=== PATIENT | female | born 1945 | race Caucasian/White ===

== ENCOUNTER 2019-04-03 13:45 | Inpatient (IN) | payer OTHER ==
[2019-04-03 14:35] LABS: Absolute Lymphocytes (CBC) 1.1 K/uL (0.7-4.9); Absolute Monocytes 1.2 K/uL (0.1-1.3); Absolute Neutrophil 12.1 K/uL (1.8-8.0); Basophils % 0.7 % (0-1.3); Eosinophils % 1.9 % (0-4.4); Hematocrit 36.4 % (36.0-45.0); Lymphocytes % 7.4 % (15.3-44.8); MPV 7.6 fL (7.6-11.3); RBC Red Blood Cell Count 3.94 M/uL (3.86-4.86)
--- NOTE | 2019-04-03 14:41 | RAD REPORT ---
EXAM DESCRIPTION: Nelson Timmons And Lat (2 Views)04/03/2019 2:32 pm CLINICAL HISTORY: Cough COMPARISON: April 02, 2019 FINDINGS: Mild left and moderate right pulmonary opacities are unchanged. A reticulonodular componen t of the opacities is seen. This may indicate an atypical infection. The heart is normal size IMPRESSION: Moderate right and mild left pneumonia unchanged from the prior exam
[2019-04-03 14:48] LABS: Potassium 3.5 mmol/L (3.5-5.1)
--- NOTE | 2019-04-03 14:58 | ER ---
Nurse's Notes [facility] Name: Danielle Grover Age: 73 yrs Sex: Female : 1945 Arrival Date: 04/03/2019 Time: 13:49 Bed 8 Private MD: Diagnosis: Pneumonia, unspecified organism Presentation: 04/03 13:52 Presenting complaint: states: She was sent here with me because her doctor sg called and told us to get to the ER for an evaluation due to the results of the chest xray she had last night, they think that she may have a pneumonia, pt states she feels tired and short of breath at rest that worsens with exertion, pt states has had fever off and on for several days. Transition of care: patient was not received from another setting of care. Onset of symptoms was April 03, 2019. Risk Assessment: Do you want to hurt yourself or someone else? Patient reports no desire to harm self or others. Initial Sepsis Screen: Does the patient meet any 2 criteria? RR > 20 per min. HR > 90 bpm. Yes Does the patient have a suspected source of infection? Yes: Productive cough/pneumonia. Care prior to arrival: None. 13:52 Method Of Arrival: Ambulatory 13:52 Acuity: BALJIT 3 sg Historical: - Allergies: 13:55 Codeine; sg - Home Meds: 13:55 Coreg Oral [Active]; Folic Acid Oral [Active]; Nexium Oral [Active]; Rheumatrex Oral sg [Active]; - PMHx: 13:55 CHF; GERD; Rheumatoid Arthritis; sg - PSHx: 13:55 Hysterectomy; mastoidectomy; hip replacement - right; cataract surgery - bilat; sg - Immunization history:: Adult Immunizations up to date. - Social history:: Smoking status: Patient/guardian denies using tobacco. - Ebola Screening: : Patient negative for fever greater than or equal to 101.5 degrees Fahrenheit, and additional compatible Ebola Virus Disease symptoms Patient denies exposure to infectious person Patient denies travel to an Ebola-affected area in the 21 days before illness onset No symptoms or risks identified at this time. Screenin:56 Abuse screen: Denies threats or abuse. Denies injuries from another. Nutritional ph screening: No deficits noted. Tuberculosis screening: No symptoms or risk factors identified. Fall Risk No fall in past 12 months (0 pts). No secondary diagnosis (0 pts). IV access (20 points). Ambulatory Aid- None/Bed Rest/Nurse Assist (0 pts). Gait- Weak (10 pts.). Mental Status- Oriented to own ability (0 pts). Total Mark Fall Scale indicates Low Risk Score (25-44 pts). Fall prevention measures have been instituted. Side Rails Up X 2 Family Present and informed to notify staff if they need to leave bedside As available Patient and Family Educated on Fall Prevention Program and strategies. Assessment: 14:00 General: Appears in no apparent distress. slender, well groomed, Behavior is ae3 cooperative, anxious. 14:01 Pain: Denies pain. Neuro: Level of Consciousness is awake, alert, obeys commands, ae3 Oriented to person, place, time, situation, Appropriate for age. Cardiovascular: Heart tones S1 S2 present Rhythm is regular. Respiratory: Airway is patent Respiratory effort is shallow, Respiratory pattern is regular, tachypnea Breath sounds are clear bilaterally. GI: Abdomen is round Patient currently denies diarrhea, vomiting. : No signs and/or symptoms were reported regarding the genitourinary system. EENT: No signs and/or symptoms were reported regarding the EENT system. Derm: Skin is diaphoretic, Skin is pale, Skin temperature is warm. Musculoskeletal: No signs and/or symptoms reported regarding the musculoskeletal system. 15:00 Reassessment: Patient appears in no apparent distress at this time. Patient and/or ph family updated on plan of care and expected duration. Pain level reassessed. Patient is alert, oriented x 3, equal unlabored respirations, skin warm/dry/pink. 15:54 Reassessment: Patient appears in no apparent distress at this time. Patient and/or ph family updated on plan of care and expected duration. Pain level reassessed. Patient is alert, oriented x 3, equal unlabored respirations, skin warm/dry/pink. Pt resting quietly, VSS, awaiting room assignment, SO at bedside. 17:00 Reassessment: Patient appears in no apparent distress at this time. No changes from ph previously documented assessment. Patient and/or family updated on plan of care and expected duration. Pain level reassessed. Patient is alert, oriented x 3, equal unlabored respirations, skin warm/dry/pink. 18:07 Reassessment: Patient appears in no apparent distress at this time. Patient and/or ph family updated on plan of care and expected duration. Pain level reassessed. Patient is alert, oriented x 3, equal unlabored respirations, skin warm/dry/pink. Pt resting quietly, awaiting room assignment, VSS, SO at bedside. 19:30 General: Appears in no apparent distress. Behavior is calm, cooperative, appropriate ea for age. Pain: Denies pain. Neuro: Level of Consciousness is awake, alert, obeys commands, Oriented to person, place, time, situation. Cardiovascular: Patient's skin is warm and dry. Respiratory: Airway is patent Respiratory effort is even, unlabored, Respiratory pattern is regular, symmetrical. GI: Abdomen is round. Derm: Skin is dry, Skin is pale, Skin temperature is warm. Musculoskeletal: No signs and/or symptoms reported regarding the musculoskeletal system. Vital Signs: 13:54 BP 102 / 72; Pulse 112; Resp 22; Temp 99.2; Pulse Ox 92% on R/A; Weight 59.87 kg; sg 15:00 BP 119 / 58; Pulse 101; Resp 18; Pulse Ox 98% on 2 lpm NC; ph 15:54 BP 94 / 56; Pulse 88; Resp 22; Pulse Ox 96% on 2 lpm NC; ph 17:00 BP 101 / 58; Pulse 87; Resp 18; Pulse Ox 97% on 2 lpm NC; ph 18:06 BP 99 / 54; Pulse 92; Resp 18; Pulse Ox 95% on 2 lpm NC; ph 19:32 BP 106 / 50; Pulse 88; Resp 19; Pulse Ox 97% on 2 lpm NC; ea 19:36 Temp 98.7; ea ED Course: 13:49 Patient arrived in ED. mr 13:54 Triage completed. sg 13:54 Arm band placed on. sg 13:55 Shantell Wadsworth FNP-C [facility]. kb 13:55 Nathan Mariano MD is Attending Physician. kb 13:56 Patient has correct armband on for positive identification. Bed in low position. Call ph light in reach. Side rails up X 1. Pulse ox on. NIBP on. Door closed. Noise minimized. 14:28 Diane Lobato RN is Primary Nurse. ph 14:28 Initial lab(s) drawn, by me, sent to lab. Flu and/or RSV swab sent to lab. Inserted ph saline lock: 20 gauge in right antecubital area, using aseptic technique. Blood collected. 14:33 Chest Pa And Lat (2 Views) XRAY In Process Unspecified. EDMS 14:58 Harjit Batres MD is Hospitalizing Provider. kb 19:58 No provider procedures requiring assistance completed. Patient admitted, IV remains in ca1 place. Administered Medications: 14:58 Drug: NS 0.9% 500 ml Route: IV; Rate: bolus; Site: right antecubital; ph 15:57 Follow up: Response: No adverse reaction; IV Status: Completed infusion; IV Intake: ph 500ml 14:58 Not Given (Physician Discretion): Zithromax 500 mg PO once kb 14:59 Drug: Rocephin 1 grams Route: IV; Rate: calculated rate; Site: right antecubital; ph 15:57 Follow up: Response: No adverse reaction; IV Status: Completed infusion ph 15:10 Drug: Zithromax 500 mg Route: IVPB; Infused Over: 1 hrs; Site: right antecubital; ph 16:09 Follow up: Response: No adverse reaction; IV Status: Completed infusion ph Intake: 15:57 IV: 500ml; Total: 500ml. ph Outcome: 14:58 Decision to Hospitalize by Provider. kb 19:50 Admitted to Med/surg accompanied by tech, room 221, Report called to Receiving nurse ea on second floor. 19:50 Condition: stable 19:50 Instructed on the need for admit. 20:04 Patient left the ED. ca1 Signatures: Dispatcher [employer] EDMS Shantell Wadsworth, HARLEY MILLERP-Deo Mcguire, RN NICHOLAS Laura SiddiquiDiane RN RN ph Antunez, Elena, RN RN ea Acob, Cheryl, RN RN ca1 Elliot, Andie ae3
--- NOTE | 2019-04-03 14:58 | EDPHYS ---
Physician Documentation [facility] Name: Danielle Grover Age: 73 yrs Sex: Female : 1945 Arrival Date: 04/03/2019 Time: 13:49 Bed 8 Private MD: ED Physician Nathan Mariano HPI: 04/03 15:16 This 73 yrs old Female presents to ER via Ambulatory with complaints of kb Pneumonia. 15:17 The patient or guardian reports cough, that is intermittent, described as moderate, kb with no sputum, flu symptoms, low-grade fever, myalgias. Onset: The symptoms/episode began/occurred 7 day(s) ago. Severity of symptoms: At their worst the symptoms were moderate, in the emergency department the symptoms are unchanged. Modifying factors: The symptoms are alleviated by nothing, the symptoms are aggravated by nothing. Associated signs and symptoms: Pertinent positives: fever, Pertinent negatives: chest pain, diarrhea, ear ache, nausea, rhinorrhea, sore throat, vomiting. The patient has not experienced similar symptoms in the past. The patient has been recently seen at an urgent care, yesterday. Pt reports she was diagnosed with the flu by Dr Bruner 7 days ago and given tamiflu. Still running fevers of 103 so went to yesterday. Had x-ray done and diagnosed with pneumonia. Started amoxicillin yesterday. Today was running 103 again so she came to get re-evaluated. States "I've never been sick for this long". Historical: - Allergies: 13:55 Codeine; sg - Home Meds: 13:55 Coreg Oral [Active]; Folic Acid Oral [Active]; Nexium Oral [Active]; Rheumatrex Oral sg [Active]; - PMHx: 13:55 CHF; GERD; Rheumatoid Arthritis; sg - PSHx: 13:55 Hysterectomy; mastoidectomy; hip replacement - right; cataract surgery - bilat; sg - Immunization history:: Adult Immunizations up to date. - Social history:: Smoking status: Patient/guardian denies using tobacco. - Ebola Screening: : Patient negative for fever greater than or equal to 101.5 degrees Fahrenheit, and additional compatible Ebola Virus Disease symptoms Patient denies exposure to infectious person Patient denies travel to an Ebola-affected area in the 21 days before illness onset No symptoms or risks identified at this time. ROS: 15:16 ENT: Negative for injury, pain, and discharge, Neck: Negative for injury, pain, and kb swelling, Cardiovascular: Negative for chest pain, palpitations, and edema, Abdomen/GI: Negative for abdominal pain, nausea, vomiting, diarrhea, and constipation, Back: Negative for injury and pain, MS/Extremity: Negative for injury and deformity, Skin: Negative for injury, rash, and discoloration, Neuro: Negative for headache, weakness, numbness, tingling, and seizure. 15:16 Constitutional: Positive for body aches, chills, fever, malaise, Negative for poor PO intake, weight loss. 15:16 Respiratory: Positive for cough, Negative for dyspnea on exertion, hemoptysis, orthopnea, pleurisy, shortness of breath, sputum production, wheezing. Exam: 15:14 Constitutional: This is a well developed, well nourished patient who is awake, alert, kb and in no acute distress. Head/Face: Normocephalic, atraumatic. ENT: Nares patent. No nasal discharge, no septal abnormalities noted. Tympanic membranes are normal and external auditory canals are clear. Oropharynx with no redness, swelling, or masses, exudates, or evidence of obstruction, uvula midline. Mucous membranes moist. Neck: Trachea midline, no thyromegaly or masses palpated, and no cervical lymphadenopathy. Supple, full range of motion without nuchal rigidity, or vertebral point tenderness. No Meningismus. Chest/axilla: Normal chest wall appearance and motion. Nontender with no deformity. No lesions are appreciated. Cardiovascular: Regular rate and rhythm with a normal S1 and S2. No gallops, murmurs, or rubs. Normal PMI, no JVD. No pulse deficits. Abdomen/GI: Soft, non-tender, with normal bowel sounds. No distension or tympany. No guarding or rebound. No evidence of tenderness throughout. Skin: Warm, dry with normal turgor. Normal color with no rashes, no lesions, and no evidence of cellulitis. MS/ Extremity: Pulses equal, no cyanosis. Neurovascular intact. Full, normal range of motion. Neuro: Awake and alert, GCS 15, oriented to person, place, time, and situation. Cranial nerves II-XII grossly intact. Motor strength 5/5 in all extremities. Sensory grossly intact. Cerebellar exam normal. Normal gait. 15:14 Respiratory: the patient does not display signs of respiratory distress, Respirations: normal, Breath sounds: decreased breath sounds, that are mild, are located in both bases. Vital Signs: 13:54 BP 102 / 72; Pulse 112; Resp 22; Temp 99.2; Pulse Ox 92% on R/A; Weight 59.87 kg; sg 15:00 BP 119 / 58; Pulse 101; Resp 18; Pulse Ox 98% on 2 lpm NC; ph 15:54 BP 94 / 56; Pulse 88; Resp 22; Pulse Ox 96% on 2 lpm NC; ph 17:00 BP 101 / 58; Pulse 87; Resp 18; Pulse Ox 97% on 2 lpm NC; ph 18:06 BP 99 / 54; Pulse 92; Resp 18; Pulse Ox 95% on 2 lpm NC; ph 19:32 BP 106 / 50; Pulse 88; Resp 19; Pulse Ox 97% on 2 lpm NC; ea 19:36 Temp 98.7; ea MDM: 13:55 Patient medically screened. kb 14:57 Data reviewed: vital signs, nurses notes. Data interpreted: Pulse oximetry: on room air kb is 92 %. Interpretation: borderline. Counseling: I had a detailed discussion with the patient and/or guardian regarding: the historical points, exam findings, and any diagnostic results supporting the discharge/admit diagnosis, lab results, radiology results, the need for further work-up and treatment in the hospital. Physician consultation: Harjti Batres MD was contacted at 14:57, regarding admission, to the telemetry unit. patient's condition, and will see patient in ED, shortly. 04/03 14:08 Order name: CBC with Diff; Complete Time: 15:11 kb 04/03 14:08 Order name: Basic Metabolic Panel; Complete Time: 14:50 kb 04/03 14:08 Order name: Blood Culture Adult (2) kb 04/03 14:08 Order name: Lactate; Complete Time: 14:51 kb 04/03 14:08 Order name: Procalcitonin; Complete Time: 15:11 kb 04/03 14:08 Order name: Flu; Complete Time: 14:54 kb 04/03 14:08 Order name: IV Start; Complete Time: 14:32 kb 04/03 14:08 Order name: Chest Pa And Lat (2 Views) XRAY; Complete Time: 14:42 kb 04/03 14:41 Order name: Manual Differential; Complete Time: 15:11 EDMS Administered Medications: 14:58 Drug: NS 0.9% 500 ml Route: IV; Rate: bolus; Site: right antecubital; ph 15:57 Follow up: Response: No adverse reaction; IV Status: Completed infusion; IV Intake: ph 500ml 14:58 Not Given (Physician Discretion): Zithromax 500 mg PO once kb 14:59 Drug: Rocephin 1 grams Route: IV; Rate: calculated rate; Site: right antecubital; ph 15:57 Follow up: Response: No adverse reaction; IV Status: Completed infusion ph 15:10 Drug: Zithromax 500 mg Route: IVPB; Infused Over: 1 hrs; Site: right antecubital; ph 16:09 Follow up: Response: No adverse reaction; IV Status: Completed infusion ph Disposition: 04/03/19 14:58 Hospitalization ordered by Harjit Batres for Inpatient Admission. Preliminary diagnosis is Pneumonia, unspecified organism. - Bed requested for Telemetry/MedSurg (Inpatient). - Status is Inpatient Admission. ca1 - Condition is Stable. - Problem is new. - Symptoms are unchanged. UTI on Admission? No Addendum: 04/06/2019 21:16 Co-signature as Attending Physician, Nathan Mariano MD Available for consultation at p s1 all times. . Signatures: Dispatcher [employer] EDUT Shantell Wadsworth, MATHEMATICS DEPARTMENT CHAIR-C MATHEMATICS DEPARTMENT CHAIR-Ckb Deo Lenz RN RN Leatha Luque RN RN Diane Lobato RN RN Nathan Mariano MD MD [facility] Fernanda Whaley RN RN ca1 Corrections: (The following items were deleted from the chart) 04/03 18:18 14:58 Hospitalization Ordered by Harjit Batres MD for Inpatient Admission. Preliminary ss diagnosis is Pneumonia, unspecified organism. Bed requested for Telemetry/MedSurg (Inpatient). Status is Inpatient Admission. Condition is Stable. Problem is new. Symptoms are unchanged. UTI on Admission? No. kb 20:04 18:18 04/03/2019 14:58 Hospitalization Ordered by Harjit Batres MD for Inpatient ca1 Admission. Preliminary diagnosis is Pneumonia, unspecified organism. Bed requested for Telemetry/MedSurg (Inpatient). Status is Inpatient Admission. Condition is Stable. Problem is new. Symptoms are unchanged. UTI on Admission? No. ss
[2019-04-03 15:04] LABS: Blood Morphology Comment NOT SEEN (NOT SEEN); Platelet Estimate INCR
[2019-04-03] MEDS ORDERED: NA CHLORIDE 0.9% 500 ML ONE (15:04)
[2019-04-03] MEDS ORDERED: CEFTRIAXONE/SWI 1gm 1 GM/10 ML SYR ONE (15:04)
[2019-04-03] MEDS ORDERED: AZITHROMYCIN 250 MG TAB ONE (15:04)
[2019-04-03] MEDS ORDERED: NA CHLORIDE 0.9% 250 ML ONE (15:15)
[2019-04-03] MEDS ORDERED: AZITHROMYCIN 500 MG INJ IVPB ONE (15:15)
--- NOTE | 2019-04-03 18:24 | P.INFCA ---
Sepsis Focused Assessment - Sepsis Screen Result Severe Sepsis: Negative Septic Shock: Negative - Vital Signs Reviewed: Yes - Examination Heart: Regular rate/rhythm, S1, S2 Lungs: Diminished air movement, Rhonchi, Respiratory distress Peripheral pulses: 2+ Slightly diminished Peripheral pulse location: Pedal Capillary refill: >2 Seconds Skin examination: Pale
[2019-04-03 19:59] VITALS: BMI 20.5
[2019-04-03] MEDS ORDERED: NA CHLORIDE 0.9% 1,000 ML IV SCH (20:21)
[2019-04-03] MEDS ORDERED: ONDANSETRON 4 MG/2 ML VIAL IV PRN (20:21)
[2019-04-03] MEDS ORDERED: ALBUTEROL 2.5 MG/3 ML NEB SOL NEB PRN (20:21)
[2019-04-03] MEDS: ACETAMINOPHEN 500 MG TAB PO PRN (23:11)
--- NOTE | 2019-04-04 01:12 | HP ---
Date of Admission: 04/03/2019 Primary Care Physician: Dr. Bruner. Chief Complaint: Shortness of breath and cough. Code Status: Full. The patient has a designated medical power of disability attorney and living well. History Of Present Illness: The patient is a 73-year-old female with past medical history of congest velasquez heart failure, rheumatoid arthritis, large cell lymphoma status post chemotherapy, gastroesophage al reflux disease, hypertension, hyperlipidemia, who was in her usual state of health until one week prior to admission when the patient was diagnosed with influenza. The patient was treated with Tamif tonia, subsequently continued to have high-grade fevers, chills along with rigors and had a cough with s putum production. The patient went to Urgent Care, had an x-ray and was found to have pneumonia. patient was started on amoxicillin, however, her condition did not improve. Therefore, came into t he ER for further evaluation. The patient's symptoms are constant, moderate, progressively worsening . In the ER, her workup revealed a white count of 14,000 with left shift, procalcitonin was elevated at 0.51, kidney function was also elevated. Influenza screen was negative; however, chest x-ray did show moderate right and mild left pneumonia, unchanged from April 02. The patient was given IV antib iotics and referred for admission. When seen in the ER, she was awake, alert, oriented x3, in some m ild distress. 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 Past Surgical History: The patient has had cataract surgery, mastoiditis on the left, right hip repl acement, surgery on her foot. Allergies: CODEINE. Medications: List reviewed. Social History: The patient denies any tobacco use, alcohol use, or illicit drug use. The patient i s , independent in her activities of daily living. Does not use any assistive ambulatory micaela bharti. Family History: Mother of colon cancer. Hypertension also runs in the family. Father had stro ke. Review of Systems: An 11-point system reviewed and negative except as per HPI. Physical Examination: Vital Signs: Blood pressure 102/72, pulse 112, respirations 22, temperature 99.2, O2 92% on room air . General: Awake, alert, oriented x3. Some mild distress. Ill-appearing female, elderly. HEENT: Normocephalic, atraumatic. PERRLA. EOMI. Dry mucous membranes. Oropharynx is clear. Conj unctivae anicteric. Neck: Supple. No JVD. Trachea midline. CV: S1, S2. Sinus tachycardia. Peripheral pulses present. No murmurs. Respiratory: Diminished breath sounds. Rhonchi heard. The patient is tachypneic. No use of access ory muscles. No stridor. Gastrointestinal: Abdomen is soft, nontender, nondistended. Positive bowel sounds. No guarding or rigidity. No palpable masses. Extremities: No clubbing, cyanosis, or edema. No calf tenderness. Neurologic: Cranial nerves II through XII intact grossly. No focal neurological deficit. Speech is normal. Strength is 5/5 bilateral upper and lower extremities. Sensation intact to light touch. Psychiatric: Mood is okay. Affect is full. Insight and judgment are good. Skin: No rashes. Normal skin turgor. Laboratory Data: Sodium 134, potassium 3.5, chloride 99, CO2 29, BUN 22, creatinine 1.33, glucose 12 8, lactate 1.2, calcium 8.9, procalcitonin 0.51. WBC 14.7, H and H 12.3/36.4, platelets 407, neutrop hils 82%. Influenza screen is negative. Chest x-ray shows moderate right and mild left pneumonia, u nchanged from prior exam on April 02, 2019. Assessment: A 73-year-old female with: 1.Post influenza pneumonia. The patient has moderate opacities bilaterally. We will start on IV an tibiotics and obtain blood cultures and sputum cultures. The patient is immunocompromised, is on bio logics for her rheumatoid arthritis. 2.Sepsis. The patient has elevated white count of 14,000, blood pressure as low as 80s systolic, ta chypneic, tachycardic at rate of 112. The patient has already been bolused with normal saline, has r eceived 750 mL. We will proceed with another 250 mL bolus. Cultures have been obtained. Lactate is negative. Procalcitonin is elevated. We will start on sepsis bundle. We will remain cautious with fluids as the patient has history of congestive heart failure to avoid volume overload. 3.The patient also has organ dysfunction, elevated creatinine with acute kidney injury. 4.Acute kidney injury, likely due to sepsis and acute dehydration. Continue with IV fluids and kait tor. 5.Chronic systolic heart failure. We will continue on sodium restricted diet. Monitor I's and O's, daily weights. We will hold off on blood pressure medications at this time due to hypotension. 6.History of essential hypertension, currently hypotensive. Hold BP medications. 7.Hyperlipidemia. Continue statin. 8.Rheumatoid arthritis, generalized. We will hold off on biologics at this time, stable. 9.Deep venous thrombosis prophylaxis with Lovenox renally dosed. Plan: Admit the patient to Med/Surg, place as inpatient. Length Of Stay: Greater than 2 midnights. /FELIPE Voice ID: [id number]
[2019-04-04 02:10] LABS: Urine Appearance CLEAR; Urine Bilirubin NEGATIVE (NEG); Urine Blood NEGATIVE (NEG); Urine Color YELLOW; Urine Glucose NEGATIVE (NEG); Urine Protein 1+ (NEG); Urine Specific Gravity 1.015 (1.005-1.030)
[2019-04-04] MEDS ORDERED: CEFTRIAXONE 1000 MG/VIAL ONE (02:18)
[2019-04-04] MEDS ORDERED: NA CHLORIDE 0.9% 50 ML ONE (02:19)
[2019-04-04 02:33] LABS: Urine Microscopic Reflex ORDER UMIC
[2019-04-04 02:58] LABS: Urine Bacteria <20 /HPF (<20); Urine RBC <5 /HPF (NONE SEEN)
[2019-04-04 02:59] LABS: Urine Culture Reflex Order REFLEXED
[2019-04-04] MEDS ORDERED: CEFTRIAXONE 1 GM/NS 50 ML 1 GM/50 ML BAG IV SCH (03:00)
[2019-04-04 05:49] LABS: Absolute Lymphocytes (CBC) 1.1 K/uL (0.7-4.9); Absolute Monocytes 1.2 K/uL (0.1-1.3); Absolute Neutrophil 10.3 K/uL (1.8-8.0); Basophils % 0.3 % (0-1.3); Lymphocytes % 8.8 % (15.3-44.8); MPV 7.6 fL (7.6-11.3); Monocytes % 9.2 % (3.3-12.3); RBC Red Blood Cell Count 3.55 M/uL (3.86-4.86)
[2019-04-04 06:31] LABS: Albumin 2.3 g/dL (3.4-5.0); Bilirubin Total 0.3 mg/dL (0.2-1.0); Potassium 3.5 mmol/L (3.5-5.1)
[2019-04-04] MEDS ORDERED: ENOXAPARIN 30 MG/0.3 ML SQ SCH (09:00)
[2019-04-04] MEDS ORDERED: ALBUTEROL 2.5 MG/3 ML NEB SOL NEB PRN (09:00)
[2019-04-04] MEDS: AZITHROMYCIN IV 500 MG in NA CHLORIDE 0.9% 250 ML IVPB SCH (09:13)
[2019-04-04] MEDS: CEFTRIAXONE/SWI 1gm 1 GM/10 ML SYR IV SCH ×2 (09:14→20:39)
[2019-04-04] MEDS: ENOXAPARIN 40 MG/0.4 ML SQ SCH (12:00)
[2019-04-04] MEDS: GUAIFENESIN/DM 5 ML UCUP PO PRN ×2 (12:37→17:57)
[2019-04-04] MEDS: ACETAMINOPHEN 500 MG TAB PO PRN (12:37)
[2019-04-04 14:46] LABS: Absolute Lymphocytes (CBC) 1.2 K/uL (0.7-4.9); Absolute Monocytes 0.7 K/uL (0.1-1.3); Absolute Neutrophil 10.6 K/uL (1.8-8.0); Basophils % 0.6 % (0-1.3); Eosinophils % 0.9 % (0-4.4); Lymphocytes % 9.5 % (15.3-44.8); MPV 7.5 fL (7.6-11.3); Monocytes % 5.4 % (3.3-12.3); RBC Red Blood Cell Count 3.55 M/uL (3.86-4.86)
[2019-04-04 15:04] LABS: Albumin 2.4 g/dL (3.4-5.0); Bilirubin Total 0.3 mg/dL (0.2-1.0); Potassium 3.2 mmol/L (3.5-5.1); Protein, Total 6.3 g/dL (6.4-8.2)
--- NOTE | 2019-04-04 15:55 | PN ---
Date of Progress Note: 04/04/2019 Subjective: The patient is seen and examined. Chart reviewed and case discussed with RN. The patie nt still states that she is having some generalized malaise. The patient's cough is increased with s cant sputum production. at the bedside, treatment plan explained and all questions answered. Medications: List reviewed. Physical Examination: Vital Signs: Temperature 99.5, heart rate 101, blood pressure 110/58, respirations 20, O2 91% on 2 L via nasal cannula. General: Awake, alert, oriented x3. Elderly female, ill-appearing, frail. CV: S1 and S2. Sinus tachycardia. Peripheral pulses present. Respiratory: Diminished breath sounds. Rhonchi heard. The patient is slightly tachypneic. Gastrointestinal: Abdomen is soft, nontender, nondistended. Positive bowel sounds. Extremities: No clubbing, cyanosis, or edema. Neurologic: Nonfocal. Laboratory Data: Sodium 139, potassium 3.5, chloride 105, CO2 28, BUN 11, creatinine 0.85, glucose 8 9, calcium 8.3, magnesium 2, albumin 2.3. WBC 12.9, H and H 11 and 33, platelets 387. Blood culture s pending. Sputum culture and urine culture also pending. Assessment And Plan: A 73-year-old female with: 1.Sepsis, improving. The patient's blood pressure is now in the low 100s. The patient is still tac hycardic. The patient received boluses and was on IV fluids, need to be cautious due to her history of congestive heart failure. Cultures are still pending. The patient has been having low-grade feve rs. 2.Post influenza pneumonia. We will recheck two-view chest x-ray in a.m. Continue antibiotics for now. Follow up on cultures. 3.Acute kidney injury secondary to sepsis. 4.Acute dehydration. Kidney function is normalized. We will discontinue IV fluids. 5.Chronic systolic heart failure. Monitor I's and O's and daily weights. The patient currently hyp otensive. We will hold off on diuretics. Sodium restricted diet. 6.History of essential hypertension, currently hypotensive. Hold BP medications. 7.Mixed hyperlipidemia. Continue statin. 8.Rheumatoid arthritis, generalized. Hold immunologic at this time due to acute infection. 9.Deep venous thrombosis prophylaxis with Lovenox. We will adjust dose as kidney function has impro mayuri. Plan: Likely discharge in the next 24-48 hours depending on clinical response. /FELIPE Voice ID: [id number] Report ID: [id number]
[2019-04-04] MEDS: FOLIC ACID 1 MG TABLET PO SCH ×2 (16:02→20:38)
--- NOTE | 2019-04-04 16:48 | RAD REPORT ---
EXAM DESCRIPTION: RAD - Chest Single View - 04/04/2019 4:04 pm CLINICAL HISTORY: Tachycardia, tachypnea COMPARISON: April 03, 2019 TECHNIQUE: AP portable chest image was obtained 1600 hours . FINDINGS: Lung volume is decreased compared to the prior study. Anterior right base pneumonia is sti ll present without substantial interval change. Patchy left opacification stable as well. No failure or volume overload suspected. Heart and vasculature are normal. No measurable pleural effusion and no pneumothorax. No acute bony abnormality seen. No acute aortic findings suspected. IMPRESSION: Pneumonia changes remain pattern not significantly different from prior day study.
[2019-04-04] MEDS: NA CHLORIDE 0.9% 1,000 ML IV SCH (17:56)
[2019-04-04] MEDS ORDERED: LOTEPREDNOL ETABONATE EACH EYE SCH (21:00)
[2019-04-05 06:03] LABS: Absolute Lymphocytes (CBC) 1.1 K/uL (0.7-4.9); Absolute Monocytes 0.8 K/uL (0.1-1.3); Absolute Neutrophil 7.9 K/uL (1.8-8.0); Basophils % 0.8 % (0-1.3); Eosinophils % 1.5 % (0-4.4); Hematocrit 33.2 % (36.0-45.0); MPV 7.3 fL (7.6-11.3); Monocytes % 8.4 % (3.3-12.3); RBC Red Blood Cell Count 3.55 M/uL (3.86-4.86)
[2019-04-05 06:14] LABS: ALT/SGPT 53 U/L (12-78); AST/SGOT 61 U/L (15-37); Albumin 2.3 g/dL (3.4-5.0); Alkaline Phosphatase 137 U/L (45-117); BUN Blood Urea Nitrogen 6 mg/dL (7-18); Bicarbonate 25 mmol/L (21-32); Bilirubin Total 0.3 mg/dL (0.2-1.0); Glucose Level 97 mg/dL (74-106); Potassium 3.5 mmol/L (3.5-5.1); Protein, Total 6.1 g/dL (6.4-8.2); Sodium Level 142 mmol/L (136-145)
--- NOTE | 2019-04-05 08:36 | RAD REPORT ---
EXAM DESCRIPTION: RAD - Chest Pa And Lat (2 Views) - 04/05/2019 8:25 am CLINICAL HISTORY: pneumonia Chest pain. COMPARISON: Chest Single View dated 04/04/2019; Chest Pa And Lat (2 Views) dated 04/03/2019; Chest Pa An d Lat (2 Views) dated 04/02/2019; CHEST PA AND LAT 2 VIEW dated 02/02/2016 FINDINGS: Airspace opacity in right upper lobe anteriorly appears mildly progressive since the taco rative study, compatible with right-sided pneumonia. Small right pleural effusion is present. The lef t lung is emphysematous. The heart is normal in size. No displaced fractures.
[2019-04-05] MEDS: AZITHROMYCIN IV 500 MG in NA CHLORIDE 0.9% 250 ML IVPB SCH (11:36)
[2019-04-05] MEDS: ENOXAPARIN 40 MG/0.4 ML SQ SCH (11:38)
[2019-04-05] MEDS: FOLIC ACID 1 MG TABLET PO SCH ×2 (11:38→21:50)
[2019-04-05] MEDS: CEFTRIAXONE/SWI 1gm 1 GM/10 ML SYR IV SCH ×2 (11:40→21:00)
[2019-04-05] MEDS ORDERED: FUROSEMIDE 40 MG/4 ML VIAL IV ONE (14:56)
[2019-04-05] MEDS: NA CHLORIDE 0.9% 1,000 ML IV SCH (16:20)
[2019-04-05] MEDS: ACETAMINOPHEN 500 MG TAB PO PRN (16:21)
[2019-04-05] MEDS: GUAIFENESIN/DM 5 ML UCUP PO PRN (16:22)
--- NOTE | 2019-04-05 19:14 | PN ---
Date of Progress Note: 04/05/2019 Subjective: The patient was seen and examined, chart reviewed and case discussed with RN. The patie nt is still having some low-grade fevers. Complains of generalized weakness, now complaining of pleu ritic chest pain. Medications: List reviewed. Physical Examination: Vital Signs: Temperature 99.7, heart rate 91, blood pressure 115/58, respirations 20, O2 96% on room air. General: Awake, alert, oriented x3. Elderly female, ill appearing. CV: S1, S2. Regular rate and rhythm. Peripheral pulses present. Respiratory: Diminished breath sounds, right worse than left. No stridor. No use of accessory musc les. Gastrointestinal: Abdomen is soft, nontender, nondistended. Positive bowel sounds. Extremities: No clubbing, cyanosis, or edema. Neurologic: Nonfocal. Laboratory Data: Sodium 142, potassium 3.5, chloride 110, CO2 25, BUN 6, creatinine 0.6, glucose 97, calcium 8.6, AST 61, ALT 53, alkaline phosphatase 137, albumin 2.3. WBC 10, H and H 11 and 33.2, pl atelets 401. Blood cultures show no growth to date. Sputum culture shows no growth. Chest x-ray pe rsonally reviewed shows opacity in the right upper lobe anteriorly, appears mildly progressive since comparative study. Right small pleural effusion is present. Left lung is emphysematous, no displace d fractures. Assessment: A 73-year-old female with: 1.Sepsis, improving. Blood pressure now stabilized in the one-teens. The patient is no longer tach ycardic. The patient did receive IV fluids, however, now discontinued due to history of CHF and wors ening chest x-ray showing pleural effusion. Continues to have low-grade fevers. Cultures are negati ve to date. 2.Post-influenza pneumonia. The patient is immunocompromised due to her immunologic therapy for rhe umatoid arthritis. Continue antibiotics. We will follow up on final culture results, improving, wea n off O2. 3.Acute kidney injury, secondary to sepsis. 4.Acute dehydration, improved, IV fluids discontinued due to congestive heart failure. 5.Chronic systolic heart failure. We will continue to monitor I's and O's. Fluid restriction and s odium restriction. 6.Right pleural effusion. We will give dose of Lasix. 7.History of essential hypertension, currently hypotensive. We will hold blood pressure medications . 8.Mixed hyperlipidemia. We will continue statin. 9.Rheumatoid arthritis. Hold DMARDs for now. 10.Deep venous thrombosis prophylaxis with Lovenox. Plan: Continue antibiotics, follow up on cultures, likely discharge in the next 24-48 hours dependin g on clinical response. MARTHA Voice ID: [id number] Report ID: [id number]
[2019-04-06] MEDS: GUAIFENESIN/DM 5 ML UCUP PO PRN (02:29)
[2019-04-06 05:18] LABS: Absolute Lymphocytes (CBC) 1.2 K/uL (0.7-4.9); Absolute Monocytes 0.6 K/uL (0.1-1.3); Basophils % 0.2 % (0-1.3); Eosinophils % 2.1 % (0-4.4); Hematocrit 32.6 % (36.0-45.0); Lymphocytes % 11.7 % (15.3-44.8); MPV 7.4 fL (7.6-11.3); Monocytes % 6.1 % (3.3-12.3); RBC Red Blood Cell Count 3.55 M/uL (3.86-4.86)
[2019-04-06 05:47] LABS: ALT/SGPT 85 U/L (12-78); AST/SGOT 89 U/L (15-37); Albumin 2.3 g/dL (3.4-5.0); Alkaline Phosphatase 128 U/L (45-117); BUN Blood Urea Nitrogen 6 mg/dL (7-18); Bicarbonate 25 mmol/L (21-32); Bilirubin Total 0.4 mg/dL (0.2-1.0); Glucose Level 101 mg/dL (74-106); Potassium 3.2 mmol/L (3.5-5.1); Protein, Total 6.2 g/dL (6.4-8.2); Sodium Level 141 mmol/L (136-145)
[2019-04-06] MEDS: CEFTRIAXONE/SWI 1gm 1 GM/10 ML SYR IV SCH (09:00)
[2019-04-06 09:15] VITALS: TEMP 98.3
[2019-04-06] MEDS: FOLIC ACID 1 MG TABLET PO SCH (09:26)
[2019-04-06] MEDS: ENOXAPARIN 40 MG/0.4 ML SQ SCH (09:27)
[2019-04-06] MEDS: AZITHROMYCIN IV 500 MG in NA CHLORIDE 0.9% 250 ML IVPB SCH (09:28)
[2019-04-06] MEDS: NA CHLORIDE 0.9% 1,000 ML IV SCH (10:00)
[2019-04-06 11:17] VITALS: O2SAT 97
--- NOTE | 2019-04-06 13:52 | P.DS ---
Admission Date: 04/03/19 Discharge Date: 04/06/19 Primary Care Provider: Dr. Bruner Disposition: ROUTINE DISCHARGE Discharge Condition: GOOD Reason for Admission: Pneumonia Brief History of Present Illness: The patient is a 73-year-old female with past medical history of congestive heart failure, rheumatoid arthritis, large cell lymphoma status post chemotherapy, gastroesophageal reflux disease, hypertension, hyperlipidemia, who was in her usual state of health until one week prior to admission when the patient was diagnosed with influenza. The patient was treated with Tamiflu, subsequently continued to have high-grade fevers, chills along with rigors and had a cough with sputum production. The patient went to Urgent Care, had an x- ray and was found to have pneumonia. The patient was started on amoxicillin, however, her condition did not improve. Therefore, came into the ER for further evaluation. The patient's symptoms are constant, moderate, progressively worsening. In the ER, her workup revealed a white count of 14, 000 with left shift, procalcitonin was elevated at 0.51, kidney function was also elevated. Influenza screen was negative; however, chest x-ray did show moderate right and mild left pneumonia, unchanged from April 02. The patient was given IV antibiotics and referred for admission. When seen in the ER, she was awake, alert, oriented x3, in some mild distress. Hospital Course: Patient was admitted to the med/surg floor for sepsis and post influenza pneumonia. She was started on IV antibiotics, IVF. She continued to have low grade fevers but her blood pressure and vital signs stabilized. Her blood cultures remained negative. Her repeat chest x-ray was positive for right pleural effusion. Her IVF were discontinued and she was given a one time dose of IV lasix. Her VIANEY, likely secondary to sepsis resolved with IVF. Her blood pressure medications were held at admission due to her low blood pressures. Her immunologic agent was held due to acute infection. She was recommended to hold immunologic agent at discharge until she sees her primary care physician. Prior to discharge, she was alert oriented x3, in no acute distress and hemodynamically stable. She was tolerating oral diet, was satting well on room air and her labs were stable. She remained afebrile for almost 24 hr. She wanted to go home. She was discharged on oral azithromycin to complete a 10 day course. She will follow up with her primary care physician in 2-3 days. ER precautions were provided to the patient. Her treatment plan and diagnoses were explained in detail. All questions were answered and patient verbalized understanding. She was discharged home in a stable manner. Vital Signs/Physical Exam: Temp Pulse Resp BP Pulse Ox 98.3 F 94 H 18 130/63 95 04/06/19 08:00 04/06/19 08:00 04/06/19 08:00 04/06/19 08:00 04/06/19 08:00 General: Alert, In no apparent distress, Oriented x3 HEENT: Atraumatic, PERRLA, EOMI Neck: Supple, JVD not distended Respiratory: Clear to auscultation bilaterally, Normal air movement Cardiovascular: Regular rate/rhythm, Normal S1 S2 Gastrointestinal: Normal bowel sounds, No tenderness Musculoskeletal: No tenderness Integumentary: No rashes Neurological: Normal speech, Normal tone, Normal affect Lymphatics: No axilla or inguinal lymphadenopathy Laboratory Data at Discharge: WBC 10.0 K/uL (4.3-10.9) 04/06/19 04:58 Hgb 11.3 g/dL (12.0-15.0) L 04/06/19 04:58 Hct 32.6 % (36.0-45.0) L 04/06/19 04:58 Plt Count 456 K/uL (152-406) H 04/06/19 04:58 Sodium 141 mmol/L (136-145) 04/06/19 04:58 Potassium 3.2 mmol/L (3.5-5.1) L 04/06/19 04:58 BUN 6 mg/dL (7-18) L 04/06/19 04:58 Creatinine 0.61 mg/dL (0.55-1.3) 04/06/19 04:58 Glucose 101 mg/dL (74-106) 04/06/19 04:58 Magnesium 2.0 mg/dL (1.8-2.4) 04/04/19 05:20 Total Bilirubin 0.4 mg/dL (0.2-1.0) 04/06/19 04:58 AST 89 U/L (15-37) H 04/06/19 04:58 ALT 85 U/L (12-78) H 04/06/19 04:58 Alkaline Phosphatase 128 U/L (45-117) H 04/06/19 04:58 Home Medications: Carvedilol [Coreg*] 6.25 mg PO BID 04/03/19 Folic Acid 1 mg PO BID 04/03/19 Furosemide [Lasix*] 20 mg PO DAILY 04/03/19 Loteprednol Etabonate [Lotemax] 1 drop EACH EYE BID 04/03/19 Potassium Chloride 550 gm PO DAILY 04/03/19 Valsartan [Diovan*] 40 mg PO DAILY 04/03/19 Azithromycin Tab [Zithromax*] 250 mg PO DAILY #8 tab 04/06/19 New Medications: Azithromycin Tab [Zithromax*] 250 mg PO DAILY #8 tab Patient Discharge Instructions: Please follow up with the primary care physician in 2-3 days. New medication: Azithromycin common antibiotics. Please return to the emergency room for worsening symptoms. Diet: AHA Activity: Ad brandan Followup: Edgardo Bruner MD [Primary Care Provider] - 2-3 Days Time spent managing pt's care (in minutes): 55
[2019-04-06 14:39] VITALS: BP 130/58
== END 2019-04-06 16:10 | disposition home or self-care (01) | DRG 871 ==
LOC: ER 13:45 → ERHOLD 15:20 → 2ND 19:43
PROVIDERS: ADMIT Family Medicine; ATTEND Family Medicine
DX: A41.9 Sepsis, unspecified organism (principal); J18.9 Pneumonia, unspecified organism; N17.9 Acute kidney failure, unspecified; I50.22 Chronic systolic (congestive) heart failure; I11.0 Hypertensive heart disease with heart failure; E78.2 Mixed hyperlipidemia; M06.9 Rheumatoid arthritis, unspecified; K21.9 Gastro-esophageal reflux disease without esophagitis; Z85.72 Personal history of non-Hodgkin lymphomas; Z92.21 Personal history of antineoplastic chemotherapy; Z88.5 Allergy status to narcotic agent
CPT/HCPCS: 36415; 71045; 71046; 80048; 80053; 81003; 81015; 83605; 83735; 84145; 85025; 87040; 87086; 87088; 87804; 94760; 96365; 96367; 97116; 97161; 97530; 99285; J0456; J0696; J1650; J1940; J7030

== ENCOUNTER 2020-07-21 14:58 | Emergency (ER) | payer OTHER ==
--- OUTSIDE RECORDS SUMMARY | 2020-07-21 15:00 | XMS REPORT | Summary of Care ---
:1945 Author Organization [facility] - Health Address [address] [place] [address] Care Team Providers Name Role Phone Pcp, Patient Does Not Have A Primary Care Provider +1-000-00 0-0000 Encounter Details Date Type Department Care Team Description 05/11/2020 Orders Only [facility] Doctor Unassigned, No [address] [facility] [place] [address] [address] [place] [address] Allergies Active Allergy Reactions Severity Noted Date Comments Codebonnie Hives 03/09/2020 documented as of this encounter (statuses as of 05/22/2020) Medications Medication Sig Dispensed Refills Start Date End Date Status traMADol 50 mg tablet 0 03/06/2020 Active carvediloL 6.25 mg 0 01/26/2020 Active tablet furosemide 40 mg tablet 0 01/03/2020 Active leucovorin 5 mg tablet TAKE 1 TABLET BY 0 01/21/2020 Active MOUTH EVERY WEEK levothyroxine 25 mcg TAKE 1 TABLET BY 0 02/14/2020 Active tablet MOUTH EVERY DAY IN THE MORNING ON EMPTY STOMACH methotrexate 2.5 mg TAKE 6 TABLETS BY 0 01/27/2020 Active tablet MOUTH EVERY WEEK pravastatin 10 mg 0 02/07/2020 A ctive tablet KCL 10 mEq tablet 0 03/04/2020 A ctive documented as of this encounter (statuses as of 05/22/2020) Active Problems Not on filedocumented as of this encounter (statuses as of 05/22/2020) Social History Tobacco Use Types Packs/Day Years Used Date Never Smoker Smokeless Tobacco: Never Used Alcohol Use Drinks/Week oz/Week Comments Never Alcohol Habits Answer Date Recorded How often do you have a drink containing alcohol? Never 03/09/2020 How many drinks containing alcohol do you have on a typical Not asked day when you are drinking? How often do you have six or more drinks on one occasion? No t asked Sex Assigned at Date Recorded Not on file Job Start Date Occupation Industry Not on file Not on file Not on file Travel History Travel Start Travel End No recent travel history available. documented as of this encounter Last Filed Vital Signs Not on filedocumented in this encounter Plan of Treatment Health Maintenance Due Date Last Done Comments HEPATITIS C (HCV) SCREEN 1945 DTaP,Tdap,and Td Vaccines (1 - Tdap) 1957 Depression Screening 1958 Breast Cancer Screening (MAMMOGRAM) 1986 COLONOSCOPY 1996 Zoster Recombinant Vaccine (SHINGRIX) (1 of 2) 1996 Medicare Wellness Visit 2011 Osteoporosis Screening 2011 PNEUMOCOCCAL VACCINES 65+ (1 of 2 - PCV13) 2011 INFLUENZA VACCINE (Season Ended) 2020 documented as of this encounter Procedures Procedure Name Priority Date/Time Associated Diagnosis Comme nts REFERRAL- Routine 05/11/2020 12:01 AM CDT REQUEST/RESPONSE documented in this encounter Results Not on filedocumented in this encounter Insurance Payer Benefit Plan Subscriber ID Effective Phone Address Typ e / Group Dates AETNA - AETNA [id number] 2019-Prese P O BOX Medic are Adv [place]NAGED MEDICARE [place] nt [id number] [place] [address] documented as of this encounter
--- OUTSIDE RECORDS SUMMARY | 2020-07-21 15:00 | XMS REPORT | Continuity of Care Document ---
:1945 Author Organization [facility] t Address [address] [place] [address] Care Team Providers Name Role Phone Doctor Unassigned, Name Attending Clinician Unavailable Evgeny LEMUS S Attending Clinician AJ Attending Clinician Unavailable Problems Condition Condition Condition Status Onset Resolution Last Treating Co mments Source Name Details Category Date Date Treatment Clinician Date History of History of Problem Resolve [facility] breast breast d ity of cancer cancer [place] [facility] Sleep Sleep Problem Active Univers disturbanc disturbanc it y of es es [place] [facility] Sjogrens Sjogrens Problem Active Unive rs syndrome syndrome ity of [place] [facility] ans Rheumatoid Rheumatoid Problem Active U nivers arthritis arthritis ity of [place] [facility] ans Status Status Problem Active Univers post total post total it y of replac[place] t of right t of right Ph ysici hip hip ans History of History of Problem Resolve Univers Lymphoma, Lymphoma, d ity of large large [place] cell, cell, Physici intrapelvi intrapelvi an s c lymph c lymph nodes nodes Rheumatoid Rheumatoid Problem Active U nivers arthritis arthritis [place] involving involving [place] right knee right knee Ph ysici with with ans positive positive rheumatoid rheumatoid factor factor Allergies, Adverse Reactions, Alerts Allergy Allergy Status Severity Reaction(s) Onset Inactive Treating Comm ents Source Name Type Date Date Clinician Codeine drug Active Univers Derivati allergy ity of ves [place] [facility] ans Family History Family Member Diagnosis Comments Start Date Stop Date Source Mother Family history of Univers ity of [place] thyroid disease Physician s Mother Family history of Univers ity of [place] Colon cancer Physicians Father Family history of Univers ity of [place] hypertension Physicians Social History Smoking Status Start Date Stop Date Source Never smoker [facility] Physicians Medications Ordered Filled Start Stop Current Ordering Indication Dosage Frequency Signature Comments Components Source Medication Medication Date Date Medication? Clinician (SIG) Name Name traMADol traMADol 2010-12 Yes GINA CONTE TAKE 1 Univers HCl - 50 MG HCl - 50 MG 1-14 M.D. TABLET ity of Oral Tablet Oral Tablet 00:00: EVERY 12 [place] 00 HOURS Physici NEEDED. ans Methotrexat Methotrexat Yes GINA CONTE 8 TAKE 8 Univers e 2.5 MG e 2.5 MG M.D. TABLET ity o f Oral Tablet Oral Tablet WEEKLY [place] [facility] ans Folic Acid Folic Acid Yes GINA CONTE 2 QD TAKE 2 Univers 1 MG Oral 1 MG Oral M.D. TABLET ity of Tablet Tablet DAILY [place] [facility] ans Metaxalone Metaxalone Yes GINA CONTE Q0.3333D TAKE 1 Univers 800 MG Oral 800 MG Oral M.D. TABLET 3 ity of Tablet Tablet TIMES [place] DAILY Physici NEEDED FOR ans MUSCLE SPASM. tiZANidine tiZANidine Yes GINA CONTE TAKE 2 Univers HCl - 4 MG HCl - 4 MG M.D. TABLETS AT ity of Oral Tablet Oral Tablet BEDTIME. [place] [facility] ans Lasix 20 MG Lasix 20 MG Yes U nivers Oral Tablet Oral Tablet i ty of [place] [facility] ans Restasis Restasis Yes Univers 0.05 % 0.05 % ity of Ophthalmic Ophthalmic Henrry as Emulsion Emulsion Physici ans Aspirin 81 Aspirin 81 Yes 1 QD TAKE 1 U nivers MG TABS MG TABS TABLET ity of DAILY. [place] [facility]ici ans Coreg CR 20 Coreg CR 20 Yes 1 TAKE 1 Univers MG Oral MG Oral CAPSULE ity of Capsule Capsule BEDTIME [place] Extended Extended Physici Release 24 Release 24 ans Hour Hour Enalapril Enalapril Yes 1 QD TAKE 1 Uni vers Maleate Maleate TABLET ity of TABS TABS DAILY. [place] [facility] ans Evoxac 30 Evoxac 30 Yes 1 QD TAKE 1 Uni vers MG Oral MG Oral CAPSULE ity of Capsule Capsule DAILY [place] [facility] ans Lasix 20 MG Lasix 20 MG Yes 1 QD TAKE 1 Univers Oral Tablet Oral Tablet TABLET ity of DAILY. [place] [facility]ici ans NexIUM 40 NexIUM 40 Yes 1 Q0.5D TAKE 1 Un dennis MG Oral MG Oral CAPSULE ity of Capsule Capsule TWICE [place] Delayed Delayed DAILY Physici Release Release ans Potassium Potassium Yes 1 QD TAKE 1 Uni vers TABS TABS TABLET ity of DAILY. [place] [facility] ans Vitamin D3 Vitamin D3 Yes 1 QD TAKE 1 U nivers 50 MCG 50 MCG CAPSULE ity of (1999) (1999) DAILY [place] Oral Oral Physici Capsule Capsule ans Procedures Procedure Date / Time Performing Clinician Source Performed [U] XRAY KNEE 3 VWS 2019-12-23 00:00:00 [facility] RIGHT [id number] Physicians History of Total Hip [facility] Replacement Right Physicians History of Cataract [facility] [place] [facility]icians History of Breast [facility] Surgery Mastectomy Physicians History of Bunion [facility] Correction By Double Physicians Osteotomy History of Hysterectomy [facility] Physicians Encounters Start End Encounter Admission Attending Care Care Encounter Source Date/Time Date/Time Type Type Clinicians Facility Department ID 2020-05-11 2020-05-11 Orders Doctor KELLY [id number] 00:00:00 00:00:00 Only Unassigned, ANISA [id number] [place] [facility] [id number] 2020-04-13 2020-04-13 Orders Doctor KELLY [id number] 00:00:00 00:00:00 Only Unassigned, ANISA [id number] [place] [facility] [id number] 2020-03-14 2020-03-14 Telephone [facility] [id number] 00:00:00 00:00:00 [facility] [id number] Surgical [id number] Specialti [id number] [address] [place] 2020-03-10 2020-03-10 Telephone [facility] [id number] 00:00:00 00:00:00 [facility] [id number] Surgical [id number] Specialti [id number] [address] [place] 2020-03-09 2020-03-09 [facility] [id number] 09:35:00 23:59:00 Encounter [facility] [id number] Surgical [id number] Specialti [id number] es [address] [place] 2020-03-09 2020-03-09 [facility] [id number] 09:34:08 09:49:08 Visit [facility] [id number] Surgical [id number] Specialti [id number] es [address] [place] 2020-01-07 2020-01-07 Appoint[facility] [id number] Univers 10:45:00 10:45:00 t; CARROLL ROCHA, at [facility] Kavon Starkey M.D. Orthopedic Physi ci and Spine [facility] 2019-12-24 2019-12-24 REZA Her[facility] [id number] Univers 10:30:00 10:30:00 t; CARROLL ROCHA [facility] Kavon Starkey M.D. Orthopedic Physi ci and Spine [facility] 2019-01-21 2019-01-21 REZA Herrera [facility] [id number] Univers 13:30:00 13:30:00 t; CARROLL ROCHA, Ortho and it Chepe M.D. Spine S Lin mcmahon M.D. Medical Physici [place] [facility] 2017-06-05 2017-06-05 REZA Herrera [id number] Univers 10:30:00 10:30:00 t; CARROLL ROCHA ity of JONATHAN, M.D. [place] M.D. Physici ans 2017-05-12 2017-05-12 REZA Herrera [facility] [id number] Univers 13:00:00 13:00:00 t; CARROLL ROCHA ity of [place], M.D. [place] M.D. Physici ans Results Test Description Test Time Test Comments Results Result Sour e Comments [U] XRAY KNEE 3 2019-12-24 Images Universit y of VWS RIGHT [id number] 09:09:00 acquired, not [place] reported on Physicians this accession number. [U] XRAY PELVIS 1 2019-01-21 Images Univers ity of [place] 2 VWS [id number] 13:26:00 acquired, not [place] reported on Physicians this accession number.
--- OUTSIDE RECORDS SUMMARY | 2020-07-21 15:00 | XMS REPORT | Summary of Care ---
:1945 Author Organization [facility] - Health Address [address] [place] [address] Care Team Providers Name Role Phone Pcp, Patient Does Not Have A Primary Care Provider +1-000-00 0-0000 Encounter Details Date Type Department Care Team Description 04/13/2020 Orders Only [facility] Doctor Unassigned, No 301 [facility] [place] [address] [address] [place] [address] Allergies Active Allergy Reactions Severity Noted Date Comments Codeine Hives 03/09/2020 documented as of this encounter [...] Date/Time Associated Diagnosis Comme nts REFERRAL- Routine 04/13/2020 12:01 AM CDT REQUEST/RESPONSE documented in this encounter Results Not on filedocumented in this encounter Insurance Payer Benefit Plan Subscriber ID Effective Phone Address Typ e / Group Dates AETNA - AETNA [id number] 2019-Prese P O BOX Medic are Adv MANAGED MEDICARE ADV nt [id number] [place] [phone] documented as of this encounter
--- NOTE | 2020-07-21 16:25 | ER ---
Nurse's Notes [facility] Name: Danielle Grover Age: 74 yrs Sex: Female : 1945 Arrival Date: 07/21/2020 Time: 14:59 Bed 4 Private MD: Edgrado Bruner B Diagnosis: Pain in right leg Presentation: 07/21 15:05 Risk Assessment: Do you want to hurt yourself or someone else? Patient reports no ll1 desire to harm self or others. Onset of symptoms was July 14, 2020. 15:05 Acuity: BALJIT 4 ll1 15:05 Chief complaint: Patient states: Right leg pain and swelling for 1 week. Sent by PCP ll1 Dr. Bruner to r/o blood clot. Coronavirus screen: Client denies travel out of the [place] in the last 14 days. At this time, the client does not indicate any symptoms associated with coronavirus-19. Ebola Screen: Patient denies travel to an Ebola-affected area in the 21 days before illness onset. 15:05 [facility] 15[facility]30 Initial Sepsis Screen: Does the patient meet any 2 criteria? No. Patient's initial aa5 sepsis screen is negative. Does the patient have a suspected source of infection? No. Patient's initial sepsis screen is negative. Historical: - Allergies: 15:04 Codeine; ll1 - PMHx: 15:04 CHF; GERD; Rheumatoid Arthritis; ll1 - PSHx: 15:04 Hysterectomy; mastoidectomy; hip replacement - right; cataract surgery - bilat; ll1 - Immunization history:: Flu vaccine is up to date. - Social history:: Smoking status: Patient denies any tobacco usage or history of. Patient/guardian denies using alcohol, street drugs. Screenin:30 Abuse screen: Denies threats or abuse. Nutritional screening: No deficits noted. aa5 Tuberculosis screening: No symptoms or risk factors identified. Fall Risk None identified. Assessment: 15:30 General: Appears comfortable, Behavior is calm, cooperative. Pain: Complains of pain in aa5 right wray Pain does not radiate. Pain currently is 3 out of 10 on a pain scale. Quality of pain is described as aching, Is continuous. Neuro: Level of Consciousness is awake, alert, obeys commands, Oriented to person, place, time, situation. Cardiovascular: Edema is absent. Respiratory: Airway is patent Respiratory effort is even, unlabored, Respiratory pattern is regular, symmetrical. GI: No signs and/or symptoms were reported involving the gastrointestinal system. : No signs and/or symptoms were reported regarding the genitourinary system. EENT: No signs and/or symptoms were reported regarding the EENT system. Derm: Skin is pink, warm \T\ dry. Musculoskeletal: Range of motion: intact in all extremities, Reports swelling to right lower leg. 15:35 Reassessment: Pt given warm blankets for comfort . aa5 16:01 Reassessment: US at bedside . aa5 16:31 Reassessment: Patient appears in no apparent distress at this time. Patient and/or jd3 family updated on plan of care and expected duration. Pain level reassessed. Patient is alert, oriented x 3, equal unlabored respirations, skin warm/dry/pink. Vital Signs: 15:05 BP 134 / 87; Pulse 84; Resp 17; Temp 98.2; Pulse Ox 98% ; Weight 47.17 kg; Height 5 ft. ll1 0 in. (152.40 cm); Pain 5/10; 15:05 Body Mass Index 20.31 (47.17 kg, 152.40 cm) ll1 ED Course: 14:59 Patient arrived in ED. as 15:00 Edgardo Bruner MD is Private Physician. as 15:04 Arm band placed on. ll1 15:05 Triage completed. ll1 15:07 Sebastien Jones MD is Attending Physician. bonilla 15:22 Sebastien Younger PA is PHCP. cp 15:30 Sima Arnett, RN is Primary Nurse. aa5 15:30 Patient has correct armband on for positive identification. Bed in low position. Call aa5 light in reach. Side rails up X2. 16:21 US Extremity Venous Unilateral Ltd In Process Unspecified. EDMS 16:23 Edgardo Bruner MD is Referral Physician. cp 16:31 No provider procedures requiring assistance completed. Patient did not have IV access jd3 during this emergency room visit. Administered Medications: No medications were administered Outcome: 16:24 Discharge ordered by MD. cp 16:31 Discharged to home ambulatory. jd3 16:31 Condition: stable 16:31 Discharge instructions given to patient, Instructed on discharge instructions, follow up and referral plans. medication usage, Demonstrated understanding of instructions, follow-up care, medications, Prescriptions given X 1. 16:32 Patient left the ED. jd3 Signatures: Dispatcher [employer] EDSebastien Shaikh MD MD cha Martinez, Amelia as Calderon, Audri, RN RN aa5 Sebastien Younger PA PA cp Davies, Jonathon, RN RN jd3 Dorys Newell RN RN ll1 Corrections: (The following items were deleted from the chart) 16:04 15:30 Musculoskeletal: Range of motion: intact in all extremities, aa5 aa5
--- NOTE | 2020-07-21 16:25 | EDPHYS ---
Physician Documentation [facility] Name: Danielle Grover Age: 74 yrs Sex: Female : 1945 Arrival Date: 07/21/2020 Time: 14:59 Bed 4 Private MD: Edgardo Bruner B ED Physician Sebastien Jones HPI: 07/21 15:23 This 74 yrs old Female presents to ER via Ambulatory with complaints of Leg cp Swelling. 15:23 The patient presents with pain, that is acute, swelling, tenderness. The complaints cp affect the right leg. Context: the patient can fully bear weight, the patient is able to ambulate, without difficulty. Onset: The symptoms/episode began/occurred 1 week(s) ago. Modifying factors: the symptoms are aggravated by weight bearing. Associated signs and symptoms: Pertinent negatives fever, numbness, shortness of breath. Historical: - Allergies: 15:04 Codeine; ll1 - PMHx: 15:04 CHF; GERD; Rheumatoid Arthritis; ll1 - PSHx: 15:04 Hysterectomy; mastoidectomy; hip replacement - right; cataract surgery - bilat; ll1 - Immunization history:: Flu vaccine is up to date. - Social history:: Smoking status: Patient denies any tobacco usage or history of. Patient/guardian denies using alcohol, street drugs. ROS: 15:25 MS/extremity: Positive for pain, swelling, tenderness, of the right leg, Negative for cp injury or acute deformity, decreased range of motion. 15:25 Eyes: Negative for injury, pain, redness, and discharge. cp 15:25 Constitutional: Negative for body aches, fever. 15:25 Neck: Negative for pain with movement, pain at rest. 15:25 Cardiovascular: Negative for chest pain. 15:25 Respiratory: Negative for cough, shortness of breath, wheezing. 15:25 Abdomen/GI: Negative for abdominal pain, nausea, vomiting, and diarrhea. 15:25 Back: Negative for pain at rest, pain with movement. 15:25 Neuro: Negative for dizziness, headache, numbness, tingling, weakness. 15:25 All other systems are negative. Exam: 15:30 Constitutional: The patient appears in no acute distress, alert, awake, cp non-diaphoretic, non-toxic, well developed, well nourished. 15:30 Head/Face: Normocephalic, atraumatic. cp 15:30 Chest/axilla: Inspection: normal. cp 15:30 Cardiovascular: Rate: normal, Rhythm: regular, Edema: is not appreciated, JVD: is not appreciated. 15:30 Respiratory: the patient does not display signs of respiratory distress, Respirations: cp normal, no use of accessory muscles, no retractions. 15:30 Musculoskeletal/extremity: Extremities: grossly normal except: noted in the right leg: tenderness, ROM: full active range of motion, in the right leg, Pulses: noted to be 2+ in the right dorsalis pedis artery, DVT Exam: no erythema, no increased warmth, pain, that is mild, of the right leg, of the right leg, tenderness, that is mild, of the right leg, of the right leg. 15:30 Skin: cellulitis, is not appreciated, no rash present. Vital Signs: 15:05 BP 134 / 87; Pulse 84; Resp 17; Temp 98.2; Pulse Ox 98% ; Weight 47.17 kg; Height 5 ft. ll1 0 in. (152.40 cm); Pain 5/10; 15:05 Body Mass Index 20.31 (47.17 kg, 152.40 cm) ll1 MDM: 15:07 Patient medically screened. bonilla 15:25 Differential diagnosis: sciatica, DVT, cellulitis, dependent edema. cp 16:23 ED course: US tech reports US of right leg negative for DVT. cp 16:24 Data reviewed: vital signs, nurses notes, radiologic studies, ultrasound, and as a cp result, I will discharge patient. 16:24 Counseling: I had a detailed discussion with the patient and/or guardian regarding: the cp historical points, exam findings, and any diagnostic results supporting the discharge/admit diagnosis, radiology results, the need for outpatient follow up, an zoo veterinarian, to return to the emergency department if symptoms worsen or persist or if there are any questions or concerns that arise at home. 07/21 15:23 Order name: US Extremity Venous Unilateral Ltd cp Administered Medications: No medications were administered Disposition: 07/21/20 16:24 Discharged to Home. Impression: Pain in right leg. - Condition is Stable. - Discharge Instructions: Musculoskeletal Pain. - Prescriptions for Mobic 7.5 mg Oral Tablet - take 1 tablet by ORAL route once daily take with food; 20 tablet. - Medication Reconciliation Form, Thank You Letter, Antibiotic Education, Prescription Opioid Use form. - Follow up: Edgardo Bruner MD; When: 2 - 3 days; Reason: Worsening of condition. - Problem is new. - Symptoms have improved. Addendum: 07/23/2020 09:01 Co-signature as Attending Physician, Sebastien Jones MD I agree with the assessment and c ayala plan of care. Signatures: Dispatcher [employer] EDOH Sebastien Jones MD MD cha Page, Corey PA PA Jovanny Vasquez RN RN jd3 Dorys Newell RN RN ll1 Corrections: (The following items were deleted from the chart) 07/21 16:32 16:24 07/21/2020 16:24 Discharged to Home. Impression: Pain in right leg. Condition is jd3 Stable. Forms are Medication Reconciliation Form, Thank You Letter, Antibiotic Education, Prescription Opioid Use. Follow up: Edgardo Bruner; When: 2 - 3 days; Reason: Worsening of condition. Problem is new. Symptoms have improved. cp
--- NOTE | 2020-07-21 16:41 | RAD REPORT ---
EXAM DESCRIPTION: USExtremsabrina Venous Uni Ltd07/21/2020 4:22 pm CLINICAL HISTORY: Right leg pain and swelling. COMPARISON: 2018 FINDINGS: Right common femoral, superficial femoral, popliteal and right posterior tibial veins are compressible and demonstrate augmentation. Doppler demonstrates good flow. IMPRESSION: No evidence of deep venous thrombosis involving the right lower extremity.
[2020-07-21 17:22] VITALS: BP 134/87; TEMP 98.2; O2SAT 98
== END 2020-07-21 16:32 | disposition home or self-care (01) ==
LOC: ER 14:58
DX: M79.604 Pain in right leg (principal); I50.9 Heart failure, unspecified; Z88.5 Allergy status to narcotic agent; Z96.641 Presence of right artificial hip joint
CPT/HCPCS: 93971; 99283

== ENCOUNTER 2021-09-03 09:01 | Emergency (ER) | payer OTHER ==
[2021-09-03] MEDS ORDERED: TRAMADOL HCL 50 MG TAB ONE (09:51)
--- NOTE | 2021-09-03 10:18 | RAD REPORT ---
EXAM DESCRIPTION: RAD - Shoulder Left 2 View - 09/03/2021 10:04 am CLINICAL HISTORY: Left shoulder pain FINDINGS: Comminuted moderately displaced fracture humeral neck. No dislocation
--- NOTE | 2021-09-03 10:19 | RAD REPORT ---
EXAM DESCRIPTION: RAD - Knee Left 3 View - 09/03/2021 10:04 am CLINICAL HISTORY: Left knee pain FINDINGS: Cortical regularity involves the inferior aspect of the anterior patella. This is equivoca l for a fracture and should be correlated clinically. No dislocation
--- NOTE | 2021-09-03 10:45 | EDPHYS ---
Physician Documentation [facility] Name: Danielle Grover Age: 75 yrs Sex: Female : 1945 Arrival Date: 09/03/2021 Time: 09:05 Bed 14 Private MD: Edgardo Bruner B ED Physician Kale Beauchamp HPI: 09/03 09:25 This 75 yrs old Female presents to ER via Ambulatory with complaints of Fall kb Injury. 09:25 Details of fall: The patient fell from an upright position, while walking. Onset: The kb symptoms/episode began/occurred this morning. Associated injuries: The patient sustained left knee, painful injury, anterior aspect of left shoulder, decreased range of motion, painful injury, believes it dislocated, but she was able to reduce it. Severity of symptoms: At their worst the symptoms were moderate, in the emergency department the symptoms are unchanged. The patient has not experienced similar symptoms in the past. The patient has not recently seen a physician. Pt states she was walking through her bathroom to the closet and didn't turn the light on so she tripped and fell in the dark. c/o left shoulder and knee pain. No other pain. Denies hitting head. Historical: - Allergies: 09:09 Codeine; hb - PMHx: 09:09 CHF; GERD; Rheumatoid Arthritis; hb - Immunization history:: Client reports receiving the 2nd dose of the Covid vaccine, Flu vaccine is up to date. - Social history:: Smoking status: Patient denies any tobacco usage or history of. ROS: 09:24 Constitutional: Negative for fever, chills, and weight loss. kb 09:24 MS/extremity: Positive for decreased range of motion, pain, tenderness, of the left knee and anterior aspect of left shoulder. 09:24 All other systems are negative. Exam: 09:24 Constitutional: This is a well developed, well nourished patient who is awake, alert, kb and in no acute distress. Head/Face: Normocephalic, atraumatic. 09:24 Musculoskeletal/extremity: Extremities: grossly normal except: noted in the anterior aspect of left shoulder and left knee: decreased ROM, pain, tenderness, ROM: limited active range of motion due to pain, in the anterior aspect of left shoulder, Circulation is intact in all extremities. Sensation intact. Weight bearing: able to fully bear weight. Vital Signs: 09:08 BP 134 / 63; Pulse 83; Resp 16; Temp 98.3; Pulse Ox 98% on R/A; Weight 46.27 kg; Height hb 4 ft. 11 in. (149.86 cm); Pain 8/10; 09:20 BP 134 / 63; Pulse 83; Resp 16; Temp 98.3; Pulse Ox 98% on R/A; kh1 10:32 BP 126 / 60; Pulse 66 MON; Resp 20 S; Pulse Ox 98% on R/A; kh1 09:08 Body Mass Index 20.60 (46.27 kg, 149.86 cm) hb Elbert Coma Score: 09:20 Eye Response: spontaneous(4). Verbal Response: oriented(5). Motor Response: obeys kh1 commands(6). Total: 15. Trauma Score (Adult): 09:20 Eye Response: spontaneous(1); Verbal Response: oriented(1); Motor Response: obeys kh1 commands(2); Systolic BP: > 89 mm Hg(4); Respiratory Rate: 10 to 29 per min(4); Elbert Score: 15; Trauma Score: 12 MDM: 09:09 Patient medically screened. kb 09:23 Data reviewed: vital signs, nurses notes. Data interpreted: Pulse oximetry: on room air kb is 98 %. Interpretation: normal. 10:44 Counseling: I had a detailed discussion with the patient and/or guardian regarding: the kb historical points, exam findings, and any diagnostic results supporting the discharge/admit diagnosis, radiology results, the need for outpatient follow up, a family practitioner, a orthopedic surgeon, to return to the emergency department if symptoms worsen or persist or if there are any questions or concerns that arise at home. 17:28 Differential diagnosis: contusion, fracture, sprain, strain. kb 09/03 09:20 Order name: Knee Left 3 View XRAY; Complete Time: 10:27 kb 09/03 09:20 Order name: Shoulder Left (2 View) XRAY; Complete Time: 10:27 kb 09/03 10:44 Order name: Sling; Complete Time: 11:10 kb Administered Medications: 09:27 Drug: traMADol 50 mg Route: PO; kh1 Disposition: 10:45 Co-signature as Attending Physician, Kale Beauchamp MD I agree with the assessment and rn plan of care. PA/REFRACTORY GRINDER OPERATOR's history reviewed, patient interviewed, and examined. HPI: 75-year-old female status post left shoulder and left knee injury. Ambulatory. Reports mainly pain to left shoulder My personal exam of patient reveals: At anyLimited range of motion left shoulder with tenderness proximal left humerus. Mild tenderness to anterior patella, full range of motion with active extension and flexion of the left knee. I agree with assessment and care plan and confirm the diagnosis (es) above. Disposition Summary: 09/03/21 10:45 Discharge Ordered Location: Home kb Condition: Stable kb Diagnosis - Displaced fracture of humerus, left kb - left patella fracture kb - Fall on same level from slipping, tripping and stumbling without subsequent kb striking against object Followup: kb - With: Emergency Department - When: As needed - Reason: Worsening of condition Followup: kb - With: Private Physician - When: 2 - 3 days - Reason: Recheck today's complaints, Continuance of care, Re-evaluation by your physician Discharge Instructions: - Discharge Summary Sheet kb - Patellar Fracture, Adult kb - Humerus Fracture Treated With Immobilization, [id number] kb Forms: - Medication Reconciliation Form kb - Thank You Letter kb - Antibiotic Education kb - Prescription Opioid Use kb Prescriptions: - Tramadol 50 mg Oral Tablet - take 1 tablet by ORAL route every 8 hours as needed; 12 tablet; Refills: 0, kb Product Selection Permitted Signatures: Dispatcher [employer] EDShantell Hill, HARLEY LOMBARDI-Kale Gracia MD MD rn Baxter, Heather, RN RN hb Harris, Kecia [facility]
--- NOTE | 2021-09-03 10:45 | ER ---
Nurse's Notes [facility] Name: Danielle Grover Age: 75 yrs Sex: Female : 1945 Arrival Date: 09/03/2021 Time: 09:05 Bed 14 Private MD: Edgardo Bruner B Diagnosis: Displaced fracture of humerus, left;left patella fracture;Fall on same level from slipping, tripping and stumbling without subsequent striking against object Presentation: 09/03 09:08 Chief complaint: Tripped while ambulating in bathroom, landed on left side, c/o left hb shoulder and knee pain 07/10. Coronavirus screen: At this time, the client does not indicate any symptoms associated with coronavirus-19. Ebola Screen: No symptoms or risks identified at this time. Initial Sepsis Screen: Does the patient meet any 2 criteria? No. Patient's initial sepsis screen is negative. Does the patient have a suspected source of infection? No. Patient's initial sepsis screen is negative. Risk Assessment: Do you want to hurt yourself or someone else? Patient reports no desire to harm self or others. Onset of symptoms was September 03, 2021. 09:08 Method Of Arrival: Ambulatory hb 09:08 Acuity: BALJIT 4 hb 11:17 Care prior to arrival: None. Mechanism of Injury: Fall. kh1 Historical: - Allergies: 09:09 Codeine; hb - PMHx: 09:09 CHF; GERD; Rheumatoid Arthritis; hb - Immunization history:: Client reports receiving the 2nd dose of the Covid vaccine, Flu vaccine is up to date. - Social history:: Smoking status: Patient denies any tobacco usage or history of. Screenin:21 Abuse screen: Denies threats or abuse. Tuberculosis screening: No symptoms or risk kh1 factors identified. Never had TB. Possible symptoms: None Risk factors: None. Fall risk At risk due to injury, age, immobility, prior history of falls. 11:17 Nutritional screening: No deficits noted. Fall Risk Fall in past 12 months (25 points). kh1 No secondary diagnosis (0 pts). No IV (0 pts). Ambulatory Aid- None/Bed Rest/Nurse Assist (0 pts). Gait- Weak (10 pts.). Primary Survey: : NO uncontrolled hemorrhage observed. A: Airway: patent. Breathing/Chest: Respiratory kh1 pattern: regular, Respiratory effort: spontaneous, unlabored, Breath sounds: clear. Circulation: Cardiac rhythm: sinus rhythm Heart tones present. Pulses: palpable right radial artery, right posterior tibial artery, left radial artery and left posterior tibial artery. Disability Alert. 11:16 Reassessment Breathing/Chest Respiratory pattern Regular Respiratory effort Spontaneous kh1 Unlabored. Assessment: 09:18 General: Appears in no apparent distress. comfortable, Behavior is calm, cooperative, kh1 appropriate for age. Pain: Complains of pain in left shoulder left knee pain Pain does not radiate. Pain currently is 8 out of 10 on a pain scale. Quality of pain is described as sharp, Pain began 1 hour ago. Aggravated by increased activity, weight bearing. Neuro: No deficits noted. Level of Consciousness is awake, alert, obeys commands, Oriented to person, place, time, situation, Appropriate for age Engine Test Cell Technician are. 10:22 Reassessment: Patient appears in no apparent distress at this time. No changes from 1 previously documented assessment. Patient and/or family updated on plan of care and expected duration. Pain level reassessed. Patient is alert, oriented x 3, equal unlabored respirations, skin warm/dry/pink. Vital Signs: 09:08 BP 134 / 63; Pulse 83; Resp 16; Temp 98.3; Pulse Ox 98% on R/A; Weight 46.27 kg; Height hb 4 ft. 11 in. (149.86 cm); Pain 8/10; 09:20 BP 134 / 63; Pulse 83; Resp 16; Temp 98.3; Pulse Ox 98% on R/A; kh1 10:32 BP 126 / 60; Pulse 66 MON; Resp 20 S; Pulse Ox 98% on R/A; kh1 09:08 Body Mass Index 20.60 (46.27 kg, 149.86 cm) hb [place] Coma Score: 09:20 Eye Response: spontaneous(4). Verbal Response: oriented(5). Motor Response: obeys kh1 commands(6). Total: 15. Trauma Score (Adult): 09:20 Eye Response: spontaneous(1); Verbal Response: oriented(1); Motor Response: obeys kh1 commands(2); Systolic BP: > 89 mm Hg(4); Respiratory Rate: 10 to 29 per min(4); Elbert Score: 15; Trauma Score: 12 ED Course: 09:05 Patient arrived in ED. mr 09:05 Edgardo Bruner MD is Private Physician. mr 09:09 Triage completed. hb 09:09 Shantell Wadsworth [facility]-C [facility]. kb 09:09 Kale Beauchamp MD is Attending Physician. kb 09:09 Arm band placed on. hb 09:18 Holli Stanley is Primary Nurse. kh1 10:04 Knee Left 3 View XRAY In Process Unspecified. EDMS 10:04 Shoulder Left (2 View) XRAY In Process Unspecified. EDMS 11:16 No provider procedures requiring assistance completed. Patient did not have IV access kh1 during this emergency room visit. Administered Medications: :27 Drug: traMADol 50 mg Route: PO; kh1 Outcome: 10:45 Discharge ordered by . kb 11:18 Patient left the ED. kh1 Signatures: Dispatcher [employer] EDMS Shantell Wadsworth FNP-C FNP-Laura Vaughan mr Savannah Feliciano, RN RN Holli Stanley 1
[2021-09-03 11:24] VITALS: TEMP 98.3; O2SAT 98
[2021-09-03 11:26] VITALS: BP 126/60
== END 2021-09-03 11:18 | disposition home or self-care (01) ==
LOC: ER 09:01
DX: S42.212A Unspecified displaced fracture of surgical neck of left humerus, initial encounter for closed fracture (principal); S82.002A Unspecified fracture of left patella, initial encounter for closed fracture; W01.0XXA Fall on same level from slipping, tripping and stumbling without subsequent striking against object, initial encounter; Y93.01 Activity, walking, marching and hiking; Y92.002 Bathroom of unspecified non-institutional (private) residence as the place of occurrence of the external cause; Z88.5 Allergy status to narcotic agent
CPT/HCPCS: 99283

== ENCOUNTER 2022-05-31 20:03 | Inpatient (IN) | payer OTHER ==
--- NOTE | 2022-05-31 21:00 | RAD REPORT ---
EXAM DESCRIPTION: Nelson Single View05/31/2022 8:54 pm CLINICAL HISTORY: Cough COMPARISON: 2014 FINDINGS: Mild right basilar lung opacities. Additional bilateral pulmonary opacities appear chronic The heart is normal size. Lungs are moderately hyperaerated IMPRESSION: Mild right basilar opacities likely pneumonia
[2022-05-31 21:35] LABS: Absolute Lymphocytes (CBC) 1.8 K/uL (0.7-4.9); Hematocrit 36.8 % (36.0-45.0); Lymphocytes % 15.5 % (15.3-44.8); MCV 91.7 fL (80-100); MPV 7.8 fL (7.6-11.3); RBC Red Blood Cell Count 4.01 M/uL (3.86-4.86)
[2022-05-31 21:36] LABS: Protime INR 1.05
[2022-05-31] MEDS ORDERED: NA CHLORIDE 0.9% 1,000 ML ONE (21:42)
[2022-05-31] MEDS ORDERED: AZITHROMYCIN 500 MG INJ IVPB ONE (21:42)
[2022-05-31] MEDS ORDERED: IPRATROPIUM BROM 0.5MG/2.5ML ONE (21:42)
[2022-05-31] MEDS ORDERED: NA CHLORIDE 0.9% 250 ML ONE (21:42)
[2022-05-31] MEDS ORDERED: LEVALBUTEROL 1.25 MG/3 ML NEB ONE ×2 (21:42→22:35)
[2022-05-31] MEDS ORDERED: NA CHLORIDE 0.9% 500 ML ONE (21:42)
[2022-05-31] MEDS ORDERED: CEFTRIAXONE 1000 MG/VIAL ONE (21:42)
[2022-05-31] MEDS ORDERED: FAMOTIDINE 20 MG/2 ML VIAL IV ONE (21:44)
[2022-05-31] MEDS ORDERED: METHYLPREDNISOLONE 40 MG INJ ONE (21:44)
[2022-05-31 21:50] LABS: Albumin 3.1 g/dL (3.4-5.0); Bilirubin Direct 0.1 mg/dL (0-0.2); Bilirubin Total 0.3 mg/dL (0.2-1.0); Potassium 3.4 mmol/L (3.5-5.1); Protein, Total 6.4 g/dL (6.4-8.2); Troponin High Sensitivity 14.2 pg/mL (<58.9)
--- NOTE | 2022-05-31 22:21 | ER ---
Nurse's Notes [facility] Name: Danielle Grover Age: 76 yrs Sex: Female : 1945 Arrival Date: 05/31/2022 Time: 20:04 Bed 5 Private MD: Edgardo Bruner B Diagnosis: COPD/ Chronic obstructive pulmonary disease with (acute) exacerbation;Pneumonia due to other specified bacteria;Hypoxemia;Fever, unspecified;Influenza due to other identified influenza virus with pneumonia-Influenza B;Hypokalemia Presentation: 05/31 20:11 Chief complaint: Patient states: "I have been sick off and on for 2 weeks, I would get vc1 better for a day here and there and then I would start running fever again. I went to see the microarray operations vice president Friday and she started me on 2 nose sprays.". Coronavirus screen: Vaccine status: Patient reports receiving the 2nd dose of the covid vaccine. Moderna plus one booster chills, cough unrelated to allergies, difficulty breathing, fever, muscle pain, shortness of breath, Client presents with at least one sign or symptom that may indicate coronavirus-19. Standard/surgical mask placed on the client. Provider contacted for isolation considerations. Ebola Screen: No symptoms or risks identified at this time. 20:11 Method Of Arrival: Wheelchair vc1 20:16 Initial Sepsis Screen: Does the patient meet any 2 criteria? HR > 90 bpm. No. Patient's vc1 initial sepsis screen is negative. Does the patient have a suspected source of infection? Yes: Productive cough/pneumonia. Risk Assessment: Do you want to hurt yourself or someone else? Patient reports no desire to harm self or others. Onset of symptoms is unknown. 20:16 Acuity: BALJIT 3 vc1 Historical: - Allergies: 20:17 Codeine; vc1 - Home Meds: 20:17 Coreg Oral [Active]; Folic Acid Oral [Active]; Methotrexate (Anti-Rheumatic) 2.5 mg vc1 Oral DsPk 2 tabs once wkly [Active]; potassium chloride 10 mEq Oral cpER 1 cap once daily [Active]; Enbrel 50 mg/mL (1 mL) subcutaneous syrg 1 mL once wkly [Active]; - PMHx: 20:17 CHF; GERD; Rheumatoid Arthritis; vc1 - PSHx: 20:17 Hysterectomy; vc1 - Immunization history:: Adult Immunizations up to date, Client reports receiving the 2nd dose of the Covid vaccine. - Social history:: Smoking status: Patient denies any tobacco usage or history of. Screenin:04 Abuse screen: Denies threats or abuse. Denies injuries from another. Nutritional lg3 screening: No deficits noted. Tuberculosis screening: No symptoms or risk factors identified. Fall Risk None identified. Assessment: 22:04 Reassessment:. General: Appears in no apparent distress. comfortable, Behavior is calm, lg3 cooperative. Pain: Denies pain. Neuro: No deficits noted. Level of Consciousness is awake, alert, obeys commands, Oriented to person, place, time, situation. Cardiovascular: No deficits noted. Denies chest pain, Capillary refill < 3 seconds Clubbing of nail beds is absent JVD is absent Patient's skin is warm and dry. Respiratory: Reports shortness of breath cough that is Airway is patent Trachea deviated to right Respiratory effort is even, unlabored, Respiratory pattern is regular, symmetrical. GI: No deficits noted. No signs and/or symptoms were reported involving the gastrointestinal system. Abdomen is flat, non-distended. : No deficits noted. No signs and/or symptoms were reported regarding the genitourinary system. EENT: No deficits noted. No signs and/or symptoms were reported regarding the EENT system. Derm: No deficits noted. No signs and/or symptoms reported regarding the dermatologic system. Skin is intact, is healthy with good turgor, Skin is dry, Skin temperature is warm. Musculoskeletal: No deficits noted. No signs and/or symptoms reported regarding the musculoskeletal system. Circulation, motion, and sensation intact. Range of motion: intact in all extremities. 23:57 Reassessment: Patient appears in no apparent distress at this time. No changes from lg3 previously documented assessment. Patient and/or family updated on plan of care and expected duration. Pain level reassessed. Patient is alert, oriented x 3, equal unlabored respirations, skin warm/dry/pink. Patient states feeling better. 06/01 00:19 General: attempted to call report. nurse not available and will call back. . lg3 Vital Signs: 05/31 20:11 Pulse 117; Resp 16; Temp 98.7; Pulse Ox 88% on R/A; Weight 43.54 kg; Height 4 ft. 11 vc1 in. (149.86 cm); Pain 6/10; 20:11 Pulse Ox 94% on 2 lpm NC; vc1 20:16 BP 125 / 89; vc1 22:06 BP 114 / 52; Pulse 101; Resp 20 S; Pulse Ox 97% on 2 lpm NC; lg3 20:11 Body Mass Index 19.39 (43.54 kg, 149.86 cm) vc1 ED Course: 20:04 Patient arrived in ED. am2 20:04 Edgardo Bruner MD is Private Physician. am2 20:15 Patient Placed on 2L NC pt states she is feeling much better. vc1 20:17 Triage completed. vc1 20:17 Arm band placed on right wrist. vc1 20:21 Sebastien Jones MD is Attending Physician. [facility] 20:56 XRAY Chest (1 view) In Process Unspecified. EDMS 21:26 Blood Culture Adult (2) Sent. lg3 21:26 Basic Metabolic Panel Sent. lg3 21:26 CBC with Diff Sent. lg3 21:26 LFT's Sent. lg3 21:26 Magnesium Sent. lg3 21:26 NT PRO-BNP Sent. lg3 21:26 PT-INR Sent. lg3 21:26 Troponin HS Sent. lg3 21:29 Blood Culture Adult (2) Sent. mh5 21:29 Basic Metabolic Panel Sent. mh5 21:29 CBC with Diff Sent. mh5 21:29 LFT's Sent. mh5 21:29 Magnesium Sent. mh5 21:29 NT PRO-BNP Sent. mh5 21:29 PT-INR Sent. mh5 21:29 Troponin HS Sent. mh5 21:29 Inserted saline lock: 20 gauge in right forearm, using aseptic technique. Blood mh5 collected. 21:30 Patient has correct armband on for positive identification. Placed in gown. Bed in low mh5 position. Call light in reach. Side rails up X 1. Adult w/ patient. Warm blanket given. director of programming on. Pulse ox on. NIBP on. 21:30 Initial lab(s) drawn, by me, sent to lab. First set of blood cultures drawn Second set mh5 of blood cultures drawn COVID swab sent to lab. Flu and/or RSV swab sent to lab. 21:32 Halle Red, NICHOLAS is Primary Nurse. lg3 22:04 Oxygen administration via nasal cannula \\T\\ 2L/min. lg3 22:19 Ariane Tony MD is Hospitalizing Provider. bonilla 23:59 Chest For Pe Angio In Process Unspecified. EDMS 07 00:18 No provider procedures requiring assistance completed. Patient admitted, IV remains in lg3 place. intact, No redness/swelling at site. Administered Medications: 05/31 22:00 Drug: Pepcid (famotidine) 20 mg Route: IVP; Site: right forearm; lg3 22:01 Follow up: Response: No adverse reaction lg3 22:00 Drug: Xopenex (levalbuterol) 3.75 mg Route: Inhalation; lg3 22:00 Follow up: Response: No adverse reaction lg3 22:00 Drug: AtroVENT (ipratropium) Aerosol 0.5 mg Route: Inhalation; lg3 22:00 Follow up: Response: No adverse reaction lg3 22:01 Drug: Rocephin (cefTRIAXone) 1 grams Route: IV; Rate: per protocol; Site: right forearm;lg3 22:02 Follow up: Response: No adverse reaction; IV Status: Completed infusion; IV Intake: [id number] 22:01 Drug: Zithromax (azithromycin) 500 mg Route: IVPB; Infused Over: 1 hrs; Site: right lg3 forearm; 22:01 Follow up: Response: No adverse reaction; IV Status: Completed infusion; IV Intake: lg3 250ml 22:01 Drug: SOLU-Medrol (methylPrednisoLONE) 2 mg/kg Route: IVP; Site: right forearm; lg3 22:01 Follow up: Response: No adverse reaction lg3 22:02 Drug: NS 0.9% 500 ml Route: IV; Rate: bolus; Site: right forearm; lg3 22:02 Follow up: Response: No adverse reaction; IV Status: Completed infusion; IV Intake: lg3 500ml 22:32 Drug: Potassium Effervescent Tablet 25 mEq Route: PO; lg3 22:32 Follow up: Response: No adverse reaction lg3 22:32 Drug: Xopenex (levalbuterol) 1.25 mg Route: Inhalation; lg3 22:32 Follow up: Response: No adverse reaction lg3 22:33 Drug: NS 0.9% 1000 ml Route: IV; Rate: 125 ml/hr; Site: right forearm; lg3 23:19 Drug: Zofran (Ondansetron) 4 mg Route: IVP; Site: right forearm; lg3 23:19 Follow up: Response: No adverse reaction lg3 23:47 Drug: Tamiflu (oseltamivir) 75 mg Route: PO; ll3 23:57 Follow up: Response: No adverse reaction lg3 Medication: 06/01 00:25 VIS not applicable for this client. lg3 Intake: 05/31 22:01 IV: 250ml; Total: 250ml. lg3 22: IV: 10ml; Total: 260ml. lg3 22: IV: 500ml; Total: 760ml. lg3 Outcome: 22:21 Decision to Hospitalize by Provider. [facility] 06/01 00:24 Admitted to Tele accompanied by tech, via wheelchair, room 430, with oxygen, Report lg3 called to Tati Condition: stable Instructed on the need for admit, Demonstrated understanding of instructions. 00:36 Admitted to Tele accompanied by nurse, via stretcher, Report called to lo Ulloa RN 01:19 Patient left the ED. lg3 Signatures: Dispatcher [employer] EDMS Steffany Sawyer RN RN Sebastien Rodriguez MD MD cha Martinez, Maria [facility] Barbara Spencer am2 Halle Red RN RN lg3 Mario Mehta RN RN ll3 Valerie Hawkins, RN RN vc1 Corrections: (The following items were deleted from the chart) 05/31 21:29 21:26 LACTATE+C.LAB.BRZ drawn and sent. 3 EDMS 21: 21:26 Influenza Screen (A \\T\\ B)+BA.LAB.BRZ drawn and sent. [facility] EDMS 21: 21:26 SARS-COV-2 RT PCR+MOL.LAB.BRZ drawn and sent. 3 EDCT
--- NOTE | 2022-05-31 22:21 | EDPHYS ---
Physician Documentation [facility] Name: Danielle Grover Age: 76 yrs Sex: Female : 1945 Arrival Date: 05/31/2022 Time: 20:04 Bed 5 Private MD: Edgardo Bruner B ED Physician Sebastien Jones HPI: 05/31 22:17 This 76 yrs old Female presents to ER via Wheelchair with complaints of low bonilla oxygen, dehydration, Fever. 22:17 The patient reports fever, that was measured at 100 degrees Fahrenheit. Onset: The bonilla symptoms/episode began/occurred 9 day(s) ago. Modifying factors: there are no obvious modifying factors. Associated signs and symptoms: Pertinent positives: arthralgias, cough, with clear sputum. Severity of symptoms: At their worst the symptoms were mild in the emergency department the symptoms are unchanged. The patient has experienced similar episodes in the past, multiple times. Historical: - Allergies: 20:17 Codeine; vc1 - Home Meds: 20:17 Coreg Oral [Active]; Folic Acid Oral [Active]; Methotrexate (Anti-Rheumatic) 2.5 mg vc1 Oral DsPk 2 tabs once wkly [Active]; potassium chloride 10 mEq Oral cpER 1 cap once daily [Active]; Enbrel 50 mg/mL (1 mL) subcutaneous syrg 1 mL once wkly [Active]; - PMHx: 20:17 CHF; GERD; Rheumatoid Arthritis; vc1 - PSHx: 20:17 Hysterectomy; vc1 - Immunization history:: Adult Immunizations up to date, Client reports receiving the 2nd dose of the Covid vaccine. - Social history:: Smoking status: Patient denies any tobacco usage or history of. ROS: 22:18 Constitutional: Negative for fever, chills, and weight loss, Eyes: Negative for injury, bonilla pain, redness, and discharge, ENT: Negative for injury, pain, and discharge, Neck: Negative for injury, pain, and swelling, Cardiovascular: Negative for chest pain, palpitations, and edema, Abdomen/GI: Negative for abdominal pain, nausea, vomiting, diarrhea, and constipation, Back: Negative for injury and pain, : Negative for injury, bleeding, discharge, and swelling, MS/Extremity: Negative for injury and deformity, Skin: Negative for injury, rash, and discoloration, Neuro: Negative for headache, weakness, numbness, tingling, and seizure, Psych: Negative for depression, anxiety, suicide ideation, homicidal ideation, and hallucinations, Allergy/Immunology: Negative for hives, rash, and allergies, Endocrine: Negative for neck swelling, polydipsia, polyuria, polyphagia, and marked weight changes, Hematologic/Lymphatic: Negative for swollen nodes, abnormal bleeding, and unusual bruising. 22:18 Respiratory: Positive for cough, dyspnea on exertion, pleurisy, shortness of breath, wheezing, expiratory. Exam: 22:18 Constitutional: This is a well developed, well nourished patient who is awake, alert, bonilla and in no acute distress. Head/Face: Normocephalic, atraumatic. Eyes: Pupils equal round and reactive to light, extra-ocular motions intact. Lids and lashes normal. Conjunctiva and sclera are non-icteric and not injected. Cornea within normal limits. Periorbital areas with no swelling, redness, or edema. ENT: Nares patent. No nasal discharge, no septal abnormalities noted. Tympanic membranes are normal and external auditory canals are clear. Oropharynx with no redness, swelling, or masses, exudates, or evidence of obstruction, uvula midline. Mucous membranes moist. Neck: Trachea midline, no thyromegaly or masses palpated, and no cervical lymphadenopathy. Supple, full range of motion without nuchal rigidity, or vertebral point tenderness. No Meningismus. Chest/axilla: Normal chest wall appearance and motion. Nontender with no deformity. No lesions are appreciated. Cardiovascular: Regular rate and rhythm with a normal S1 and S2. No gallops, murmurs, or rubs. Normal PMI, no JVD. No pulse deficits. Abdomen/GI: Soft, non-tender, with normal bowel sounds. No distension or tympany. No guarding or rebound. No evidence of tenderness throughout. Back: No spinal tenderness. No costovertebral tenderness. Full range of motion. Female : Normal external genitalia. Skin: Warm, dry with normal turgor. Normal color with no rashes, no lesions, and no evidence of cellulitis. MS/ Extremity: Pulses equal, no cyanosis. Neurovascular intact. Full, normal range of motion. Neuro: Awake and alert, GCS 15, oriented to person, place, time, and situation. Cranial nerves II-XII grossly intact. Motor strength 5/5 in all extremities. Sensory grossly intact. Cerebellar exam normal. Normal gait. Psych: Awake, alert, with orientation to person, place and time. Behavior, mood, and affect are within normal limits. 22:18 ECG was reviewed by the Attending Physician. 22:18 Respiratory: mild respiratory distress is noted, Respirations: no acute changes, is not noted, labored breathing, is not present, Breath sounds: decreased breath sounds, that are mild, are scattered, rhonchi, that are mild, are scattered, stridor, is not appreciated, wheezing: expiratory is scattered. Vital Signs: 20:11 Pulse 117; Resp 16; Temp 98.7; Pulse Ox 88% on R/A; Weight 43.54 kg; Height 4 ft. 11 vc1 in. (149.86 cm); Pain 6/10; 20:11 Pulse Ox 94% on 2 lpm NC; vc1 20:16 BP 125 / 89; vc1 22:06 BP 114 / 52; Pulse 101; Resp 20 S; Pulse Ox 97% on 2 lpm NC; lg3 20:11 Body Mass Index 19.39 (43.54 kg, 149.86 cm) vc1 MDM: 20:21 Patient medically screened. bonilla 22:21 Antibiotic administration: Rocephin and Zithromax given. Differential diagnosis: bonilla asthma, Bronchitis CHF exacerbation, Chronic Obstructive Pulmonary Disease viral Infection, bacterial infection, URI, bronchitis, pneumonia UTI. The patient's Wells Deep Vein Thrombosis Score was calculated as follows: Heart Rate >100 BPM (1.5 Pts) Total Score: 0-2 Pts- Low Risk. Differential Diagnosis: Obstructed Airway Bronchitis Influenza Upper Respiratory Infection Sinusitis Pharyngitis Asthma Exacerbation Viral Syndrome Pneumonia. The patient's pulmonary embolism risk score was calculated as follows: the patients heart rate is greater than 100 beats per minute (1.5 Pts) Total Score: 0-2 points. This patient was found to be at low risk for a pulmonary embolism by using the Well's assessment criteria. Immunization status: Pneumococcal vaccine: Influenza vaccine: Data reviewed: vital signs, nurses notes, lab test result(s), EKG, radiologic studies, CT scan, plain films. 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 Test interpretation: by ED physician or midlevel provider: ECG, plain radiologic studies. Counseling: I had a detailed discussion with the patient and/or guardian regarding: the historical points, exam findings, and any diagnostic results supporting the discharge/admit diagnosis, lab results, radiology results, the need for further work-up and treatment in the hospital. 05/31 20:31 Order name: Basic Metabolic Panel; Complete Time: 22:15 [facility] 05/31 20:31 Order name: CBC with Diff; Complete Time: 22:15 [facility] 05/31 20:31 Order name: LFT's; Complete Time: 22:15 [facility] 05/31 20:31 Order name: Magnesium; Complete Time: 22:15 [facility] 05/31 20:31 Order name: NT PRO-BNP; Complete Time: 22:15 [facility] 05/31 20:31 Order name: PT-INR; Complete Time: 22:15 [facility] 05/31 20:31 Order name: Troponin HS; Complete Time: 22:15 [facility] 05/31 20:31 Order name: XRAY Chest (1 view); Complete Time: 21:20 [facility] 05/31 20:31 Order name: Blood Culture Adult (2) [facility] 05/31 20:31 Order name: SARS-COV-2 RT PCR (Document "Date of Onset" if Symptomatic); Complete Time: [facility] 22:15 05/31 20:31 Order name: Flu; Complete Time: 23:11 [facility] 05/31 20:31 Order name: Lactate; Complete Time: 22:15 [facility] 05/31 22:17 Order name: CT Chest For PE Angio [facility] 05/31 22:21 Order name: Chest For Pe Angio [facility] 05/31 20:31 Order name: EKG; Complete Time: 20:32 [facility] 05/31 20:31 Order name: Cardiac monitoring; Complete Time: 21:29 [facility] 05/31 20:31 Order name: EKG - Nurse/Tech; Complete Time: 21:29 [facility] 05/31 20:31 Order name: IV Saline Lock; Complete Time: 21:29 [facility] 05/31 20:31 Order name: Labs collected and sent; Complete Time: 21:26 [facility] 05/31 20:31 Order name: O2 Per Protocol; Complete Time: 21:26 [facility] 05/31 20:31 Order name: O2 Sat Monitoring; Complete Time: 21:26 bonilla EC:18 Rate is 98 beats/min. QRS Murchison is Normal. TX interval is normal. QRS interval is bonilla normal. QT interval is prolonged at 406 msec. No Q waves. T waves are Normal. No ST changes noted. Clinical impression: NSR w/ Non-specific ST/T Changes and No evidence of ischemia. Administered Medications: 22:00 Drug: Pepcid (famotidine) 20 mg Route: IVP; Site: right forearm; lg3 22: Follow up: Response: No adverse reaction lg3 22:00 Drug: Xopenex (levalbuterol) 3.75 mg Route: Inhalation; lg3 22:00 Follow up: Response: No adverse reaction lg3 22:00 Drug: AtroVENT (ipratropium) Aerosol 0.5 mg Route: Inhalation; lg3 22:00 Follow up: Response: No adverse reaction lg3 22: Drug: Rocephin (cefTRIAXone) 1 grams Route: IV; Rate: per protocol; Site: right forearm;lg3 22:02 Follow up: Response: No adverse reaction; IV Status: Completed infusion; IV Intake: [id number] 22: Drug: Zithromax (azithromycin) 500 mg Route: IVPB; Infused Over: 1 hrs; Site: right lg3 forearm; 22: Follow up: Response: No adverse reaction; IV Status: Completed infusion; IV Intake: lg3 250ml 22:01 Drug: SOLU-Medrol (methylPrednisoLONE) 2 mg/kg Route: IVP; Site: right forearm; lg3 22:01 Follow up: Response: No adverse reaction lg3 22:02 Drug: NS 0.9% 500 ml Route: IV; Rate: bolus; Site: right forearm; lg3 22:02 Follow up: Response: No adverse reaction; IV Status: Completed infusion; IV Intake: lg3 500ml 22:32 Drug: Potassium Effervescent Tablet 25 mEq Route: PO; lg3 22:32 Follow up: Response: No adverse reaction lg3 22:32 Drug: Xopenex (levalbuterol) 1.25 mg Route: Inhalation; lg3 22:32 Follow up: Response: No adverse reaction lg3 22:33 Drug: NS 0.9% 1000 ml Route: IV; Rate: 125 ml/hr; Site: right forearm; lg3 23:19 Drug: Zofran (Ondansetron) 4 mg Route: IVP; Site: right forearm; lg3 23:19 Follow up: Response: No adverse reaction lg3 23:47 Drug: Tamiflu (oseltamivir) 75 mg Route: PO; ll3 23:57 Follow up: Response: No adverse reaction lg3 Disposition Summary: 05/31/22 22:21 Hospitalization Ordered Hospitalization Status: Inpatient Admission bonilla Provider: Ariane Tony cha Location: Telemetry/MedSurg (Inpatient) bonilla Condition: Fair bonilla Problem: new bonilla Symptoms: have improved bonilla Bed/Room Type: Standard [facility] Room Assignment: 430(06/01/22 00:15) mw Diagnosis - COPD/ Chronic obstructive pulmonary disease with (acute) exacerbation bonilla - Pneumonia due to other specified bacteria bonilla - Hypoxemia bonilla - Fever, unspecified bonilla - Influenza due to other identified influenza virus with pneumonia - Influenza B bonilla - Hypokalemia bonilla Forms: - Medication Reconciliation Form bonilla - SBAR form bonilla Signatures: Dispatcher [employer] EDMS Steffany Sawyer RN RN mw Anderson, Corey, MD MD cha Gibson, Lacie RN RN lg3 Mario Mehta RN RN ll3 Valerie Hawkins RN RN vc1 Kinsey Vasquez PA PA sb3 Corrections: (The following items were deleted from the chart) 21: 20:32 SARS-COV-2 RT PCR+MOL.LAB.BRZ ordered. EDMS EDMS : 20:32 Influenza Screen (A \\T\\ B)+BA.LAB.BRZ ordered. EDMS EDMS : 20:32 LACTATE+C.LAB.BRZ ordered. EDMS EDMS 06/01 00:15 05/31 22:21 bonilla mw
[2022-05-31] MEDS ORDERED: POTASSIUM 25 MEQ EFFERV TAB ONE (22:35)
[2022-05-31] MEDS ORDERED: ONDANSETRON 4 MG/2 ML VIAL ONE (23:24)
[2022-05-31] MEDS ORDERED: OSELTAMIVIR 75 MG CAP ONE (23:40)
--- NOTE | 2022-06-01 00:14 | P.HP ---
Certification for Inpatient Patient admitted to: Observation With expected LOS: <2 Midnights Patient will require the following post-hospital care: None Practitioner: I am a practitioner with admitting privileges, knowledge of patient current condition, hospital course, and medical plan of care. Services: Services provided to patient in accordance with Admission requirements found in Title 42 Section 412.3 of the Code of Federal Regulations Patient History Date of Service: 06/01/22 Reason for admission: Pneumonia History of Present Illness: Patient is a 76 y/o F with PMH of CHF, GERD, and RA who presented to the ED with complaints of shortness of breath, cough, and fatigue x 2 weeks. She reports a cough with clear sputum and waxing/waning fever. She states that she saw her scalp specialist a few days ago who started her on 2 nasal sprays. Patient was initially saturating 87% on RA, put on 2L, and improved. Afebrile. VSS. Labs today significant for WBC 11.4, BNP 649, Na 135, K 3.4, FluB+. CXR showed mild R basilar opacities suggestive of PNA. CTA negative for PE but showed widespread heterogeneous groundglass opacification and interstitial thickening, cluster of multiple small cavity nodules in the right upper lobe, small consolidation vs atelectasis in the right middle lobe with adjacent mucous plugging. She was given 2 breathing treatments, solumedrol, pepcid, azithromycin, rocephin, 1.5L fluid, tamiflu, and supplemental potassium. Patient is admitted for observation. Allergies codeine Allergy (Mild, Verified 01/31/16 14:39) Rash Home medications list reviewed: Yes Home Medications: Folic Acid 1 mg PO BID 04/03/19 Furosemide [Lasix*] 20 mg PO DAILY 04/03/19 Loteprednol Etabonate [Lotemax] 1 drop EACH EYE BID 04/03/19 Potassium Chloride 550 gm PO DAILY 04/03/19 Valsartan [Diovan*] 40 mg PO DAILY 04/03/19 carvediloL [Coreg*] 6.25 mg PO BID 04/03/19 Azithromycin Tab [Zithromax*] 250 mg PO DAILY #8 tab 04/06/19 - Past Medical/Surgical History Diabetic: No -: Rheumatoid Arthritis -: High Cholesterol -: CHF -: GERD -: Right hip replacement 2012 -: Foot Surgery -: Cataract surgery x2 in May 2015 -: Hysterectomy -: Mastoidectomy to left ear Psychosocial/ Personal History: Patient is . - Family History Mother -: Cancer, Other (see notes) Notes: Hyperthyroidism; Dementia Father -: Hypertension, Stroke - Social History Smoking Status: Never smoker Alcohol use: No CD- Drugs: No Caffeine use: Yes Place of Residence: Home Review of Systems General: Weakness Respiratory: Cough, Shortness of Breath Physical Examination - Physical Exam General: Alert, In no apparent distress HEENT: Atraumatic, PERRLA, EOMI, Sclerae nonicteric Neck: Supple, 2+ carotid pulse no bruit, No LAD, Without JVD or thyroid abnormality Respiratory: Diminished Cardiovascular: No edema, Regular rate/rhythm, Normal S1 S2 Gastrointestinal: Normal bowel sounds, No tenderness Musculoskeletal: No tenderness Integumentary: No rashes Neurological: Normal speech, Normal strength at 5/5 x4 extr, Normal tone, Normal affect - Studies Laboratory Data (last 24 hrs) 05/31/22 21:15: PT 11.6, INR 1.05 05/31/22 21:15: WBC 11.4 H, Hgb 12.2, Hct 36.8, Plt Count 353 05/31/22 21:15: Sodium 135 L, Potassium 3.4 L, BUN 23 H, Creatinine 0.96, Glucose 114 H, Magnesium 2.0, Total Bilirubin 0.3, AST 35, ALT 29, Alkaline Phosphatase 89 Microbiology Data (last 24 hrs): 05/31/22 21:00 Nasopharnyx Influenza Type A Antigen Screen - Final 05/31/22 21:00 Nasopharnyx Influenza Type B Antigen Screen - Final Assessment and Plan - Problems (Diagnosis) (1) Pneumonia Current Visit: Yes Status: Acute Qualifiers: Pneumonia type: due to unspecified organism Laterality: right Lung location: unspecified part of lung Qualified Code(s): J18.9 - Pneumonia, unspecified organism (2) Influenza B Current Visit: Yes Status: Acute (3) Hypoxia Current Visit: Yes Status: Acute (4) Hypokalemia Current Visit: Yes Status: Acute (5) CHF (congestive heart failure) Current Visit: Yes Status: Chronic Qualifiers: Heart failure type: diastolic Heart failure chronicity: chronic Qualified Code(s): I50.32 - Chronic diastolic (congestive) heart failure - Plan -Pulmonology consult -Continue scheduled breathing treatments, tamiflu, antibiotics, incentive spirometry, and steroids -Antitussives PRN -Continue supplemental O2 PRN. Wean as tolerated. Monitor O2 saturation. -Monitor and replete electrolytes per protocol -Reconcile and continue home medications -Lovenox for VTE ppx -Full code Discharge Plan: Home Plan to discharge in: 24 Hours - Advance Directives Does patient have a Living Will: Yes Does patient have a Durable POA for Healthcare: Yes - Code Status/Comfort Care Code Status Assessed: Yes (Full) Critical Care: No Time Spent Managing Pts Care (In Minutes): 50
[2022-06-01] MEDS ORDERED: ACETAMINOPHEN 500 MG TAB PO PRN (00:36)
[2022-06-01] MEDS ORDERED: ONDANSETRON 4 MG/2 ML VIAL IV PRN (00:36)
[2022-06-01] MEDS ORDERED: TIZANIDINE 4 MG TABLET PO ONE (00:57)
[2022-06-01] MEDS ORDERED: hydrOXYzine HCL 25 MG TAB PO ONE (00:57)
[2022-06-01] MEDS: IPRATROPIUM BROM 0.5MG/2.5ML NEB SCH ×4 (01:50→19:55)
[2022-06-01] MEDS: ALBUTEROL 2.5 MG/3 ML NEB SOL NEB SCH ×4 (01:50→19:55)
[2022-06-01 02:03] VITALS: BMI 19.3
[2022-06-01 04:42] LABS: Potassium 4.3 mmol/L (3.5-5.1)
[2022-06-01] MEDS ORDERED: METHYLPREDNISOLONE 125 MG INJ IV SCH (06:00)
[2022-06-01 08:45] LABS: Urine Appearance Clear (Clear); Urine Bilirubin Negative (Negative); Urine Blood Trace-intact (Negative); Urine Color Yellow (Yellow); Urine Glucose Negative (Negative); Urine Protein Negative (Negative); Urine Urobilinogen 0.2 mg/dL (0.2-1.0); Urine pH 5.5 (5.0-7.0)
[2022-06-01 08:59] LABS: Urine Bacteria <20 /HPF (<20); Urine RBC <5 /HPF (NONE SEEN)
[2022-06-01] MEDS: CEFTRIAXONE 1,000 MG in NA CHLORIDE 0.9% 50 ML IVPB SCH (10:03)
[2022-06-01] MEDS: OSELTAMIVIR 30 MG CAP PO SCH ×2 (10:03→19:49)
[2022-06-01] MEDS: AZITHROMYCIN IV 500 MG in NA CHLORIDE 0.9% 250 ML IVPB SCH (10:07)
[2022-06-01] MEDS: ENOXAPARIN 40 MG/0.4 ML SQ SCH (10:08)
[2022-06-01] MEDS: BENZONATATE 100 MG CAP PO PRN ×2 (11:10→19:49)
--- NOTE | 2022-06-01 18:50 | RAD REPORT ---
EXAM DESCRIPTION: CT - Chest For Pe Angio - 06/01/2022 7:11 am CLINICAL HISTORY: Dyspnea. COMPARISON: None. TECHNIQUE: CTA of the chest was performed following intravenous administration of iodinated contrast . Axial soft tissue and lung window, and coronal and sagittal soft tissue window reconstructions were created and sent to PACS. 3D postprocessing was performed on an independent workstation, with images sent to PACS for subsequen t review. This exam was performed according to our departmental dose-optimization program, which includes autom ated exposure control, adjustment of the mA and/or kV according to patient size and/or use of iterati ve reconstruction technique. FINDINGS: Vascular: The pulmonary arteries are well-opacified to the segmental level. No CT evidence of acute pulmonary thromboembolism. No evidence of aortic aneurysm or dissection. Lungs and pleura: There are multifocal regions of groundglass opacification and interstitial thickeni ng throughout the lungs. There are multiple small cavitary nodules clustered in the posterior right u pper lobe measuring up to 2.2 cm. Mild opacification in the anterior inferior right middle lobe, with adjacent mild mucous plugging. No pleural effusion. No pneumothorax. Mediastinum and neck: No mediastinal lymphadenopathy by CT size criteria. Unremarkable appearance of the thyroid gland. Cardiac: No cardiomegaly or pericardial effusion. Abdomen: Multifocal bilateral chronic renal cortical defects.. Musculoskeletal: No concerning osseous abnormality. IMPRESSION: 1. No CTA evidence of acute pulmonary thromboembolism. 2. Widespread heterogeneous groundglass opacification and interstitial thickening, which could be s een with infectious/inflammatory change or pulmonary edema. 3. Cluster of multiple small cavitary nodules in the right upper lobe. Infectious/inflammatory etio logies in the differential. Recommend correlation with short-term follow-up chest CT to ensure resolu tion. 4. Small consolidation versus atelectasis in the right middle lobe with adjacent mucous plugging. Electronically signed by: Salma Plata MD 06/01/2022 12:29 AM CDT Due to temporary technical issues with the PACS/Fluency reporting system, reports are being signed by the in house radiologists without review as a courtesy to insure prompt reporting. The interpreting radiologist is fully responsible for the content of the report.
[2022-06-01] MEDS: predniSONE 20 MG TAB PO SCH (19:50)
[2022-06-01] MEDS: carvediloL 6.25 MG TAB PO SCH (20:42)
[2022-06-01] MEDS: FOLIC ACID 1 MG TABLET PO SCH (20:42)
[2022-06-01] MEDS: Cyclosporine [Restasis] OPTH SCH (20:43)
[2022-06-01] MEDS ORDERED: ATORVASTATIN 10 MG TAB PO SCH (21:00)
[2022-06-01] MEDS ORDERED: hydrOXYzine HCL 25 MG TAB PO SCH (21:00)
[2022-06-01] MEDS ORDERED: TIZANIDINE 4 MG TABLET PO SCH (21:00)
[2022-06-02] MEDS: ALBUTEROL 2.5 MG/3 ML NEB SOL NEB SCH ×2 (01:10→08:46)
[2022-06-02] MEDS: IPRATROPIUM BROM 0.5MG/2.5ML NEB SCH ×2 (01:10→08:46)
[2022-06-02] MEDS ORDERED: LEVOTHYROXINE SOD 0.025 MG TAB PO SCH (06:00)
[2022-06-02] MEDS: Cyclosporine [Restasis] OPTH SCH (09:00)
[2022-06-02] MEDS ORDERED: FUROSEMIDE 40 MG TABLET PO SCH (09:00)
[2022-06-02] MEDS ORDERED: POTASSIUM CL SA 10 MEQ TAB PO SCH (09:00)
--- NOTE | 2022-06-02 09:14 | P.DS ---
Admission Date: 06/01/22 Discharge Date: 06/02/22 Disposition: ROUTINE DISCHARGE Discharge Condition: FAIR Reason for Admission: Pneumonia Brief History of Present Illness: Is 76 years of age admitted with influenza pneumonia Hospital Course: Patient improved very quickly upon admission treated with steroids and Tamiflu at time of discharge was very alert oriented comfortable chest occasional wheezing and crackles cardiovascular system heart sounds normal vital signs all stable sats on room air around 93% difficulty obtaining from her finger chemistries reviewed CT scan shows some bilateral groundglass changes positive for influenza B blood cultures negative Vital Signs/Physical Exam: Temp Pulse Resp BP Pulse Ox 97.4 F 83 16 94/46 L 95 06/02/22 04:00 06/02/22 04:00 06/02/22 04:00 06/02/22 04:00 06/02/22 04:00 Laboratory Data at Discharge: WBC 11.4 K/uL (4.3-10.9) H 05/31/22 21:15 Hgb 12.2 g/dL (12.0-15.0) 05/31/22 21:15 Hct 36.8 % (36.0-45.0) 05/31/22 21:15 Plt Count 353 K/uL (152-406) 05/31/22 21:15 PT 11.6 SECONDS (9.5-12.5) 05/31/22 21:15 INR 1.05 05/31/22 21:15 Sodium 135 mmol/L (136-145) L 06/01/22 03:53 Potassium 4.3 mmol/L (3.5-5.1) 06/01/22 03:53 BUN 20 mg/dL (7-18) H 06/01/22 03:53 Creatinine 0.97 mg/dL (0.55-1.3) 06/01/22 03:53 Glucose 215 mg/dL (74-106) H 06/01/22 03:53 Magnesium 2.0 mg/dL (1.8-2.4) 05/31/22 21:15 Total Bilirubin 0.3 mg/dL (0.2-1.0) 05/31/22 21:15 AST 35 U/L (15-37) 05/31/22 21:15 ALT 29 U/L (12-78) 05/31/22 21:15 Alkaline Phosphatase 89 U/L (45-117) 05/31/22 21:15 Home Medications: Folic Acid 1 mg PO BID 04/03/19 Furosemide [Lasix*] 40 mg PO DAILY 04/03/19 carvediloL [Coreg*] 6.25 mg PO BID 04/03/19 Cyclosporine [Restasis] 1 drop EACH EYE BID 06/01/22 Levothyroxine Sodium 25 mcg PO [id number] 06/01/22 Potassium Chloride [Klor-Con 10] 10 meq PO DAILY 06/01/22 Pravastatin Sodium 20 mg PO BEDTIME 06/01/22 Tizanidine HCl 4 mg PO BEDTIME 06/01/22 hydrOXYzine HCL [Atarax] 25 mg PO BEDTIME 06/01/22 Oseltamivir Phosphate [Tamiflu] 30 mg PO BID #8 cap 06/02/22 predniSONE [Prednisone*] 10 mg PO BID #14 tab 06/02/22 New Medications: predniSONE [Prednisone*] 10 mg PO BID #14 tab Oseltamivir Phosphate [Tamiflu] 30 mg PO BID #8 cap Followup: Edgardo Bruner MD [Primary Care Provider] -
[2022-06-02] MEDS: OSELTAMIVIR 30 MG CAP PO SCH (09:25)
[2022-06-02] MEDS: carvediloL 6.25 MG TAB PO SCH (09:25)
[2022-06-02] MEDS: BENZONATATE 100 MG CAP PO PRN (09:27)
[2022-06-02] MEDS: ENOXAPARIN 40 MG/0.4 ML SQ SCH (09:27)
[2022-06-02] MEDS: FOLIC ACID 1 MG TABLET PO SCH (09:27)
[2022-06-02] MEDS: predniSONE 20 MG TAB PO SCH (09:27)
[2022-06-02] MEDS: AZITHROMYCIN IV 500 MG in NA CHLORIDE 0.9% 250 ML IVPB SCH (09:28)
[2022-06-02 09:29] VITALS: BP 103/50
[2022-06-02] MEDS: CEFTRIAXONE 1,000 MG in NA CHLORIDE 0.9% 50 ML IVPB SCH (09:29)
[2022-06-02 09:38] VITALS: O2SAT 95
[2022-06-02 10:09] VITALS: TEMP 97.7
--- NOTE | 2022-06-04 08:05 | EKG ---
Test Date: 2022-05-31 Test Time: 21:34:18 Head Cashier: TRA MEASUREMENT RESULTS: Intervals: Rate: 98 UT: 142 QRSD: 86 QT: 406 QTc: 518 [place]: P: 65 UT: 142 QRS: -22 T: 72 INTERPRETIVE STATEMENTS: Normal sinus rhythm Septal infarct, age undetermined Prolonged QT Abnormal ECG Compared to ECG 01/31/2016 08:09:06 Myocardial infarct finding now present Prolonged QT interval now present Sinus tachycardia no longer present T-wave abnormality no longer present Electronically Signed On 06-04-22 07:56:25 CDT by David Spangler
--- OUTSIDE RECORDS SUMMARY | 2022-06-19 05:56 | XMS REPORT | Continuity of Care Document ---
:1945 Author Organization [facility] Address [address] [place] [place] [address] Care Team Providers Name Role Phone No MD Primary Care Physician Unavailable HADNOTT Attending Clinician Unavailable HADNOTT Attending Clinician Unavailable Doctor Unassigned, Name Attending Clinician Unavailable Evgeny LEMUS S Attending Clinician Ron PEPPER Attending Clinician Unavailable AJ Attending Clinician Unavailable Payers Payer Name Policy Type Policy Number Effective Date Expiration Date S kacey [employer] MEDICARE PPO [id number] 2016 00:00:00 Problems Condition Condition Condition Status Onset Resolution Last Treating Co mments Source Name Details Category Date Date Treatment Clinician Date Closed Closed Disease Active 2020-12 UT 3-part 3-part 12-18 Health fracture fracture 00:00: of of 00 surgical surgical neck of neck of left left humerus humerus No known No known Disease UT active active Health problems problems Right hip Right hip Problem Active UT pain pain Physici ans History of History of Problem 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 cancer ans History of History of Problem Resolve UT Lymphoma, Lymphoma, 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, cell, 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 Sleep Sleep Problem Active UT disturbanc disturbanc Ph ysici es es ans 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 Physic i ans 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 Phys ici ans Status Status Problem 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 Phys ici involving involving ans right knee right knee with with positive positive rheumatoid rheumatoid factor factor Lumbar Lumbar Problem Active UT radiculopa radiculopa Ph ysici thy, acute thy, acute an s Allergies, Adverse Reactions, Alerts Allergy Allergy Status Severity Reaction(s) Onset Inactive Treating Comm ents Source Name Type Date Date Clinician Codeine Propensi Active Hives Univers ty to 03-09 ity of adverse 00:00: [place] reaction 00 Medical s Branch CODEINE DRUG Active Hives Univers INGREDI 03-09 ity of 00:00: [place] 00 Medical Branch Codeine Allergy Active Hives UT to 08-17 Health substanc 00:00: e 00 NO KNOWN Drug Active Univers ALLERGIE Class ity of S [facility] Codeine Allergy Active UT Derivati to drug Physici ves (finding ans ) Family History Family Member Diagnosis Comments Start Date Stop Date Source Mother Family history of thyroid [facility] Physicians disease Mother Family history of Colon U T Physicians cancer Father Family history of [facility] Phys icians hypertension Social History Social Habit Start Date Stop Date Quantity Comments Source Exposure to Not sure [facility] SARS-CoV-2 (event) History [facility] University o f Alcohol Std [place] [facility] Dr[facility] History [facility] University o f Alcohol Binge [place] [facility] Alcohol intake 2021-11-29 2021-11-29 Lifetime [facility] 00:00:00 00:00:00 non-drinker (finding) Tobacco use and 2021-09-05 2021-09-05 Smokeless tobacco [facility] exposure 00:00:00 00:00:00 non-user History [facility] 2020-03-09 2020-03-09 1 University o f Alcohol Frequency 00:00:00 00:00:00 [facility] Sex Assigned At [birth year] [facility] 00:00:00 00:00:00 Smoking Status Start Date Stop Date Source Unknown if ever smoked [facility] Never smoked tobacco [facility] Medications Ordered Filled Start Stop Current Ordering Indication Dosage Frequency Signature Comments Components Source Medication Medication Date Date Medication? Clinician (SIG) Name Name celecoxib 2020-12 Yes [id number] TAKE 1 UT (CeleBREX) 2-13 CAPSULE BY Hea lth 200 MG 00:00: MOUTH capsule 00 TWICE A DAY celecoxib 2020-12 Yes [id number] TAKE 1 UT (CeleBREX) 2-13 CAPSULE BY Hea lth 200 MG 00:00: MOUTH capsule 00 TWICE A DAY celecoxib 2020-12- No [id number] 200mg Q.5D Take 1 UT (CeleBREX) 12-18 12-19 capsule Healt h 200 MG 00:00: 05:59 (200 mg capsule 00 :00 total) by mouth 2 (two) times a day. celecoxib 2020-12- No [id number] 200mg Q.5D Take 1 UT (CeleBREX) 18 12-13 capsule Healt h 200 MG 00:00: 00:00 (200 mg capsule 00 :00 total) by mouth 2 (two) times a day. traMADol 2020-12- No [id number] 50mg Take 1 U T (Ultram) 50 1-15 11-21 tablet (50 H ealth MG tablet 00:00: 05:59 mg total) 00 :00 by mouth every 8 (eight) hours if needed for severe pain for up to 5 days. traMADol 2020-12- No [id number] 50mg Take 1 U T (Ultram) 50 -15 11-21 tablet (50 H ealth MG tablet 00:00: 05:59 mg total) 00 :00 by mouth every 8 (eight) hours if needed for severe pain for up to 5 days. traMADol 2020-12- No [id number] 50mg Take 1 U T (Ultram) 50 0-22 10-28 tablet (50 H ealth MG tablet 00:00: 04:59 mg total) 00 :00 by mouth every 8 (eight) hours if needed for severe pain for up to 5 days. No known 2020-12 No No known UT medications 0-07 medication He alth 10:37: s 33 Meloxicam Meloxicam 2020- No LATANYA QD TAKE 1 UT 7.5 MG Oral 7.5 MG Oral 03-01 06-30 HADNOTT TABLET Physici Tablet Tablet 00:00: 23:59 M.D. DAILY WITH an s 00 :00 FOOD. traMADol 50 Yes Univer s mg tablet 4-06 ity of 00:00: [address] traMADol 50 2019-0 Yes Univer s mg tablet 4- ity of 00:00: [address] traMADol 50 2019-0 Yes Univer s mg tablet 4- ity of 00:00: [address] traMADol 50 2020-0 Yes Univer s mg tablet 4-06 ity of 00:00: [place] [facility] traMADol 50 2020-0 Yes Univer s mg tablet 4-06 ity of 00:00: [place] 00 Medical Branch traMADol 50 2020-0 Yes Univer s mg tablet 4- ity of 00:00: [place] 00 Medical Branch traMADol 50 2020-0 Yes Univer s mg tablet 4- ity of 00:00: [place] [facility] KCL 10 mEq 2020-0 Yes Univers tablet 4-04 ity of 00:00: [place] [facility] KCL 10 mEq 2020-0 Yes Univers tablet 4-04 ity of 00:00: [place] [facility] KCL 10 mEq 2020-0 Yes Univers tablet 4-04 ity of 00:00: [place] [facility] KCL 10 mEq 2020-0 Yes Univers tablet 4-04 ity of 00:00: [place] [facility] KCL 10 mEq 2020-0 Yes Univers tablet 4-04 ity of 00:00: [place] [facility] KCL 10 mEq 2020-0 Yes Univers tablet 4-04 ity of 00:00: [place] [facility] KCL 10 mEq 2020-0 Yes Univers tablet 4-04 ity of 00:00: [place] [facility] levothyroxi 2020-0 Yes TAKE 1 Univ ers ne 25 mcg 3-16 TABLET BY ity o f tablet 00:00: MOUTH [place] EVERY DAY Medical IN THE [place] MORNING ON EMPTY STOMACH levothyroxi 2020-0 Yes TAKE 1 Univ ers ne 25 mcg 3-16 TABLET BY ity o f tablet 00:00: MOUTH [place] EVERY DAY Medical IN THE [place] MORNING ON EMPTY STOMACH levothyroxi 2020-0 Yes TAKE 1 Univ ers ne 25 mcg 3-16 TABLET BY ity o f tablet 00:00: MOUTH [place] EVERY DAY Medical IN THE [place] MORNING ON EMPTY STOMACH levothyroxi 2020-0 Yes TAKE 1 Univ ers ne 25 mcg 3-16 TABLET BY ity o f tablet 00:00: MOUTH [place] EVERY DAY Medical IN THE [place] MORNING ON EMPTY STOMACH levothyroxi 2020-0 Yes TAKE 1 Univ ers ne 25 mcg 3-16 TABLET BY ity o f tablet 00:00: MOUTH [place] EVERY DAY Medical IN THE [place] MORNING ON EMPTY STOMACH levothyroxi 2020-0 Yes TAKE 1 Univ ers ne 25 mcg 3-16 TABLET BY ity o f tablet 00:00: MOUTH EVERY DAY Medical IN THE Branch MORNING ON EMPTY STOMACH levothyroxi 2020-0 Yes TAKE 1 Univ ers ne 25 mcg 3-16 TABLET BY ity o f tablet 00:00: [facility] EVERY DAY Medical IN THE Branch MORNING ON EMPTY STOMACH pravastatin 2020-0 Yes Univer s 10 mg 3-09 ity of tablet 00:00: [place] 00 Medical Branch pravastatin 2020-0 Yes Univer s 10 mg 3-09 ity of tablet 00:00: [place] [facility] pravastatin 2020-0 Yes Univer s 10 mg 3-09 ity of tablet 00:00: [place] [facility] pravastatin 2020-0 Yes Univer s 10 mg 3-09 ity of tablet 00:00: [place] [facility] pravastatin 2020-0 Yes Univer s 10 mg 3-09 ity of tablet 00:00: [place] [facility] pravastatin 2020-0 Yes Univer s 10 mg 3-09 ity of tablet 00:00: [place] [facility] pravastatin 2020-0 Yes Univer s 10 mg 3-09 ity of tablet 00:00: [place] [facility] methotrexat 2020-0 Yes TAKE 6 Univ ers e 2.5 mg 2-27 TABLETS BY ity o f tablet 00:00: [facility] EVERY WEEK Medical Branch methotrexat 2020-0 Yes TAKE 6 Univ ers e 2.5 mg 2-27 TABLETS BY ity o f tablet 00:00: [facility] EVERY WEEK Medical Branch methotrexat 2020-0 Yes TAKE 6 Univ ers e 2.5 mg 2-27 TABLETS BY ity o f tablet 00:00: [facility] EVERY WEEK Medical Branch methotrexat 2020-0 Yes TAKE 6 Univ ers e 2.5 mg 2-27 TABLETS BY ity o f tablet 00:00: [facility] EVERY WEEK Medical Branch methotrexat 2020-0 Yes TAKE 6 Univ ers e 2.5 mg 2-27 TABLETS BY ity o f tablet 00:00: [facility] EVERY WEEK Medical Branch methotrexat 2020-0 Yes TAKE 6 Univ ers e 2.5 mg 2-27 TABLETS BY ity o f tablet 00:00: [facility] EVERY WEEK Medical Branch methotrexat 2020-0 Yes TAKE 6 Univ ers e 2.5 mg 2-27 TABLETS BY ity o f tablet 00:00: [facility] EVERY WEEK Medical Branch carvediloL 2020-0 Yes Univers 6.25 mg 2-26 ity of tablet 00:00: [place] [facility] carvediloL 2020-0 Yes Univers 6.25 mg 2-26 ity of tablet 00:00: [place] [facility] carvediloL 2020-0 Yes Univers 6.25 mg 2-26 ity of tablet 00:00: [place] [facility] carvediloL 2020-0 Yes Univers 6.25 mg 2-26 ity of tablet 00:00: [place] [facility] carvediloL 2020-0 Yes Univers 6.25 mg 2-26 ity of tablet 00:00: [place] [facility] carvediloL 2020-0 Yes Univers 6.25 mg 2-26 ity of tablet 00:00: [place] [facility] carvediloL 2020-0 Yes Univers 6.25 mg 2-26 ity of tablet 00:00: [place] [facility] leucovorin 2020-0 Yes TAKE 1 Unive rs 5 mg tablet 2-21 TABLET BY ity of 00:00: [facility] Medical Branch leucovorin 2020-0 Yes TAKE 1 Unive rs 5 mg tablet 2-21 TABLET BY ity of 00:00: [facility] EVERY Medical Branch leucovorin 2020-0 Yes TAKE 1 Unive rs 5 mg tablet 2-21 TABLET BY ity of 00:00: [facility] EVERY Medical Branch leucovorin 2020-0 Yes TAKE 1 Unive rs 5 mg tablet 2-21 TABLET BY ity of 00:00: [facility] EVERY Medical Branch leucovorin 2020-0 Yes TAKE 1 Unive rs 5 mg tablet 2-21 TABLET BY ity of 00:00: [facility] EVERY Medical Branch leucovorin 2020-0 Yes TAKE 1 Unive rs 5 mg tablet 2-21 TABLET BY ity of 00:00: [facility] EVERY Medical Branch leucovorin 2020-0 Yes TAKE 1 Unive rs 5 mg tablet 2-21 TABLET BY ity of 00:00: [facility] EVERY Medical Branch furosemide 2020-0 Yes Univers 40 mg 2-03 ity of tablet 00:00: [place] [address] Medical Branch furosemide 2020-0 Yes Univers 40 mg 2-03 ity of tablet 00:00: [place] [address] Medical Branch furosemide 2020-0 Yes Univers 40 mg 2-03 ity of tablet 00:00: [place] [address] Medical Branch furosemide 2020-0 Yes Univers 40 mg 2-03 ity of tablet 00:00: [place] [facility] furosemide 2020-0 Yes Univers 40 mg 2-03 ity of tablet 00:00: [address] furosemide 2020-0 Yes Univers 40 mg 2-03 ity of tablet 00:00: [address] furosemide 2020-0 Yes Univers 40 mg 2-03 ity of tablet 00:00: [address] traMADol traMADol 2010-12 Yes GINA INÉS TAKE 1 UT HCl - 50 MG HCl - 50 MG 1-14 M.D. TABLET Physici Oral Tablet Oral Tablet 00:00: EVERY 12 ans 00 HOURS NEEDED. tiZANidine tiZANidine Yes GINA CONTE TAKE 2 UT HCl - 4 MG HCl - 4 MG M.D. TABLETS AT Physici Oral Tablet Oral Tablet BEDTIME. ans Lasix 20 MG Lasix 20 MG Yes U T Oral Tablet Oral Tablet P hysici ans Restasis Restasis Yes UT 0.05 % 0.05 % Physici Ophthalmic Ophthalmic ans Emulsion Emulsion Aspirin 81 Aspirin 81 Yes 1 QD TAKE 1 U T MG TABS MG TABS TABLET Physici DAILY. ans Coreg CR 20 Coreg CR 20 Yes 1 TAKE 1 UT MG Oral MG Oral CAPSULE Physic i Capsule Capsule BEDTIME ans Extended Extended Release 24 Release 24 Hour Hour Enalapril Enalapril Yes 1 QD TAKE 1 UT Maleate Maleate TABLET Physici TABS TABS DAILY. ans Evoxac 30 Evoxac 30 Yes QD TAKE 1 UT MG Oral MG Oral CAPSULE Physic i Capsule Capsule DAILY ans Lasix 20 MG Lasix 20 MG Yes 1 QD TAKE 1 UT Oral Tablet Oral Tablet TABLET Physici DAILY. ans NexIUM 40 NexIUM 40 Yes 1 Q0.5D TAKE 1 UT MG Oral MG Oral CAPSULE Physic i Capsule Capsule TWICE ans Delayed Delayed DAILY Release Release Potassium Potassium Yes 1 QD TAKE 1 UT TABS TABS TABLET Physici DAILY. ans Vitamin D3 Vitamin D3 Yes QD TAKE 1 U T 50 MCG 50 MCG CAPSULE Physici (1999 UT) (1999 UT) DAILY ans Oral Oral Capsule Capsule No known No Univers medications ity of [facility] Methotrexat Methotrexat Yes GINA CONTE 8 TAKE 8 UT e 2.5 MG e 2.5 MG M.D. TABLET Physi ci Oral Tablet Oral Tablet WEEKLY ans Folic Acid Folic Acid Yes GINA CONTE 2 QD TAKE 2 UT 1 MG Oral 1 MG Oral M.D. TABLET Phy sici Tablet Tablet DAILY ans Metaxalone Metaxalone Yes GINA CONTE Q0.3333D TAKE 1 UT 800 MG Oral 800 MG Oral M.D. TABLET 3 Physici Tablet Tablet TIMES ans DAILY NEEDED FOR MUSCLE SPASM. Vital Signs Vital Name Observation Time Observation Value Comments Source Body height 2021-10-18 19:29:00 152.4 cm [facility]alt [facility] Body weight 2021-10-18 19:29:00 47.174 kg [facility] BMI 2021-10-18 19:29:00 20.31 kg/m2 [facility] Body height 2021-09-20 19:57:00 152.4 cm [facility] Body weight 2021-09-20 19:57:00 47.174 kg [facility]alt [facility] BMI 2021-09-20 19:57:00 20.31 kg/m2 [facility] Body height 2021-09-05 19:14:00 152.4 cm [facility] Body weight 2021-09-05 19:14:00 47.537 kg [facility]alt [facility] BMI 2021-09-05 19:14:00 20.47 kg/m2 [facility]alt [facility] Systolic blood 2020-03-09 14:38:00 125 mm[Hg] Univer [facility] Diastolic blood 2020-03-09 14:38:00 57 mm[Hg] Unive [facility] Heart rate 2020-03-09 14:38:00 86 /min [facility] Body height 2020-03-09 14:38:[address] [facility] Body weight 2020-03-09 14:38:[address] [facility] BMI 2020-03-09 14:38:00 21.21 kg/m2 [facility] Systolic blood 2020-03-09 14:38:00 125 mm[Hg] Univer [facility] Diastolic blood 2020-03-09 14:38:00 57 mm[Hg] Unive [facility] Heart rate 2020-03-09 14:38:00 86 /min [facility] Body height 2020-03-09 14:38:[address] [facility] Body weight 2020-03-09 14:38:[address] [facility] BMI 2020-03-09 14:38:00 21.21 kg/m2 [facility] Body height 2021-03-29 09:39:00 60 [in_us] [facility] Weight 2021-03-29 09:39:00 106 [lb_av] [facility] Body mass index 2021-03-29 09:39:00 20.7 kg/m2 UT Ph ysicians (BMI) [Ratio] Body height 2021-03-01 12:01:00 60 [in_us] [facility] Weight 2021-03-01 12:01:00 106 [lb_av] [facility] Body mass index 2021-03-01 12:01:00 20.7 kg/m2 [facility] Ph ysicians (BMI) [Ratio] Procedures Procedure Date / Time Performing Clinician Source Performed XR KNEE 3 VIEWS LEFT 2021-09-05 19:14:00 Latanya Madrigal PA [facility] REFERRAL- 2020-05-11 05:01:00 Doctor Unassigned, No [facility] REQUEST/RESPONSE Name Medical Branch REFERRAL- 2020-04-13 05:01:00 Doctor Unassigned, No [facility] REQUEST/RESPONSE Name [facility] XR SHOULDER <2 VW RIGHT 2020-03-09 14:35:39 [facility] [U] XRAY KNEE 3 VWS 2019-12-23 00:00:00 [facility] Physi cians RIGHT [id number] EXTERNAL PROVIDER Doctor Unassigned, No [facility] RECORDS Name Medical Branch History of Total Hip [facility] Physicia ns Replacement Right History of Cataract [facility] s Surgery History of Breast [facility] Surgery Mastectomy History of Bunion [facility] Correction By Double Osteotomy History of Hysterectomy [facility] Encounters Start End Encounter Admission Attending Care Care Encounter Source Date/Time Date/Time Type Type Clinicians Facility Department ID 2021-11-29 [id number] [place] 13:47:28 [facility] 2021-11-28 Outpatient [facility] [id number] [place] 09:14:10 [facility] 2021-10-17 Outpatient [facility] [id number] PA 08:44:14 Health 2021-09-19 Outpatient [facility] [id number] PA 09:00:37 Health 2021-09-19 Outpatient [facility] [id number] PA 09:00:37 Health 2021-09-05 Outpatient [facility] [id number] PA 13:49:11 Health 2021-09-04 Outpatient [facility] [id number] PA 16:08:10 [facility] 2021-11-29 2021-11-29 Office Hadnott, [facility]TP [facility] [id number] PA 13:45:00 13:47:35 Visit Latanya TEJEDA [id number] H ealth MEDICAL [id number] [address] 3 [id number] 2021-11-10 2021-11-10 Refill Hadcrowt, [facility]TP [facility] [id number] PA 00:00:00 00:00:00 Latanya TEJEAD [id number] H ealth MEDICAL [id number] [place] 5 [id number] 2021-10-18 2021-10-18 Office Hadcrowt UTP [facility] [id number] PA 13:11:24 14:08:49 Visit Latanya TEJEDA [id number] H ealth MEDICAL [id number] [address] 6 [id number] 2021-10-15 2021-10-15 Refill Hadcrowt, UTP [facility] [id number] PA 00:00:00 00:00:00 Latanya TEJEDA [id number] H ealth MEDICAL [id number] [place] 8 [id number] 2021-09-20 2021-09-20 Office Hadcrowt UTP [facility] [id number] PA 13:47:45 15:18:50 Visit Latanya TEJEDA [id number] H ealth MEDICAL [id number] [address] 9 [id number] 2021-09-05 2021-09-05 Office REZA Madrigal [facility] 1.2.840.114 [id number] [place] 13:37:45 15:54:03 Visit Latanya KEEN AND [id number] Health SPINE [id number] MEDICAL [id number] PLA[place] 2 2021-03-29 2021-03-29 Appointmen REZA MADRIGAL Orthoped[facility] [id number] [place] 09:45:00 09:45:00 t; [facility] 2021-03-01 2021-03-01 Appointmen REZA MADRIGAL Orthopedics 73 [id number] [place] 10:45:00 10:45:00 t; [facility] 2020-05-11 2020-05-11 Orders Doctor MENDOZA 1.2.840.114 [id number] Univers 00:00:00 00:00:00 Only Unassigned, ANISA [id number] ity of [place] [facility] [id number] Henrry as [id number] [address] 2020-05-11 2020-05-11 Orders Doctor MENDOZA 1.2.840.114 [id number] 00:00:00 00:00:00 Only Unassigned, ANISA [id number] [place] 4.2.7.2.686 [id number] 2020-04-13 2020-04-13 Orders Doctor MENDOZA 1.2.840.114 [id number] Univers 00:00:00 00:00:00 Only Unassigned, ANISA [id number] ity of [place] [facility] [id number] Henrry as [id number] [place] [address] Branch 2020-04-13 2020-04-13 Orders Doctor KELLY Madrid2.840.114 [id number] 00:00:00 00:00:00 Only Unassigned, ANISA [id number] [facility] 4.2.7.2.686 [id number] [id number] 2020-03-14 2020-03-14 [facility] [id number] Univers 00:00:00 00:00:00 [facility] [id number] it y of Surgical [id number] Henrry as Specialti [id number] Me dical es 198 [facility] 2020-03-14 2020-03-14 [facility] [id number] 00:00:00 00:00:00 [facility] [id number] Surgical [id number] Specialti [phone] es 198 [place] 2020-03-10 2020-03-10 [facility] [id number] [facility] 00:00:00 00:00:00 [facility] [id number] it y of Surgical [id number] Henrry as Specialti [id number] Me dical es 198 [facility] 2020-03-10 2020-03-10 [facility] [id number] 00:00:00 00:00:00 [facility] [id number] Surgical [id number] Specialti [id number] es 198 [place] 2020-03-09 2020-03-09 [id number] Univers 09:35:38 23:59:00 GORDO ity of [facility] 2020-03-09 2020-03-09 [facility] 1.2.840.114 [id number] Univers 09:35:00 23:59:00 Encounter [facility] [id number] ity of Surgical [id number] Henrry as Specialti [id number] Me dical es 809 [facility] 2020-03-09 2020-03-09 [facility] 1.2.840.114 [id number] 09:35:00 23:59:00 Encounter [facility] [id number] Surgical [id number] Specialti [id number] es 809 [place] 2020-03-09 2020-03-09 [facility] 1.2.840.114 [id number] Univers 09:34:08 09:49:08 Visit [facility] [id number] it y of Surgical [id number] Henrry as Specialti [id number] Me dical es 198 Branch [place] 2020-03-09 2020-03-09 [facility] 1.2.840.114 [id number] 09:34:08 09:49:08 Visit [facility] [id number] Surgical [id number] Specialti [id number] es 198 [place] 2020-01-07 2020-01-07 Appointmen REZA ROCHA [facility]oped[facility] [id number] [place] 10:45:00 10:45:00 t; CARROLL ROCHA at [facility] 2019-12-24 2019-12-24 Appointmen REZA ROCHA Orth[facility] [id number] [place] 10:30:00 10:30:00 t; CARROLL ROCHA at [facility]avon HODGES M.D. [facility] 2019-01-21 2019-01-[address] [facility] [id number] [place] 13:30:00 13:30:00 t; CARROLL ROCHA, Ortho and Ph oral HODGES M.D. Spine [facility] leif Jacobson [facility] 2017-06-05 2017-06-05 Appointmen REZA ROCHA [facility] [id number] [place] 10:30:00 10:30:00 t; CARROLL ROCHA Phys ici JONATHAN, M.D. ans M.D. 2017-05-12 2017-05-12 Appointmen REZA RO[facility] [id number] [place] 13:00:00 13:00:00 t; CARROLL ROCHA Phys ici JONATHAN, M.D. ans M.D. Orders Doctor MENDOZA 1.2.840.114 [id number] Univers 00:00:00 00:00:00 Only Unassigned, ANISA [id number] ity of [place] [facility] [id number] Henrry as [phone] Medi drew 009 Branch Results Test Description Test Time Test Comments Results Result [facility] e Comments [U] XRAY HIP 2021-03-01 Images acquired, [place] Phy sicians UNILATERAL MIN 2 11:32:00 not reported on VWS RIGHT [id number] this accession number. XR SHOULDER <2 VW 2020-03-09 No sign of Univers ity of RIGHT 14:55:33 fracture or [place] [facility] dislocation Branch joint spaces are well-maintained [U] XRAY KNEE 3 2019-12-24 Images acquired, [place] Physicians VWS RIGHT [id number] 09:09:00 not reported on this accession number. [U] XRAY PELVIS 1 2019-01-21 Images acquired, U T Physicians OR 2 VWS [id number] 13:26:00 not reported on this accession number.
== END 2022-06-02 13:03 | disposition home or self-care (01) | DRG 194 ==
LOC: ER 20:03 → INTOOBSV 06-01 → 4TH 06-01 → OBSVTOIN 06-01
PROVIDERS: ADMIT Internal Medicine; ATTEND Internal Medicine
DX: J10.00 Influenza due to other identified influenza virus with unspecified type of pneumonia (principal); I50.32 Chronic diastolic (congestive) heart failure; R09.02 Hypoxemia; E87.6 Hypokalemia; K21.9 Gastro-esophageal reflux disease without esophagitis; M06.9 Rheumatoid arthritis, unspecified; Z96.641 Presence of right artificial hip joint; Z20.822 Contact with and (suspected) exposure to COVID-19
CPT/HCPCS: 36415; 71045; 71275; 80048; 80076; 81003; 81015; 83605; 83735; 83880; 84484; 85025; 85610; 87040; 87804; 93005; 94010; 94640; 96374; 96375; 99285; G0378; J0456; J1650; J2405; J2920; J2930; J3490; J7030; J7040; J7050; J7512; Q9967; U0003

== ENCOUNTER 2023-05-30 19:45 | Emergency (ER) | payer OTHER ==
--- OUTSIDE RECORDS SUMMARY | 2023-05-30 19:49 | XMS REPORT | Continuity of Care Document ---
:1945 Author Organization [facility] Address [address] [place] [address] Care Team Providers Name Role Phone No , Pcp Primary Care Physician Unavailable LATANYA RESENDEZ Attending Clinician Unavailable Mariama Gonzales MD Attending Clinician Kenny Riojas MD Attending Clinician Joanie Coates MA Attending Clinician Unavailable LATANYA RESENDEZ M.D. Attending Clinician Unavailable Doctor Unassigned, Idana Attending Clinician Unavailable Gordo Naik Attending Clinician GORDO JOHNSON Attending Clinician Unavailable CARROLL ROCHA M.D. Attending Clinician Unavailable Payers Payer Name Policy Type Policy Number Effective Date Expiration Date S kacey [employer] MEDICARE PPO [id number] 2016 00:00:00 Problems Condition Condition Condition Status Onset Resolution Last Treating Co mments Source Name Details Category Date Date Treatment Clinician Date Acquired Acquired Disease Active 2021-12 Metho di eosinophil eosinophil 0-06 st ia ia 00:00: Hospita 00 l Closed Closed Disease Active 2020-12 UT 3-part 3-part 1-18 Health fracture fracture 00:00: of of 00 surgical surgical neck of neck of left left humerus humerus Sleep Sleep Problem Active UT disturbanc disturbanc [...] ysici thy, acute thy, acute an s No known No known Disease UT active active Health problems problems Right hip Right hip Problem Active UT pain pain Physici ans History of History of Problem 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 cancer ans History of History of Problem Resolve UT Lymphoma, Lymphoma, 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, cell, 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 Allergies, Adverse Reactions, Alerts Allergy Allergy Status Severity Reaction(s) Onset Inactive Treating Comm ents Source Name Type Date Date Clinician Codeine Propensi Active Hallucinatio 2021-12 M ethodi ty to ns 0-05 st adverse 00:00: Hospita reaction 00 l s to drug Codeine Propensi Active Hives 2019-0 Univers ty to 409 ity of adverse 00:00: [place] reaction 00 [facility] CODEINE DRUG Active Hives Univers INGREDI 03-09 ity of 00:00: [place] 00 [facility] Branch Codeine Allergy Active Hives 0 UT to 17 Health substanc 00:00: e 00 Codeine Allergy Active UT Derivati to drug Physici ves (finding ans ) NO KNOWN Drug Active Univers ALLERGIE Class ity of S [facility] Family History Family Member Diagnosis Comments Start Date Stop Date Source Mother Family history of thyroid [facility] disease Mother Family history of Colon [facility] cancer Father Family history of [facility] hypertension Social History Social Habit Start Date Stop Date Quantity Comments Source Exposure to Not sure [facility] SARS-CoV-2 (event) History [facility] University o f Alcohol Std Drinks [facility] [place] History [facility] University o f Alcohol Binge [facility] [place] Gender identity [facility] Alcohol intake 2021-11-29 2021-11-29 Lifetime [facility] 00:00:00 00:00:00 non-drinker (finding) Tobacco use and 2021-09-05 2021-09-05 Smokeless [facility] exposure 00:00:00 00:00:00 tobacco non-user History SDMD 2020-03-09 2020-03-09 1 University o f Alcohol Frequency 00:00:00 00:00:00 [facility] Sex Assigned At [birth year] [facility] 00:[facility] Smoking Status Start Date Stop Date Source Tobacco smoking consumption unknown [facility] Never smoked tobacco [facility] Medications Ordered Filled Start Stop Current Ordering Indication Dosage Frequency Signature Comments Components Source Medication Medication Date Date Medication? Clinician (SIG) Name Name carvediloL 2021-0 Yes 6.25mg Q.5D Take 1 Met hodi (COREG) 9-[address] 6.25 MG 00:00: (6.25 mg Hospit a tablet 00 total) by l mouth 2 (two) times a day with meals. levothyroxi 2021-0 Yes 25ug Take 1 Meth sandra ne 9-10 tablet (25 st (SYNTHROID) 00:00: mcg total) Hospita 25 mcg 00 by mouth. l tablet furosemide 2021-0 Yes 40mg QD Take 1 Metho di (LASIX) 40 9-07 tablet (40 st mg tablet 00:00: mg total) Hos inge 00 by mouth l daily. folic acid 2021-0 Yes 1mg QD Take 1 Metho di (FOLVITE) 1 8-31 tablet (1 st MG tablet 00:00: mg total) Hos inge 00 by mouth l daily. hydrOXYzine 2021-0 Yes 25mg QD Take 1 Meth sandra (ATARAX) 25 8-17 tablet (25 st MG tablet 00:00: mg total) Hos inge 00 by mouth l nightly. pravastatin 2-0 Yes 10mg QD Take 1 Meth sandra (PRAVACHOL) 8-16 tablet (10 st 10 mg 00:00: mg total) Hospita tablet 00 by mouth l daily. famotidine 2021-0 Yes 40mg QD Take 1 Metho di (PEPCID) 40 8-16 tablet (40 st MG tablet 00:00: mg total) Hos inge 00 by mouth l daily. tiZANidine 2021-0 Yes 2mg Q.5D Take 1 Metho di (ZANAFLEX) 8-16 tablet (2 st 2 MG tablet 00:00: mg total) H ospita 00 by mouth 2 l (two) times a day as needed. methotrexat 2021-0 Yes 15mg Q7D Take 6 Meth sandra e 2.5 MG 8-[address] tablet 00:00: (15 mg Hospita 00 total) by l mouth once a week. ezetimibe Yes 10mg QD Take 1 Method i (ZETIA) 10 8-02 tablet (10 st mg tablet 00:00: mg total) Hos inge 00 by mouth l daily. azelastine Yes See Admin Me thodi (ASTELIN) 6-[address] 137 mcg 00:00: ns. Hospita (0.1 %) 00 l nasal spray celecoxib 2020-12 Yes [id number] TAKE 1 UT (CeleBREX) 2-13 CAPSULE BY Hea lth 200 MG 00:00: MOUTH capsule 00 TWICE A DAY celecoxib 2020-12 Yes [id number] TAKE 1 UT (CeleBREX) 2-13 CAPSULE BY Hea lth 200 MG 00:00: MOUTH capsule 00 TWICE A DAY celecoxib 2020-12- No [id number] 200mg Q.5D Take 1 UT (CeleBREX) 1-18 12-19 capsule Healt h 200 MG 00:00: 05:59 (200 mg capsule 00 :00 total) by mouth 2 (two) times a day. celecoxib 2020-12- No [id number] 200mg Q.5D Take 1 UT (CeleBREX) 1-18 12-13 capsule Healt h 200 MG 00:00: 00:00 (200 mg capsule 00 :00 total) by mouth 2 (two) times a day. traMADol 2020-12- No [id number] 50mg Take 1 U T (Ultram) 50 -15 -21 tablet (50 H ealth MG tablet 00:00: 05:59 mg total) 00 :00 by mouth every 8 (eight) hours if needed for severe pain for up to 5 days. traMADol 2020-12- No [id number] 50mg Take 1 U T (Ultram) 50 1-15 11-21 tablet (50 H ealth MG tablet 00:00: 05:59 mg total) 00 :00 by mouth every 8 (eight) hours if needed for severe pain for up to 5 days. traMADol 2020-12- No [id number] 50mg Take 1 U T (Ultram) 50 0-21 09-28 tablet (50 H ealth MG tablet 00:00: 04:59 mg total) 00 :00 by mouth every 8 (eight) hours if needed for severe pain for up to 5 days. No known 2020-12 No No known UT medications 0-07 medication He alth 10:37: s 33 Meloxicam Meloxicam 0 2020- No LATANYA QD TAKE 1 UT 7.5 MG Oral 7.5 MG Oral 03-01 0630 HADNOTT TABLET Physici Tablet Tablet 00:00: 23:59 M.D. DAILY WITH an s 00 :00 FOOD. traMADol 50 2020-0 Yes Univer s mg tablet 03-06 ity of 00:00: [facility] traMADol 50 2020-0 Yes Univer s mg tablet 03-06 ity of 00:00: [facility] traMADol 50 2020-0 Yes Univer s mg tablet 03-06 ity of 00:00: [facility] traMADol 50 2020-0 Yes Univer s mg tablet 03-06 ity of 00:00: [facility] traMADol 50 2020-0 Yes Univer s mg tablet 03-06 ity of 00:00: [facility] traMADol 50 2020-0 Yes Univer s mg tablet 03-06 ity of 00:00: [facility] traMADol 50 2020-0 Yes Univer s mg tablet - ity of 00:00: [facility] KCL 10 mEq 2020-0 Yes Univers tablet - ity of 00:00: [facility] KCL 10 mEq 2020-0 Yes Univers tablet - ity of 00:00: [facility] KCL 10 mEq 2020-0 Yes Univers tablet - ity of 00:00: [facility] KCL 10 mEq 2020-0 Yes Univers tablet - ity of 00:00: [facility] KCL 10 mEq 2020-0 Yes Univers tablet - ity of 00:00: [facility] KCL 10 mEq 2020-0 Yes Univers tablet 4- ity of 00:00: [facility] KCL 10 mEq 2020-0 Yes Univers tablet - ity of 00:00: [facility] potassium 2020-0 Yes Methodi chloride 4-04 st (K-DUR) 10 00:00: Hospita MEQ CR 00 l tablet levothyroxi 0 Yes TAKE 1 Univ ers ne 25 mcg 3-16 TABLET BY ity o f tablet 00:00: MOUTH [place] 00 EVERY DAY Medical IN THE [place] MORNING ON EMPTY STOMACH levothyroxi 2020-0 Yes TAKE 1 Univ ers ne 25 mcg 3-16 TABLET BY ity o f tablet 00:00: MOUTH [place] 00 EVERY DAY Medical IN THE [place] MORNING ON EMPTY STOMACH levothyroxi 2020-0 Yes TAKE 1 Univ ers ne 25 mcg 3-16 TABLET BY ity o f tablet 00:00: MOUTH [place] 00 EVERY DAY Medical IN THE [place] MORNING ON EMPTY STOMACH levothyroxi 2020-0 Yes TAKE 1 Univ ers ne 25 mcg 3-16 TABLET BY ity o f tablet 00:00: MOUTH [place] 00 EVERY DAY Medical IN THE [place] MORNING ON EMPTY STOMACH levothyroxi 2020-0 Yes TAKE 1 Univ ers ne 25 mcg 3-16 TABLET BY ity o f tablet 00:00: MOUTH [place] 00 EVERY DAY Medical IN THE [place] MORNING ON EMPTY STOMACH levothyroxi 2020-0 Yes TAKE 1 Univ ers ne 25 mcg 3-16 TABLET BY ity o f tablet 00:00: [facility] 00 EVERY DAY Medical IN THE [place] MORNING ON EMPTY STOMACH levothyroxi 2020-0 Yes TAKE 1 Univ ers ne 25 mcg 3-16 TABLET BY ity o f tablet 00:00: [facility] 00 EVERY DAY Medical IN THE [place] MORNING ON EMPTY STOMACH pravastatin 2020-0 Yes Univer s 10 mg 3-09 ity of tablet 00:00: [place] 00 [facility] pravastatin 2020-0 Yes Univer s 10 mg 3-09 ity of tablet 00:00: [place] 00 [facility] pravastatin 2020-0 Yes Univer s 10 mg 3-09 ity of tablet 00:00: [place] 00 [facility] pravastatin 2020-0 Yes Univer s 10 mg 3-09 ity of tablet 00:00: [place] 00 [facility] pravastatin 2020-0 Yes Univer s 10 mg 3-09 ity of tablet 00:00: [place] 00 [facility] pravastatin 2020-0 Yes Univer s 10 mg 3-09 ity of tablet 00:00: [place] 00 [facility] pravastatin 2020-0 Yes Univer s 10 mg 3-09 ity of tablet 00:00: [place] 00 [facility] methotrexat 2020-0 Yes TAKE 6 Univ ers e 2.5 mg 2-27 TABLETS BY ity o f tablet 00:00: MOUTH [place] 00 EVERY WEEK Medical Branch methotrexat 2020-0 Yes TAKE 6 Univ ers e 2.5 mg 2-27 TABLETS BY ity o f tablet 00:00: MOUTH [place] EVERY WEEK Medical Branch methotrexat 2020-0 Yes TAKE 6 Univ ers e 2.5 mg 2-27 TABLETS BY ity o f tablet 00:00: MOUTH [place] EVERY Medical Branch methotrexat 2020-0 Yes TAKE 6 Univ ers e 2.5 mg 2-27 TABLETS BY ity o f tablet 00:00: MOUTH [place] EVERY WEEK Medical Branch methotrexat 2020-0 Yes TAKE 6 Univ ers e 2.5 mg 2-27 TABLETS BY ity o f tablet 00:00: MOUTH [place] EVERY WEEK Medical Branch methotrexat 2020-0 Yes TAKE 6 Univ ers e 2.5 mg 2-27 TABLETS BY ity o f tablet 00:00: MOUTH [place] EVERY Medical Branch methotrexat 2020-0 Yes TAKE 6 Univ ers e 2.5 mg 2-27 TABLETS BY ity o f tablet 00:00: [facility] EVERY Medical Branch carvediloL 2020-0 Yes Univers 6.25 mg 2-26 ity of tablet 00:00: [facility] carvediloL 2020-0 Yes Univers 6.25 mg 2-26 ity of tablet 00:00: [facility] carvediloL 2020-0 Yes Univers 6.25 mg 2-26 ity of tablet 00:00: [facility] carvediloL 2020-0 Yes Univers 6.25 mg 2-26 ity of tablet 00:00: [place] [facility] carvediloL 2020-0 Yes Univers 6.25 mg 2-26 ity of tablet 00:00: [place] [facility] carvediloL 2020-0 Yes Univers 6.25 mg 2-26 ity of tablet 00:00: [place] [facility] carvediloL 2020-0 Yes Univers 6.25 mg 2-26 ity of tablet 00:00: [place] [facility] leucovorin 2020-0 Yes TAKE 1 Unive rs 5 mg tablet 2-21 TABLET BY ity of 00:00: MOUTH [place] EVERY Medical Branch leucovorin 2020-0 Yes TAKE 1 Unive rs 5 mg tablet 2-21 TABLET BY ity of 00:00: [facility] EVERY Medical Branch leucovorin 2020-0 Yes TAKE 1 Unive rs 5 mg tablet 2-21 TABLET BY ity of 00:00: [facility] Medical Branch leucovorin 2020-0 Yes TAKE 1 Unive rs 5 mg tablet 2-21 TABLET BY ity of 00:00: [facility] Medical Branch leucovorin 2020-0 Yes TAKE 1 Unive rs 5 mg tablet 2-21 TABLET BY ity of 00:00: [facility] Medical Branch leucovorin 2020-0 Yes TAKE 1 Unive rs 5 mg tablet 2-21 TABLET BY ity of 00:00: [facility] Medical Branch leucovorin 2019-0 Yes TAKE 1 Unive rs 5 mg tablet 2-21 TABLET BY ity of 00:00: [facility] Medical Branch furosemide 2019-0 Yes Univers 40 mg 2-03 ity of tablet 00:00: [place] [facility] furosemide 2019-0 Yes Univers 40 mg 2-03 ity of tablet 00:00: [address] furosemide 2019-0 Yes Univers 40 mg 2-03 ity of tablet 00:00: [address] furosemide 2019-0 Yes Univers 40 mg 2-03 ity of tablet 00:00: [address] furosemide 2019-0 Yes Univers 40 mg 2-03 ity of tablet 00:00: [address] furosemide 2019-0 Yes Univers 40 mg 2-03 ity of tablet 00:00: [address] furosemide 2019-0 Yes Univers 40 mg 2-03 ity of tablet 00:00: [address] traMADol traMADol 2010-12 Yes GINA CONTE TAKE 1 UT HCl - 50 MG HCl - 50 MG 1-14 M.D. TABLET Physici Oral Tablet Oral Tablet 00:00: EVERY 12 ans 00 HOURS NEEDED. No known No Univers medications ity of [facility] Methotrexat Methotrexat Yes GINA CONTE 8 TAKE [...] TIMES ans DAILY NEEDED FOR MUSCLE SPASM. tiZANidine tiZANidine Yes GINA CONTE [...] MCG 50 MCG CAPSULE Physici (1999 UT) (2000 UT) DAILY ans Oral Oral Capsule Capsule Vital Signs Vital Name Observation Time Observation [...] Systolic blood 2020-03-09 14:38:00 125 mm[Hg] Univer sity of pressure [facility] Diastolic blood 2020-03-09 14:38:00 57 mm[Hg] Unive rsity of pressure [facility] Heart rate 2020-03-09 14:38:00 86 /min Universi ty of [facility] Body height 2020-03-09 14:38:00 149.9 cm Universi ty of [facility] Body weight 2020-03-09 14:38:00 47.628 kg Universi ty of [facility] BMI 2020-03-09 14:38:00 21.21 kg/m2 Universi ty [facility] Systolic blood 2020-03-09 14:38:00 125 mm[Hg] Univer sity of pressure [facility] Diastolic blood 2020-03-09 14:38:00 57 mm[Hg] Unive rsity of pressure [facility] Heart rate 2020-03-09 14:38:00 86 /min Universi ty of [facility] Body height 2020-03-09 14:38:00 149.9 cm Universi ty [facility] Body weight 2020-03-09 14:38:00 47.628 kg Universi ty [facility] BMI 2020-03-09 14:38:00 21.21 kg/m2 Universi ty [facility] Systolic blood 2022-09-04 18:25:00 147 mm[Hg] [facility] pressure Diastolic blood 2022-09-04 18:25:00 65 mm[Hg] [facility] pressure Heart rate 2022-09-04 18:25:00 84 /min [facility] Body temperature 2022-09-04 18:25:00 34.17 Linda [facility] Respiratory rate 2022-09-04 18:25:00 18 /min [facility] Body height 2022-09-04 18:25:00 149.9 cm [facility] Body weight 2022-09-04 18:25:00 47.174 kg [facility] BMI 2022-09-04 18:25:00 21.01 kg/m2 [facility] Oxygen saturation in 2022-09-04 18:25:00 97 /min [facility] Arterial blood by Pulse oximetry Body height 2021-03-29 09:39:00 60 [in_us] UT [...] Date / Time Performing Clinician Source Performed CBC WITH PLATELET AND 2022-09-04 19:54[facility] [facility]FFER[facility] COMPREHENSIVE METABOLIC 2022-09-04 19:54:00 [facility] PANEL CREATE PERIPHERAL SMEAR 2022-09-04 19:54:00 [facility] FOR ORDERING PROVIDER'S REVIEW TRYPTASE 2022-09-04 19:54:00 Kenny Riojas Ho spital IMMUNOGLOBULIN E 2022-09-04 19:54:00 Kenny Riojas H ospital ESTIMATED GFR 2022-09-04 19:54:00 Kenny Riojas Ho spital XR KNEE 3 VIEWS LEFT 2021-09-05 19:14:00 Latanya Resendez [place] Tamiko [facility] REFERRAL- 2020-05-11 05:01:00 Doctor Unayaniigned, [facility] REQUEST/RESPONSE [facility] REFERRAL- 2020-04-13 05:01:00 Doctor Unassigned, [facility] REQUEST/RESPONSE [facility] XR SHOULDER <2 VW RIGHT 2020-03-09 14:35:39 Gordo [facility] [U] XRAY KNEE 3 VWS RIGHT 2019-12-23 00:00:00 [facility] [id number] EXTERNAL PROVIDER RECORDS Doctor Kristenssmarina, [facility] History of Total Hip [facility] Replacement Right History of Cataract [facility] Surgery History of Breast Surgery [facility] Mastectomy History of Bunion [facility] Correction By Double Osteotomy History of Hysterectomy [facility] Plan of Care Planned Activity Planned Date Details Comments Source Future Scheduled 2023-05-21 Hepatitis C screening [facility] Test 03:17:18 (procedure) [code = [id number]] Future Scheduled 2023-05-21 SHINGLES VACCINES (1 Met [facility] Test 03:17:18 of 2) [code = SHINGLES VACCINES (1 of 2)] Future Scheduled 2023-05-21 65+ P[facility]UMOCOCCAL [facility] Test 03:17:18 VACCINE (1 - PCV) [code = 65+ PNEUMOCOCCAL VACCINE (1 - PCV)] Future Scheduled 2023-05-21 COVID-19 VACCINE (4 - [facility] Test 03:17:18 Moderna series) [code = COVID-19 VACCINE (4 - Moderna series)] Future Scheduled 2023-05-21 INFLUENZA VACCINE [facility] Test 03:17:18 [code = INFLUENZA VACCINE] Encounters Start End Encounter Admission Attending Care Care Encounter Source Date/Time Date/Time Type Type Clinicians Facility Department ID 2021-11-29 Outpatient BETHT, [facility] [id number] [place] 13:47:28 [facility] 2021-11-28 Outpatient [facility] [id number] [place] 09:14:10 [facility] 2021-10-17 Outpatient [facility] [id number] [place] 08:44:14 [facility] 2021-09-19 Outpatient [facility] [id number] UT 09:00:37 [facility] 2021-09-19 Outpatient [facility] [id number] UT 09:00:37 [facility] 2021-09-05 Outpatient [facility] [id number] UT 13:49:11 [facility] 2021-09-04 Outpatient [facility] [id number] UT 16:08:10 [facility] 2022-09-18 2022-09-18 Telephone [facility], 1.2.840.1 [id number] Methodi 00:00:00 00:00:[address] 3.430.2.7 Hospit a .3.950589 l .8 2022-09-18 2022-09-18 Telephone Christian, 1.2.840.1 [id number] [facility]i 00:00:00 00:00:[address] 3.430.2.7 Hospit a .3.791194 l .8 2022-09-11 2022-09-11 Telephone Riojas, 1.2.840.1 [id number] [facility] 00:00:00 00:00:[address] 3.430.2.7 Hospit a .3.298339 l .8 2022-09-04 2022-09-04 Lab Riojas, 1.2.840.1 [id number] Methodi 14:40:00 14:45:[address] 3.430.2.7 Hospit a .3.058216 l .8 2022-09-04 2022-09-04 Office RiojasKenny 1.2.840.1 [id number] Methodi 13:30:00 14:40:00 Visit Mariama Gonzales 29068.1.[address] 3.430.2.7 Hospit a .3.757058 l .8 2022-09-04 2022-09-04 Outpatient [facility] [id number] [place] 00:00:00 00:00:00 KENNY [address] 2022-09-04 2022-09-04 Orders Aminata, 1.2.840.1 [id number] Methodi 00:00:00 00:00:00 Only Joanie 54974.1.[address] 3.430.2.7 Hospit a .3.065199 l .8 2022-09-04 2022-09-04 Travel 1.2.840.1 1.2.664.228 [id number] Methodi 00:00:00 00:00:[address] 3.430.2.7 0.2.7.3.698 Ho spita .3.822828 084.8 l .8 2022-09-04 2022-09-04 Outpatient [facility] [id number] [place] 00:00:00 00:00:00 KENNY [address] 2022-08-29 2022-08-29 Telephone Beulah, 1.2.840.1 [id number] Methodi 00:00:00 00:00:[address] 3.430.2.7 Hospit a .3.163605 l .8 2021-11-29 2021-11-29 Office Hadnott, [facility] 1.2.840.114 [id number] UT 13:45:00 13:47:35 Visit Latanya TEJEDA [id number] H ealth MEDICAL 9.2.7.2.686 PLA[address] 6 [id number] 2021-11-10 2021-11-10 Refill Hadlucinda, [facility] 1.2.840.114 [id number] [place] 00:00:00 00:00:00 Latanya TEJEDA 350.1.13.58 H ealth MEDICAL 9.2.7.2.686 PLA[address] 3 [id number] 7 2021-10-18 2021-10-18 Office Hadcrowt, [facility] 1.2.840.114 [id number] UT 13:11:24 14:08:49 Visit Latanya TEJEDA 350.1.13.58 H ealth MEDICAL 9.2.7.2.686 PLAZA 2 [id number] 7 2021-10-15 2021-10-15 Refill Hadcrowt, [facility] 1.2.840.114 [id number] [place] 00:00:00 00:00:00 Latanya TEJEDA 350.1.13.58 H ealth MEDICAL 9.2.7.2.686 PLA[address] 7 [id number] 7 2021-09-20 2021-09-20 Office Hadcrowt, [facility] 1.2.840.114 [id number] UT 13:47:45 15:18:50 Visit Latanya TEJEDA [id number] H ealth MEDICAL 9.2.7.2.686 [address] 6 [id number] 7 2021-09-05 2021-09-05 Office Hadcrowt, [facility] 1.2.840.114 [id number] [place] 13:37:45 15:54:03 Visit Latanya KEEN AND 350.1.13.58 Health SPINE 9.2.7.2.686 MEDICAL [id number] [place] 2 2021-03-29 2021-03-29 AppointREZA [facility] [id number] [place] 09:45:00 09:45:00 t[facility] 2021-03-01 2021-03-01 REZA [facility] 73 [id number] [place] 10:45:00 10:45:00 t; preethi PELAEZ [facility] Kavon RESENDEZ [facility] 2020-05-11 2020-05-11 Orders Doctor KELLY Sanchez.2.840.114 [id number] Univers 00:00:00 00:00:00 Only Unassigned, ANISA 350.1.13.10 ity of [facility] 4.2.7.2.686 Henrry as [id number] [address] 2020-05-11 2020-05-11 Orders Doctor MENDOZA 1.2.840.114 [id number] 00:00:00 00:00:00 Only Unassigned, ANISA 350.1.13.10 [facility] 4.2.7.2.686 [id number] [id number] 2020-04-13 2020-04-13 Orders Doctor MENDOZA 1.2.840.114 [id number] Univers 00:00:00 00:00:00 Only Unassigned, ANISA 350.1.13.10 [facility]y [facility] 4.2.7.2.686 Henrry as [id number] [address] 2020-04-13 2020-04-13 Orders Doctor MENDOZA 1.2.840.114 [id number] 00:00:00 00:00:00 Only Unassigned, ANISA 350.1.13.10 [facility] 4.2.7.2.686 [id number] [id number] 2020-03-14 2020-03-14 JANESSA Earl 1.2.520.803 [id number] Univers 00:00:00 00:00:00 [facility] 350.1.13.10 it y of Surgical 4.2.7.2.686 Henrry as Specialti [id number] Me dical es [address] [facility] 2020-03-14 2020-03-14 [facility] 1.2.431.635 [id number] 00:00:00 00:00:00 [facility] 350.1.13.10 Surgical 4.2.7.2.686 Specialti [id number] es 198 [place] 2020-03-10 2020-03-10 [facility] 1.2.030.737 [id number] Univers 00:00:00 00:00:00 [facility] 350.1.13.10 it y of Surgical 4.2.7.2.686 Henrry as Specialti [id number] Ri dical es 198 [facility] 2020-03-10 2020-03-10 [facility] 1.2.808.945 [id number] 00:00:00 00:00:00 [facility] [id number] Surgical 4.2.7.2.686 Specialti [id number] es 198 [place] 2020-03-09 2020-03-09 Outpatient [facility] [id number] Univers 09:35:38 23:59:00 GORDO ity [facility] 2020-03-09 2020-03-09 [facility] 1.2.840.114 [id number] Univers 09:35:00 23:59:00 Encounter [facility] [id number] ity of Surgical 4.2.7.2.686 Henrry as Specialti [id number] Me dical es 809 [facility] 2020-03-09 2020-03-09 [facility] 1.2.840.114 [id number] 09:35:00 23:59:00 Encounter [facility] [id number] Surgical 4.2.7.2.686 Specialti [id number] es 809 [place] 2020-03-09 2020-03-09 [facility] 1.2.840.114 [id number] Univers 09:34:08 09:49:08 Visit [facility]ordo S [facility] [id number] it y of Surgical 4.2.7.2.686 Henrry as Specialti [id number] Me dical es [address] [place] 2020-03-09 2020-03-09 Office Evgeny [facility] 1.2.840.114 [id number] 09:34:08 09:49:08 Visit [facility] [id number] Surgical 4.2.7.2.686 Specialti [id number] es 198 [place] 2020-01-07 2020-01-07 [facility] [facility] Orthopedics [id number] [place] 10:45:00 10:45:00 t; [facility] 2019-12-24 2019-12-24 [facility] Orthopedics [id number] [place] 10:30:00 10:30:00 t; CARROLL ROCHA at [facility] Kavon HODGES M.D. Orthopedic [facility] Spine [facility] 2019-01-21 2019-01-21 [facility] [id number] [place] 13:30:00 13:30:00 t; CARROLL ROCHA, Ortho and Ph oral HODGES M.D. Spine [facility] leif [facility] 2017-06-05 2017-06-05 [facility] [id number] [place] 10:30:00 10:30:00 t; CARROLL ROCHA Phys ici JONATHAN, M.D. ans M.D. 2017-05-12 2017-05-12 [facility] [id number] [place] 13:00:00 13:00:00 t; CARROLL ROCHA Phys ici JONATHAN, M.D. ans M.D. Orders Doctor MENDOZA [id number] [facility] 00:00:00 00:00:00 Only Unassigned, ANISA [id number] [facility] [id number] Henrry as [phone] [place] [id number] Branch Results Test Description Test Time Test Comments Results Result [facility] e Comments [U] XRAY HIP 2021-03-01 Images acquired, [place] [facility] UNILATERAL MIN 2 11:32:00 not reported on VWS RIGHT [id number] this accession number. XR SHOULDER <2 VW 2020-03-09 No sign of [facility] of RIGHT 14:55:33 fracture or [place] [facility] dislocation Branch joint spaces are well-maintained [U] XRAY KNEE 3 2019-12-24 Images acquired, [facility] VWS RIGHT [id number] 09:09:00 not reported on this accession number. [U] XRAY PELVIS 1 2019-01-21 Images acquired, [facility] OR 2 VWS [id number] 13:26:00 not reported on this accession number.
[2023-05-30] MEDS ORDERED: TRAMADOL HCL 50 MG TAB ONE (21:21)
--- NOTE | 2023-05-30 21:28 | RAD REPORT ---
EXAM DESCRIPTION: RAD - Tib Fib Right - 05/30/2023 9:22 pm CLINICAL HISTORY: Right leg pain FINDINGS: No fracture is seen
--- NOTE | 2023-05-30 21:30 | RAD REPORT ---
EXAM DESCRIPTION: RAD - Shoulder Right 2 View - 05/30/2023 9:22 pm CLINICAL HISTORY: Right shoulder pain FINDINGS: A comminuted markedly displaced fracture involves the right humeral head and neck. The right humeral head is dislocated.
--- NOTE | 2023-05-30 21:31 | RAD REPORT ---
EXAM DESCRIPTION: RAD - Humerus Right - 05/30/2023 9:22 pm CLINICAL HISTORY: Right arm pain status post fall FINDINGS: A comminuted markedly displaced fracture involves the right humeral head and neck. The right humeral head is dislocated.
[2023-05-30] MEDS ORDERED: ONDANSETRON 4 MG/2 ML VIAL ONE ×2 (22:10→23:33)
[2023-05-30] MEDS ORDERED: ETOMIDATE 20 MG/10 ML VIAL IV ONE (22:10)
[2023-05-30] MEDS ORDERED: NA CHLORIDE 0.9% 500 ML ONE (22:10)
[2023-05-30] MEDS ORDERED: MORPHINE 2 MG/ML SYR ONE (22:20)
--- NOTE | 2023-05-30 23:50 | ER ---
Nurse's Notes [facility] Name: Danielle Grover Age: 77 yrs Sex: Female : 1945 Arrival Date: 05/30/2023 Time: 19:45 Bed 16 Private MD: Diagnosis: Displaced fracture of right humerus with dislocation;Fall on same level from slipping, tripping and stumbling without subsequent striking against object;Right proximal humerus fracture comminuted with displacement of the proximal humerus medially. Presentation: 05/30 20:10 Chief complaint: Patient states: TRIPPED AND FELL, LANDED ON THE RIGHT SIDE, [facility]. DENIES HEAD INJURY. COMPLAINING OF RIGHT SHOULDER, RIGHT ARM, RIGHT HIP, AND RIGHT LEG PAIN. Care prior to arrival: None. Mechanism of Injury: Fall from standing position. Trauma event details: Injury occurred in the [facility], Injury occurred: at home. Injury occurred: May 30, 2023 Injury occurred at: 19:45. 20:10 Acuity: BALJIT 2 rv 20:10 Method Of Arrival: Ambulatory rv 20:32 Coronavirus screen: Vaccine status: Patient reports receiving the 2nd dose of the covid mb9 vaccine. Ebola Screen: No symptoms or risks identified at this time. Initial Sepsis Screen: Does the patient meet any 2 criteria? No. Patient's initial sepsis screen is negative. Does the patient have a suspected source of infection? No. Patient's initial sepsis screen is negative. Risk Assessment: Do you want to hurt yourself or someone else? Patient reports no desire to harm self or others. Onset of symptoms was May 30, 2023. Trauma Activation: Not Applicable Physician: ED Physician; Name: ; Notified At: ; Arrived At: Physician: General Surgeon; Name: ; Notified At: ; Arrived At: Physician: Radiology; Name: ; Notified At: ; Arrived At: Physician: Respiratory; Name: ; Notified At: ; Arrived At: Physician: Lab; Name: ; Notified At: ; Arrived At: Historical: - Allergies: 20:30 Codeine; mb9 - PMHx: 20:30 CHF; GERD; Rheumatoid Arthritis; mb9 - PSHx: 20:30 hysterectomy; mb9 - Immunization history:: Adult Immunizations up to date. - Social history:: Smoking status: Patient denies any tobacco usage or history of. Screenin:32 [facility] ED Fall Risk Assessment (Adult) History of falling in the last 3 months, mb9 including since admission Yes- single mechanical fall (1 pt) Confusion or Disorientation No (0 pts) Intoxicated or Sedated No (0 pts) Impaired Gait No (0 pts) Mobility Assist Device Used No (0 pt) Altered Elimination No (0 pt) Score/Fall Risk Level 0 - 2 = Low Risk Oriented to surroundings, Maintained a safe environment, Educated pt \T\ family on fall prevention, incl call for assistance when getting out of bed. Abuse screen: Denies threats or abuse. Nutritional screening: No deficits noted. Tuberculosis screening: No symptoms or risk factors identified. Assessment: 20:31 General: Appears in no apparent distress. Behavior is calm, cooperative. Pain: mb9 Complains of pain in right shoulder Pain radiates to right arm Pain currently is 5 out of 10 on a pain scale. Quality of pain is described as throbbing, Pain began suddenly, Is continuous, Aggravated by increased activity, repositioning. Neuro: [place] Agitation-Sedation Scale (RASS): 0 - Alert and Calm Level of Consciousness is awake, alert, obeys commands, Oriented to person, place, time, situation, Appropriate for age. Cardiovascular: Patient's skin is warm and dry. Respiratory: Airway is patent Respiratory effort is even, unlabored, Respiratory pattern is regular, symmetrical. GI: Abdomen is flat, non-distended. Derm: Skin is pink, warm \T\ dry. Musculoskeletal: Range of motion: limited in right shoulder. 21:57 Reassessment: Consent for conscious sedation signed by patient. mb9 23:07 Reassessment: Conscious sedation imitated by Dr. Nelson. See conscious sedation flow mb9 sheet for more information. 23:53 Reassessment: No changes from previously documented assessment. Patient and/or family mb9 updated on plan of care and expected duration. Pain level reassessed. Patient is alert, oriented x 3, equal unlabored respirations, skin warm/dry/pink. 05/31 01:08 Reassessment: No changes from previously documented assessment. Patient and/or family rv updated on plan of care and expected duration. Pain level reassessed. Patient is alert, oriented x 3, equal unlabored respirations, skin warm/dry/pink. Vital Signs: 05/30 20:31 BP 153 / 79; Pulse 72; Resp 18; Temp 98; Pulse Ox 100% on R/A; Weight 46.27 kg; Height mb9 4 ft. 11 in. ; 22:21 BP 147 / 72; Pulse 91; Resp 18; Pulse Ox 98% on R/A; mb9 22:54 BP 141 / 74; Pulse 87; Resp 18; Pulse Ox 97% on R/A; mb9 23:07 BP 146 / 70; Pulse 98; Resp 16; Pulse Ox 98% on R/A; mb9 23:09 BP 155 / 86; Pulse 98; Resp 16; Pulse Ox 98% on 3 lpm NC; mb9 23:33 BP 150 / 83; Pulse 95; Resp 16; Pulse Ox 98% on 3 lpm NC; mb9 23:44 BP 147 / 86; Pulse 96; Resp 16; Pulse Ox 98% on 3 lpm NC; mb9 23:59 BP 149 / 79; Pulse 93; Resp 16; Pulse Ox 100% on 3 lpm NC; mb9 05/31 00:59 BP 144 / 77; Pulse 92; Resp 18; Pulse Ox 100% on NC; jl10 01:47 BP 136 / 59; Pulse 86; Resp 16; Pulse Ox 98% on R/A; rv 04:20 BP 131 / 62; Pulse 81; Resp 17; Temp 98; Pulse Ox 99% on R/A; rv 05/30 20:31 Body Mass Index 20.60 (46.27 kg, 149.86 cm) mb9 Sherman Coma Score: 00:00 Eye Response: spontaneous(4). Motor Response: obeys commands(6). Verbal Response: rv oriented(5). Total: 15. 01:00 Eye Response: spontaneous(4). Motor Response: obeys commands(6). Verbal Response: rv oriented(5). Total: 15. 01:47 Eye Response: spontaneous(4). Motor Response: obeys commands(6). Verbal Response: rv oriented(5). Total: 15. 04:21 Eye Response: spontaneous(4). Motor Response: obeys commands(6). Verbal Response: rv oriented(5). Total: 15. ED Course: 05/30 19:55 Patient arrived in ED. jj6 20:00 Shantell Wadsworth FNP-C [facility]. kb 20:00 Sebastien Jones MD is Attending Physician. kb 20:12 Triage completed. rv 20:27 Laura Woods, RN is Primary Nurse. mb9 20:27 Arm band placed on. mb9 20:33 Placed in gown. Bed in low position. Call light in reach. Side rails up X 1. Client mb9 placed on continuous cardiac and pulse oximetry monitoring. NIBP monitoring applied. 20:33 No provider procedures requiring assistance completed. mb9 21:24 Shoulder Right (2 View) XRAY In Process Unspecified. EDMS 21:24 Humerus Right XRAY In Process Unspecified. EDMS 21:24 Tib Fib Right XRAY In Process Unspecified. EDMS 21:46 Attending Physician role handed off by Sebastien Jones MD sp4 21:46 Vinnie Nelson MD is Attending Physician. sp4 22:13 EKG done, by information technology auditor. jl10 22:21 Inserted saline lock: 20 gauge in left antecubital area, using aseptic technique. mb9 23:54 Initiated transfer to [facility], spoke with Jluis. 05/31 00:05 Assist provider with reduction of right shoulder using manipulation, Set up for rv procedure. Performed by Vinnie Nelson MD Immobilized with shoulder immobilizer Patient tolerated well. 00:11 Shoulder 1 View In Process Unspecified. EDMS 01:35 Head C Spine Cap W Con In Process Unspecified. EDMS 01:35 Facial Bones W/ Mpr In Process Unspecified. EDMS 03:18 Initiated transfer to [facility], spoke with Vicki Oneal. wm 03:35 Pt accepted for transfer to [facility] by Dr. Germain per Carolyn Peterson. wm 04:19 Patient transferred, IV remains in place. rv Administered Medications: 05/30 21:12 Drug: traMADol PO 50 mg Route: PO; mb9 22:56 Follow up: Response: No adverse reaction mb9 22:10 Drug: Ondansetron IVP 4 mg Route: IVP; Site: left antecubital; mb9 22:56 Follow up: Response: No adverse reaction mb9 22:15 Drug: NS 0.9% IV 500 ml Route: IV; Rate: bolus; Site: left antecubital; mb9 05/31 00:37 Follow up: IV Status: Completed infusion; IV Intake: 500ml rv 05/30 22:18 Drug: morphine IVP or IV 2 mg Route: IVP; Infused Over: 4 mins; Site: left antecubital; mb9 22:56 Follow up: Response: No adverse reaction mb9 23:07 Drug: Etomidate IVP 10 mg {Note: 2307: 5 mg IV 2309: 5 mg IV 2333: 5 mg IV.} Route: mb9 IVP; Site: left antecubital; 05/31 00:38 Follow up: Response: No adverse reaction rv 05/30 23:33 Drug: Ondansetron IVP 4 mg Route: IVP; Site: left antecubital; mb9 05/31 00:05 Drug: metoCLOPramide IVP 10 mg Route: IVP; Site: left antecubital; rv 00:05 Not Given (Duplicate Order): metoCLOPramide IVP 10 mg IVP once; over 1 to 2 minutes sp4 01:00 Drug: morphine IVP or IV 2 mg Route: IVP; Infused Over: 4 mins; Site: left antecubital; rv 04:20 Follow up: Response: No adverse reaction rv 03:44 Drug: morphine IVP or IV 2 mg Route: IVP; Infused Over: 4 mins; Site: left antecubital; rv 04:20 Follow up: Response: No adverse reaction rv 03:44 Drug: Lactated Ringers Solution IV 1000 ml Route: IV; Rate: 75 ml/hr; Site: left rv antecubital; 04:20 Follow up: IV Status: Infusion continued upon transfer rv 03:54 Drug: Diazepam IVP 2 mg Route: IVP; Site: left antecubital; rv 04:20 Follow up: Response: No adverse reaction rv Medication: 05/30 20:33 VIS not applicable for this client. mb9 Intake: 05/31 00:37 IV: 500ml; Total: 500ml. rv Outcome: 05/30 23:49 Discharge ordered by MD. sanford 05/31 00:27 ER care complete, transfer ordered by MD. sanford 04:18 Transferred by ground EMS to [facility], Transfer form rv completed. X-rays sent w/ patient. 04:18 Discharge instructions given to patient, family, Instructed on the need for transfer. 04:19 Condition: good rv 04:21 Patient left the ED. rv Signatures: Dispatcher [employer] EDMS Shantell Wadsworth, MATERIAL COORDINATOR-C MATERIAL COORDINATOR-Ckb Benedicto Robertson, RN RN Jessica Diggs Torrie Reno jj6 Laura Woods RN RN mb9 Vinnie Nelson MD MD sp4 Jayesh Mireles jl10 Corrections: (The following items were deleted from the chart) 03:19 03:18 Initiated transfer to [facility] 03:23 06 23:54 Initiated transfer to [facility] 05/31 03:23 03:18 Initiated transfer to [facility]
--- NOTE | 2023-05-30 23:51 | EDPHYS ---
Physician Documentation [facility] Name: Danielle Grover Age: 77 yrs Sex: Female : 1945 Arrival Date: 05/30/2023 Time: 19:45 Bed 16 Private MD: ED Physician Vinnie Nelson HPI: 05/31 00:26 This 77 yrs old Female presents to ER via Ambulatory with complaints of Fall Injury, kb Arm Injury. 00:26 Details of fall: The patient fell from an upright position, while walking. Onset: The kb symptoms/episode began/occurred just prior to arrival. Associated injuries: The patient sustained right shoulder. Severity of symptoms: At their worst the symptoms were moderate, in the emergency department the symptoms are unchanged. The patient has not experienced similar symptoms in the past. The patient has not recently seen a physician. Pt reports she tripped over great-grandchild and landed on right side. c/o right shoulder pain. Historical: - Allergies: 05/30 20:30 Codeine; mb9 - PMHx: 20:30 CHF; GERD; Rheumatoid Arthritis; mb9 - PSHx: 20:30 hysterectomy; mb9 - Immunization history:: Adult Immunizations up to date. - Social history:: Smoking status: Patient denies any tobacco usage or history of. ROS: 05/31 00:25 Constitutional: Negative for fever, chills, and weight loss. kb MS/extremity: Positive for injury or acute deformity, decreased range of motion, deformity, pain, of the right shoulder. All other systems are negative. Exam: 05/30 23:44 ECG was reviewed by the Attending Physician. 2204 EKG time. Normal sinus rhythm at the sp4 rate of 86, normal EKG no ectopy. 05/31 00:23 Constitutional: This is a well developed, well nourished patient who is awake, alert, kb and in no acute distress. ENT: Moist Mucous membranes Cardiovascular: Regular rate and rhythm with a normal S1 and S2. No gallops, murmurs, or rubs. No pulse deficits. Respiratory: Respirations even and unlabored. No increased work of breathing. Talking in full sentences Back: No spinal tenderness. No costovertebral tenderness. Full range of motion. Skin: Warm, dry with normal turgor. Normal color. Neuro: Awake and alert, GCS 15, oriented to person, place, time, and situation. Moves all extremities. Normal gait. Musculoskeletal/extremity: Extremities: grossly normal except: noted in the right shoulder: decreased ROM, deformity, pain, tenderness, noted in the right wray: pain, ROM: limited active range of motion, in the right shoulder, Circulation is intact in all extremities. Sensation intact. Weight bearing: able to fully bear weight. 01:04 Head/face: Noted is no obvious of injury or deformity except contusion, that is kb superficial, of the outer aspect of right eyebrow. Vital Signs: 05/30 20:31 BP 153 / 79; Pulse 72; Resp 18; Temp 98; Pulse Ox 100% on R/A; Weight 46.27 kg; Height mb9 4 ft. 11 in. ; 22:21 BP 147 / 72; Pulse 91; Resp 18; Pulse Ox 98% on R/A; mb9 22:54 BP 141 / 74; Pulse 87; Resp 18; Pulse Ox 97% on R/A; mb9 23:07 BP 146 / 70; Pulse 98; Resp 16; Pulse Ox 98% on R/A; mb9 23:09 BP 155 / 86; Pulse 98; Resp 16; Pulse Ox 98% on 3 lpm NC; mb9 23:33 BP 150 / 83; Pulse 95; Resp 16; Pulse Ox 98% on 3 lpm NC; mb9 23:44 BP 147 / 86; Pulse 96; Resp 16; Pulse Ox 98% on 3 lpm NC; mb9 23:59 BP 149 / 79; Pulse 93; Resp 16; Pulse Ox 100% on 3 lpm NC; mb9 05/31 00:59 BP 144 / 77; Pulse 92; Resp 18; Pulse Ox 100% on NC; jl10 01:47 BP 136 / 59; Pulse 86; Resp 16; Pulse Ox 98% on R/A; rv 04:20 BP 131 / 62; Pulse 81; Resp 17; Temp 98; Pulse Ox 99% on R/A; rv 05/30 20:31 Body Mass Index 20.60 (46.27 kg, 149.86 cm) mb9 [place] Coma Score: 00:00 Eye Response: spontaneous(4). Motor Response: obeys commands(6). Verbal Response: rv oriented(5). Total: 15. 01:00 Eye Response: spontaneous(4). Motor Response: obeys commands(6). Verbal Response: rv oriented(5). Total: 15. 01:47 Eye Response: spontaneous(4). Motor Response: obeys commands(6). Verbal Response: rv oriented(5). Total: 15. 04:21 Eye Response: spontaneous(4). Motor Response: obeys commands(6). Verbal Response: rv oriented(5). Total: 15. Procedures: 05/30 23:44 Reduction: of the right shoulder-right proximal humerus fracture with displacement sp4 medially. Right proximal humerus fracture was reduced with moderate sedation to improve alignment and to prevent arterial compression, using traction, manipulation, Immobilized with Sling and swath. Patient tolerated well. Post reduction film - reveals improved alignment. Shoulder alignment has improved after reduction but has not improved to normal alignment. However medial displacement has improved and patient's pulse remains normal. No sign of arterial compression. Patient is stable for discharge home. . Moderate sedation: Pre-procedure assessment: the patient has been NPO 6 hour(s) prior to arrival, ASA physical classification: II - mild/mod systemic disease that does not interfere with daily routines, Airway assessment: able to hyperextend neck, able to maintain airway, can open mouth without difficulty, Mallampati classification of tongue size: I - faucial pillars, soft palate, and uvula can be fully visualized, Monitoring during procedure: hall monitor, continuous pulse oximetry, nurse at bedside at all times, Medications employed: Etomidate, 15 mg(s), Patient had transient decrease in her oxygen but has improved with a jaw thrust, Post-procedure assessment: the patient is moderately sedated, Respiratory status: requires supplemental oxygen to maintain acceptable oxygen saturation, a reversal agent was not used, Patient returned back to normal mental status, Patient woke up and returned back to normal mental status. Patient is ready for discharge home.. MDM: 20:05 Patient medically screened. kb 23:44 Data reviewed: vital signs, nurses notes, EKG. sp4 05/31 00:23 Differential diagnosis: fracture, dislocation, strain. Consideration of kb Admission/Observation pt will be transferred. Management of patient was discussed with the following: Reached out to Dr Ramos with no response. Counseling: I had a detailed discussion with the patient and/or guardian regarding: the historical points, exam findings, and any diagnostic results supporting the discharge/admit diagnosis, radiology results, the need to transfer to another facility. 01:00 ED course: Patient was discussed with [place] trauma service who has requested sp4 basically trauma cummins scan including maxillofacial CT of the face. Patient will be sent for CT and then we will call [place] again about transfer for complicated right humerus fracture with a dislocation. . 02:29 ED course: Pt will be transferred to [facility] for trauma. kb 03:34 ED course: EXAM DESCRIPTION: Shoulder 1 View right CLINICAL HISTORY: 77 years Female, sp4 post reduction Shoulder 1 View COMPARISON: Right shoulder radiograph of the same day IMPRESSION: Interval reduction of previously described comminuted fracture of the proximal right humerus. No definitive dislocation. Soft tissue swelling. Chronic lung changes. Osteopenia. . 03:43 ED course: CT maxilla face revealed no acute facial fracture. CT head and C-spine has sp4 revealed no acute intracranial findings, moderate spondylosis of the cervical spine without acute findings. . ED course: CT chest abdomen and pelvis with IV contrast - BONES/JOINTS: A comminuted and displaced right proximal humeral fracture is present. The humeral head remains located. There is no other acute fracture of the visualized axial and appendicular skeleton. A right hip prosthesis is present. The hardware is engaged. Sclerosis of the right iliac wing and sacrum is noted. The vertebral body heights and alignment are maintained. SOFT TISSUES: The soft tissues are normal. VASCULATURE: Unremarkable. No aortic aneurysm. LYMPH NODES: Unremarkable. No enlarged lymph nodes. IMPRESSION: 1. Complex fracture of the proximal right humerus with associated displacement. 2. No evidence of solid organ injury on this contrasted CT of the chest, abdomen, pelvis. 3. No other acute fracture of the visualized axial and appendicular skeleton. 4. Residual cavitary foci specifically within the right lung which has improved from prior exam. Findings suggest sequela of prior infectious versus inflammatory process. . ED course: Patient has been discussed with [facility] trauma surgery and [facility] orthopedist. [facility] orthopedist has accepted patient as ER to ER transfer for evaluation of a complex right proximal humerus fracture with displacement.. The attempted moderate sedation with reduction in the ER did not bring about proper alignment of the proximal humerus with respect to the humeral head. Thus we have requested orthopedist to consider reduction at the [facility]. Patient currently in right shoulder sling and swath . Pain controlled with morphine and also IV Valium given. . 07 00:34 Order name: Basic Metabolic Panel; Complete Time: 02:15 sp4 05/31 00:34 Order name: CBC with Diff; Complete Time: 01:08 sp4 05/31 00:34 Order name: Type And Screen; Complete Time: 02:15 sp4 05/31 00:34 Order name: PT-INR; Complete Time: 02:15 sp4 05/31 00:34 Order name: LFT's; Complete Time: 02:15 sp4 05/31 01:52 Order name: ABO/RH no charge; Complete Time: 02:15 EDMS 05/31 02:45 Order name: CREATININE WHOLE BLOOD; Complete Time: 03:38 EDMS 05/30 20:19 Order name: Shoulder Right (2 View) XRAY; Complete Time: 21:31 kb 05/30 20:19 Order name: Humerus Right XRAY; Complete Time: 21:31 kb 05/30 20:19 Order name: Tib Fib Right XRAY; Complete Time: 21:30 kb 05/31 00:10 Order name: Shoulder 1 View EDMS 05/31 00:14 Order name: Head C Spine Cap W Con EDMS 05/31 00:15 Order name: Facial Bones W/ Mpr EDMS 05/30 21:45 Order name: IV Start; Complete Time: 22:21 kb 05/30 21:46 Order name: EKG - Nurse/Tech; Complete Time: 22:13 mb9 05/30 21:47 Order name: Moderate Sedation; Complete Time: 23:48 sp4 05/30 21:47 Order name: Saline Lock; Complete Time: 22:56 sp4 05/31 00:34 Order name: Labs collected and sent; Complete Time: 01:00 sp4 05/31 03:38 Order name: NPO; Complete Time: 03:44 sp4 EC/30 23:44 Rate is 86 beats/min. Rhythm is regular, Normal Sinus Rhythm. QRS [place] is Normal. [place] sp4 interval is normal. QRS interval is normal. QT interval is normal. T waves are Normal. No ST changes noted. Clinical impression: Normal ECG. Interpreted by me. Administered Medications: 21:12 Drug: traMADol PO 50 mg Route: PO; mb9 22:56 Follow up: Response: No adverse reaction mb9 22:10 Drug: Ondansetron IVP 4 mg Route: IVP; Site: left antecubital; mb9 22:56 Follow up: Response: No adverse reaction mb9 22:15 Drug: NS 0.9% IV 500 ml Route: IV; Rate: bolus; Site: left antecubital; mb9 05/31 00:37 Follow up: IV Status: Completed infusion; IV Intake: 500ml rv 05/30 22:18 Drug: morphine IVP or IV 2 mg Route: IVP; Infused Over: 4 mins; Site: left antecubital; mb9 22:56 Follow up: Response: No adverse reaction mb9 23:07 Drug: Etomidate IVP 10 mg {Note: 2307: 5 mg IV 2309: 5 mg IV 2333: 5 mg IV.} Route: mb9 IVP; Site: left antecubital; 05/31 00:38 Follow up: Response: No adverse reaction rv 05/30 23:33 Drug: Ondansetron IVP 4 mg Route: IVP; Site: left antecubital; mb9 05/31 00:05 Drug: metoCLOPramide IVP 10 mg Route: IVP; Site: left antecubital; rv 00:05 Not Given (Duplicate Order): metoCLOPramide IVP 10 mg IVP once; over 1 to 2 minutes sp4 01:00 Drug: morphine IVP or IV 2 mg Route: IVP; Infused Over: 4 mins; Site: left antecubital; rv 04:20 Follow up: Response: No adverse reaction rv 03:44 Drug: morphine IVP or IV 2 mg Route: IVP; Infused Over: 4 mins; Site: left antecubital; rv 04:20 Follow up: Response: No adverse reaction rv 03:44 Drug: Lactated Ringers Solution IV 1000 ml Route: IV; Rate: 75 ml/hr; Site: left rv antecubital; 04:20 Follow up: IV Status: Infusion continued upon transfer rv 03:54 Drug: Diazepam IVP 2 mg Route: IVP; Site: left antecubital; rv 04:20 Follow up: Response: No adverse reaction rv Disposition: 01:02 Co-signature as Attending Physician, Vinnie Nelson MD I agree with the assessment sp4 and plan of care. I reviewed the patient's care provided by Advanced Practice Provider \T\ agree w/ the diagnosis \T\ care plan. I personally saw the pt \T\ performed a substantive portion of the visit, incldng all aspects of the (History/Exam/Medical Decision Making). Disposition Summary: 05/31/23 00:27 Transfer Ordered Transfer Location: [facility] kb Reason: Higher level of care kb Condition: Stable(05/31/23 00:27) kb Problem: new kb Symptoms: are unchanged kb Accepting Physician: (05/31/23 04:21) rv Diagnosis - Displaced fracture of right humerus with dislocation kb - Fall on same level from slipping, tripping and stumbling without subsequent kb striking against object(05/31/23 00:27) - Right proximal humerus fracture comminuted with displacement of the proximal sp4 humerus medially. Forms: - Medication Reconciliation Form kb - SBAR form kb Signatures: Dispatcher [employer] EDID Shantell Wadsworth, MARIA C-C [facility] [place] FORMER-Benedicto Hendricks RN RN Laura Cadet RN RN mb9 Vinnie Nelson MD MD sp4 Corrections: (The following items were deleted from the chart) 05/30 23:55 23:49 Home kb kb 23:55 23:49 Stable kb kb 23:55 23:49 Displaced fracture of right humerus kb kb 23:55 23:49 Fall on same level from slipping, tripping and stumbling without subsequent kb striking against object kb 05/31 00:09 05/30 23:12 Chest Pa And Lat (2 Views)+RAD.RAD.BRZ ordered. [facility] 05/31 00:09 05/30 23:18 Shoulder Right 2 View+RAD.RAD.BRZ ordered. [facility] 05/31 00:14 00:08 Head C Spine MPR Wo Con+CT.RAD.BRZ ordered. [facility] 00:15 00:09 Maxillofacial W/Wo+CT.RAD.BRZ ordered. [facility] 00:15 00:10 Chest Abdomen Pelvis W Con+CT.RAD.BRZ ordered. [facility] 01:04 00:23 Constitutional: This is a well developed, well nourished patient who is awake, kb alert, and in no acute distress. Head/Face: Normocephalic, atraumatic. ENT: Moist Mucous membranes Cardiovascular: Regular rate and rhythm with a normal S1 and S2. No gallops, murmurs, or rubs. No pulse deficits. Respiratory: Respirations even and unlabored. No increased work of breathing. Talking in full sentences Back: No spinal tenderness. No costovertebral tenderness. Full range of motion. Skin: Warm, dry with normal turgor. Normal color. Neuro: Awake and alert, GCS 15, oriented to person, place, time, and situation. Moves all extremities. Normal gait. juvenal 03:47 00:27 Dr sanford sp4 04:21 03:47 sp4 rv
[2023-05-31] MEDS ORDERED: METOCLOPRAMIDE 10 MG/2mL INJ ONE (00:09)
[2023-05-31] MEDS ORDERED: NA CHLORIDE 0.9% 100 ML ONE (00:10)
[2023-05-31] MEDS ORDERED: MORPHINE 2 MG/ML SYR ONE ×2 (00:48→03:48)
[2023-05-31 01:00] LABS: Absolute Lymphocytes (CBC) 1.3 K/uL (0.7-4.9); Lymphocytes % 8.7 % (15.3-44.8); MCV 96.4 fL (80-100); MPV 7.5 fL (7.6-11.3); RBC Red Blood Cell Count 4.04 M/uL (3.86-4.86)
[2023-05-31 01:18] LABS: Albumin 3.5 g/dL (3.4-5.0); Bilirubin Direct 0.2 mg/dL (0-0.2); Bilirubin Indirect, Calculated 0.4 mg/dL (0.2-0.8); Bilirubin Total 0.6 mg/dL (0.2-1.0); Potassium 4.1 mEq/L (3.5-5.1); Protein, Total 6.5 g/dL (6.4-8.2)
[2023-05-31 01:41] LABS: Protime INR 0.8
[2023-05-31] MEDS ORDERED: Ringers Lactate 1,000 ML IV ONE (03:48)
[2023-05-31] MEDS ORDERED: DIAZEPAM 10 MG/2 ML INJ SYRINGE ONE (04:01)
[2023-05-31 04:35] VITALS: TEMP 98
[2023-05-31 04:56] VITALS: BP 131/62; O2SAT 99
--- NOTE | 2023-06-01 19:27 | RAD REPORT ---
EXAM DESCRIPTION: RAD - Shoulder 1 View - 05/31/2023 12:10 am CLINICAL HISTORY: 77 years Female, post reduction Shoulder 1 View COMPARISON: Right shoulder radiograph of the same day IMPRESSION: Interval reduction of previously described comminuted fracture of the proximal right hum erus. No definitive dislocation. Soft tissue swelling. Chronic lung changes. Osteopenia. Electronically signed by: Shaji Chiang DO 05/31/2023 12:31 AM CDT Due to temporary technical issues with the PACS/Fluency reporting system, reports are being signed by the in house radiologists without review as a courtesy to insure prompt reporting. The interpreting radiologist is fully responsible for the content of the report.
--- NOTE | 2023-06-01 19:28 | RAD REPORT ---
EXAM DESCRIPTION: CT - Facial Bones W/ Mpr - 05/31/2023 6:36 am CLINICAL HISTORY: The patient is 77 years old and is Female; FACIAL PAIN TECHNIQUE: Axial computed tomography images of the face without intravenous contrast. Sagittal and coronal reformatted images were created and reviewed. This CT exam was performed using one or more of the following dose reduction techniques: automated exposure control, adjustment of the mA and/o r kV according to patient size, and/or use of iterative reconstruction technique. COMPARISON: No relevant prior studies available. FINDINGS: BONES/JOINTS: The orbital floors and peterson are intact. The zygomatic arches and pteryg oid plates are intact. The visualized maxilla and mandible are intact. SOFT TISSUES: Unremarkable. ORBITS: The globes, extraocular muscles, and optic nerve complexes are within normal limits. SINUSES: The visualized paranasal sinuses are clear. No air-fluid levels. NASAL CAVITY/SEPTUM: The nasal bones are intact. IMPRESSION: No acute facial fracture. Electronically signed by: Flor Spangler MD 05/31/2023 2:01 AM CDT Due to temporary technical issues with the PACS/Fluency reporting system, reports are being signed by the in house radiologists without review as a courtesy to insure prompt reporting. The interpreting radiologist is fully responsible for the content of the report.
--- NOTE | 2023-06-01 20:07 | RAD REPORT ---
EXAM DESCRIPTION: CT - Head C Spine Dalton Batista - 05/31/2023 6:36 am CLINICAL HISTORY: The patient is 77 years old and is Female; FEVER TECHNIQUE: Axial computed tomography images of the head/brain and cervical spine without intravenous contrast. Sagittal and coronal reformatted images were created and reviewed. This CT exam was pe rformed using one or more of the following dose reduction techniques: automated exposure control, a djustment of the mA and/or kV according to patient size, and/or use of iterative reconstruction techn ique. COMPARISON: No relevant prior studies available. FINDINGS: BRAIN: Unremarkable. No hemorrhage. No significant white matter disease. No edema. VENTRICLES: Unremarkable. No ventriculomegaly. SKULL: No acute fracture. SINUSES: Unremarkable as visualized. No acute sinusitis. MASTOID AIR CELLS: Evidence of partial left mastoidectomy is noted. VERTEBRAE: Anterolisthesis of C4 on C5 secondary to degenerative facet arthropathy is present. Th e vertebral body heights and alignment are otherwise maintained. DISCS/SPINAL CANAL/NEURAL FORAMINA: Intervertebral disc space narrowing with anterior osteophyte formation most prominent at C5-C6 and C6-C7 is present. Facet arthropathy is noted most prominent on the left of the upper cervical spine. There is no significant canal stenosis. Neural foraminal narrow ing secondary to posterior disc osteophyte complex at C4-C5, C5-C6, and C6-C7 is present. SOFT TISSUES: The soft tissues are normal. LUNG APICES: Unremarkable as visualized. IMPRESSION: 1. No acute intracranial findings. 2. Moderate spondylosis of the cervical spine without acute findings. EXAM DESCRIPTION: CT Chest, Abdomen and Pelvis With Intravenous Contrast CLINICAL HISTORY: The patient is 77 years old and is Female; FEVER TECHNIQUE: Axial computed tomography images of the chest, abdomen and pelvis with intravenous contra st. Sagittal and coronal reformatted images were created and reviewed. This CT exam was performed using one or more of the following dose reduction techniques: automated exposure control, adjustme nt of the mA and/or kV according to patient size, and/or use of iterative reconstruction technique. COMPARISON: CT of the chest May 31, 2022 FINDINGS: CHEST: LUNGS: Focal cavitary lesion within the left upper lobe measuring approximately 2.2 x 1.5 cm is p resent. Few small cavitary foci within the right middle lobe are noted. Subpleural cystic change with in the right lower lobe is present. Few scattered areas of scarring/atelectasis is noted. The overall appearance of the cavitary lesions have improved from prior exam. There is no lobar consolidation or mass. PLEURAL SPACE: Unremarkable. No significant effusion. No pneumothorax. HEART: No cardiomegaly. No pericardial effusion. ABDOMEN: LIVER: Unremarkable. No mass. GALLBLADDER AND BILE DUCTS: No calcified stones. No ductal dilation. PANCREAS: No ductal dilation. No mass. SPLEEN: Unremarkable. ADRENALS: Unremarkable. No mass. KIDNEYS AND URETERS: Unremarkable. The kidneys enhance symmetrically. No obstructing renal or ure teral calculus is seen. No hydronephrosis or hydroureter. No perinephric fluid or stranding. STOMACH AND BOWEL: Stomach is filled with fluid. The small bowel is normal in caliber. A moderate amount stool is present throughout colon. There is no mucosal thickening or evidence of obstruction. PELVIS: APPENDIX: No findings to suggest acute appendicitis. BLADDER: Unremarkable. No mass. REPRODUCTIVE: The patient is status post hysterectomy. CHEST, ABDOMEN and PELVIS: INTRAPERITONEAL SPACE: Unremarkable. No significant fluid collection. No free air. BONES/JOINTS: A comminuted and displaced right proximal humeral fracture is present. The humeral head remains located. There is no other acute fracture of the visualized axial and appendicular skele ton. A right hip prosthesis is present. The hardware is engaged. Sclerosis of the right iliac wing an d sacrum is noted. The vertebral body heights and alignment are maintained. SOFT TISSUES: The soft tissues are normal. VASCULATURE: Unremarkable. No aortic aneurysm. LYMPH NODES: Unremarkable. No enlarged lymph nodes. IMPRESSION: 1. Complex fracture of the proximal right humerus with associated displacement. 2. No evidence of solid organ injury on this contrasted CT of the chest, abdomen, pelvis. 3. No other acute fracture of the visualized axial and appendicular skeleton. 4. Residual cavitary foci specifically within the right lung which has improved from prior exam. Fi ndings suggest sequela of prior infectious versus inflammatory process. Electronically signed by: Flor Spangler MD 05/31/2023 2:10 AM CDT Due to temporary technical issues with the PACS/Fluency reporting system, reports are being signed by the in house radiologists without review as a courtesy to insure prompt reporting. The interpreting radiologist is fully responsible for the content of the report.
--- NOTE | 2023-06-02 19:34 | EKG ---
Test Date: 2023-05-30 Test Time: 22:04:25 Trial Management Associate: BASSEM MEASUREMENT RESULTS: Intervals: Rate: 86 MT: 180 QRSD: 90 QT: 388 QTc: 464 [place]: P: 25 MT: 180 QRS: 8 T: 35 INTERPRETIVE STATEMENTS: Normal sinus rhythm Normal ECG Compared to ECG 05/31/2022 21:34:18 Myocardial infarct finding no longer present Prolonged QT interval no longer present Electronically Signed On 06-02-23 19:29:33 CDT by David Spangler
== END 2023-05-31 04:21 | disposition short-term general hospital (02) ==
LOC: ER 19:45
PROC: 0PSC35Z Reposition Right Humeral Head with External Fixation Device, Percutaneous Approach (ICD-10-PCS; principal; 2023-05-31)
DX: S42.201A Unspecified fracture of upper end of right humerus, initial encounter for closed fracture (principal); S00.83XA Contusion of other part of head, initial encounter; W01.0XXA Fall on same level from slipping, tripping and stumbling without subsequent striking against object, initial encounter; Z88.5 Allergy status to narcotic agent; I50.9 Heart failure, unspecified
CPT/HCPCS: 96361; 93005; 85025; 80048; 36415; 86900; 86850; 85610; 82565; 86901; 80076; 70450; 72125; 71260; 70486; 76377; 74177; 73020; 73060; 73030; 73590; 96375; 96374; 99285; 23675; Q9967; J2765; J3360; J2270 ×3; J2405 ×2; J7120; J7040

== ENCOUNTER 2024-09-02 20:09 | Emergency (ER) | payer OTHER ==
[2024-09-02 21:03] LABS: Absolute Basophils 0.5 K/uL (0-0.5); Absolute Eosinophils 0.5 K/uL (0-0.5); Absolute Lymphocytes (CBC) 3.7 K/uL (0.7-4.9); Absolute Monocytes 1.6 K/uL (0.1-1.3); Absolute Neutrophil 5.6 K/uL (1.8-8.0); Eosinophils % 4.2 % (0-4.4); Hematocrit 33.4 % (36.0-45.0); Hemoglobin 11.2 g/dL (12.0-15.0); Lymphocytes % 31.1 % (15.3-44.8); MCH 29.9 pg (27.0-35.0); MCHC 33.4 g/dL (32.0-36.0); MCV 89.4 fL (80-100); MPV 7.5 fL (7.6-11.3); Monocytes % 13.6 % (3.3-12.3); Neutrophils % 47.1 % (41.7-73.7); Platelets 322 thou/uL (152-406); RBC Red Blood Cell Count 3.73 M/uL (3.86-4.86); Red Cell Distribution Width 14.6 % (12.1-15.2)
[2024-09-02 21:20] LABS: Anion Gap 9.1 mEq/L (5.0-15.0); Potassium 4.1 mEq/L (3.5-5.1); Troponin High Sensitivity 15.8 pg/mL (<58.9)
--- NOTE | 2024-09-02 21:33 | RAD REPORT ---
EXAMINATION: TWO VIEW CHEST XR CLINICAL INDICATION: Congestion;Cough TECHNIQUE: 2 views of the chest was performed. COMPARISON: 07/23/2024, 10/03/2022 FINDINGS: Prominent emphysematous changes throughout the lungs. 2 cm cavitary lesion in the right upper lobe is stable. Vague nodularity in the right midlung also appearing stable. The heart is upper limit of normal in size. No displaced fractures evident. IMPRESSION: Rounded right upper lobe cavitary lesion is stable since comparison study. Prominent COPD noted. No acute process seen.
[2024-09-02 21:45] LABS: Band Neutrophils 7 % (0-1); Differential Total Cells Count 100; Eosinophils 6 % (0-3); Lymphocytes 20 % (15-42); Monocytes 14 % (0-10); Reactive Lymphocytes 14 %; Segmented Neutrophils 37 % (40-80)
[2024-09-02 21:46] LABS: Blood Morphology Comment NOT SEEN (NOT SEEN); Platelet Estimate ADEQ
--- NOTE | 2024-09-03 00:22 | EDPHYS ---
Physician Documentation [facility] Name: Danielle Grover Age: 78 yrs Sex: Female : 1945 Arrival Date: 09/02/2024 Time: 20:09 Bed 13 Private MD: ED Physician Vinnie Nelson HPI: 09/02 20:42 This 78 yrs old Female presents to ER via Ambulatory with complaints of Chest sb4 Congestion, Cough. 20:58 patient reports productive cough x 3 weeks. she was initially prescribed a 10 day sb4 course of augmentin which she states did not improve her symptoms at all, then she had a zpack and antitussives which also did not help. her PCP told her to come to the ED to rule out pneumonia. she does report some intermittent chest pain and PEARCE. no fevers or wheezing. no history of smoking. Historical: - Allergies: 20:30 Codeine; cm10 - PMHx: 20:30 CHF; GERD; Rheumatoid Arthritis; cm10 - PSHx: 20:30 hysterectomy; cm10 - Immunization history:: Adult Immunizations up to date. - Infectious Disease History:: Denies. - Social history:: Smoking status: Patient denies any tobacco usage or history of. ROS: 20:58 Constitutional: Negative for fever, chills, and weight loss, sb4 20:58 Respiratory: Positive for cough, with green sputum, dyspnea on exertion, 20:58 All other systems are negative, Exam: 20:58 Constitutional: This is a well developed, well nourished patient who is awake, alert, sb4 and in no acute distress. Head/Face: Normocephalic, atraumatic. Eyes: Extra-ocular motions intact. Periorbital areas with no swelling, redness, or edema. ENT: Mucous membranes moist. Cardiovascular: Regular rate and rhythm with a normal S1 and S2. Respiratory: Lungs have equal breath sounds bilaterally, clear to auscultation and percussion. No rales, rhonchi or wheezes noted. No increased work of breathing, no retractions or nasal flaring. Abdomen/GI: Soft, non-tender, no distension. Skin: Warm, dry with normal turgor. Normal color with no rashes, no lesions, and no evidence of cellulitis. Vital Signs: 20:29 BP 126 / 59; Pulse 84; Resp 16; Temp 98.1; Pulse Ox 100% ; Weight 41.28 kg; Height 4 cm10 ft. 11 in. ; Pain 0/10; 20:38 BP 113 / 82; Pulse 84; Resp 17; Temp 98.2; Pulse Ox 98% on R/A; rg5 22:33 BP 132 / 58; Pulse 85; Resp 18; Pulse Ox 98% on R/A; rg5 23:30 BP 133 / 55; Pulse 85; Resp 18; Pulse Ox 100% ; cp4 09/03 00:30 BP 120 / 54; Pulse 78; Resp 18; Pulse Ox 96% ; cp4 09/02 20:29 Body Mass Index 18.38 (41.28 kg, 149.86 cm) cm10 09/02 20:29 Pain Scale: Adult cm10 MDM: 09/02 20:20 Patient medically screened. sb4 09/03 00:19 Data reviewed: vital signs, nurses notes, lab test result(s), radiologic studies, I sb4 have discussed the patient's presentation/case with the attending Emergency Department Physician; and as a result, I will discharge patient. Consideration of Admission/Observation Escalation of care including admission/observation considered. Historians other than the Patient: Spouse/Significant Other: . 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 ED course: discussed CT results with patient that mass in lung is suspicious for malignancy and it is imperative for her to follow up with pulmonology as soon as possible. she has an appointment scheduled for later this month and will call tomorrow to follow up. I will discharge her with her images in a disc. She is nontoxic appearing, is in no respiratory distress, no pain, is safe for discharge home. 09/02 20:43 Order name: CBC with Diff; Complete Time: 21:50 sb4 09/02 20:43 Order name: BMP; Complete Time: 21:21 sb4 09/02 20:43 Order name: Troponin High Sensitivity; Complete Time: 21:21 sb4 09/02 20:43 Order name: BNP; Complete Time: 21:21 sb4 09/02 21:18 Order name: Manual Differential; Complete Time: 21:50 EDMS 09/02 20:43 Order name: Chest Pa And Lat (2 Views) XRAY; Complete Time: 21:34 sb4 09/02 21:43 Order name: CT Chest W/ Con sb4 09/02 20:43 Order name: IV Start; Complete Time: 20:53 sb4 Administered Medications: No medications were administered Disposition: 20:13 Co-signature as Attending Physician, Vinnie Nelson MD I agree with the assessment sp4 and plan of care. I reviewed the patient's care provided by the Advanced Practice Provider and agree with the diagnosis and treatment plan. Disposition Summary: 09/03/24 00:22 Discharge Ordered Notes: Location: Home sb4 Problem: an ongoing problem sb4 Symptoms: are unchanged sb4 Condition: Stable sb4 Diagnosis - Cough sb4 - Cavitary lesion of lung- right upper lobe sb4 Followup: sb4 - With: Private Physician - When: 1 week - Reason: Further diagnostic work-up, Recheck today's complaints, Re-evaluation by your physician Discharge Instructions: - Discharge Summary Sheet sb4 - Cough, Adult sb4 - Lung Mass sb4 Forms: - Antibiotic Education sb4 - Patient Portal Instructions sb4 - Leadership Thank You Letter sb4 Prescriptions: - levofloxacin 500 mg Oral tablet - take 1 tablet ORAL route once daily for 7 days; 7 tablet; Refills: 0, Product sb4 Selection Permitted Signatures: Dispatcher [employer] EDKinsey Varner PA-C PAAnthonyC sb4 Vinnie Nelson MD MD sp4 Cheri Christianson RN RN cm10 Corrections: (The following items were deleted from the chart) 09/02 20:44 20:44 CBC+H.LAB.BRZ ordered. EDMS EDMS 20:44 20:44 BASIC METABOLIC PANEL+C.LAB.BRZ ordered. EDMS EDMS 20:44 20:44 Troponin High Sensitivity+C.LAB.BRZ ordered. EDMS EDMS 20:44 20:44 PROBNP+C.LAB.BRZ ordered. EDMS EDMS 09/03 00:13 00:13 Sputum Culture+BA.LAB.BRZ ordered. EDMS EDMS
--- NOTE | 2024-09-03 00:22 | ER ---
Nurse's Notes [facility] Name: Danielle Grover Age: 78 yrs Sex: Female : 1945 Arrival Date: 09/02/2024 Time: 20:09 Bed 13 Private MD: Diagnosis: Cough;Cavitary lesion of lung- right upper lobe Presentation: 09/02 20:29 Chief complaint: Patient states: Sent by PCP for cough X3 weeks. Pt was treated with cm10 ABX X2 and still continues to have cough. Coronavirus screen: Client denies travel out of the [place] in the last 14 days. Ebola Screen: Patient denies travel to an Ebola-affected area in the 21 days before illness onset. No symptoms or risks identified at this time. Initial Sepsis Screen: Does the patient meet any 2 criteria? No. Patient's initial sepsis screen is negative. Does the patient have a suspected source of infection? No. Patient's initial sepsis screen is negative. Risk Assessment: Do you want to hurt yourself or someone else? Patient reports no desire to harm self or others. Onset of symptoms was September 02, 2024. 20:29 Method Of Arrival: Ambulatory cm10 20:29 Acuity: BALJIT 3 cm10 Triage Assessment: 20:30 General: Appears in no apparent distress. comfortable, Behavior is calm, cooperative, cm10 appropriate for age. Neuro: No deficits noted. Level of Consciousness is awake, alert, obeys commands, Oriented to person, place, time, situation, Appropriate for age. Respiratory: No deficits noted. Airway is patent Respiratory effort is even, unlabored, Respiratory pattern is regular, symmetrical. Historical: - Allergies: 20:30 Codeine; cm10 - PMHx: 20:30 CHF; GERD; Rheumatoid Arthritis; cm10 - PSHx: 20:30 hysterectomy; cm10 - Immunization history:: Adult Immunizations up to date. - Infectious Disease History:: Denies. - Social history:: Smoking status: Patient denies any tobacco usage or history of. Screenin:00 [facility] ED Fall Risk Assessment (Adult) History of falling in the last 3 months, rg5 including since admission No falls in past 3 months (0 pts) Confusion or Disorientation No (0 pts) Intoxicated or Sedated No (0 pts) Impaired Gait No (0 pts) Mobility Assist Device Used No (0 pt) Altered Elimination No (0 pt) Score/Fall Risk Level 0 - 2 = Low Risk Oriented to surroundings, Maintained a safe environment, Hourly rounding (assess needs \T\ fall precautionary measures) done. Abuse screen: Denies threats or abuse. Nutritional screening: No deficits noted. Tuberculosis screening: No symptoms or risk factors identified. Assessment: 20:20 General: Appears in no apparent distress. Behavior is calm, cooperative. rg5 20:20 Pain: Denies pain. Neuro: Level of Consciousness is awake, alert, Oriented to person, rg5 place, time. Cardiovascular: Heart tones S1 S2 Patient's skin is warm and dry. Rhythm is regular. Respiratory: Reports cough that is Airway is patent Trachea midline. GI: Abdomen is flat, non-distended, Abd is soft and non tender X 4 quads. : No signs and/or symptoms were reported regarding the genitourinary system. EENT: No deficits noted. Derm: Skin is intact, Skin is dry, Skin is normal, Skin temperature is warm. Musculoskeletal: Circulation, motion, and sensation intact. Range of motion: intact in all extremities. 21:00 Reassessment: Patient and/or family updated on plan of care and expected duration. Pain rg5 level reassessed. Patient is alert, oriented x 3, equal unlabored respirations, skin warm/dry/pink. 22:00 Reassessment: Patient and/or family updated on plan of care and expected duration. Pain rg5 level reassessed. Patient is alert, oriented x 3, equal unlabored respirations, skin warm/dry/pink. 23:00 Reassessment: Patient appears in no apparent distress at this time. Patient and/or cp4 family updated on plan of care and expected duration. Pain level reassessed. Patient is alert, oriented x 3, equal unlabored respirations, skin warm/dry/pink. 09/03 00:00 Reassessment: Patient appears in no apparent distress at this time. Patient and/or cp4 family updated on plan of care and expected duration. Pain level reassessed. Patient is alert, oriented x 3, equal unlabored respirations, skin warm/dry/pink. Vital Signs: 09/02 20:29 BP 126 / 59; Pulse 84; Resp 16; Temp 98.1; Pulse Ox 100% ; Weight 41.28 kg; Height 4 cm10 ft. 11 in. ; Pain 0/10; 20:38 BP 113 / 82; Pulse 84; Resp 17; Temp 98.2; Pulse Ox 98% on R/A; rg5 22:33 BP 132 / 58; Pulse 85; Resp 18; Pulse Ox 98% on R/A; rg5 23:30 BP 133 / 55; Pulse 85; Resp 18; Pulse Ox 100% ; cp4 09/03 00:30 BP 120 / 54; Pulse 78; Resp 18; Pulse Ox 96% ; cp4 09/02 20:29 Body Mass Index 18.38 (41.28 kg, 149.86 cm) cm10 09/02 20:29 Pain Scale: Adult cm10 ED Course: 09/02 20:13 Patient arrived in ED. mg5 20:17 Kinsey Vasquez PA-C is PHCP. sb4 20:17 Vinnie Nelson MD is Attending Physician. sb4 20:23 Anson Nichole, NICHOLAS is Primary Nurse. rg5 20:30 Triage completed. cm10 20:30 Arm band placed on Patient placed in an exam room, on a stretcher, on pulse oximetry. cm10 20:53 Inserted saline lock: 20 gauge in right forearm, using aseptic technique. Blood rg5 collected. Flushed with 10 mL NS. 21:26 Chest Pa And Lat (2 Views) XRAY In Process Unspecified. EDMS 22:38 No provider procedures requiring assistance completed. rg5 22:57 CT Chest W/ Con In Process Unspecified. EDMS 09/03 00:43 Bed in low position. Call light in reach. Side rails up X 1. Provided Education on: cp4 lung mass. 00:43 intact, bleeding controlled, No redness/swelling at site. Pressure dressing applied. cp4 Administered Medications: No medications were administered Medication: 09/02 21:00 VIS not applicable for this client. rg5 Outcome: 09/03 00:22 Discharge ordered by . sb4 00:43 Discharged to home ambulatory, cp4 00:43 Condition: stable 00:43 Discharge instructions given to patient, Instructed on discharge instructions, follow up and referral plans. medication usage, Demonstrated understanding of instructions, follow-up care, medications, Prescriptions given X 1, 00:43 Patient left the ED. cp4 Signatures: Dispatcher [employer] EDAK Pedro, Kinsey, PA-C PA-C sb4 Cheri Christianson, RN RN cm10 Morneita Santacruz mg5 Pennie Preston cp4 Anson Nichole, RN RN rg5
--- NOTE | 2024-09-03 01:31 | RAD REPORT ---
EXAM: CT Chest With Intravenous Contrast CLINICAL HISTORY: The patient is 78 years old and is Female; cavitary lesion TECHNIQUE: Axial computed tomography images of the chest with intravenous contrast. Sagittal and coronal ref ormatted images were created and reviewed. This CT exam was performed using one or more of the following dose reduction techniques: automated exposure control, adjustment of the mA and/or kV acc ording to patient size, and/or use of iterative reconstruction technique. COMPARISON: CT May 31, 2022 FINDINGS: LUNGS: Multiple small centrilobular nodules and nodular groundglass opacity some of which demonst rate cavitation within the right upper lobe are present. A thick walled cavitary lesion within the right upper lobe measuring 3.8 x 2.6 cm is present. This has increased in size as prior exam. A small er thick-walled right middle lobe cavitary focus is present. Scarring within the right middle lobe is noted. Atelectasis/scarring in the lower lobes is noted. PLEURAL SPACE: Unremarkable. No pneumothorax. No significant effusion. HEART: No cardiomegaly. No pericardial effusion. MEDIASTINUM: Small hiatal hernia is present. BONES/JOINTS: No acute fracture. SOFT TISSUES: The soft tissues are normal. VASCULATURE: Unremarkable. No thoracic aortic aneurysm. LYMPH NODES: Unremarkable. No enlarged lymph nodes. IMPRESSION: Thick-walled cavitary lesion within the right upper lobe with multiple small centrilobular nodules and groundglass nodular opacity within the right upper lobe. Within the differential includes vasculitis, fungal infection, septic emboli, and malignancy. Electronically signed by: Flor Spangler MD 09/03/2024 12:08 AM CDT Due to temporary technical issues with the [employer] reporting system, reports are being anthony d by the in-house radiologist without review as a courtesy to ensure prompt reporting the interpreting radiologist is fully responsible for the content of the report. Transcribed Date/Time: 09/03/2024 1:30 AM
[2024-09-03 11:37] VITALS: TEMP 98.2; O2SAT 98
[2024-09-03 11:38] VITALS: BP 132/58
== END 2024-09-03 00:43 | disposition home or self-care (01) ==
LOC: ER 20:09
DX: R05.9 Cough, unspecified (principal); J98.4 Other disorders of lung; I50.9 Heart failure, unspecified
CPT/HCPCS: 85025; 80048; 36415; 84484; 83880; 71260; 71046; 99284; Q9967

== ENCOUNTER 2025-01-28 16:06 | Inpatient (IN) | payer OTHER ==
[2025-01-28] MEDS ORDERED: NA CHLORIDE 0.9% 1,000 ML ONE (16:29)
[2025-01-28] MEDS ORDERED: MAGNESIUM SULFATE 1 gm IVPB 1 GM/100 ML BAG IV ONE (16:29)
[2025-01-28 16:33] LABS: Absolute Basophils 0.4 K/uL (0-0.5); Absolute Eosinophils 0.3 K/uL (0-0.5); Absolute Monocytes 1.6 K/uL (0.1-1.3); Absolute Neutrophil 7.3 K/uL (1.8-8.0); Basophils % 2.9 % (0-1.3); Eosinophils % 2.3 % (0-4.4); Hematocrit 40.3 % (36.0-45.0); Hemoglobin 13.4 g/dL (12.0-15.0); Lymphocytes % 23.6 % (15.3-44.8); MCH 27.5 pg (27.0-35.0); MCHC 33.2 g/dL (32.0-36.0); MCV 82.9 fL (80-100); MPV 7.6 fL (7.6-11.3); Monocytes % 13.1 % (3.3-12.3); Neutrophils % 58.1 % (41.7-73.7); Nucleated Red Blood Cells % 0.1 % (0-0); Platelets 368 thou/uL (152-406); RBC Red Blood Cell Count 4.86 M/uL (3.86-4.86); Red Cell Distribution Width 16.1 % (12.1-15.2)
[2025-01-28 16:37] LABS: PT Prothrombin Time 12.2 SECONDS (10.0-13.0); Protime INR 1.07
[2025-01-28 16:50] LABS: Albumin 2.9 g/dL (3.4-5.0); Albumin/Globulin Ratio 0.7 (1.1-1.8); Anion Gap 7.8 mEq/L (5.0-15.0); Bilirubin Direct 0.4 mg/dL (0-0.2); Bilirubin Indirect, Calculated 0.4 mg/dL (0.2-0.8); Bilirubin Total 0.8 mg/dL (0.2-1.0); Potassium 3.8 mEq/L (3.5-5.1); Protein, Total 6.9 g/dL (6.4-8.2); Troponin High Sensitivity 24.4 pg/mL (<58.9)
[2025-01-28] MEDS ORDERED: FAMOTIDINE 20 MG/2 ML VIAL IV ONE (16:52)
[2025-01-28 16:57] LABS: Band Neutrophils 2 % (0-1); Differential Total Cells Count 100; Lymphocytes 7 % (15-42); Monocytes 8 % (0-10); Reactive Lymphocytes 22 %; Segmented Neutrophils 59 % (40-80)
[2025-01-28 16:58] LABS: Blood Morphology Comment NOTED (NOT SEEN); Microcytosis 1+; Platelet Estimate ADEQ
[2025-01-28 17:23] LABS: Influenza A Ag Negative; Influenza B Ag Negative; SARS-CoV-2 Antigen Rapid Res Negative (Negative)
--- NOTE | 2025-01-28 17:26 | RAD REPORT ---
EXAMINATION: CTA CHEST PE CLINICAL INDICATION: Female, 79 years old. DYSPNEA TECHNIQUE: This examination was performed according to an angiographic protocol with 3D post-processi ng. This involves 3D reconstructions, MIPs, volume rendered images and/or shaded surface rendering. One or more of the following dose reduction techniques were used: Automated exposure control, adjustm ent of the mA and/or kV according to patient size, and/or iterative reconstruction. Unless otherwise specified, incidental findings do not require dedicated imaging follow-up. [id number]. COMPARISON: Chest CT on 07/20/2025 FINDINGS: LOWER NECK: Visualized thyroid gland and soft tissues are normal. LUNGS AND AIRWAYS: Increased interlobular septal thickening as well as scattered areas of crazy pavin g. Cavitary structures in the right upper lobe with surrounding nodular airspace disease. A dominant cavitary structure in the right upper lobe for example measures approximately 3.3 cm, previo usly 3.3 cm in similar dimension.. PLEURA: Small bilateral pleural effusions, right greater than left which are new from prior. MEDIASTINUM AND LYMPH NODES: Increasing mediastinal lymphadenopathy. For example, a 15 mm subcarinal lymph node previously measured 10 mm. THORACIC AORTA: No thoracic aortic aneurysm. PULMONARY ARTERIES: Enlarged main pulmonary arteries could indicate pulmonary artery hypertension. No pulmonary emboli identified. HEART: Mild cardiomegaly. No coronary calcifications.No significant pericardial effusion. OSSEOUS STRUCTURES AND CHEST WALL: No fracture or suspicious osseous lesions. UPPER ABDOMEN: No acute abnormalities.Reflux of contrast into the hepatic veins. IMPRESSION: No evidence of pulmonary emboli to the subsegmental level. Interval development of pulmonary edema wi th small, right greater than left, pleural effusions. Cavitary structure in the right upper lobe concerning nodularity is similar and consistent with a chr onic/indolent infectious process. Increasing mediastinal and hilar lymphadenopathy probably related to heart failure. Could consider 3 month follow-up chest CT.
--- NOTE | 2025-01-28 17:27 | RAD REPORT ---
EXAM: Chest Single View HISTORY: 79 years Female PALPITATIONS COMPARISON: 09/02/2024 FINDINGS: LUNGS/PLEURA: New small bilateral pleural effusions. Scarring cavitation right upper lobe is similar. Other ill-defined opacities are present bilaterally. CARDIAC/MEDIASTINUM: Mild cardiomegaly UPPER ABDOMEN: No significant abnormality. BONES: No acute abnormality. Right shoulder arthroplasty. LINES/TUBES/OTHER: N/A IMPRESSION: Interval development of mild pulmonary edema. Right upper lobe cavitation, nodularity, and architectu ral distortion likely reflecting sequela of a chronic or indolent infectious process.
--- NOTE | 2025-01-28 17:36 | EDPHYS ---
Physician Documentation [facility] Name: Danielle Grover Age: 79 yrs Sex: Female : 1945 Arrival Date: 01/28/2025 Time: 16:06 Bed 20 Private MD: ED Physician Sebastien Jones HPI: 01/28 16:28 This 79 yrs old Female presents to ER via Ambulatory with complaints of Fast bonilla heart rate, Weakness. Historical: - Allergies: 16:20 Codeine; cm10 - PMHx: 16:20 CHF; GERD; Rheumatoid Arthritis; Mycobacterium Avium Complex (MAC) Infection; cm10 Hypothyroidism; Hypercholesterolemia; - Immunization history:: Adult Immunizations up to date. - Infectious Disease History:: Denies. - Social history:: Smoking status: Patient denies any tobacco usage or history of. - Family history:: not pertinent. ROS: 16:32 Constitutional: Negative for fever, chills, and weight loss, Eyes: Negative for injury, bonilla pain, redness, and discharge, ENT: Negative for injury, pain, and discharge, Neck: Negative for injury, pain, and swelling, Abdomen/GI: Negative for abdominal pain, nausea, vomiting, diarrhea, and constipation, Back: Negative for injury and pain, : Negative for injury, bleeding, discharge, and swelling, MS/Extremity: Negative for injury and deformity, Skin: Negative for injury, rash, and discoloration, Neuro: Negative for headache, weakness, numbness, tingling, and seizure, Psych: Negative for depression, anxiety, suicide ideation, homicidal ideation, and hallucinations, Allergy/Immunology: Negative for hives, rash, and allergies, Endocrine: Negative for neck swelling, polydipsia, polyuria, polyphagia, and marked weight changes, Hematologic/Lymphatic: Negative for swollen nodes, abnormal bleeding, and unusual bruising, 16:32 Cardiovascular: Positive for palpitations, 16:32 Respiratory: Positive for cough, shortness of breath, Exam: 16:32 Constitutional: This is a well developed, well nourished patient who is awake, alert, bonilla and in no acute distress. Head/Face: Normocephalic, atraumatic. Eyes: Pupils equal round and reactive to light, extra-ocular motions intact. Lids and lashes normal. Conjunctiva and sclera are non-icteric and not injected. Cornea within normal limits. Periorbital areas with no swelling, redness, or edema. ENT: Nares patent. No nasal discharge, no septal abnormalities noted. Tympanic membranes are normal and external auditory canals are clear. Oropharynx with no redness, swelling, or masses, exudates, or evidence of obstruction, uvula midline. Mucous membranes moist. Neck: Trachea midline, no thyromegaly or masses palpated, and no cervical lymphadenopathy. Supple, full range of motion without nuchal rigidity, or vertebral point tenderness. No Meningismus. Chest/axilla: Normal chest wall appearance and motion. Nontender with no deformity. No lesions are appreciated. Abdomen/GI: Soft, non-tender, with normal bowel sounds. No distension or tympany. No guarding or rebound. No evidence of tenderness throughout. Back: No spinal tenderness. No costovertebral tenderness. Full range of motion. Female : Normal external genitalia. Skin: Warm, dry with normal turgor. Normal color with no rashes, no lesions, and no evidence of cellulitis. MS/ Extremity: Pulses equal, no cyanosis. Neurovascular intact. Full, normal range of motion., bilateral aka Neuro: Awake and alert, GCS 15, oriented to person, place, time, and situation. Cranial nerves II-XII grossly intact. Motor strength 5/5 in all extremities. Sensory grossly intact. Cerebellar exam normal. Normal gait. Psych: Awake, alert, with orientation to person, place and time. Behavior, mood, and affect are within normal limits. 16:32 Cardiovascular: Rate: tachycardic, actual rate is 122 bpm, Rhythm: regular, Pulses: Pulses are 4+ in bilateral radial, brachial, femoral, popliteal, posterior tibial and and dorsalis pedis arteries.. Heart sounds: normal, Edema: is not appreciated, JVD: is not appreciated, 16:32 ECG was reviewed by the Attending Physician. 16:44 ECG was reviewed by the Attending Physician. bonilla Vital Signs: 16:19 BP 142 / 76; Pulse 122; Resp 19; Temp 98.2(O); Pulse Ox 100% on R/A; Weight 39.92 kg; cm10 Height 4 ft. 11 in. ; Pain 0/10; 18:00 BP 146 / 78; Pulse 118; Resp 24 S; Pulse Ox 98% on R/A; aa5 18:22 Pulse 100; Resp 18 S; Pulse Ox 100% on Nebulizer Mask; aa5 16:19 Body Mass Index 17.77 (39.92 kg, 149.86 cm) cm10 16:19 Pain Scale: Adult cm10 MDM: 16:10 Medical Screening Exam initiated [facility] 16:42 Data reviewed: vital signs, nurses notes, lab test result(s), EKG, radiologic studies, [facility] CT scan, plain films. Consideration of Admission/Observation Patient was admitted/placed on observation. Escalation of care including admission/observation considered. I considered the following discharge prescriptions or medication management in the emergency department Medications were administered in the Emergency Department. See MAR. Independent interpretation of the following test(s) in the Emergency Department EKG: See my EKG interpretation above. Test considered but Not performed: Ultrasound no 2 d echo. Historians other than the Patient: Spouse/Significant Other: well informed. Care significantly affected by the following chronic conditions: Hypertension, Congestive Heart Failure, mac. Counseling: I had a detailed discussion with the patient and/or guardian regarding the historical points, exam findings, and any diagnostic results supporting the discharge/admit diagnosis, lab results, radiology results. 01/28 16:12 Order name: Basic Metabolic Panel; Complete Time: 17:06 [facility] 01/28 16:12 Order name: CBC with Diff; Complete Time: 17:06 [facility] 01/28 16:12 Order name: LFT's; Complete Time: 17:06 [facility] 01/28 16:12 Order name: Magnesium; Complete Time: 17:06 [facility] 01/28 16:12 Order name: NT PRO-BNP; Complete Time: 17:06 [facility] 01/28 16:12 Order name: PT-INR; Complete Time: 17:06 [facility] 01/28 16:12 Order name: Troponin HS; Complete Time: 17:06 [facility] 01/28 16:12 Order name: Urinalysis w/ reflexes bonilla 01/28 16:12 Order name: Lipase; Complete Time: 17:06 [facility] 01/28 16:27 Order name: Blood Culture Adult (2) [facility] 01/28 16:27 Order name: Lactate w/ 2H reflex if indic.; Complete Time: 17:29 [facility] 01/28 16:32 Order name: COVID-19 Ag + Flu A+B Ag; Complete Time: 17:29 [facility] 01/28 16:40 Order name: Manual Differential; Complete Time: 17:06 [facility] 01/28 18:39 Order name: Magnesium [facility] 01/28 18:39 Order name: Phosphorus [facility] 01/28 18:39 Order name: Basic Metabolic Panel [facility] 01/28 18:39 Order name: Basic Metabolic Panel [facility] 01/28 18:39 Order name: CBC with Automated Diff [facility] 01/28 18:39 Order name: CBC with Automated Diff [facility] 01/28 19:20 Order name: Procalcitonin [facility] 01/28 16:12 Order name: XRAY Chest (1 view); Complete Time: 17:29 [facility] 01/28 16:27 Order name: CT Chest For PE Angio; Complete Time: 17:29 [facility] 01/28 17:46 Order name: BIPAP [facility] 01/28 18:39 Order name: Echo with Doppler [facility] 01/28 16:12 Order name: EKG; Complete Time: 16:12 [facility] 01/28 16:12 Order name: Cardiac monitoring; Complete Time: 16:22 [facility] 01/28 16:12 Order name: EKG - Nurse/Tech; Complete Time: 16: [facility] 01/28 16:12 Order name: IV Saline Lock; Complete Time: 16:22 [facility] 01/28 16:12 Order name: Labs collected and sent; Complete Time: 16:22 [facility] 01/28 16:12 Order name: O2 Per Protocol; Complete Time: 16: [facility] 01/28 16:12 Order name: O2 Sat Monitoring; Complete Time: 16:22 [facility] EC:44 Rate is 122 beats/min. Rhythm is regular. QRS [place] is Normal. VT interval is normal. [facility] QRS interval is normal. QT interval is normal. No Q waves. T waves are Normal. No ST changes noted. Clinical impression: Sinus tachycardia. Interpreted by me. Reviewed by me. Administered Medications: 17:10 Discontinued: ns 0.9% 500 ml 500 ml IV at 1 bolus once; to be given as a bolus over 30 bonilla minutes 17:29 Discontinued: ns 0.9% 500 ml 500 ml IV at 100 ml/hr once bonilla 16:46 Drug: NS 0.9% IV 500 ml 500 ml IV at 1 bolus once; to be given as a bolus over 30 aa5 minutes Volume: 500 ml; Route: IV; Rate: 1 bolus; Site: left forearm; 17:10 Follow up: IV Intake: 500ml aa5 16:46 Drug: NS 0.9% IV 500 ml 500 ml IV at 100 ml/hr once Volume: 500 ml; Route: IV; Rate: aa5 100 ml/hr; Site: left forearm; 16:46 Drug: Magnesium Sulfate IVPB 1 grams IVPB once over 1 hrs Route: IVPB; Infused Over: 1 aa5 hrs; Site: left forearm; 17:46 Follow up: IV Status: Completed infusion aa5 16:55 Drug: Famotidine IVP 20 mg IVP once; dilute with 10 mL 0.9% NaCl; give over 2 minutes aa5 Route: IVP; Site: left forearm; 17:12 Follow up: Response: No adverse reaction aa5 17:46 CANCELLED (Duplicate Order): [id number] mg IVP once; give over 2 minutes bonilla 18:00 Drug: levofloxacin IVPB 250 mg 50 ml IVPB once over 60 mins Volume: 50 ml; Route: IVPB; aa5 Infused Over: 60 mins; Site: right antecubital; 19:00 Follow up: Response: No adverse reaction; IV Status: Completed infusion aa5 18:10 Drug: Furosemide IVP 37.5 mg IVP once; give over 2 minutes Route: IVP; Site: right aa5 antecubital; 18:20 Follow up: Response: No adverse reaction aa5 18:10 Drug: Metoprolol IVP 2.5 mg IVP once; Hold for SBP <100 or HR <60. Route: IVP; Site: aa5 right antecubital; 18:20 Follow up: Response: No adverse reaction aa5 18:15 Drug: MethylPrednisoLONE IVP 2 mg/kg IVP once Route: IVP; Site: right antecubital; aa5 18:30 Follow up: Response: No adverse reaction aa5 18:15 Drug: Levalbuterol Inhalation 2.5 mg Inhalation once Route: Inhalation; aa5 18:15 Drug: Ipratropium Inhalation Aerosol 0.5 mg Inhalation once Route: Inhalation; aa5 18:20 Drug: Coreg PO 6.25 mg PO once; administer with food Route: PO; aa5 19:00 Follow up: Response: No adverse reaction aa5 Disposition Summary: 01/28/25 17:36 Hospitalization Ordered Notes: Hospitalization Status: Inpatient Admission bonilla Provider: Gustavo Beauchamp cha Location: Telemetry/MedSurg (Inpatient) bonilla Condition: Fair bonilla Problem: new bonilla Symptoms: have worsened bonilla Bed/Room Type: Standard bonilla Room Assignment: 203(01/28/25 20:15) rv1 Diagnosis - Tachycardia, unspecified bonilla - Chronic combined systolic (congestive) and diastolic (congestive) heart failure bonilla - Pneumonia due to Mycoplasma pneumoniae bonilla - Hypo-osmolality and hyponatremia bonilla - Elevated white blood cell count, unspecified bonilla - Bandemia bonilla - COPD/ Chronic obstructive pulmonary disease with (acute) exacerbation bonilla Forms: - Medication Reconciliation Form bonilla - SBAR form bonilla - Leadership Thank You Letter bonilla Signatures: Dispatcher [employer] EDMS Sebastien Jones MD MD cha Calderon, Audri RN RN aa5 Bindu Marino rv1 Cheri Christianson RN RN cm10 Corrections: (The following items were deleted from the chart) 16:12 16:12 BASIC METABOLIC PANEL+C.LAB.BRZ ordered. EDMS EDMS 16:12 16:12 CBC+H.LAB.BRZ ordered. EDMS EDMS 16:12 16:12 HEPATIC FUNCTION+C.LAB.BRZ ordered. EDMS EDMS 16:12 16:12 MAGNESIUM+C.LAB.BRZ ordered. EDMS EDMS 16:12 16:12 PROBNP+C.LAB.BRZ ordered. EDMS EDMS 16:12 16:12 PROTIME (+INR)+COAG.LAB.BRZ ordered. EDMS EDMS 16:12 16:12 Troponin High Sensitivity+C.LAB.BRZ ordered. EDMS EDMS 16:12 16:12 Urinalysis+U.LAB.BRZ ordered. EDMS EDMS 16:12 16:12 LIPASE+C.LAB.BRZ ordered. EDMS EDMS 16:45 16:32 Rate is 102 beats/min. Rhythm is regular. QRS [place] is Normal. VT interval is bonilla normal. QRS interval is normal. QT interval is normal. No Q waves. T waves are Normal. No ST changes noted. Clinical impression: Sinus tachycardia and No evidence of ischemia. Interpreted by me. Reviewed by me. bonilla 17:46 17:30 Furosemide IVP 20 mg IVP once; give over 2 minutes ordered. bonilla bonilla 20:15 17:36 bonilla rv1
--- NOTE | 2025-01-28 17:36 | ER ---
Nurse's Notes [facility] Name: Danielle Grover Age: 79 yrs Sex: Female : 1945 Arrival Date: 01/28/2025 Time: 16:06 Bed 20 Private MD: Diagnosis: Tachycardia, unspecified;Chronic combined systolic (congestive) and diastolic (congestive) heart failure;Pneumonia due to Mycoplasma pneumoniae;Hypo-osmolality and hyponatremia;Elevated white blood cell count, unspecified;Bandemia;COPD/ Chronic obstructive pulmonary disease with (acute) exacerbation Presentation: 01/28 16:19 Chief complaint: Patient states: Fast heart rate X1 week. Shortness of breath and "I cm10 just don't fell good" X1 week. Coronavirus screen: Client denies travel out of the [place] in the last 14 days. Ebola Screen: Patient denies travel to an Ebola-affected area in the 21 days before illness onset. Initial Sepsis Screen: Does the patient have a suspected source of infection? No. Patient's initial sepsis screen is negative. Initial Sepsis Screen: Does the patient meet any 2 criteria? HR > 90 bpm. Risk Assessment: Do you want to hurt yourself or someone else? Patient reports no desire to harm self or others. Onset of symptoms was January 28, 2025. 16:19 Method Of Arrival: Ambulatory cm10 16:19 Acuity: BALJIT 2 cm10 Triage Assessment: 16:22 General: Appears in no apparent distress. uncomfortable, Behavior is calm, cooperative. cm10 Neuro: No deficits noted. Level of Consciousness is awake, alert, obeys commands, Oriented to person, place, time, situation, Appropriate for age. Respiratory: No deficits noted. Reports shortness of breath Airway is patent Respiratory effort is even, unlabored, Respiratory pattern is regular, symmetrical. Historical: - Allergies: 16:20 Codeine; cm10 - PMHx: 16:20 CHF; GERD; Rheumatoid Arthritis; Mycobacterium Avium Complex (MAC) Infection; cm10 Hypothyroidism; Hypercholesterolemia; - Immunization history:: Adult Immunizations up to date. - Infectious Disease History:: Denies. - Social history:: Smoking status: Patient denies any tobacco usage or history of. - Family history:: not pertinent. Screenin:40 [facility] ED Fall Risk Assessment (Adult) History of falling in the last 3 months, aa5 including since admission No falls in past 3 months (0 pts) Confusion or Disorientation No (0 pts) Intoxicated or Sedated No (0 pts) Impaired Gait Yes (1 pt) Mobility Assist Device Used Yes (1 pt) Altered Elimination No (0 pt) Score/Fall Risk Level 0 - 2 = Low Risk Oriented to surroundings, Maintained a safe environment, Educated pt \\T\\ family on fall prevention, incl call for assistance when getting out of bed. Abuse screen: Denies threats or abuse. Nutritional screening: No deficits noted. Tuberculosis screening: No symptoms or risk factors identified. Assessment: 16:40 General: Appears uncomfortable, Behavior is calm, cooperative. Pain: Denies pain. aa5 Neuro: Level of Consciousness is awake, alert, obeys commands, Oriented to person, place, time, situation. Cardiovascular: Heart tones S1 S2 present Rhythm is sinus tachycardia. Respiratory: Reports shortness of breath cough Airway is patent Respiratory effort is even, unlabored, Respiratory pattern is tachypnea Breath sounds are diminished bilaterally. the patient has mild shortness of breath. GI: No signs and/or symptoms were reported involving the gastrointestinal system. : No signs and/or symptoms were reported regarding the genitourinary system. EENT: No signs and/or symptoms were reported regarding the EENT system. Derm: Skin is pink, warm \\T\\ dry. Musculoskeletal: Range of motion: intact in all extremities. 17:00 Reassessment: Patient is alert, oriented x 3, equal unlabored respirations, skin aa5 warm/dry/pink. 18:10 Reassessment: Patient is alert, oriented x 3, equal unlabored respirations, skin aa5 warm/dry/pink. 18:43 Reassessment: Purewick placed to suction for elimination needs. . aa5 18:43 Reassessment: Patient is alert, oriented x 3, equal unlabored respirations, skin aa5 warm/dry/pink. Vital Signs: 16:19 BP 142 / 76; Pulse 122; Resp 19; Temp 98.2(O); Pulse Ox 100% on R/A; Weight 39.92 kg; cm10 Height 4 ft. 11 in. ; Pain 0/10; 18:00 BP 146 / 78; Pulse 118; Resp 24 S; Pulse Ox 98% on R/A; aa5 18:22 Pulse 100; Resp 18 S; Pulse Ox 100% on Nebulizer Mask; aa5 16:19 Body Mass Index 17.77 (39.92 kg, 149.86 cm) cm10 16:19 Pain Scale: Adult cm10 ED Course: 16:08 Patient arrived in ED. mr 16:10 Sebastien Jones MD is Attending Physician. bonilla 16:12 Sima Arnett, RN is Primary Nurse. aa5 16:20 Triage completed. cm10 16:22 Arm band placed on right wrist. Patient placed in an exam room, on a stretcher, on cm10 monitoring specialist, on pulse oximetry. 16:40 Patient has correct armband on for positive identification. Placed in gown. Bed in low aa5 position. Call light in reach. Side rails up X2. Client placed on continuous cardiac and pulse oximetry monitoring. NIBP monitoring applied. youth nutritional monitor on. Pulse ox on. NIBP on. 16:40 No provider procedures requiring assistance completed. Inserted saline lock: 20 gauge aa5 in right antecubital area, using aseptic technique. Blood collected. Flushed with 10 mL NS. 17:06 XRAY Chest (1 view) In Process Unspecified. EDMS 17:11 CT Chest For PE Angio In Process Unspecified. EDMS 17:33 Gustavo Beauchamp MD is Hospitalizing Provider. bonilla 03/ 00:12 Patient admitted, IV remains in place. ha1 Administered Medications: 02 17:10 Discontinued: ns 0.9% 500 ml 500 ml IV at 1 bolus once; to be given as a bolus over 30 bonilla minutes 17:29 Discontinued: ns 0.9% 500 ml 500 ml IV at 100 ml/hr once bonilla 16:46 Drug: NS 0.9% IV 500 ml 500 ml IV at 1 bolus once; to be given as a bolus over 30 aa5 minutes Volume: 500 ml; Route: IV; Rate: 1 bolus; Site: left forearm; 17:10 Follow up: IV Intake: 500ml aa5 16:46 Drug: NS 0.9% IV 500 ml 500 ml IV at 100 ml/hr once Volume: 500 ml; Route: IV; Rate: aa5 100 ml/hr; Site: left forearm; 16:46 Drug: Magnesium Sulfate IVPB 1 grams IVPB once over 1 hrs Route: IVPB; Infused Over: 1 aa5 hrs; Site: left forearm; 17:46 Follow up: IV Status: Completed infusion aa5 16:55 Drug: Famotidine IVP 20 mg IVP once; dilute with 10 mL 0.9% NaCl; give over 2 minutes aa5 Route: IVP; Site: left forearm; 17:12 Follow up: Response: No adverse reaction aa5 17:46 CANCELLED (Duplicate Order): [id number] mg IVP once; give over 2 minutes bonilla 18:00 Drug: levofloxacin IVPB 250 mg 50 ml IVPB once over 60 mins Volume: 50 ml; Route: IVPB; aa5 Infused Over: 60 mins; Site: right antecubital; 19:00 Follow up: Response: No adverse reaction; IV Status: Completed infusion aa5 18:10 Drug: Furosemide IVP 37.5 mg IVP once; give over 2 minutes Route: IVP; Site: right aa5 antecubital; 18:20 Follow up: Response: No adverse reaction aa5 18:10 Drug: Metoprolol IVP 2.5 mg IVP once; Hold for SBP <100 or HR <60. Route: IVP; Site: aa5 right antecubital; 18:20 Follow up: Response: No adverse reaction aa5 18:15 Drug: MethylPrednisoLONE IVP 2 mg/kg IVP once Route: IVP; Site: right antecubital; aa5 18:30 Follow up: Response: No adverse reaction aa5 18:15 Drug: Levalbuterol Inhalation 2.5 mg Inhalation once Route: Inhalation; aa5 18:15 Drug: Ipratropium Inhalation Aerosol 0.5 mg Inhalation once Route: Inhalation; aa5 18:20 Drug: Coreg PO 6.25 mg PO once; administer with food Route: PO; aa5 19:00 Follow up: Response: No adverse reaction aa5 Medication: 19:03 VIS not applicable for this client. aa5 Intake: 17:10 IV: 500ml; Total: 500ml. aa5 Outcome: 17:36 Decision to Hospitalize by Provider. [facility] 01/29 00:11 Admitted to Med/surg accompanied by tech, room 203, with chart, ha1 Condition: stable Instructed on the need for admit, Demonstrated understanding of instructions, 00:12 Patient left the ED. ha1 Signatures: Dispatcher [employer] EDSebastien Shaikh MD MD cha Rivera, Mary, Reg Reg mr Arnett, Sima, RN RN aa5 Noris Conteh, RN RN ha1 Sammy, Cheri, RN RN cm10
[2025-01-28] MEDS ORDERED: carvediloL 6.25 MG TAB ONE (18:04)
[2025-01-28] MEDS ORDERED: FUROSEMIDE 40 MG/4 ML VIAL ONE (18:04)
[2025-01-28] MEDS ORDERED: METOPROLOL TARTRATE 5 MG/5 ML INJ IV ONE (18:04)
[2025-01-28] MEDS ORDERED: IPRATROPIUM BROM 0.5MG/2.5ML ONE (18:06)
[2025-01-28] MEDS ORDERED: Levofloxacin500mg IV 500 MG/100 ML BAG IV ONE (18:07)
[2025-01-28] MEDS ORDERED: METHYLPREDNISOLONE 40 MG INJ ONE (18:07)
[2025-01-28] MEDS ORDERED: LEVALBUTEROL 1.25 MG/3 ML NEB ONE (18:07)
[2025-01-28] MEDS ORDERED: ALBUTEROL 2.5 MG/3 ML NEB SOL NEB PRN (18:34)
[2025-01-28] MEDS ORDERED: IPRATROPIUM BROM 0.5MG/2.5ML NEB PRN (18:34)
[2025-01-28 18:59] LABS: Phosphorus 3.4 mg/dL (2.5-4.9)
--- NOTE | 2025-01-28 19:21 | P.HP ---
Certification for Inpatient Patient admitted to: Inpatient With expected LOS: >2 Midnights Practitioner: I am a practitioner with admitting privileges, knowledge of patient current condition, hospital course, and medical plan of care. Services: Services provided to patient in accordance with Admission requirements found in Title 42 Section 412.3 of the Code of Federal Regulations Patient History Date of Service: 01/28/25 Reason for admission: shortness of breath History of Present Illness: Patient is a 79 year old female with chronic systolic CHF. She presents to the ER with acutely worsening shortness of breath and chest pressure/heaviness. Associated symptoms include tachycardia and hypertension. Patient denies orthopnea or lower extremity edema. Chest imaging shows pulmonary edema. Her BNP > 11,000. Patient weighs 39 Kg. Allergies codeine Allergy (Mild, Verified 01/31/16 14:39) Rash Home Medications: Folic Acid 1 mg PO BID 04/03/19 Furosemide [Lasix*] 40 mg PO DAILY 04/03/19 carvediloL [Coreg*] 6.25 mg PO BID 04/03/19 Levothyroxine Sodium 25 mcg PO [id number] 06/01/22 Potassium Chloride [Klor-Con 10] 10 meq PO DAILY 06/01/22 Pravastatin Sodium 20 mg PO BEDTIME 06/01/22 Tizanidine HCl 4 mg PO BEDTIME 06/01/22 cycloSPORINE [Restasis] 1 drop EACH EYE BID 06/01/22 hydrOXYzine HCL [Atarax] 25 mg PO BEDTIME 06/01/22 Oseltamivir Phosphate [Tamiflu] 30 mg PO BID #8 cap 06/02/22 predniSONE [Prednisone*] 10 mg PO BID #14 tab 06/02/22 - Past Medical/Surgical History Diabetic: No -: Rheumatoid Arthritis -: High Cholesterol -: CHF -: GERD -: Right hip replacement 2011 -: Foot Surgery -: Cataract surgery x2 in May 2015 -: Hysterectomy -: Mastoidectomy to left ear Psychosocial/ Personal History: Patient is . - Family History Mother -: Cancer, Other (see notes) Notes: Hyperthyroidism; Dementia Father -: Hypertension, Stroke Notes: Pt's father at age 49 - Social History Alcohol use: No CD- Drugs: No Caffeine use: Yes Physical Examination - Physical Exam General: Acute distress, Other (underweight) HEENT: Atraumatic, Normocephalic Respiratory: Diminished, Crackles/rales Cardiovascular: No edema, Normal pulses, Regular rate/rhythm, Normal S1 S2, No murmurs Neurological: Normal speech - Studies Laboratory Data (last 24 hrs) 01/28/25 01/28/25 01/28/25 16:23 16:23 16:23 WBC 12.50 H Hgb 13.4 Hct 40.3 Plt Count 368 PT 12.2 INR 1.07 Sodium Potassium BUN Creatinine Glucose Phosphorus 3.4 Magnesium 2.0 Total Bilirubin AST ALT Alkaline Phosphatase Lipase 01/28/25 16:23 WBC Hgb Hct Plt Count PT INR Sodium 129 L Potassium 3.8 BUN 10 Creatinine 0.64 Glucose 96 Phosphorus Magnesium 2.0 Total Bilirubin 0.8 AST 29 ALT 23 Alkaline Phosphatase 114 Lipase 52 Assessment and Plan - Problems (Diagnosis) (1) Acute on chronic systolic (congestive) heart failure Current Visit: Yes Status: Acute (2) Underweight (BMI < 18.5) Current Visit: Yes Status: Acute (3) Hyponatremia Current Visit: Yes Status: Acute - Plan Assessment Patient is a 79 year old female who is currently being admitted for decompensated CHF. She has a hx of chronic systolic CHF. She presents with shortness of breath, chest pressure/heaviness and generalized weakness. She has evidence of pulmonary edema. BNP > 37003. Acute on chronic systolic CHF - LAST LVEF of 35% Pulmonary edema Hyponatremia Underweight/severe malnutrition PLAN: Admit inpatient with telemetry Start IV lasix 40 mg BID Monitor I/O Follow TTE Resume rest of home medications upon reconciliation - Advance Directives Does patient have a Living Will: No Does patient have a Durable POA for Healthcare: No
[2025-01-28] MEDS: FUROSEMIDE 40 MG/4 ML VIAL IV SCH (22:30)
[2025-01-29 01:00] VITALS: BMI 17.7
[2025-01-29 04:40] LABS: Absolute Lymphocytes (CBC) 2.1 K/uL (0.7-4.9); Absolute Monocytes 1.2 K/uL (0.1-1.3); Absolute Neutrophil 6.8 K/uL (1.8-8.0); Basophils % 0.2 % (0-1.3); Eosinophils % 0.2 % (0-4.4); Hemoglobin 11.7 g/dL (12.0-15.0); Lymphocytes % 20.8 % (15.3-44.8); MCH 28.1 pg (27.0-35.0); MCHC 34.5 g/dL (32.0-36.0); MCV 81.4 fL (80-100); Monocytes % 12.1 % (3.3-12.3); Neutrophils % 66.7 % (41.7-73.7); Platelets 311 thou/uL (152-406); RBC Red Blood Cell Count 4.18 M/uL (3.86-4.86); Red Cell Distribution Width 15.7 % (12.1-15.2)
[2025-01-29 04:58] LABS: Anion Gap 8.1 mEq/L (5.0-15.0); Potassium 3.1 mEq/L (3.5-5.1)
[2025-01-29] MEDS: POTASSIUM 25 MEQ EFFERV TAB PO ONE (06:27)
[2025-01-29 06:56] LABS: Specific Gravity 1.016 (1.005-1.030); Sqamous Epithelial <5 /HPF (None Seen); Urine Bacteria None Seen /HPF (<20); Urine Bilirubin NEGATIVE (Negative); Urine Blood Trace (Negative); Urine Clarity Clear (Clear); Urine Color Yellow (Yellow); Urine Culture Reflex Order NOT NEEDED; Urine Glucose NEGATIVE (Negative); Urine Ketones NEGATIVE (Negative); Urine Microscopic Reflex YN ORDER UMIC; Urine Nitrite NEGATIVE (Negative); Urine Protein TRACE (Negative); Urine RBC <5 /HPF (None Seen); Urine Urobilinogen Normal (Normal); Urine WBC <5 /HPF (<5)
[2025-01-29 07:06] LABS: C-Reactive Protein 68.1 mg/L (<3.00); Troponin High Sensitivity 23.5 pg/mL (<58.9)
--- NOTE | 2025-01-29 07:09 | P.PN ---
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 CTA chest: Cavitary structure in the right upper lobe concerning nodularity is similar and consistent with a chronic/indolent infectious process. no PE. Patient had recent Bronchoscopy of RUL cavitary lesion (09/20/2024) Most info obtained from OSH records from [facility]. Of note: Unable to find any information regarding treatment after bronchoscopy. Multiple prescriptions for Azithromycin since Aug 2024 per EMR. Rifampin and Ethambutol started in ?Oct 2024. Unsure how complaint patient has been with antibiotics. 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 Rao, pulm consulted Follow blood cx. AFB culture sent out CRP 68, mild leukocytosis resolved 01/29 resume MAC treatment with azithromycin, ethambutol (01/30-) Start amikacin sulfate (01/29-) per Dr. Rao suspect pulm is etiology, leading to elevated BNP Chronic CHF (40-45% EF in 2022) CTA chest (01/28): Interval development of pulmonary edema with small, right greater than left, pleural effusions. Increasing mediastinal and hilar lymphadenopathy probably related to heart failure. CXR (01/28): Interval development of mild pulmonary edema Troponin's negative x2. monitor on telemetry given IV lasix in ED; dc lasix 01/29 echo ordered to re-eval EF / stenosis Most recent echo 05/2023: 40-45% EF, peak systolic pressure 20-25mmHG, global RV systolic function low-normal, mild TR, mild MR, mild AR less likely cardiac etiology, R>L effusion, increased lymphadenopathy, cavitary lesions Hyponatremia monitor and replete as needed Severe malnutrition continue supportive care, encourage supplemental nutrition GERD Hyperlipidemia Hypothyroidism Osteoporosis Rheumatoid Arthritis Hx of Lymphoma Hx of diverticulitis confirm home meds, restart as appropriate VTE: Lovenox Code: Full Dispo: Home Time Spent Managing Pts Care (In Minutes): 55 Cultures from Bronchoscopy of RUL cavitary lesion (08/2024):
[2025-01-29] MEDS: ONDANSETRON 4 MG/2 ML VIAL IV PRN (07:14)
[2025-01-29 07:18] LABS: Thyroid Stimulating Hormone 2.25 uIU/mL (0.358-3.740)
[2025-01-29] MEDS ORDERED: ALBUTEROL 2.5 MG/3 ML NEB SOL NEB PRN (07:34)
[2025-01-29] MEDS: FLU (Fluarix Triv) TS24-25(6MOS UP)/PF 45 MCG/0.5 ML Syringe IM ONE (07:45)
[2025-01-29] MEDS: ENOXAPARIN 30 MG/0.3 ML SQ SCH (08:25)
[2025-01-29] MEDS ORDERED: HOME MED 1 EA UNK (Ondansetron Hcl [Ondansetron Hcl] 4 MG Tablet) PO PRN (11:14)
[2025-01-29] MEDS ORDERED: HYDROCORTISONE OTIC PRN (11:14)
[2025-01-29] MEDS ORDERED: POLYMYXIN B OTIC PRN (11:14)
[2025-01-29] MEDS ORDERED: NEOMYCIN OTIC PRN (11:14)
--- NOTE | 2025-01-29 11:22 | P.CNS ---
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 [place] CT scan showed progressive changes in the right side Allergies codeine Allergy (Mild, Verified 01/31/16 14:39) Rash Home Medications: Azithromycin Tab [Zithromax*] 250 mg PO DAILY 01/29/25 Benzonatate 100 mg PO TID PRN 01/29/25 Ethambutol HCl 400 mg PO DAILY 01/29/25 Ezetimibe [Zetia] 10 mg PO DAILY 01/29/25 Folic Acid 1 mg PO DAILY 01/29/25 Furosemide 40 mg PO DAILY 01/29/25 Latanoprost 2.5 ml RIGHT EYE DAILY 01/29/25 Levothyroxine [Synthroid] 25 mcg PO [id number] 01/29/25 Neomycin/Polymyxin B Sulf/Hc [Vskksstl-Fznjbfyyh-Wz Ear Susp] 4 gtt LEFT EAR BID PRN 01/29/25 Ondansetron HCl 8 mg PO TID PRN 01/29/25 Potassium Oral Tab [Klor-Con 10 mEq Tab*] 10 meq PO DAILY 01/29/25 Pravastatin Sodium 10 mg PO EVERY 3RD DAY 01/29/25 Tizanidine HCl 2 mg PO BEDTIME 01/29/25 carvediloL [Carvedilol] 6.25 mg PO BID 01/29/25 cycloSPORINE [Restasis] 1 drop EACH EYE BID 01/29/25 estradioL [Estradiol (Twice Weekly)] 1 each TD T,TH,S 01/29/25 hydrOXYzine HCL [Atarax] 25 mg PO DAILY 01/29/25 rifAMPin [Rifampin] 300 mg PO DAILY 01/29/25 - Past Medical/Surgical History Diabetic: No -: Rheumatoid Arthritis -: High Cholesterol -: CHF -: GERD -: MAC infection -: Right hip replacement 2011 -: Foot Surgery -: Cataract surgery x2 in May 2015 -: Hysterectomy -: Mastoidectomy to left ear Psychosocial/ Personal History: Patient is . - Family History Mother Medical History: Cancer, Other (see notes) Notes: Hyperthyroidism; Dementia Father Medical History: Hypertension, Stroke Notes: Pt's father at age 49 - Social History Alcohol use: No CD- Drugs: No Caffeine use: Yes Place of Residence: Home Review of Systems General: Chills, Weakness Respiratory: Shortness of Breath Gastrointestinal: Nausea Physical Examination Temp Pulse Resp BP Pulse Ox 97.6 F 104 H 20 114/57 L 92 01/29/25 08:00 01/29/25 08:00 01/29/25 08:00 01/29/25 08:00 01/29/25 08:00 General: Alert, Oriented x3 Neck: Supple Respiratory: Clear to auscultation bilaterally, Crackles/rales Cardiovascular: No edema (Was on the right side), Regular rate/rhythm, Normal S1 S2 Gastrointestinal: Normal bowel sounds, Soft and benign Laboratory Data (last 24 hrs) 01/28/25 01/28/25 01/28/25 16:23 16:23 16:23 WBC 12.50 H Hgb 13.4 Hct 40.3 Plt Count 368 PT 12.2 INR 1.07 Sodium Potassium BUN Creatinine Glucose Phosphorus 3.4 Magnesium 2.0 Total Bilirubin AST ALT Alkaline Phosphatase Lipase 01/28/25 16:23 WBC Hgb Hct Plt Count PT INR Sodium 129 L Potassium 3.8 BUN 10 Creatinine 0.64 Glucose 96 Phosphorus Magnesium 2.0 Total Bilirubin 0.8 AST 29 ALT 23 Alkaline Phosphatase 114 Lipase 52 - Problems (1) Atypical mycobacterium infection Current Visit: Yes Status: Acute Plan: Patient is 79 years of age diagnosed with Mycobacterium infection she had a bronchoscopy done was started treatment in October however she is not able to tolerate her rifampin or ethambutol apparently patient reduce her dose by half very weak chest x-ray is already CT scan shows progressive changes on the right side clear progression of her 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
[2025-01-29] MEDS: NA CHLORIDE 0.9% IV SCH (14:21)
[2025-01-29] MEDS: [UNRECOGNIZED DRUG - OTHER] IV SCH (14:21)
[2025-01-29] MEDS: CYCLOSPORINE OPTH SCH (20:50)
[2025-01-29] MEDS: TRAZODONE 50 MG TABLET PO PRN (20:56)
[2025-01-29] MEDS ORDERED: carvediloL 6.25 MG TAB PO SCH (21:00)
[2025-01-30] MEDS: LEVOTHYROXINE SOD 0.025 MG TAB PO SCH (05:31)
[2025-01-30 07:10] LABS: Absolute Eosinophils 0.1 K/uL (0-0.5); Absolute Lymphocytes (CBC) 2.5 K/uL (0.7-4.9); Absolute Monocytes 1.5 K/uL (0.1-1.3); Absolute Neutrophil 9.4 K/uL (1.8-8.0); Basophils % 0.2 % (0-1.3); Eosinophils % 1.1 % (0-4.4); Hematocrit 39.8 % (36.0-45.0); Hemoglobin 13.1 g/dL (12.0-15.0); Lymphocytes % 18.7 % (15.3-44.8); MCH 27.2 pg (27.0-35.0); MCHC 32.9 g/dL (32.0-36.0); MCV 82.8 fL (80-100); MPV 7.7 fL (7.6-11.3); Nucleated Red Blood Cells % 0.1 % (0-0); Platelets 387 thou/uL (152-406); RBC Red Blood Cell Count 4.81 M/uL (3.86-4.86); Red Cell Distribution Width 15.7 % (12.1-15.2)
[2025-01-30 07:28] LABS: Albumin/Globulin Ratio 0.8 (1.1-1.8); Anion Gap 9.7 mEq/L (5.0-15.0); Bilirubin Total 0.8 mg/dL (0.2-1.0); Globulin 3.7 g/dL (2.3-3.5); Potassium 3.7 mEq/L (3.5-5.1); Protein, Total 6.7 g/dL (6.4-8.2)
[2025-01-30] MEDS: ONDANSETRON 4 MG (ODT) TAB PO PRN (07:30)
[2025-01-30] MEDS ORDERED: RIFAMPIN 300 MG PO SCH (09:00)
[2025-01-30] MEDS: ESTRADIOL TOP SCH (09:00)
[2025-01-30] MEDS: LATANOPROST OPTH SCH (09:00)
--- NOTE | 2025-01-30 09:30 | P.CNS ---
Date of Consult: 01/30/25 Chief Complaint: shortness of breath History of Present Illness: Patient with PMH of HTN, DD, presented with worsening SOB, PEARCE and weakness over the last few weeks, she is diagnosed with MAC on treatment and think she got a recent flu that she has been having hard time recovering from it, denies other cardiac symptoms. Allergies codeine Allergy (Mild, Verified 01/31/16 14:39) Rash Home medications list reviewed: Yes Home Medications: Azithromycin Tab [Zithromax*] 250 mg PO DAILY 01/29/25 Benzonatate 100 mg PO TID PRN 01/29/25 Ethambutol HCl 400 mg PO DAILY 01/29/25 Ezetimibe [Zetia] 10 mg PO DAILY 01/29/25 Folic Acid 1 mg PO DAILY 01/29/25 Furosemide 40 mg PO DAILY 01/29/25 Latanoprost 2.5 ml RIGHT EYE DAILY 01/29/25 Levothyroxine [Synthroid] 25 mcg PO [id number] 01/29/25 Neomycin/Polymyxin B Sulf/Hc [Rzwrlslw-Tpfmcrpsl-Gm Ear Susp] 4 gtt LEFT EAR BID PRN 01/29/25 Ondansetron HCl 8 mg PO TID PRN 01/29/25 Potassium Oral Tab [Klor-Con 10 mEq Tab*] 10 meq PO DAILY 01/29/25 Pravastatin Sodium 10 mg PO EVERY 3RD DAY 01/29/25 Tizanidine HCl 2 mg PO BEDTIME 01/29/25 carvediloL [Carvedilol] 6.25 mg PO BID 01/29/25 cycloSPORINE [Restasis] 1 drop EACH EYE BID 01/29/25 estradioL [Estradiol (Twice Weekly)] 1 each TD T,TH,S 01/29/25 hydrOXYzine HCL [Atarax] 25 mg PO DAILY 01/29/25 rifAMPin [Rifampin] 300 mg PO DAILY 01/29/25 - Past Medical/Surgical History Diabetic: No -: Rheumatoid Arthritis -: High Cholesterol -: CHF -: GERD -: MAC infection -: Right hip replacement 2011 -: Foot Surgery -: Cataract surgery x2 in May 2015 -: Hysterectomy -: Mastoidectomy to left ear Psychosocial/ Personal History: Patient is . - Family History Mother Medical History: Cancer, Other (see notes) Notes: Hyperthyroidism; Dementia Father Medical History: Hypertension, Stroke Notes: Pt's father at age 49 - Social History Alcohol use: No CD- Drugs: No Caffeine use: Yes Place of Residence: Home Review of Systems 10-point ROS is otherwise unremarkable Physical Examination Temp Pulse Resp BP Pulse Ox 98.8 F 107 H 20 126/65 97 01/30/25 08:00 01/30/25 08:00 01/30/25 08:00 01/30/25 08:00 01/30/25 08:00 General: Alert, In no apparent distress HEENT: Atraumatic, PERRLA, Mucous membr. moist/pink, EOMI, Sclerae nonicteric Neck: Supple, 2+ carotid pulse no bruit, No LAD, Without JVD or thyroid abnormality Respiratory: Clear to auscultation bilaterally, Normal air movement Cardiovascular: Regular rate/rhythm, Normal S1 S2 Gastrointestinal: Normal bowel sounds, No tenderness Musculoskeletal: No tenderness Integumentary: No rashes Neurological: Normal gait, Normal speech, Normal tone, Normal affect Lymphatics: No axilla or inguinal lymphadenopathy - Problems (1) Chronic congestive heart failure with left ventricular diastolic dysfunction Current Visit: Yes Status: Acute Plan: Patient looks euvolemic on exam, she is too thin though, BNP is elevated, would agree on holding diuresis for now until we get echo to estimate RA pressure. continue to monitor on tele. (2) Sinus tachycardia Current Visit: Yes Status: Acute Plan: most likely secondary to MAC and underlying infection, continue to monitor on tele PRN lopressor 2.5 mg IV for HR>120 for now.
[2025-01-30] MEDS: hydrOXYzine HCL 25 MG TAB PO SCH (10:08)
[2025-01-30] MEDS: ETHAMBUTOL HCL 400 MG TAB PO SCH (10:09)
[2025-01-30] MEDS: AZITHROMYCIN 250 MG TAB PO SCH (10:09)
[2025-01-30] MEDS: FOLIC ACID 1 MG TABLET PO SCH (10:09)
--- NOTE | 2025-01-30 10:44 | P.PN ---
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 CTA chest: Cavitary structure in the right upper lobe concerning nodularity is similar and consistent with a chronic/indolent infectious process. no PE. Patient had recent Bronchoscopy of RUL cavitary lesion (09/20/2024) Multiple prescriptions for Azithromycin since Aug 2024 per EMR. Rifampin and Ethambutol started in ?Oct 2024. Unsure how complaint patient has been with antibiotics. -States she is doing with side effects primarily use still an upset stomach associated been lowering the dose in discussions with medical team BAL of RUL and the fluid appeared cloudy (09/20/2024) RUL and RML and the fluid appeared purulent (09/20/2024) Cultures from Bronchoscopy done August 2024 at [facility] (Screenshots on progress note 01/29) Fungal Culture: Penicillium species (A), Fungal Culture: Yeast, not Cryptococcus species (A) , AFB Culture: Mycobacterium avium complex (AA) Dr. Rao, pulm consulted Follow blood cx. AFB culture sent out CRP 68, mild leukocytosis resolved 01/29 resume MAC treatment with azithromycin, ethambutol (3/2-) continue amikacin sulfate (3-) per Dr. Rao suspect pulm is etiology, leading to elevated BNP Patient does not appear overloaded/hypervolemic. DC'd diuretics 01/29 CRP, leukocytosis slightly worse 3/ Chronic CHF (40-45% EF in 2022) CTA chest (01/28): Interval development of pulmonary edema with small, right greater than left, pleural effusions. Increasing mediastinal and hilar lymphadenopathy probably related to heart failure. CXR (01/28): Interval development of mild pulmonary edema Troponin's negative x2. monitor on telemetry given IV lasix in ED; dc'd lasix 01/29 echo ordered to re-eval EF / stenosis Most recent echo 05/2023: 40-45% EF, peak systolic pressure 20-25mmHG, global RV systolic function low-normal, mild TR, mild MR, mild AR less likely cardiac etiology, R>L effusion, increased lymphadenopathy, cavitary lesions Hyponatremia, acute Possibly more hypovolemic, vs component of SIADH Severe malnutrition continue supportive care, encourage supplemental nutrition GERD Hyperlipidemia Hypothyroidism Osteoporosis Rheumatoid Arthritis Hx of Lymphoma Hx of diverticulitis confirm home meds, restart as appropriate VTE: Lovenox Code: Full Dispo: Home Time Spent Managing Pts Care (In Minutes): 55
[2025-01-30] MEDS: POTASSIUM CL SA 10 MEQ TAB PO ONE (21:12)
[2025-01-31 05:54] LABS: Hematocrit 36.9 % (36.0-45.0); Hemoglobin 12.3 g/dL (12.0-15.0); MCH 27.7 pg (27.0-35.0); MCHC 33.4 g/dL (32.0-36.0); MCV 82.8 fL (80-100); MPV 7.3 fL (7.6-11.3); Platelets 327 thou/uL (152-406); RBC Red Blood Cell Count 4.45 M/uL (3.86-4.86); Red Cell Distribution Width 15.5 % (12.1-15.2)
[2025-01-31 06:09] LABS: Albumin 2.6 g/dL (3.4-5.0); Albumin/Globulin Ratio 0.8 (1.1-1.8); Anion Gap 6.9 mEq/L (5.0-15.0); Bilirubin Total 0.8 mg/dL (0.2-1.0); Globulin 3.4 g/dL (2.3-3.5); Potassium 3.9 mEq/L (3.5-5.1)
--- NOTE | 2025-01-31 09:05 | RAD REPORT ---
EXAMINATION: ONE VIEW CHEST XR CLINICAL INDICATION: f/u opacities TECHNIQUE: Frontal chest projection is submitted. Examination is limited by patient positioning and t echnique. COMPARISON: 01/28/2025 FINDINGS: Emphysematous changes are noted. Mild interstitial pulmonary edema. Irregular right upper lobe pleura l and parenchymal opacity is unchanged. Left parahilar opacity has moderately increased. Small bilateral pleural effusions. The heart is mildly enlarged. Right shoulder hardware. IMPRESSION: Left perihilar lung opacity has moderately increased since the comparative study. Small bilateral pleural effusions are stable. Right upper lobe pleural and parenchymal opacity is unchanged.
--- NOTE | 2025-01-31 11:08 | P.PN ---
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 CTA chest: Cavitary structure in the right upper lobe concerning nodularity is similar and consistent with a chronic/indolent infectious process. no PE. Patient had recent Bronchoscopy of RUL cavitary lesion (09/20/2024) Multiple prescriptions for Azithromycin since Aug 2024 per EMR. Rifampin and Ethambutol started in ?Oct 2024. Fungal Culture: Penicillium species (A), Fungal Culture: Yeast, not Cryptococcus species (A) , AFB Culture: Mycobacterium avium complex (AA) Dr. Rao, pulm consulted Follow blood cx. AFB culture sent out, TB sent out resume MAC treatment with azithromycin, ethambutol (01/30-) continue amikacin sulfate (01/29-) per Dr. Rao suspect pulm is etiology, leading to elevated BNP; Patient does not appear overloaded/hypervolemic. DC'd diuretics 01/29 CRP uptrending, mild leukocytosis resolved repeat CXR (01/31): Moderately increased left perihilar lung opacity. Chronic CHF (40-45% EF - 01/2025) CTA chest (01/28): Interval development of pulmonary edema with small, right greater than left, pleural effusions. Increasing mediastinal and hilar lymphade nopathy probably related to heart failure. CXR (01/28): Interval development of mild pulmonary edema Troponin's negative x2. monitor on telemetry Patient does not appear overloaded/hypervolemic. DC'd diuretics 01/29 Echo (01/31): 40-45% EF with mild global hypokinesis. Moderate MR. mild TR. Normal filling pressure prior echo 05/2023: 40-45% EF, peak systolic pressure 20-25mmHG, global RV systolic function low-normal, mild TR, mild MR, mild AR less likely cardiac etiology, R>L effusion, increased lymphadenopathy, cavitary lesions Hyponatremia, acute Possibly more hypovolemic, vs component of SIADH Severe malnutrition continue supportive care, encourage supplemental nutrition GERD Hyperlipidemia Hypothyroidism Osteoporosis Rheumatoid Arthritis Hx of Lymphoma Hx of diverticulitis confirm home meds, restart as appropriate VTE: Lovenox Code: Full Dispo: Home Time Spent Managing Pts Care (In Minutes): 55
--- NOTE | 2025-01-31 11:15 | ECHO ---
HEIGHT: 4 ft 11 in WEIGHT: 88 lb 0 oz DATE OF STUDY: 01/31/[address]: Prince Zayra Merlos MD 2-DIMENSIONAL: YES M.MODE: YES DOPPLER: YES COLOR FLOW: YES TDS: PORTABLE: YES DEFINITY: BUBBLE STUDY: DIAGNOSIS: CONGESTIVE HEART FAILURE EXACERBATION CARDIAC HISTORY: CATHERIZATION: SURGERY: PROSTHETIC VALVE: PACEMAKER: MEASUREMENTS (cm) DIASTOLIC (NORMALS) SYSTOLIC (NORMALS) IVSd 0.8 (0.6-1.2) LA Diam 3.7 (1.9-4.0) LVEF 40-45% LVIDd 4.5 (3.5-5.7) LVIDs 3.7 (2.0-3.5) %FS 17% LVPWd 0.8 (0.6-1.2) Ao Diam 2.6 (2.0-3.7) 2 DIMENSIONAL ASSESSMENT: RIGHT ATRIUM: NORMAL LEFT ATRIUM: MODERATELY DILATED RIGHT VENTRICLE: NORMAL LEFT VENTRICLE: NORMAL TRICUSPID VALVE: MILD TRICUSPID REGURGITATION MITRAL VALVE: MODERATE MITRAL REGURGITATION PULMONIC VALVE: NORMAL AORTIC VALVE: NORMAL PERICARDIAL EFFUSION: NONE AORTIC ROOT: NORMAL LEFT VENTRICULAR WALL MOTION: MILD GLOBAL HYPOKINESIS DOPPLER/COLOR FLOW: NORMAL COMMENTS: 1. MILDLY REDUCED LEFT VENTRICULAR SYSTOLIC FUNCTION, EJECTION FRACTION 40-45%, MILD GLOBAL HYPOKINESIS 2. MODERATE MITRAL REGURGITATION 3. NORMAL FILLING PRESSURE (RIGHT ATRIAL PRESSURE 0-5 mmHg) TECHNOLOGIST: NELLI PERRY
--- NOTE | 2025-01-31 12:10 | P.PN ---
Subjective Date of Service: 01/31/25 Chief Complaint: shortness of breath Subjective: Improving (Patient is improving was doing well this morning slept well last night denies any fever or chills) Review of Systems General: Weakness Respiratory: Shortness of Breath Physical Examination - Vital Signs Temperature: 97.7 F Blood Pressure: 124/60 Pulse: 108 Respirations: 16 Pulse Ox (%): 100 - Physical Exam General: Alert, In no apparent distress, Oriented x3 Respiratory: Clear to auscultation bilaterally Cardiovascular: No edema, Normal pulses, Regular rate/rhythm Assessment And Plan - Current Problems (Diagnosis) (1) Atypical mycobacterium infection Current Visit: Yes Status: Acute Plan: Patient admitted with presumed progression of mycobacterial infection trying to induce sputum use flutter valve chest x-ray may be some mild worsening particularly on the left side patient has mild hyponatremia and BNP significantly elevated cardiogram shows mild decrease in left ventricular ejection fraction will add low-dose spironolactone Calcitonin level is negative new with quadruple therapy for MAC infection
--- NOTE | 2025-01-31 12:11 | EKG ---
Test Date: 2025-01-28 Test Time: 16:21:50 Regulatory Intern: SHERRELL MEASUREMENT RESULTS: Intervals: Rate: 122 ME: 120 QRSD: 90 QT: 418 QTc: 595 [place]: P: ME: 120 QRS: -49 T: 90 INTERPRETIVE STATEMENTS: Sinus tachycardia Left anterior fascicular block T wave abnormality, consider lateral ischemia Abnormal ECG Compared to ECG 05/30/2023 22:04:25 Left anterior fascicular block now present T-wave abnormality now present Possible ischemia now present Sinus rhythm no longer present Electronically Signed On 01-31-25 12:05:33 [employer] by Chi Payne
[2025-01-31] MEDS: SPIRONOLACTONE 25 MG TABLET PO SCH (13:14)
[2025-01-31] MEDS: ENSURE ENLIVE 237 ML CAN PO SCH (21:00)
[2025-02-01 07:22] LABS: Absolute Basophils 0.1 K/uL (0-0.5); Absolute Eosinophils 0.3 K/uL (0-0.5); Absolute Lymphocytes (CBC) 1.7 K/uL (0.7-4.9); Absolute Neutrophil 6.6 K/uL (1.8-8.0); Basophils % 0.8 % (0-1.3); Eosinophils % 3.3 % (0-4.4); Hematocrit 37.6 % (36.0-45.0); Hemoglobin 12.5 g/dL (12.0-15.0); Lymphocytes % 17.5 % (15.3-44.8); MCH 27.6 pg (27.0-35.0); MCHC 33.3 g/dL (32.0-36.0); MCV 82.8 fL (80-100); MPV 7.7 fL (7.6-11.3); Monocytes % 10.6 % (3.3-12.3); Neutrophils % 67.8 % (41.7-73.7); Nucleated Red Blood Cells % 0.2 % (0-0); Platelets 322 thou/uL (152-406); RBC Red Blood Cell Count 4.55 M/uL (3.86-4.86); Red Cell Distribution Width 15.4 % (12.1-15.2)
[2025-02-01 07:40] LABS: Albumin 2.5 g/dL (3.4-5.0); Albumin/Globulin Ratio 0.7 (1.1-1.8); Anion Gap 9.6 mEq/L (5.0-15.0); Bilirubin Total 0.7 mg/dL (0.2-1.0); Globulin 3.5 g/dL (2.3-3.5); Magnesium 2.3 mg/dL (1.6-2.4); Potassium 3.6 mEq/L (3.5-5.1)
--- NOTE | 2025-02-01 08:21 | P.PN ---
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 Subjective: Improving (Patient is improving doing well sleeping better is not coughed up any sputum yet) Review of Systems Unremarkable General: Weakness Respiratory: Shortness of Breath Physical Examination - Vital Signs Temperature: 98 F Blood Pressure: 105/60 Pulse: 98 Respirations: 19 Pulse Ox (%): 96 - Physical Exam General: Alert, In no apparent distress, Oriented x3 Respiratory: Clear to auscultation bilaterally Cardiovascular: No edema, Normal pulses, Regular rate/rhythm Gastrointestinal: Normal bowel sounds, Soft and benign Assessment And Plan - Current Problems (Diagnosis) (1) Atypical mycobacterium infection Current Visit: Yes Status: Acute Plan: Patient admitted with presumed worsening of her atypical Mycobacterium infection will again try and encourage patient to reduce and do some sputum otherwise her white count is now normal she is doing much better feeling better eating and drinking no fever repeat another x-ray need a bronchoscopy if unable to cough up by today Discharge Plan: Home
[2025-02-01] MEDS: POTASSIUM CL SA 10 MEQ TAB PO ONE (09:43)
--- NOTE | 2025-02-01 11:04 | P.PN ---
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 Subjective: No new changes, No C/O voiced, Tolerating diet, Ambulating, Improving Review of Systems 10-point ROS is otherwise unremarkable Physical Examination - Vital Signs Temperature: 98 F Blood Pressure: 105/60 Pulse: 98 Respirations: 19 Pulse Ox (%): 96 - Physical Exam General: Alert, In no apparent distress HEENT: Atraumatic, PERRLA, EOMI Neck: Supple, JVD not distended Respiratory: Clear to auscultation bilaterally, Normal air movement Cardiovascular: Regular rate/rhythm, Normal S1 S2 Gastrointestinal: Normal bowel sounds, No tenderness Musculoskeletal: No tenderness Integumentary: No rashes Neurological: Normal speech, Normal tone, Normal affect Lymphatics: No axilla or inguinal lymphadenopathy - Studies Medications List Reviewed: Yes Assessment And Plan - Current Problems (Diagnosis) (1) Chronic congestive heart failure with left ventricular diastolic dysfunction Current Visit: Yes Status: Acute Plan: Patient looks euvolemic on exam, she is too thin though, BNP is elevated, Echo shows mild reduced EF with normal filling pressure Start Toprol XL 25 mg daily continue to monitor on tele. (2) Sinus tachycardia Current Visit: Yes Status: Acute Plan: most likely secondary to MAC and underlying infection, continue to monitor on tele Toprol XL 25 mg daily
--- NOTE | 2025-02-01 13:37 | P.PN ---
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 Patient denies any chest pain. She reports shortness of breath without oxygen and therefore placed on 1 L oxygen by nasal cannula. No recorded fever. Patient has not been able to provide sputum for examination. Physical Examination - Vital Signs Temperature: 98.3 F Blood Pressure: 124/67 Pulse: 119 Respirations: 20 Pulse Ox (%): 96 - Studies Medications List Reviewed: Yes Assessment And Plan - Plan Physical Exam: GEN: Alert, oriented, not in acute distress. CV: sinus tachycardia, no edema Pulm: Nonlabored respirations on room air, Crackles on R lung. ABD: soft, nontender, nondistended Neuro: Normal speech, normal affect Problem List: Right upper lobe cavitary lesion / MAC infection s/p recent bronchoscopy (09/20/2024) Chronic CHF (40-45% EF - 01/2025) Hyponatremia Severe malnutrition GERD Hyperlipidemia Hypothyroidism Osteoporosis Rheumatoid Arthritis Hx of Lymphoma Hx of diverticulitis Right upper lobe cavitary lesion / MAC infection s/p recent bronchoscopy (09/20/2024) CTA chest: Cavitary structure in the right upper lobe concerning nodularity is similar and consistent with a chronic/indolent infectious process. no PE. Patient had recent Bronchoscopy of RUL cavitary lesion (09/20/2024) Patient has been taking azithromycin, ethambutol and rifampin Fungal Culture: Penicillium species (A), Fungal Culture: Yeast, not Cryptococcus species (A) , AFB Culture: Mycobacterium avium complex (AA) Pulmonary Dr. Rao is following and recommend repeat sputum examination. Patient has not been able to provide sputum samples Continue MAC treatment with azithromycin, ethambuto and rifampin continue amikacin sulfate (01/29-) per Dr. Rao Patient does not appear overloaded/hypervolemic. Status post IV Lasix. Leukocytosis resolved. Chronic diastolic CHF (40-45% EF - 01/2025) CTA chest (01/28): Interval development of pulmonary edema with small, right greater than left, pleural effusions. Increasing mediastinal and hilar lymphadenopathy probably related to heart failure. CXR (01/28): Interval development of mild pulmonary edema Troponin's negative x2. monitor on telemetry Status post IV Lasix Patient appears euvolemic. Echo (01/31): 40-45% EF with mild global hypokinesis. Moderate MR. mild TR. 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 Free water restriction. Severe protein calorie malnutrition Encourage oral intake. Nutritional supplementation GERD Hyperlipidemia Hypothyroidism Osteoporosis Rheumatoid Arthritis Hx of Lymphoma Hx of diverticulitis Stable Continue home medications. VTE: Lovenox Code: Full Dispo: Home
[2025-02-02 06:11] LABS: Absolute Basophils 0.1 K/uL (0-0.5); Absolute Eosinophils 0.3 K/uL (0-0.5); Absolute Lymphocytes (CBC) 1.4 K/uL (0.7-4.9); Absolute Monocytes 1.2 K/uL (0.1-1.3); Basophils % 1.1 % (0-1.3); Eosinophils % 3.2 % (0-4.4); Hematocrit 37.8 % (36.0-45.0); Hemoglobin 12.4 g/dL (12.0-15.0); Lymphocytes % 13.7 % (15.3-44.8); MCH 27.4 pg (27.0-35.0); MCHC 32.8 g/dL (32.0-36.0); MCV 83.5 fL (80-100); MPV 7.6 fL (7.6-11.3); Monocytes % 11.9 % (3.3-12.3); Neutrophils % 70.1 % (41.7-73.7); Nucleated Red Blood Cells % 0.1 % (0-0); Platelets 357 thou/uL (152-406); RBC Red Blood Cell Count 4.53 M/uL (3.86-4.86); Red Cell Distribution Width 14.8 % (12.1-15.2)
[2025-02-02 06:27] LABS: Anion Gap 7.1 mEq/L (5.0-15.0); Potassium 4.1 mEq/L (3.5-5.1)
--- NOTE | 2025-02-02 07:54 | P.PN ---
Subjective Date of Service: 02/02/25 Chief Complaint: Bilateral pneumonia presumed atypical Mycobacterium infection No change in patient's condition unable to cough up any sputum and feels no different week Review of Systems Unremarkable General: Weakness Physical Examination - Vital Signs Temperature: 97.3 F Blood Pressure: 115/63 Pulse: 102 Respirations: 16 Pulse Ox (%): 96 - Physical Exam General: Alert, Oriented x3 Respiratory: Clear to auscultation bilaterally Cardiovascular: No edema, Regular rate/rhythm, Normal S1 S2 - Studies Medications List Reviewed: Yes Assessment And Plan - Current Problems (Diagnosis) (1) Atypical mycobacterium infection Current Visit: Yes Status: Acute Plan: History of atypical Mycobacterium infection there is a progression on her x-ray particularly on the left side hilar CT shows some increasing groundglass infiltrate has fibrocavitary changes in the right upper lobe white count normal mild hyponatremia plan to do bronchoscopy tomorrow no biopsies just the lavage from the right upper and the left lung patient unable to cough up any sputum discussed with the patient and she agrees with the present procedure risk include bleeding infection and possible lung collapse will be scheduled for mee orrow morning
[2025-02-02] MEDS: METOPROLOL TARTRATE 5 MG/5 ML INJ IV STA (09:39)
--- NOTE | 2025-02-02 09:42 | P.CNS ---
Date of Consult: 02/02/25 Reason for Consult: Hyponatremia Requesting Physician: milind wade Chief Complaint: Bilateral pneumonia presumed atypical Mycobacterium infection History of Present Illness: Patient is a 79 year old female with chronic systolic CHF. She presents to the ER with acutely worsening shortness of breath and chest pressure/heaviness. Associated symptoms include tachycardia and hypertension. Patient denies orthopnea or lower extremity edema. Chest imaging shows pulmonary edema. Her BNP > 11,000. Patient weighs 39 Kg. [id number] 16:28 This 79 yrs old Female presents to ER via Ambulatory with complaints of Fast bonilla heart rate, Weakness. She reports a poor appetite with poor oral intake. Allergies codeine Allergy (Mild, Verified 01/31/16 14:39) Rash Home medications list reviewed: Yes Home Medications: Azithromycin Tab [Zithromax*] 250 mg PO DAILY 01/29/25 Benzonatate 100 mg PO TID PRN 01/29/25 Ethambutol HCl 400 mg PO DAILY 01/29/25 Ezetimibe [Zetia] 10 mg PO DAILY 01/29/25 Folic Acid 1 mg PO DAILY 01/29/25 Furosemide 40 mg PO DAILY 01/29/25 Latanoprost 2.5 ml RIGHT EYE DAILY 01/29/25 Levothyroxine [Synthroid] 25 mcg PO [id number] 01/29/25 Neomycin/Polymyxin B Sulf/Hc [Hhelpfdl-Qhjpmbwyc-My Ear Susp] 4 gtt LEFT EAR BID PRN 01/29/25 Ondansetron HCl 8 mg PO TID PRN 01/29/25 Potassium Oral Tab [Klor-Con 10 mEq Tab*] 10 meq PO DAILY 01/29/25 Pravastatin Sodium 10 mg PO EVERY 3RD DAY 01/29/25 Tizanidine HCl 2 mg PO BEDTIME 01/29/25 carvediloL [Carvedilol] 6.25 mg PO BID 01/29/25 cycloSPORINE [Restasis] 1 drop EACH EYE BID 01/29/25 estradioL [Estradiol (Twice Weekly)] 1 each TD T,TH,S 01/29/25 hydrOXYzine HCL [Atarax] 25 mg PO DAILY 01/29/25 rifAMPin [Rifampin] 300 mg PO DAILY 01/29/25 - Past Medical/Surgical History Diabetic: No -: Rheumatoid Arthritis -: HLD -: Systolic CHF -: GERD -: MAC infection -: Right hip replacement 2011 -: Foot Surgery -: Cataract surgery x2 in May 2015 -: Hysterectomy -: Mastoidectomy to left ear Psychosocial/ Personal History: Patient is . - Family History Mother Medical History: Cancer, Other (see notes) Notes: Hyperthyroidism; Dementia Father Medical History: Hypertension, Stroke Notes: Pt's father at age 49 - Social History Alcohol use: No CD- Drugs: No Caffeine use: Yes Place of Residence: Home Review of Systems 10-point ROS is otherwise unremarkable General: Weakness Musculoskeletal: Atrophy Physical Examination Temp Pulse Resp BP Pulse Ox 97.9 F 113 H 16 133/65 97 02/02/25 08:00 02/02/25 08:00 02/02/25 08:00 02/02/25 08:00 02/02/25 08:00 General: In no apparent distress, Oriented x3, Cooperative HEENT: Atraumatic Neck: Supple Respiratory: Crackles/rales Cardiovascular: No edema, Irregular heart rate/rhythm Gastrointestinal: Soft and benign, Non-distended Musculoskeletal: No clubbing, No contractures Integumentary: No rashes, No cyanosis Neurological: Normal speech Blood work reviewed in the chart. Imagings Data: EXAMINATION: ONE VIEW CHEST XR CLINICAL INDICATION: f/u opacities TECHNIQUE: Frontal chest projection is submitted. Examination is limited by patient positioning and technique. COMPARISON: 01/28/2025 FINDINGS: Emphysematous changes are noted. Mild interstitial pulmonary edema. Irregular right upper lobe pleural and parenchymal opacity is unchanged. Left parahilar opacity has moderately increased. Small bilateral pleural effusions. The heart is mildly enlarged. Right shoulder hardware. IMPRESSION: Left perihilar lung opacity has moderately increased since the comparative study. Small bilateral pleural effusions are stable. Right upper lobe pleural and parenchymal opacity is unchanged. EXAMINATION: CTA CHEST PE CLINICAL INDICATION: Female, 79 years old. DYSPNEA TECHNIQUE: This examination was performed according to an angiographic protocol with 3D post-processing. This involves 3D reconstructions, MIPs, volume rendered images and/or shaded surface rendering. One or more of the following dose reduction techniques were used: Automated exposure control, adjustment of the mA and/or kV according to patient size, and/or iterative reconstruction. Unless otherwise specified, incidental findings do not require dedicated imaging follow-up. [id number]. COMPARISON: Chest CT on 07/20/2025 FINDINGS: LOWER NECK: Visualized thyroid gland and soft tissues are normal. LUNGS AND AIRWAYS: Increased interlobular septal thickening as well as scattered areas of crazy paving. Cavitary structures in the right upper lobe with surrounding nodular airspace disease. A dominant cavitary structure in the right upper lobe for example measures approximately 3.3 cm, previously 3.3 cm in similar dimension.. PLEURA: Small bilateral pleural effusions, right greater than left which are new from prior. MEDIASTINUM AND LYMPH NODES: Increasing mediastinal lymphadenopathy. For example, a 15 mm subcarinal lymph node previously measured 10 mm. THORACIC AORTA: No thoracic aortic aneurysm. PULMONARY ARTERIES: Enlarged main pulmonary arteries could indicate pulmonary artery hypertension. No pulmonary emboli identified. HEART: Mild cardiomegaly. No coronary calcifications.No significant pericardial effusion. OSSEOUS STRUCTURES AND CHEST WALL: No fracture or suspicious osseous lesions. UPPER ABDOMEN: No acute abnormalities.Reflux of contrast into the hepatic veins. IMPRESSION: No evidence of pulmonary emboli to the subsegmental level. Interval development of pulmonary edema with small, right greater than left, pleural effusions. Cavitary structure in the right upper lobe concerning nodularity is similar and consistent with a chronic/indolent infectious process. Increasing mediastinal and hilar lymphadenopathy probably related to heart failure. Could consider 3 month follow-up chest CT. Reported LEFT VENTRICULAR WALL MOTION: MILD GLOBAL HYPOKINESIS DOPPLER/COLOR FLOW: NORMAL COMMENTS: 1. MILDLY REDUCED LEFT VENTRICULAR SYSTOLIC FUNCTION, EJECTION FRACTION 40-45%, MILD GLOBAL HYPOKINESIS 2. MODERATE MITRAL REGURGITATION 3. NORMAL FILLING PRESSURE (RIGHT ATRIAL PRESSURE 0-5 mmHg) Conclusions/Impression: Hyponatremia -Start NaCl tabs -Consider fluid restriction Hypokalemia -Replete as needed Systolic CHF, chronic LVEF 40-45% -Continue spironolactone MAC Infection -Continue abx -Follow up with pulmonary Case reviewed with Dr. Wade Thank you kindly for the consultation
--- NOTE | 2025-02-02 09:44 | RAD REPORT ---
EXAMINATION: ONE VIEW CHEST XR CLINICAL INDICATION: Female, 79 years old.,pneumonia TECHNIQUE: Frontal chest projection is submitted. Examination is limited by patient positioning and t echnique. COMPARISON: 01/31/2025 FINDINGS: Mildly progressive left hilar/suprahilar and left basilar airspace opacification. Layering small left pleural effusion, unchanged. Wedge-shaped right upper to midlung opacity and small right effusion are stable. No pneumothorax. The heart is normal in size. Mediastinal contours are unremarkable. IMPRESSION: Progressive opacities on the left as above, concerning for worsening pneumonia.
--- NOTE | 2025-02-02 10:34 | P.PN ---
Subjective Date of Service: 02/02/25 Chief Complaint: Bilateral pneumonia presumed atypical Mycobacterium infection Subjective: New changes (Patient went into AF overnight) Review of Systems 10-point ROS is otherwise unremarkable Physical Examination - Vital Signs Temperature: 97.9 F Blood Pressure: 133/65 Pulse: 122 Respirations: 16 Pulse Ox (%): 97 - Physical Exam General: Alert, In no apparent distress HEENT: Atraumatic, PERRLA, EOMI Neck: Supple, JVD not distended Respiratory: Clear to auscultation bilaterally, Normal air movement Cardiovascular: Irregular heart rate/rhythm Gastrointestinal: Normal bowel sounds, No tenderness Musculoskeletal: No tenderness Integumentary: No rashes Neurological: Normal speech, Normal tone, Normal affect Lymphatics: No axilla or inguinal lymphadenopathy - Studies Medications List Reviewed: Yes Assessment And Plan - Current Problems (Diagnosis) (1) Chronic congestive heart failure with left ventricular diastolic dysfunction Current Visit: Yes Status: Acute Plan: Patient looks euvolemic on exam, she is too thin though, BNP is elevated, Echo shows mild reduced EF with normal filling pressure continue Aldactone 25 mg daily continue to monitor on tele. (2) Atrial fibrillation Current Visit: Yes Status: Acute Plan: patient went into RVR overnight, most likely secondary to her MAC PNA start Sotalol 80 mg po BID (EKF after 3rd dose) start Eliquis 5 mg po BID Continue to monitor on tele
[2025-02-02] MEDS: SODIUM CHLORIDE 1 GM TAB PO SCH (11:12)
[2025-02-02] MEDS: APIXABAN 5 MG TABLET PO SCH (11:12)
[2025-02-02] MEDS: SOTALOL HCL 80 MG TAB PO SCH (11:13)
[2025-02-02] MEDS: PROMETHAZINE INJ 25 MG/ML AMP IV PRN (16:26)
--- NOTE | 2025-02-02 16:42 | P.PN ---
Subjective Date of Service: 02/02/25 Chief Complaint: Bilateral pneumonia presumed atypical Mycobacterium infection Patient developed atrial fibrillation overnight. Heart rate up to 150. Patient maintained on oxygen by nasal cannula. No recorded fever. Patient vomiting intermittently today. Patient has not been able to provide sputum for examination. Physical Examination - Vital Signs Temperature: 98.8 F Blood Pressure: 120/74 Pulse: 135 Respirations: 16 Pulse Ox (%): 95 - Studies Medications List Reviewed: Yes Assessment And Plan - Plan Physical Exam: GEN: Alert, oriented, not in acute distress. CV: Irregularly irregular, rapid rate, no edema Pulm: Nonlabored respirations on room air, Crackles on R lung. ABD: soft, nontender, nondistended Neuro: Normal speech, normal affect Problem List: Right upper lobe cavitary lesion / MAC infection s/p recent bronchoscopy (09/20/2024) Chronic CHF (40-45% EF - 01/2025) Hyponatremia Severe malnutrition GERD Hyperlipidemia Hypothyroidism Osteoporosis Rheumatoid Arthritis Hx of Lymphoma Hx of diverticulitis New onset atrial fibrillation Right upper lobe cavitary lesion / MAC infection s/p recent bronchoscopy (09/20/2024) CTA chest: Cavitary structure in the right upper lobe concerning nodularity is similar and consistent with a chronic/indolent infectious process. no PE. Patient had recent Bronchoscopy of RUL cavitary lesion (09/20/2024) Patient has been taking azithromycin, ethambutol and rifampin Fungal Culture: Penicillium species (A), Fungal Culture: Yeast, not Cryptococcus species (A) , AFB Culture: Mycobacterium avium complex (AA) Pulmonary Dr. Rao is following and recommend repeat sputum examination. Patient has not been able to provide sputum samples Continue MAC treatment with azithromycin, ethambuto and rifampin continue amikacin sulfate (01/29-) per Dr. Rao Patient does not appear overloaded/hypervolemic. Status post IV Lasix. Leukocytosis resolved. Chronic diastolic CHF (40-45% EF - 01/2025) CTA chest (01/28): Interval development of pulmonary edema with small, right greater than left, pleural effusions. Increasing mediastinal and hilar lymphadenopathy probably related to heart failure. CXR (01/28): Interval development of mild pulmonary edema Troponin's negative x2. monitor on telemetry Status post IV Lasix Patient appears euvolemic. Echo (01/31): 40-45% EF with mild global hypokinesis. Moderate MR. mild TR. 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 Free water restriction. Severe protein calorie malnutrition Encourage oral intake. Nutritional supplementation GERD Hyperlipidemia Hypothyroidism Osteoporosis Rheumatoid Arthritis Hx of Lymphoma Hx of diverticulitis Stable Continue home medications. 02/02 Nausea and vomiting New onset atrial fibrillation Cardiology Dr. Payne input appreciated. Dr. Payne recommend sotalol and Eliquis Patient started on sotalol. Pulmonary Dr. Rao is planning bronchoscopy tomorrow Eliquis on hold for bronchoscopy tomorrow. Antiemetics as needed. Continue antimycobacterials for MAC. VTE: Lovenox Code: Full Dispo: Home
[2025-02-02] MEDS: ACETAMINOPHEN 500 MG TAB PO PRN (18:42)
[2025-02-03] MEDS: Ringers Lactate 500 ML IV ONE (02:43)
[2025-02-03 04:35] LABS: Anion Gap 11.3 mEq/L (5.0-15.0); Phosphorus 3.9 mg/dL (2.5-4.9); Potassium 4.3 mEq/L (3.5-5.1); Uric Acid 4.4 mg/dL (2.6-6.0)
[2025-02-03] MEDS: Phenylephrine HCl 10 MG/ML 1 ML VIAL ONE (06:47)
[2025-02-03] MEDS: LIDOCAINE 4% TOP SOLUTION ONE (06:47)
[2025-02-03] MEDS ORDERED: propofoL 200 MG/20 ML VIAL IV ONE (07:09)
[2025-02-03] MEDS: LIDOCAINE 1% MPF 30 ML VIAL ONE (07:59)
--- NOTE | 2025-02-03 09:42 | RAD REPORT ---
Procedure: Chest Single View HISTORY: Bronchoscopy FINDINGS: A pneumothorax is not visualized status post bronchoscopy.
--- NOTE | 2025-02-03 12:32 | P.OP ---
Date of Service: 02/03/25 (Bronchoscopy with right upper lobe and left upper lobe bronchial alveolar lavage) Findings and Operative Technique Patient is 79 years of age admitted with cavitary pneumonia worse on the right side she developed progressive infiltrate on the left side history of Mycobacterium AVM infection patient was noncompliant due to intolerance was admitted to the hospital has been a progression of the left hilar infiltrate hence the reason for bronchoscopy patient was unable to cough up any sputum After obtaining informed consent from the patient she was premedicated by anesthesia findings normal vocal cords normal trachea normal right and cephalad right and left-sided bronchial anatomy no endobronchial lesions visible no pus visible lavage was obtained from right upper lobe left upper lobe and the lingula patient tolerated the procedure very very well did not experience any hypoxemia or desaturation
--- NOTE | 2025-02-03 14:31 | P.PN ---
Subjective Date of Service: 02/03/25 Chief Complaint: Bilateral pneumonia presumed atypical Mycobacterium infection Status post bronchoscopy for bronchoalveolar lavage today. Heart rate improved. Patient maintained on oxygen by nasal cannula. No recorded fever. No vomiting today. Physical Examination - Vital Signs Temperature: 98.4 F Blood Pressure: 109/56 Pulse: 82 Respirations: 20 Pulse Ox (%): 99 - Studies Microbiology Data (last 24 hrs): 01/28/25 16:45 Blood - Blood Aerobic Blood Culture - Final No growth in 5 days. 01/28/25 16:45 Blood - Blood Anaerobic Blood Culture - Final No growth in 5 days. 01/28/25 16:30 Blood - Blood Aerobic Blood Culture - Final No growth in 5 days. 01/28/25 16:30 Blood - Blood Anaerobic Blood Culture - Final No growth in 5 days. Medications List Reviewed: Yes Assessment And Plan - Plan Physical Exam: GEN: Alert, oriented, not in acute distress. CV: Regular, normal rate, no edema Pulm: Nonlabored respirations on room air, Crackles on R lung. ABD: soft, nontender, nondistended Neuro: Normal speech, normal affect Problem List: Right upper lobe cavitary lesion / MAC infection s/p recent bronchoscopy (09/20/2024) Chronic CHF (40-45% EF - 01/2025) Hyponatremia Severe malnutrition GERD Hyperlipidemia Hypothyroidism Osteoporosis Rheumatoid Arthritis Hx of Lymphoma Hx of diverticulitis New onset atrial fibrillation Right upper lobe cavitary lesion / MAC infection s/p recent bronchoscopy (09/20/2024) CTA chest: Cavitary structure in the right upper lobe concerning nodularity is similar and consistent with a chronic/indolent infectious process. no PE. Patient had recent Bronchoscopy of RUL cavitary lesion (09/20/2024) Patient has been taking azithromycin, ethambutol and rifampin Fungal Culture: Penicillium species (A), Fungal Culture: Yeast, not Cryptococcus species (A) , AFB Culture: Mycobacterium avium complex (AA) Pulmonary Dr. Rao is following and recommend repeat sputum examination. Patient has not been able to provide sputum samples Continue MAC treatment with azithromycin, ethambuto and rifampin continue amikacin sulfate (01/29-) per Dr. Rao Patient does not appear overloaded/hypervolemic. Status post IV Lasix. Leukocytosis resolved. Chronic diastolic CHF (40-45% EF - 01/2025) CTA chest (01/28): Interval development of pulmonary edema with small, right greater than left, pleural effusions. Increasing mediastinal and hilar lymphadenopathy probably related to heart failure. CXR (01/28): Interval development of mild pulmonary edema Troponin's negative x2. monitor on telemetry Status post IV Lasix Patient appears euvolemic. Echo (01/31): 40-45% EF with mild global hypokinesis. Moderate MR. mild TR. 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 Free water restriction. Severe protein calorie malnutrition Encourage oral intake. Nutritional supplementation GERD Hyperlipidemia Hypothyroidism Osteoporosis Rheumatoid Arthritis Hx of Lymphoma Hx of diverticulitis Stable Continue home medications. 02/02 Nausea and vomiting New onset atrial fibrillation Cardiology Dr. Payne input appreciated. Dr. Payne recommend sotalol and Eliquis Patient started on sotalol. Pulmonary Dr. Rao is planning bronchoscopy tomorrow Eliquis on hold for bronchoscopy tomorrow. Antiemetics as needed. Continue antimycobacterials for MAC. 02/03 Status post bronchoscopy for bronchoalveolar lavage Heart rate improved. Patient currently in sinus rhythm with occasional PVCs and PACs. Continue sotalol. Resume Eliquis Supportive measures with antiemetics as needed. Encourage oral intake. Continue PT Pulmonary Dr. Rg is following and managing antimycobacterials. Follow-up bronchial washing culture. Fluid restriction for hyponatremia. Nephrology Dr. Guevara is following and managing hyponatremia. Patient is on sodium tablets. VTE: Eliquis Code: Full Dispo: Home
[2025-02-03] MEDS: APIXABAN 5 MG TABLET PO SCH (20:12)
--- NOTE | 2025-02-03 20:39 | P.PN ---
Date of Service: 02/03/25 Vital Signs Temp Pulse Resp BP Pulse Ox 98.4 F 79 22 H 103/47 L 99 02/03/25 16:00 02/03/25 16:00 02/03/25 16:00 02/03/25 16:00 02/03/25 16:00 Medications Acetaminophen (Acetaminophen 500 Mg Tab) 500 mg PO Q6HP PRN PRN Reason: Pain scale 5-7 (Moderate) Last Admin: 02/03/25 11:05 Dose: 500 mg Albuterol Sulfate (Albuterol 2.5 Mg/3 Ml Neb Pushpa) 2.5 mg NEB [id number] PRN PRN Reason: SHORTNESS OF BREATH Apixaban (Apixaban 5 Mg Tablet) 5 mg PO BID [facility] Last Admin: 02/03/25 20:12 Dose: 5 mg Azithromycin (Azithromycin 250 Mg Tab) 250 mg PO DAILY [facility] Last Admin: 02/03/25 09:41 Dose: 250 mg Ethambutol HCl (Ethambutol Hcl 400 Mg Tab) 400 mg PO DAILY [facility] Last Admin: 02/03/25 10:14 Dose: 400 mg Folic Acid (Folic Acid 1 Mg Tablet) 1 mg PO DAILY [facility] Last Admin: 02/03/25 09:41 Dose: 1 mg Home Med (Latanoprost [Latanoprost]) 2.5 ml OPTH DAILY [facility] Last Admin: 02/03/25 09:00 Dose: Not Given Home Med (Cyclosporine [Restasis]) 1 drop OPTH BID [facility] Last Admin: 02/03/25 20:14 Dose: 1 drop Home Med (Estradiol [Estradiol (Twice Weekly)]) 1 each TOP SuTuTh@0900 [facility] Last Admin: 02/03/25 09:00 Dose: Not Given Home Med (Neomycin/Polymyxin B Sulf/Hc [Kffefbvw-Yzqewyrgi-Al Ear Susp]) 4 gtt OTIC BID PRN PRN Reason: Ear pain Hydroxyzine HCl (Hydroxyzine Hcl 25 Mg Tab) 25 mg PO DAILY [facility] Last Admin: 02/03/25 09:41 Dose: 25 mg Amikacin Sulfate 400 mg/ (Sodium Chloride) 101.6 mls @ 100 mls/hr IV Q24H [facility]; Protocol Last Admin: 02/03/25 12:38 Dose: 101.6 mls Levothyroxine Sodium (Levothyroxine Sod 0.025 Mg Tab) 0.025 mg PO [id number] [facility] Last Admin: 02/03/25 06:00 Dose: Not Given Ondansetron HCl (Ondansetron 4 Mg (Odt) Tab) 8 mg PO TID PRN PRN Reason: NAUSEA / VOMITING Last Admin: 02/03/25 20:13 Dose: 8 mg Promethazine HCl (Promethazine Inj 25 Mg/Ml Amp) 12.5 mg IV Q6H PRN PRN Reason: NAUSEA / VOMITING Last Admin: 02/03/25 17:53 Dose: 12.5 mg Rifampin (Rifampin 150 Mg Cap) 300 mg PO DAILY [facility] Last Admin: 02/03/25 09:40 Dose: 300 mg Sodium Chloride (Sodium Chloride 1 Gm Tab) 1 gm PO QID [facility] Last Admin: 02/03/25 17:53 Dose: 1 gm Sotalol HCl (Sotalol Hcl 80 Mg Tab) 80 mg PO BID 6AM 6PM [facility] Last Admin: 02/03/25 17:53 Dose: 80 mg Spironolactone (Spironolactone 25 Mg Tablet) 25 mg PO DAILY [facility] Last Admin: 02/03/25 09:41 Dose: 25 mg Trazodone HCl (Trazodone 50 Mg Tablet) 50 mg PO BEDTIME PRN PRN PRN Reason: INSOMNIA Last Admin: 02/03/25 20:13 Dose: 50 mg Microbiology Results 01/28/25 16:45 Blood - Blood Aerobic Blood Culture - Final No growth in 5 days. 01/28/25 16:45 Blood - Blood Anaerobic Blood Culture - Final No growth in 5 days. 01/28/25 16:30 Blood - Blood Aerobic Blood Culture - Final No growth in 5 days. 01/28/25 16:30 Blood - Blood Anaerobic Blood Culture - Final No growth in 5 days. Assessment/ Plan: Nephrology No dyspnea No chest pain She reports nausea with salt tabs No acute events overnight Vitals, medications, blood work and imaging reviewed in the chart General: In no apparent distress, Oriented x3, Cooperative HEENT: Atraumatic Neck: Supple Respiratory: Crackles/rales Cardiovascular: No edema, Irregular heart rate/rhythm Gastrointestinal: Soft and benign, Non-distended Musculoskeletal: No clubbing, No contractures Integumentary: No rashes, No cyanosis Neurological: Normal speech Blood work reviewed in the chart. Imagings Data: EXAMINATION: ONE VIEW CHEST XR CLINICAL INDICATION: f/u opacities TECHNIQUE: Frontal chest projection is submitted. Examination is limited by patient positioning and technique. COMPARISON: 01/28/2025 FINDINGS: Emphysematous changes are noted. Mild interstitial pulmonary edema. Irregular right upper lobe pleural and parenchymal opacity is unchanged. Left parahilar opacity has moderately increased. Small bilateral pleural effusions. The heart is mildly enlarged. Right shoulder hardware. IMPRESSION: Left perihilar lung opacity has moderately increased since the comparative study. Small bilateral pleural effusions are stable. Right upper lobe pleural and parenchymal opacity is unchanged. EXAMINATION: CTA CHEST PE CLINICAL INDICATION: Female, 79 years old. DYSPNEA TECHNIQUE: This examination was performed according to an angiographic protocol with 3D post-processing. This involves 3D reconstructions, MIPs, volume rendered images and/or shaded surface rendering. One or more of the following dose reduction techniques were used: Automated exposure control, adjustment of the mA and/or kV according to patient size, and/or iterative reconstruction. Unless otherwise specified, incidental findings do not require dedicated imaging follow-up. [id number]. COMPARISON: Chest CT on 07/20/2025 FINDINGS: LOWER NECK: Visualized thyroid gland and soft tissues are normal. LUNGS AND AIRWAYS: Increased interlobular septal thickening as well as scattered areas of crazy paving. Cavitary structures in the right upper lobe with surrounding nodular airspace disease. A dominant cavitary structure in the right upper lobe for example measures approximately 3.3 cm, previously 3.3 cm in similar dimension.. PLEURA: Small bilateral pleural effusions, right greater than left which are new from prior. MEDIASTINUM AND LYMPH NODES: Increasing mediastinal lymphadenopathy. For example, a 15 mm subcarinal lymph node previously measured 10 mm. THORACIC AORTA: No thoracic aortic aneurysm. PULMONARY ARTERIES: Enlarged main pulmonary arteries could indicate pulmonary artery hypertension. No pulmonary emboli identified. HEART: Mild cardiomegaly. No coronary calcifications.No significant pericardial effusion. OSSEOUS STRUCTURES AND CHEST WALL: No fracture or suspicious osseous lesions. UPPER ABDOMEN: No acute abnormalities.Reflux of contrast into the hepatic veins. IMPRESSION: No evidence of pulmonary emboli to the subsegmental level. Interval development of pulmonary edema with small, right greater than left, pleural effusions. Cavitary structure in the right upper lobe concerning nodularity is similar and consistent with a chronic/indolent infectious process. Increasing mediastinal and hilar lymphadenopathy probably related to heart failure. Could consider 3 month follow-up chest CT. Reported LEFT VENTRICULAR WALL MOTION: MILD GLOBAL HYPOKINESIS DOPPLER/COLOR FLOW: NORMAL COMMENTS: 1. MILDLY REDUCED LEFT VENTRICULAR SYSTOLIC FUNCTION, EJECTION FRACTION 40-45%, MILD GLOBAL HYPOKINESIS 2. MODERATE MITRAL REGURGITATION 3. NORMAL FILLING PRESSURE (RIGHT ATRIAL PRESSURE 0-5 mmHg) Conclusions/Impression: Hyponatremia -Continue NaCl tabs -Consider fluid restriction Hypokalemia -Replete as needed Systolic CHF, chronic LVEF 40-45% -Continue spironolactone MAC Infection -Continue abx -Follow up with pulmonary
[2025-02-04 05:56] LABS: Absolute Basophils 0.1 K/uL (0-0.5); Absolute Eosinophils 0.2 K/uL (0-0.5); Absolute Lymphocytes (CBC) 2.5 K/uL (0.7-4.9); Absolute Monocytes 1.1 K/uL (0.1-1.3); Absolute Neutrophil 7.8 K/uL (1.8-8.0); Basophils % 0.5 % (0-1.3); Eosinophils % 1.4 % (0-4.4); Hematocrit 32.1 % (36.0-45.0); Hemoglobin 10.8 g/dL (12.0-15.0); Lymphocytes % 21.7 % (15.3-44.8); MCH 27.6 pg (27.0-35.0); MCHC 33.7 g/dL (32.0-36.0); MCV 81.9 fL (80-100); MPV 8.3 fL (7.6-11.3); Monocytes % 9.2 % (3.3-12.3); Neutrophils % 67.2 % (41.7-73.7); Platelets 312 thou/uL (152-406); RBC Red Blood Cell Count 3.92 M/uL (3.86-4.86); Red Cell Distribution Width 14.7 % (12.1-15.2)
[2025-02-04 05:58] LABS: Anion Gap 9.8 mEq/L (5.0-15.0); Potassium 4.8 mEq/L (3.5-5.1)
--- NOTE | 2025-02-04 11:45 | P.PN ---
Nephrology Pt remains in isolation, bronchoscopy report reviewed, no resp distress noted when seen, no acute complaints, some nausea with meds and after salt tabs, needing Zofran. BP has been low Vitals, medications, blood work and imaging reviewed in the chart General: Appears frail, thin HEENT: Atraumatic, sclera anicteric, not on O2 Neck: Supple Respiratory: Non tachypnec, b/l air entry Cardiovascular: No LE edema, Irregular heart rate/rhythm Gastrointestinal: ND, NT Musculoskeletal: No contractures Integumentary: No rashes Neurological: Normal speech, awake, alert Blood work reviewed in the chart. Imagings Data: EXAMINATION: CTA CHEST PE CLINICAL INDICATION: Female, 79 years old. DYSPNEA TECHNIQUE: This examination was performed according to an angiographic protocol with 3D post-processing. This involves 3D reconstructions, MIPs, volume rendered images and/or shaded surface rendering. One or more of the following dose reduction techniques were used: Automated exposure control, adjustment of the mA and/or kV according to patient size, and/or iterative reconstruction. Unless otherwise specified, incidental findings do not require dedicated imaging follow-up. [id number]. COMPARISON: Chest CT on 07/20/2025 FINDINGS: LOWER NECK: Visualized thyroid gland and soft tissues are normal. LUNGS AND AIRWAYS: Increased interlobular septal thickening as well as scattered areas of crazy paving. Cavitary structures in the right upper lobe with surrounding nodular airspace disease. A dominant cavitary structure in the right upper lobe for example measures approximately 3.3 cm, previously 3.3 cm in similar dimension.. PLEURA: Small bilateral pleural effusions, right greater than left which are new from prior. MEDIASTINUM AND LYMPH NODES: Increasing mediastinal lymphadenopathy. For example, a 15 mm subcarinal lymph node previously measured 10 mm. THORACIC AORTA: No thoracic aortic aneurysm. PULMONARY ARTERIES: Enlarged main pulmonary arteries could indicate pulmonary artery hypertension. No pulmonary emboli identified. HEART: Mild cardiomegaly. No coronary calcifications.No significant pericardial effusion. OSSEOUS STRUCTURES AND CHEST WALL: No fracture or suspicious osseous lesions. UPPER ABDOMEN: No acute abnormalities.Reflux of contrast into the hepatic veins. IMPRESSION: No evidence of pulmonary emboli to the subsegmental level. Interval development of pulmonary edema with small, right greater than left, pleural effusions. Cavitary structure in the right upper lobe concerning nodularity is similar and consistent with a chronic/indolent infectious process. Increasing mediastinal and hilar lymphadenopathy probably related to heart failure. Could consider 3 month follow-up chest CT. Reported A/P) Acute mod hypotonic hyponatremia, multifactorial. -Na level remains < 130, with low BP, will need to order isotonic IVF and will d/c salt tabs, will re-assess urine Na and Osm Stage 1 VIANEY In the setting of low BP, aminoglycoside use, other. Amikacin dose interval has been reduced by pharmacy. Trend closely on IVF ordered. Suspend Spironolactone LVEF dysfunction, some pulm edema/effusions NOS -Clinically stable, with low BP, above, will order gentle IVF and monitor closely MAC Infection, lung cavitory lesions -Management per Pulm
[2025-02-04] MEDS: NA CHLORIDE 0.9% 1,000 ML IV SCH (12:00)
[2025-02-04] MEDS ORDERED: NA CHLORIDE 0.9% 1,000 ML IV SCH (12:00)
--- NOTE | 2025-02-04 12:04 | RAD REPORT ---
Procedure: Chest Single View HISTORY: Cough COMPARISON: February 03, 2025 FINDINGS: Cavitary mass right upper lobe without significant change. Surrounding opacities appear mildly dimini shed Left upper lobe consolidation mildly enlarged. Small pleural effusions Mild cardiomegaly
--- NOTE | 2025-02-04 15:17 | P.PN ---
Subjective Date of Service: 02/04/25 Chief Complaint: Bilateral pneumonia presumed atypical Mycobacterium infection Patient states she feels better She is in sinus rhythm with normal heart rate. She is now tolerating liquid oxygen saturation No recorded fever. She is tolerating diet. Physical Examination - Vital Signs Temperature: 98.0 F Blood Pressure: 90/40 Pulse: 72 Respirations: 16 Pulse Ox (%): 94 - Studies Medications List Reviewed: Yes Assessment And Plan - Plan Physical Exam: GEN: Alert, oriented, not in acute distress. CV: Regular, normal rate, no edema Pulm: Nonlabored respirations on room air, Crackles on R lung. ABD: soft, nontender, nondistended Neuro: Normal speech, normal affect Problem List: Right upper lobe cavitary lesion / MAC infection s/p recent bronchoscopy (09/20/2024) Chronic CHF (40-45% EF - 01/2025) Hyponatremia Severe malnutrition GERD Hyperlipidemia Hypothyroidism Osteoporosis Rheumatoid Arthritis Hx of Lymphoma Hx of diverticulitis New onset atrial fibrillation Right upper lobe cavitary lesion / MAC infection s/p recent bronchoscopy (09/20/2024) CTA chest: Cavitary structure in the right upper lobe concerning nodularity is similar and consistent with a chronic/indolent infectious process. no PE. Patient had recent Bronchoscopy of RUL cavitary lesion (09/20/2024) Patient has been taking azithromycin, ethambutol and rifampin Fungal Culture: Penicillium species (A), Fungal Culture: Yeast, not Cryptococcus species (A) , AFB Culture: Mycobacterium avium complex (AA) Pulmonary Dr. Rao is following and recommend repeat sputum examination. Patient has not been able to provide sputum samples Continue MAC treatment with azithromycin, ethambuto and rifampin continue amikacin sulfate (01/29-) per Dr. Rao Patient does not appear overloaded/hypervolemic. Status post IV Lasix. Leukocytosis resolved. Chronic diastolic CHF (40-45% EF - 01/2025) CTA chest (01/28): Interval development of pulmonary edema with small, right greater than left, pleural effusions. Increasing mediastinal and hilar lymphadenopathy probably related to heart failure. CXR (01/28): Interval development of mild pulmonary edema Troponin's negative x2. monitor on telemetry Status post IV Lasix Patient appears euvolemic. Echo (01/31): 40-45% EF with mild global hypokinesis. Moderate MR. mild TR. 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 Free water restriction. Severe protein calorie malnutrition Encourage oral intake. Nutritional supplementation GERD Hyperlipidemia Hypothyroidism Osteoporosis Rheumatoid Arthritis Hx of Lymphoma Hx of diverticulitis Stable Continue home medications. 02/02 Nausea and vomiting New onset atrial fibrillation Cardiology Dr. Payne input appreciated. Dr. Payne recommend sotalol and Eliquis Patient started on sotalol. Pulmonary Dr. Rao is planning bronchoscopy tomorrow Eliquis on hold for bronchoscopy tomorrow. Antiemetics as needed. Continue antimycobacterials for MAC. 02/03 Status post bronchoscopy for bronchoalveolar lavage Heart rate improved. Patient currently in sinus rhythm with occasional PVCs and PACs. Continue sotalol. Resume Eliquis Supportive measures with antiemetics as needed. Encourage oral intake. Continue PT Pulmonary Dr. Rg is following and managing antimycobacterials. Follow-up bronchial washing culture. Fluid restriction for hyponatremia. Nephrology Dr. Guevara is following and managing hyponatremia. Patient is on sodium tablets. 02/04 Polymicrobial organisms identified on Gram stain of bronchoalveolar lavage, no AFB identified. Discontinue isolation per pulmonary. Antibiotic management per pulmonary. Increase activity as tolerated. Nephrology is following and managing hyponatremia and currently on IV NS. Patient is in sinus rhythm with sotalol. She is tolerating sotalol. Continue Eliquis. Follow-up bronchoalveolar aspirate culture VTE: Eliquis Code: Full Dispo: Home
[2025-02-04 17:44] LABS: Specific Gravity 1.023 (1.005-1.030); Sqamous Epithelial <5 /HPF (None Seen); Urine Bacteria None Seen /HPF (<20); Urine Bilirubin 1+ (Negative); Urine Blood Trace (Negative); Urine Clarity Extremely Turbid (Clear); Urine Color Dark-Yellow (Yellow); Urine Crystals Unidentified Few /HPF (None Seen); Urine Culture Reflex Order NOT NEEDED; Urine Glucose NEGATIVE (Negative); Urine Ketones NEGATIVE (Negative); Urine Micro Reflex YN NO BILL MICROSCOPIC; Urine Nitrite NEGATIVE (Negative); Urine Protein 1+ (Negative); Urine RBC <5 /HPF (None Seen); Urine Urobilinogen 1+ (Normal); Urine WBC Clump Rare /HPF (None Seen); Urine Yeast (Budding) Trace /HPF (None Seen); Urine pH 5.5 (5.0-7.0)
[2025-02-04 17:48] LABS: UR CL RANDOM 18 mmol/L (25-40); UR SODIUM < 15 mmol/L (27-287)
[2025-02-04] MEDS: ENSURE ENLIVE 237 ML CAN PO SCH (21:00)
[2025-02-05 05:41] LABS: Albumin 2.3 g/dL (3.4-5.0); Anion Gap 11.9 mEq/L (5.0-15.0); Phosphorus 2.9 mg/dL (2.5-4.9); Potassium 3.9 mEq/L (3.5-5.1)
[2025-02-05 08:11] VITALS: O2SAT 99
[2025-02-05 08:54] VITALS: BP 134/66; TEMP 98.1
--- NOTE | 2025-02-05 08:57 | RAD REPORT ---
EXAM: Chest Single View HISTORY: 79 years Female Pneumonia COMPARISON: Yesterday FINDINGS: LUNGS/PLEURA: Masslike left upper lobe consolidation is similar to yesterday.. Small bilateral effusi ons. Cavitary nodule in the right upper lobe is unchanged. CARDIAC/MEDIASTINUM: Stable enlargement. UPPER ABDOMEN: No significant abnormality. BONES: No acute abnormality. LINES/TUBES/OTHER: N/A IMPRESSION: No significant change from yesterday with bilateral airspace disease, including cavitary right upper lobe nodule and left upper lobe consolidation. Unchanged small bilateral pleural effusions.
[2025-02-05] MEDS ORDERED: levoFLOXacin 250 MG TAB PO SCH (09:00)
[2025-02-05] MEDS: CEFUROXIME 250 MG TAB PO SCH (11:16)
--- NOTE | 2025-02-05 11:17 | P.PN ---
Subjective Date of Service: 02/05/25 Chief Complaint: Bilateral pneumonia presumed atypical Mycobacterium infection Patient is doing well no new complaints wants to go home Review of Systems General: Weakness Respiratory: Cough, Shortness of Breath Physical Examination - Vital Signs Temperature: 98.1 F Blood Pressure: 134/66 Pulse: 84 Respirations: 14 Pulse Ox (%): 98 - Physical Exam General: Alert, Oriented x3 Respiratory: Clear to auscultation bilaterally Cardiovascular: No edema, Regular rate/rhythm, Normal S1 S2 - Studies Medications List Reviewed: Yes Assessment And Plan - Current Problems (Diagnosis) (1) Atypical mycobacterium infection Current Visit: Yes Status: Acute Plan: Patient is doing better alveolar lavage from the right upper lobe was essentially clear there was no mucous or pus in the respiratory tract the left upper lobe lung lavage was a little bloody likely she has underlying pneumonia on the left side shows a progressive increase patient is doing better plan for discharge continue with current Mycobacterium avium therapy add antibiotics for regular community-acquired pneumonia cefuroxime the patient is going to go home on sotalol levofloxacin continue spironolactone patient has congestive heart failure follow-up with me in 2 weeks
[2025-02-05] MEDS ORDERED: [UNRECOGNIZED DRUG - OTHER] IV SCH (13:30)
[2025-02-05] MEDS ORDERED: NA CHLORIDE 0.9% IV SCH (13:30)
--- NOTE | 2025-02-05 15:06 | P.DS ---
Admission Date: 01/28/25 Discharge Date: 02/05/25 Disposition: ROUTINE DISCHARGE Discharge Condition: FAIR Reason for Admission: Bilateral pneumonia presumed atypical Mycobacterium infection Brief History of Present Illness: Patient is a 79 year old female with chronic systolic CHF. She presented to the ER with acutely worsening shortness of breath and chest pressure/heaviness. Associated symptoms include tachycardia and hypertension. Patient denied orthopnea or lower extremity edema. Chest imaging showed pulmonary edema. Her BNP > 11,000. Patient weighs 39 Kg. CTA thorax done in the emergency department showed No evidence of pulmonary emboli to the subsegmental level. Interval development of pulmonary edema with small, right greater than left, pleural effusions. Cavitary structure in the right upper lobe concerning nodularity is similar and consistent with a chronic/indolent infectious process. Increasing mediastinal and hilar lymphadenopathy probably related to heart failure. Could consider 3 month follow-up chest CT. Patient has been receiving treatment for MAC. She was hospitalized for further management. Hospital Course: Problem List: Right upper lobe cavitary lesion / MAC infection s/p recent bronchoscopy (09/20/2024) Chronic CHF (40-45% EF - 01/2025) Hyponatremia Severe protein calorie malnutrition GERD Hyperlipidemia Hypothyroidism Osteoporosis Rheumatoid Arthritis Hx of Lymphoma Hx of diverticulitis New onset atrial fibrillation Patient admitted to the medical floor and the following medical problems addressed: Right upper lobe cavitary lesion / MAC infection s/p recent bronchoscopy x 2 Acute respiratory failure with hypoxia CTA chest: Cavitary structure in the right upper lobe concerning nodularity is similar and consistent with a chronic/indolent infectious process. no PE. Patient had recent Bronchoscopy of RUL cavitary lesion (09/20/2024) Patient has been taking azithromycin, ethambutol and rifampin Fungal Culture: Penicillium species (A), Fungal Culture: Yeast, not Cryptococcus species (A) , AFB Culture: Mycobacterium avium complex (AA) Pulmonary Dr. Rao evaluated patient and recommended repeat sputum examination. Patient was not able to provide sputum samples. Dr. Rg performed bronchoscopy with bronchoalveolar lavage. Staining of bronchoalveolar lavage aspirate did not show any AFB, no bacterial growth. AFB cultures are pending. Patient was treated for MAC with azithromycin, ethambuto and rifampin and amikacin Patient was initially requiring oxygen. She was subsequently weaned off oxygen to room air which she tolerated with good oxygen saturation. She had leukocytosis which resolved. Patient deemed stable for discharge per pulmonary Dr. Rao. Dr. Rao will follow-up with her as an outpatient. AFB cultures to be followed as outpatient. Acute on chronic diastolic CHF (40-45% EF - 01/2025) CTA chest (01/28): Interval development of pulmonary edema with small, right greater than left, pleural effusions. Increasing mediastinal and hilar lymphadenopathy probably related to heart failure. CXR (01/28): Interval development of mild pulmonary edema Troponin's negative x2. monitor on telemetry Patient treated with IV Lasix and she became euvolemic She was weaned off oxygen. Echo (01/31): 40-45% EF with mild global hypokinesis. Moderate MR. mild TR. 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 Nephrology evaluated patient and assisted with management. He was placed on fluid restriction and hydrated with IV NS briefly. Patient to follow-up with nephrology as outpatient. Severe protein calorie malnutrition Encouraged oral intake. Nutritional supplementation GERD Hyperlipidemia Hypothyroidism Osteoporosis Rheumatoid Arthritis Hx of Lymphoma Hx of diverticulitis Stable Continued home medications. Vital Signs/Physical Exam: Temp Pulse Resp BP Pulse Ox 98.1 F 84 14 134/66 98 02/05/25 11:17 02/05/25 11:17 02/05/25 11:17 02/05/25 11:17 02/05/25 11:17 General: Alert, In no apparent distress, Oriented x3, Cachectic HEENT: Mucous membr. moist/pink Neck: JVD not distended Respiratory: Clear to auscultation bilaterally, Normal air movement Cardiovascular: No edema, Regular rate/rhythm, Normal S1 S2 Gastrointestinal: Normal bowel sounds, Soft and benign, Non-distended Musculoskeletal: No swelling Integumentary: No rashes, No cyanosis Neurological: Normal strength at 5/5 x4 extr Laboratory Data at Discharge: WBC 11.70 thou/uL (4.3-10.9) H 02/04/25 05:28 Hgb 10.8 g/dL (12.0-15.0) L 02/04/25 05:28 Hct 32.1 % (36.0-45.0) L 02/04/25 05:28 Plt Count 312 thou/uL (152-406) 02/04/25 05:28 PT 12.2 SECONDS (10.0-13.0) 01/28/25 16:23 INR 1.07 01/28/25 16:23 Sodium 128 mEq/L (136-145) L 02/05/25 04:07 Potassium 3.9 mEq/L (3.5-5.1) D 02/05/25 04:07 BUN 22 mg/dL (7-18) H 02/05/25 04:07 Creatinine 0.82 mg/dL (0.55-1.02) 02/05/25 04:07 Glucose 90 mg/dL (74-106) 02/05/25 04:07 Uric Acid Cancelled 02/03/25 05:00 Phosphorus 2.9 mg/dL (2.5-4.9) 02/05/25 04:07 Magnesium 2.3 mg/dL (1.6-2.4) 02/01/25 07:04 Total Bilirubin 0.7 mg/dL (0.2-1.0) 02/01/25 07:04 AST 22 U/L (15-37) 02/01/25 07:04 ALT 23 U/L (13-56) 02/01/25 07:04 Alkaline Phosphatase 85 U/L (45-117) 02/01/25 07:04 Lipase 52 U/L (13-75) 01/28/25 16:23 Home Medications: Azithromycin Tab [Zithromax*] 250 mg PO DAILY 01/29/25 Benzonatate 100 mg PO TID PRN 01/29/25 Ethambutol HCl 400 mg PO DAILY 01/29/25 Ezetimibe [Zetia*] 10 mg PO DAILY 01/29/25 Folic Acid 1 mg PO DAILY 01/29/25 Latanoprost 2.5 ml RIGHT EYE DAILY 01/29/25 Levothyroxine [Synthroid*] 25 mcg PO [id number] 01/29/25 Neomycin/Polymyxin B Sulf/Hc [Tapzlnlq-Bzlyakzxa-Ed Ear Susp] 4 gtt LEFT EAR BID PRN 01/29/25 Ondansetron HCl 8 mg PO TID PRN 01/29/25 Pravastatin Sodium 10 mg PO EVERY 3RD DAY 01/29/25 Tizanidine HCl 2 mg PO BEDTIME 01/29/25 carvediloL [Carvedilol] 6.25 mg PO BID 01/29/25 cycloSPORINE [Restasis] 1 drop EACH EYE BID 01/29/25 estradioL [Estradiol (Twice Weekly)] 1 each TD T,TH,S 01/29/25 hydrOXYzine HCL [Atarax*] 25 mg PO DAILY 01/29/25 rifAMPin [Rifampin] 300 mg PO DAILY 01/29/25 Apixaban [Eliquis] 5 mg PO BID #60 tab 02/05/25 Cefuroxime [Ceftin*] 250 mg PO BID 10 Days #20 tab 02/05/25 Ensure Enlive 237 ml PO BID #60 can 02/05/25 Sotalol HCl [Betapace AF] 40 mg PO BID #30 tab 02/05/25 Spironolactone 25 mg PO DAILY 30 Days #30 tab 02/05/25 New Medications: Sotalol HCl [Betapace AF] 40 mg PO BID #30 tab Cefuroxime [Ceftin*] 250 mg PO BID 10 Days #20 tab Apixaban [Eliquis] 5 mg PO BID #60 tab Ensure Enlive 237 ml PO BID #60 can Spironolactone 25 mg PO DAILY 30 Days #30 tab Diet: AHA Activity: Ad brandan Followup: Alfred Rao MD [ACTIVE - CAN ADMIT] - 1-2 Weeks Edgardo Bruner MD [Primary Care Provider] - 1-2 Weeks Time spent managing pt's care (in minutes): 38
--- NOTE | 2025-02-08 11:11 | EKG ---
Test Date: 2025-02-05 Test Time: 10:28:14 Eyeglass Frames Inspector: RUTH MEASUREMENT RESULTS: Intervals: Rate: 91 NH: 140 QRSD: 98 QT: 364 QTc: 447 [place]: P: 95 NH: 140 QRS: 235 T: 79 INTERPRETIVE STATEMENTS: Suspect arm lead reversal, interpretation assumes no reversal Normal sinus rhythm Right superior axis deviation Possible Anterior infarct, age undetermined Abnormal ECG Compared to ECG 01/28/2025 16:21:50 Right superior axis now present Myocardial infarct finding now present Sinus tachycardia no longer present Left anterior fascicular block no longer present T-wave abnormality no longer present Possible ischemia no longer present Electronically Signed On 02-08-25 11:02:59 CDT by Chi Payne
== END 2025-02-05 12:57 | disposition home or self-care (01) | DRG 871 ==
LOC: ER 16:06 → ERHOLD 18:34 → 2ND 22:40
PROVIDERS: ADMIT Internal Medicine; ATTEND Internal Medicine
PROC: 0B9C8ZX Drainage of Right Upper Lung Lobe, Via Natural or Artificial Opening Endoscopic, Diagnostic (ICD-10-PCS; 2025-02-03)
PROC: 0B9G8ZX Drainage of Left Upper Lung Lobe, Via Natural or Artificial Opening Endoscopic, Diagnostic (ICD-10-PCS; principal; 2025-02-03 07:30)
DX: A41.9 Sepsis, unspecified organism (principal); E43 Unspecified severe protein-calorie malnutrition; J15.7 Pneumonia due to Mycoplasma pneumoniae; J96.01 Acute respiratory failure with hypoxia; I50.33 Acute on chronic diastolic (congestive) heart failure; J44.1 Chronic obstructive pulmonary disease with (acute) exacerbation; J44.0 Chronic obstructive pulmonary disease with (acute) lower respiratory infection; Z68.1 Body mass index [BMI] 19.9 or less, adult; E22.2 Syndrome of inappropriate secretion of antidiuretic hormone; N17.9 Acute kidney failure, unspecified; A31.0 Pulmonary mycobacterial infection; E03.9 Hypothyroidism, unspecified; E78.00 Pure hypercholesterolemia, unspecified; I49.3 Ventricular premature depolarization; I48.91 Unspecified atrial fibrillation; M19.90 Unspecified osteoarthritis, unspecified site; I08.3 Combined rheumatic disorders of mitral, aortic and tricuspid valves; K21.9 Gastro-esophageal reflux disease without esophagitis; M81.0 Age-related osteoporosis without current pathological fracture; R31.0 Gross hematuria; Z23 Encounter for immunization; Z88.5 Allergy status to narcotic agent; Z79.890 Hormone replacement therapy; Z79.02 Long term (current) use of antithrombotics/antiplatelets; Z79.52 Long term (current) use of systemic steroids; Z79.899 Other long term (current) drug therapy; Z96.641 Presence of right artificial hip joint; Z90.710 Acquired absence of both cervix and uterus
CPT/HCPCS: 36415; 71045; 71275; 80048; 80053; 80069; 80076; 80150; 81001; 82435; 82570; 82947; 83605; 83690; 83735; 83880; 83930; 84100; 84132; 84145; 84300; 84439; 84443; 84484; 84550; 85025; 85027; 85610; 86140; 86480; 87015; 87040; 87070; 87102; 87116; 87206; 87428; 88108; 88305; 88312; 93005; 93306; 94668; 97110; 97116; 97161; 99285; J0278; J1650; J1940; J2003; J2371; J2405; J2550; J2704; J2919; J3475; J7030; J7120; J7614; J7644; Q0162; Q9967

== ENCOUNTER 2025-02-09 20:16 | Inpatient (IN) | payer OTHER ==
[2025-02-09] MEDS ORDERED: ALBUMIN HUMAN 25% 100 ML IV ONE (21:18)
[2025-02-09 21:30] LABS: Absolute Eosinophils 0.3 K/uL (0-0.5); Absolute Lymphocytes (CBC) 2.4 K/uL (0.7-4.9); Absolute Monocytes 1.1 K/uL (0.1-1.3); Absolute Neutrophil 8.2 K/uL (1.8-8.0); Basophils % 0.3 % (0-1.3); Eosinophils % 2.2 % (0-4.4); Hematocrit 37.8 % (36.0-45.0); Hemoglobin 12.8 g/dL (12.0-15.0); MCH 27.7 pg (27.0-35.0); MCHC 33.9 g/dL (32.0-36.0); MCV 81.7 fL (80-100); MPV 8.5 fL (7.6-11.3); Monocytes % 9.5 % (3.3-12.3); Nucleated Red Blood Cells % 0.3 % (0-0); Platelets 459 thou/uL (152-406); RBC Red Blood Cell Count 4.62 M/uL (3.86-4.86); Red Cell Distribution Width 15.8 % (12.1-15.2)
[2025-02-09 21:31] LABS: PT Prothrombin Time 17.3 SECONDS (10-13.0); Protime INR 1.55
[2025-02-09 21:42] LABS: Albumin/Globulin Ratio 0.8 (1.1-1.8); Anion Gap 10.8 mEq/L (5.0-15.0); Bilirubin Direct 0.6 mg/dL (0-0.2); Bilirubin Indirect, Calculated 0.3 mg/dL (0.2-0.8); Bilirubin Total 0.9 mg/dL (0.2-1.0); Globulin 3.8 g/dL (2.3-3.5); Magnesium 1.8 mg/dL (1.6-2.4); Potassium 3.8 mEq/L (3.5-5.1); Protein, Total 6.8 g/dL (6.4-8.2)
[2025-02-09 21:46] LABS: Thyroid Stimulating Hormone 7.67 uIU/mL (0.358-3.740)
--- NOTE | 2025-02-09 22:17 | RAD REPORT ---
EXAMINATION: US Extrem Venous W Compress Gabriel CLINICAL INDICATION: [facility] MAIN bilateral leg swelling Bed Name: 7 N TECHNIQUE: Complete bilateral duplex sonography of the BILATERAL lower extremity veins was performed. The examination included compression for vein patency, color Doppler imaging and flow augmentation in response to distal compression of the distal external iliac, common femoral, femoral, popliteal, t ibial, and great and small saphenous veins. COMPARISON: 07/21/2020 FINDINGS: Duplex sonography testing of the veins of the BILATERAL lower extremity was performed. Color flow gracia ging shows all veins to be compressible with [id number] color filling. Pulsatile and phasic flow is present within all lower extremity deep and superficial veins examined. IMPRESSION: There is no deep vein or superficial vein thrombosis.
--- NOTE | 2025-02-09 22:57 | RAD REPORT ---
EXAMINATION: ONE VIEW CHEST XR CLINICAL INDICATION: Female, 79 years old.,CHEST PAIN TECHNIQUE: Frontal chest projection is submitted. Examination is limited by patient positioning and t echnique. COMPARISON: 02/05/2025 FINDINGS: Stable patchy airspace opacities in the upper to mid lungs bilaterally more pronounced on the left, w ith some scarring within the right opacity. Layering small pleural effusions and underlying airspace opacification, also stable. Underlying pneumonia cannot be excluded. Background hyperlucency . No pneumothorax. The heart is normal in size. Mediastinal contours are unremarkable. IMPRESSION: Essentially stable findings as above.
--- NOTE | 2025-02-10 00:29 | ER ---
Nurse's Notes [facility] Name: Danielle Grover Age: 79 yrs Sex: Female : 1945 Arrival Date: 02/09/2025 Time: 20:16 Bed 17 Private MD: Diagnosis: Acute diastolic (congestive) heart failure;Edema, unspecified;Acute hyponatremia, generalized weakness. Presentation: 02/09 20:25 Chief complaint: Patient states: just discharged last Friday for pneumonia and CHF al5 exacerbation. patient still c/o BLE swelling, chest tightness and shortness of breath, got worse today. Coronavirus screen: At this time, the client does not indicate any symptoms associated with coronavirus-19. Ebola Screen: No symptoms or risks identified at this time. Initial Sepsis Screen: Does the patient meet any 2 criteria? HR > 90 bpm. No. Patient's initial sepsis screen is negative. Initial Sepsis Screen: Does the patient have a suspected source of infection? No. Patient's initial sepsis screen is negative. Risk Assessment: Do you want to hurt yourself or someone else? Patient reports no desire to harm self or others. Onset of symptoms was February 09, 2025. 20:25 Method Of Arrival: Wheelchair al5 20:25 Acuity: BALJIT 2 al5 Triage Assessment: 20:33 General: Appears in no apparent distress. slender, well groomed, well developed, al5 Behavior is calm, cooperative. Pain: Complains of pain in chest. EENT: No signs and/or symptoms were reported regarding the EENT system. Neuro: Level of Consciousness is awake, alert, obeys commands, Oriented to person, place, time, situation. Cardiovascular: Reports BLE swelling Capillary refill < 3 seconds Patient's skin is warm and dry. Respiratory: Reports shortness of breath Airway is patent Respiratory effort is even, unlabored, Respiratory pattern is regular, symmetrical, Onset: The symptoms/episode began/occurred today, the patient has mild shortness of breath. GI: No signs and/or symptoms were reported involving the gastrointestinal system. : No signs and/or symptoms were reported regarding the genitourinary system. Derm: swelling BLE. Musculoskeletal: Reports swelling BLE. Historical: - Allergies: 20:32 Codeine; al5 - Home Meds: 20:32 Coreg Oral [Active]; Enbrel 50 mg/mL (1 mL) subcutaneous syrg 1 mL once wkly [Active]; al5 Methotrexate (Anti-Rheumatic) 2.5 mg Oral DsPk 2 tabs once wkly [Active]; Folic Acid Oral [Active]; Nexium Oral [Active]; potassium chloride 10 mEq Oral cpER 1 cap once daily [Active]; Rheumatrex Oral [Active]; - PMHx: 20:32 CHF; GERD; Hypercholesterolemia; Hypothyroidism; Mycobacterium Avium Complex (MAC) al5 Infection; Rheumatoid Arthritis; - PSHx: 20:32 hysterectomy; al5 - Immunization history:: Adult Immunizations up to date. - Infectious Disease History:: Denies. - Social history:: Smoking status: Patient denies any tobacco usage or history of. - Family history:: not pertinent. Screenin:54 [facility] ED Fall Risk Assessment (Adult) History of falling in the last 3 months, cm10 including since admission No falls in past 3 months (0 pts) Confusion or Disorientation No (0 pts) Intoxicated or Sedated No (0 pts) Impaired Gait No (0 pts) Mobility Assist Device Used Yes (1 pt) Altered Elimination No (0 pt) Score/Fall Risk Level 0 - 2 = Low Risk Oriented to surroundings, Maintained a safe environment, Hourly rounding (assess needs \T\ fall precautionary measures) done. Abuse screen: Denies threats or abuse. Denies injuries from another. Nutritional screening: No deficits noted. Tuberculosis screening: No symptoms or risk factors identified. Assessment: 20:55 General: Appears in no apparent distress. comfortable, Behavior is calm, cooperative. cm10 Pain: Complains of pain in chest Pain does not radiate. Quality of pain is described as pressure. Neuro: No deficits noted. Level of Consciousness is awake, alert, obeys commands, Oriented to person, place, time, situation, Appropriate for age. Cardiovascular: Rhythm is regular. Cardiovascular: Patient's skin is warm and dry. Respiratory: Airway is patent Respiratory effort is even, unlabored, Respiratory pattern is regular, symmetrical, Breath sounds are clear in left posterior upper lobe and left posterior lower lobe Breath sounds are diminished in right posterior upper lobe, right posterior middle lobe and right posterior lower lobe. Derm: No deficits noted. Skin is pink, warm \T\ dry. 22:32 Reassessment: Patient appears in no apparent distress at this time. No changes from al5 previously documented assessment. Patient and/or family updated on plan of care and expected duration. Pain level reassessed. Patient is alert, oriented x 3, equal unlabored respirations, skin warm/dry/pink. 23:54 Reassessment: Patient appears in no apparent distress at this time. No changes from al5 previously documented assessment. Patient and/or family updated on plan of care and expected duration. Pain level reassessed. Patient is alert, oriented x 3, equal unlabored respirations, skin warm/dry/pink. Vital Signs: 20:25 BP 134 / 78; Pulse 98; Resp 16; Temp 97.5; Pulse Ox 99% on R/A; Weight 39.92 kg; Height al5 4 ft. 11 in. ; 21:30 BP 139 / 75; Pulse 98; Resp 17; Pulse Ox 97% ; cm10 22:15 BP 132 / 73; Pulse 96; Resp 20; Pulse Ox 97% on R/A; al5 22:30 BP 135 / 70; Pulse 92; Resp 20; Pulse Ox 97% on R/A; al5 23:00 BP 136 / 77; Pulse 94; Resp 19; Pulse Ox 98% on 2 lpm NC; al5 23:30 BP 138 / 67; Pulse 96; Resp 18; Pulse Ox 98% on 2 lpm NC; al5 02/10 00:00 BP 142 / 74; Pulse 93; Resp 20; Pulse Ox 100% on 2 lpm NC; al5 00:30 BP 134 / 70; Pulse 95; Resp 24; Pulse Ox 100% on 2 lpm NC; al5 02/09 20:25 Body Mass Index 17.77 (39.92 kg, 149.86 cm) al5 Elbert Coma Score: 00:24 Eye Response: spontaneous(4). Motor Response: obeys commands(6). Verbal Response: sp4 oriented(5). Total: 15. ED Course: 02/09 20:19 Patient arrived in ED. im 20:31 Vinnie Nelson MD is Attending Physician. sp4 20:31 Triage completed. al5 20:34 Arm band placed on right wrist. Patient placed in the treatment room, in view of staff al5 members, on pulse oximetry. 20:53 Cheri Christianson, NICHOLAS is Primary Nurse. cm10 20:53 Patient has correct armband on for positive identification. Bed in low position. Call cm10 light in reach. Side rails up X2. Client placed on continuous cardiac and pulse oximetry monitoring. NIBP monitoring applied. groundwater monitoring technician on. Warm blanket given. 20:53 Initial lab(s) drawn, by me, sent to lab. EKG done, by ED staff, reviewed by Vinnie Nelson MD. Inserted saline lock: 20 gauge in right antecubital area, using aseptic technique. Blood collected. Flushed with 10 mL NS. 21:38 Extrem Venous W Compression Gabriel US In Process Unspecified. EDMS 21:50 XRAY Chest (1 view) In Process Unspecified. EDMS 22:32 Provided Education on: wait time on results. al5 22:32 No provider procedures requiring assistance completed. al5 02/10 00:28 Cuco Johnson MD is Hospitalizing Provider. sp4 00:30 Patient admitted, IV remains in place. al5 Administered Medications: 02/09 21:37 Drug: Albumin IVPB 25 grams 100 ml IVPB once; (Note: Albumin 25% concentration) Volume: cm10 100 ml; Route: IVPB; Site: right antecubital; 22:28 Follow up: Response: No adverse reaction; IV Status: Completed infusion; IV Intake: al5 100ml 02/10 01:31 Drug: Furosemide IVP 20 mg IVP once; give over 2 minutes Route: IVP; Site: right al5 antecubital; 01:32 Follow up: Response: No adverse reaction; No adverse reaction; medication given upon al5 admission 01:31 Drug: tiZANidine PO 2 mg PO once Route: PO; al5 01:32 Follow up: Response: No adverse reaction; No adverse reaction; home med patient takes al5 for insomnia 01:32 Drug: hydrOXYzine PO 25 mg PO once Route: PO; al5 01:33 Follow up: Response: No adverse reaction; No adverse reaction; home med patient takes al5 for insomnia 01:32 Drug: ALPRAZolam PO Tablet 0.25 mg PO once Route: PO; al5 01:32 Follow up: Response: No adverse reaction; No adverse reaction; home meds patient takes al5 for insomnia Medication: 02/09 20:54 VIS not applicable for this client. cm10 Intake: 22:28 IV: 100ml; Total: 100ml. al5 Outcome: 02/10 00:29 Decision to Hospitalize by Provider. sp4 00:30 Admitted to ER Hold. Please see [facility] for further documentation. al5 00:30 Condition: stable 00:30 Instructed on the need for admit, 12:31 Patient left the ED. aa5 Signatures: Dispatcher [employer] Sima Tyler RN RN aa5 Vinnie Nelson MD MD sp4 Tori Novak Clarissa RN RN cm10 Barbara Bonilla RN RN al5 Corrections: (The following items were deleted from the chart) 01:33 01:32 Response: No adverse reaction al5 al5
--- NOTE | 2025-02-10 00:29 | EDPHYS ---
Physician Documentation [facility] Name: Danielle Grover Age: 79 yrs Sex: Female : 1945 Arrival Date: 02/09/2025 Time: 20:16 Bed 17 Private MD: ED Physician Vinnie Nelson HPI: 02/09 20:31 This 79 yrs old Female presents to ER via Unassigned with complaints of Leg sp4 Swelling, Breathing Difficulty. 02/10 00:21 79-year-old female presents with worsening dyspnea and bilateral lower extremity edema. sp4 Patient's medications include ethambutol 400 mg once a day, rifampin 300 mg once a day, azithromycin 250 mg p.o., for MAC complex. Additional medications include benzonatate p.o. 3 times daily, ezetimibe 10 mg daily, folic acid 1 mg daily, latanoprost daily, levothyroxine 25 mcg daily, ondansetron 8 mg 3 times daily as needed, pravastatin 10 mg daily, tizanidine 2 mg bedtime, carvedilol 6.25 mg twice daily, cyclosporine daily, estradiol weekly, hydroxyzine as needed, apixaban 5 mg p.o. twice daily, cefuroxime 250 mg p.o. twice daily, Ensure twice daily, sotalol 40 mg twice daily, spironolactone 25 mg daily. Last admission 01/28/2025 for right upper lobe cavitary lesion, MAC infection, bronchoscopy, CHF, hyponatremia, protein calorie malnutrition, GERD, hyperlipidemia, hypothyroidism, osteoporosis, rheumatoid arthritis, lymphoma, diverticulitis, new onset atrial fibrillation.. Historical: - Allergies: 02/09 20:32 Codeine; al5 - Home Meds: 20:32 Coreg Oral [Active]; Enbrel 50 mg/mL (1 mL) subcutaneous syrg 1 mL once wkly [Active]; al5 Methotrexate (Anti-Rheumatic) 2.5 mg Oral DsPk 2 tabs once wkly [Active]; Folic Acid Oral [Active]; Nexium Oral [Active]; potassium chloride 10 mEq Oral cpER 1 cap once daily [Active]; Rheumatrex Oral [Active]; - PMHx: 20:32 CHF; GERD; Hypercholesterolemia; Hypothyroidism; Mycobacterium Avium Complex (MAC) al5 Infection; Rheumatoid Arthritis; - PSHx: 20:32 hysterectomy; al5 - Immunization history:: Adult Immunizations up to date. - Infectious Disease History:: Denies. - Social history:: Smoking status: Patient denies any tobacco usage or history of. - Family history:: not pertinent. ROS: 02/10 00:24 Constitutional: Negative for fever, chills, and weight loss, positive for generalized sp4 weakness, positive for shortness of breath, positive for bilateral leg edema. All other systems are negative, Exam: 00:24 Constitutional: Frail elderly female, with signs of physical deconditioning, bilateral sp4 lower extremity edema with pitting. JVD Head/Face: Normocephalic, atraumatic. Eyes: Pupils equal round and reactive to light, extra-ocular motions intact. Lids and lashes normal. Conjunctiva and sclera are not injected. Cornea within normal limits. Periorbital areas with no swelling, redness, or edema. ENT: Nares patent. No nasal discharge, no septal abnormalities noted. Tympanic membranes are normal and external auditory canals are clear. Oropharynx with no redness, swelling, or masses, exudates, or evidence of obstruction, uvula midline. Mucous membranes moist. Neck: Trachea midline, no thyromegaly or masses palpated, and no cervical lymphadenopathy. Supple, full range of motion without nuchal rigidity, or vertebral point tenderness. Chest/axilla: Normal chest wall appearance and motion. Nontender with no deformity. No lesions are appreciated. Cardiovascular: Regular rate and rhythm with a normal S1 and S2. No gallops, murmurs, or rubs. Normal PMI, positive JVD no pulse deficits. Respiratory: Lungs have equal breath sounds bilaterally, clear to auscultation and percussion. No rales, rhonchi or wheezes noted. No increased work of breathing, no retractions or nasal flaring. Abdomen/GI: Soft, with normal bowel sounds. No distension or tympany. No guarding or rebound. No evidence of tenderness throughout. Back: No spinal tenderness. No costovertebral tenderness. Skin: Warm, dry with normal turgor. Normal color with no rashes, no lesions, and no evidence of cellulitis. MS/ Extremity: Pulses equal, no cyanosis. Neurovascular intact. Full, normal range of motion. Bilateral lower extremity edema with pitting Neuro: Awake and alert, GCS 15, oriented to person, place, time, and situation. Cranial nerves II-XII grossly intact. Motor strength 5/5 in all extremities. Sensory grossly intact. Psych: Awake, alert, with orientation to person, place and time. Behavior, mood, and affect are within normal limits 00:24 ECG was reviewed by the Attending Physician. EKG at 2040 sinus rhythm rate 97, left atrial enlargement, prolonged QT. Vital Signs: 02/09 20:25 BP 134 / 78; Pulse 98; Resp 16; Temp 97.5; Pulse Ox 99% on R/A; Weight 39.92 kg; Height al5 4 ft. 11 in. ; 21:30 BP 139 / 75; Pulse 98; Resp 17; Pulse Ox 97% ; cm10 22:15 BP 132 / 73; Pulse 96; Resp 20; Pulse Ox 97% on R/A; al5 22:30 BP 135 / 70; Pulse 92; Resp 20; Pulse Ox 97% on R/A; al5 23:00 BP 136 / 77; Pulse 94; Resp 19; Pulse Ox 98% on 2 lpm NC; al5 23:30 BP 138 / 67; Pulse 96; Resp 18; Pulse Ox 98% on 2 lpm NC; al5 02/10 00:00 BP 142 / 74; Pulse 93; Resp 20; Pulse Ox 100% on 2 lpm NC; al5 00:30 BP 134 / 70; Pulse 95; Resp 24; Pulse Ox 100% on 2 lpm NC; al5 02/09 20:25 Body Mass Index 17.77 (39.92 kg, 149.86 cm) al5 Amity Coma Score: 00:24 Eye Response: spontaneous(4). Motor Response: obeys commands(6). Verbal Response: sp4 oriented(5). Total: 15. MDM: 02/09 20:32 Medical Screening Exam initiated sp4 02/10 00:17 ED course: CLINICAL INDICATION: Female, 79 years old.,CHEST PAIN TECHNIQUE: Frontal sp4 chest projection is submitted. Examination is limited by patient positioning and technique. COMPARISON: 02/05/2025 FINDINGS: Stable patchy airspace opacities in the upper to mid lungs bilaterally more pronounced on the left, with some scarring within the right opacity. Layering small pleural effusions and underlying airspace opacification, also stable. Underlying pneumonia cannot be excluded. Background hyperlucency. No pneumothorax. The heart is normal in size. Mediastinal contours are unremarkable. IMPRESSION: Essentially stable findings as above.. ED course: CLINICAL INDICATION: [facility] bilateral leg swelling Bed Name: 7 N TECHNIQUE: Complete bilateral duplex sonography of the BILATERAL lower extremity veins was performed. The examination included compression for vein patency, color Doppler imaging and flow augmentation in response to distal compression of the distal external iliac, common femoral, femoral, popliteal, tibial, and great and small saphenous veins. COMPARISON: 07/21/2020 FINDINGS: Duplex sonography testing of the veins of the BILATERAL lower extremity was performed. Color flow imaging shows all veins to be compressible with [id number] color filling. Pulsatile and phasic flow is present within all lower extremity deep and superficial veins examined. IMPRESSION: There is no deep vein or superficial vein thrombosis. . 00:27 Differential diagnosis: Anemia Anxiety Reaction asthma, Bronchitis CHF exacerbation, sp4 Chronic Obstructive Pulmonary Disease pneumonia, Pneumothorax. Data reviewed: vital signs, nurses notes, lab test result(s), EKG, radiologic studies, plain films, ultrasound. Consideration of Admission/Observation Patient was admitted/placed on observation. Escalation of care including admission/observation considered. Management of patient was discussed with the following: Hospitalist: Alex TELLEZ . 02/09 20:58 Order name: Basic Metabolic Panel; Complete Time: 00:4 02/09 20:58 Order name: CBC with Diff; Complete Time: 00:4 02/09 20:58 Order name: LFT's; Complete Time: 00:4 02/09 20:58 Order name: Magnesium; Complete Time: 00:4 02/09 20:58 Order name: NT PRO-BNP; Complete Time: 00:4 02/09 20:58 Order name: PT-INR; Complete Time: 00:4 02/09 20:58 Order name: Troponin HS; Complete Time: 00:4 02/09 20:59 Order name: TSH; Complete Time: 00:4 02/09 20:59 Order name: T4 Free; Complete Time: 00:4 02/10 00:45 Order name: Urinalysis w/ reflexes EDMS 02/10 00:45 Order name: CBC with Automated Diff EDMS 02/10 00:45 Order name: CBC with Automated Diff EDMS 02/10 00:45 Order name: Comprehensive Metabolic Panel EDOH 02/10 00:45 Order name: Comprehensive Metabolic Panel EDOH 02/09 20:58 Order name: XRAY Chest (1 view); Complete Time: 00:13 sp4 02/09 20:59 Order name: Extrem Venous W Compression Gabriel US; Complete Time: 00:13 sp4 02/09 20:58 Order name: EKG; Complete Time: 20:58 sp4 02/09 20:58 Order name: Cardiac monitoring; Complete Time: 20:58 sp4 02/09 20:58 Order name: EKG - Nurse/Tech; Complete Time: 20:58 sp4 02/09 20:58 Order name: IV Saline Lock; Complete Time: 20:58 sp4 02/09 20:58 Order name: Labs collected and sent; Complete Time: 20:58 sp4 02/09 20:58 Order name: O2 Per Protocol; Complete Time: 20:58 sp4 02/09 20:58 Order name: O2 Sat Monitoring; Complete Time: 20:58 sp4 EC/12 20:41 Rate is 97 beats/min. Rhythm is regular, Normal Sinus Rhythm. QRS [place] is Normal. SC sp4 interval is normal. QRS interval is prolonged. QT interval is prolonged. No Q waves. T waves are Normal. No ST changes noted. Clinical impression: No evidence of ischemia. Interpreted by me. Reviewed by me. Administered Medications: 21:37 Drug: Albumin IVPB 25 grams 100 ml IVPB once; (Note: Albumin 25% concentration) Volume: cm10 100 ml; Route: IVPB; Site: right antecubital; 22:28 Follow up: Response: No adverse reaction; IV Status: Completed infusion; IV Intake: al5 100ml 02/10 01:31 Drug: Furosemide IVP 20 mg IVP once; give over 2 minutes Route: IVP; Site: right al5 antecubital; 01:32 Follow up: Response: No adverse reaction; No adverse reaction; medication given upon al5 admission 01:31 Drug: tiZANidine PO 2 mg PO once Route: PO; al5 01:32 Follow up: Response: No adverse reaction; No adverse reaction; home med patient takes al5 for insomnia 01:32 Drug: hydrOXYzine PO 25 mg PO once Route: PO; al5 01:33 Follow up: Response: No adverse reaction; No adverse reaction; home med patient takes al5 for insomnia 01:32 Drug: ALPRAZolam PO Tablet 0.25 mg PO once Route: PO; al5 01:32 Follow up: Response: No adverse reaction; No adverse reaction; home meds patient takes al5 for insomnia Disposition Summary: 02/10/25 00:29 Hospitalization Ordered Notes: Hospitalization Status: Inpatient Admission sp4 Provider: Cuco Johnson sp4 Condition: Stable sp4 Problem: new sp4 Symptoms: have improved sp4 Bed/Room Type: Standard sp4 Location: Telemetry/MedSurg (Inpatient)(02/10/25 11:35) [facility] Room Assignment: [facility](02/10/25 11:35) [facility] Diagnosis - Acute diastolic (congestive) heart failure sp4 - Edema, unspecified sp4 - Acute hyponatremia, generalized weakness. sp4 Forms: - Medication Reconciliation Form sp4 - SBAR form sp4 - Leadership Thank You Letter sp4 Signatures: Dispatcher [employer] EDJacqueline Morillo [facility] Vinnie Nelson MD MD sp4 Cheri Christianson RN RN cm10 Marie Leigh [facility] Barbara Bonilla RN RN al5 Corrections: (The following items were deleted from the chart) 01:31 00:29 Telemetry/MedSurg (Inpatient) sp4 kmf 01:31 00:29 sp4 kmf 11:35 01:31 [facility] ER HOLD kmf bc6 11:35 01:31 ERHOLD- kmf 6
[2025-02-10] MEDS ORDERED: ALBUTEROL 2.5 MG/3 ML NEB SOL NEB PRN ×2 (00:40→18:59)
--- NOTE | 2025-02-10 00:41 | P.HP ---
Certification for Inpatient Patient admitted to: Inpatient With expected LOS: >2 Midnights Practitioner: I am a practitioner with admitting privileges, knowledge of patient current condition, hospital course, and medical plan of care. 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 Shortness of breath has been progressively getting worse over the last few days associated with lower extremity swelling. Patient is getting more and more short of breath even with minimal exertions. Denies any chest pain. No fever or chills. No nausea vomiting or diarrhea. Patient is on MAC complex infections regime with ethambutol and rifampin along with azithromycin and has been followed by Dr. Telles Patient was assessed in the ER and is admitted for further management of CHF exacerbation Allergies codeine Allergy (Mild, Verified 01/31/16 14:39) Rash Home medications list reviewed: Yes Home Medications: Azithromycin Tab [Zithromax*] 250 mg PO DAILY 01/29/25 Benzonatate 100 mg PO TID PRN 01/29/25 Ethambutol HCl 400 mg PO DAILY 01/29/25 Ezetimibe [Zetia*] 10 mg PO DAILY 01/29/25 Folic Acid 1 mg PO DAILY 01/29/25 Latanoprost 2.5 ml RIGHT EYE DAILY 01/29/25 Levothyroxine [Synthroid*] 25 mcg PO [id number] 01/29/25 Neomycin/Polymyxin B Sulf/Hc [Sfkhukqi-Snnaxsfja-Vz Ear Susp] 4 gtt LEFT EAR BID PRN 01/29/25 Ondansetron HCl 8 mg PO TID PRN 01/29/25 Pravastatin Sodium 10 mg PO EVERY 3RD DAY 01/29/25 Tizanidine HCl 2 mg PO BEDTIME 01/29/25 carvediloL [Carvedilol] 6.25 mg PO BID 01/29/25 cycloSPORINE [Restasis] 1 drop EACH EYE BID 01/29/25 estradioL [Estradiol (Twice Weekly)] 1 each TD T,TH,S 01/29/25 hydrOXYzine HCL [Atarax*] 25 mg PO DAILY 01/29/25 rifAMPin [Rifampin] 300 mg PO DAILY 01/29/25 Apixaban [Eliquis] 5 mg PO BID #60 tab 02/05/25 Cefuroxime [Ceftin*] 250 mg PO BID 10 Days #20 tab 02/05/25 Ensure Enlive 237 ml PO BID #60 can 02/05/25 Sotalol HCl [Betapace AF] 40 mg PO BID #30 tab 02/05/25 Spironolactone 25 mg PO DAILY 30 Days #30 tab 02/05/25 - Past Medical/Surgical History Diabetic: No Past Medical History: Reviewed- Non-Contributory -: Rheumatoid Arthritis -: HLD -: Systolic CHF -: GERD -: MAC infection Past Surgical History: Reviewed- Non-Contributory -: Right hip replacement 2011 -: Foot Surgery -: Cataract surgery x2 in May 2015 -: Hysterectomy -: Mastoidectomy to left ear Psychosocial/ Personal History: Patient is . - Family History Mother -: Cancer, Other (see notes) Notes: Hyperthyroidism; Dementia Father -: Hypertension, Stroke Notes: Pt's father at age 49 - Social History Smoking Status: Former smoker Alcohol use: No CD- Drugs: No Caffeine use: Yes Review of Systems 10-point ROS is otherwise unremarkable Physical Examination - Vital Signs Temperature: 97.8 F Blood Pressure: 128/78 Pulse: 76 Respirations: 18 Pulse Ox (%): 94 - Physical Exam General: Alert, Oriented x3, Cachectic, Moderate distress HEENT: Atraumatic, Normocephalic Neck: Supple, No LAD Respiratory: Diminished, Crackles/rales Cardiovascular: Regular rate/rhythm, Normal S1 S2 Capillary refill: <2 Seconds Gastrointestinal: Soft and benign, W/out hepatosplenomegaly Musculoskeletal: No clubbing, Swelling Integumentary: No rashes Neurological: Normal speech, Normal strength at 5/5 x4 extr, Cranial nerves 3-12 intact, Normal reflexes 2+ Lymphatics: No axilla or inguinal lymphadenopathy - Studies Laboratory Data (last 24 hrs) 02/09/25 02/09/25 02/09/25 21:01 21:01 21:01 WBC 12.00 H Hgb 12.8 Hct 37.8 Plt Count 459 H PT 17.3 H INR 1.55 Sodium 129 L Potassium 3.8 BUN 14 Creatinine 0.78 Glucose 113 H Magnesium 1.8 Total Bilirubin 0.9 AST 68 H ALT 158 H Alkaline Phosphatase 121 H Assessment and Plan - Plan Acute on chronic CHF systolic Monitor closely on telemetry Started on aggressive diuresis X-ray findings noted Continue home medications Titrate as needed Last echo (01/31): 40-45% EF with mild global hypokinesis. Moderate MR. mild TR. Normal filling pressure Acute hypoxic respiratory failure Oxygen supplementation Will try to wean down oxygen requirement Hyponatremia Electrolytes monitor and replace accordingly Elevated LFTs Monitor LFTs closely Hypothyroidism TSH level noted elevated to 7.67 Increase Synthroid dosage History of MAC infection Continue home medications and titrate as needed Severe protein calorie malnutrition Nutritional consult GI/DVT prophylaxis Advanced directive full code Discharge Plan: Home Plan to discharge in: 48 Hours - Advance Directives Does patient have a Living Will: No Does patient have a Durable POA for Healthcare: No - Code Status/Comfort Care Code Status: Full Code Time Spent Managing Pts Care (In Minutes): 48
[2025-02-10] MEDS: TIZANIDINE 4 MG TABLET ONE (00:55)
[2025-02-10] MEDS ORDERED: hydrOXYzine HCL 25 MG TAB ONE (00:59)
[2025-02-10] MEDS ORDERED: ALPRAZOLAM 0.25 MG TABLET ONE (00:59)
[2025-02-10] MEDS ORDERED: FUROSEMIDE 20 MG/ 2ML VIAL ONE (00:59)
[2025-02-10] MEDS: APIXABAN 5 MG TABLET PO SCH (09:00)
[2025-02-10] MEDS: SPIRONOLACTONE 25 MG TABLET PO SCH (09:00)
[2025-02-10] MEDS: carvediloL 6.25 MG TAB PO SCH (09:00)
[2025-02-10] MEDS ORDERED: FUROSEMIDE 40 MG/4 ML VIAL IV SCH ×2 (09:00)
[2025-02-10] MEDS: AZITHROMYCIN 250 MG TAB PO SCH (09:00)
[2025-02-10] MEDS: FUROSEMIDE 40 MG/4 ML VIAL IV SCH (09:00)
[2025-02-10] MEDS ORDERED: ENOXAPARIN 40 MG/0.4 ML SQ SCH (09:00)
[2025-02-10] MEDS ORDERED: carvediloL 6.25 MG TAB ONE (09:56)
[2025-02-10] MEDS ORDERED: AZITHROMYCIN 250 MG TAB ONE (09:56)
[2025-02-10] MEDS ORDERED: APIXABAN 5 MG TABLET ONE (09:56)
[2025-02-10] MEDS ORDERED: FUROSEMIDE 40 MG/4 ML VIAL ONE (09:56)
[2025-02-10] MEDS: levoFLOXacin 500 MG TAB PO SCH (13:35)
[2025-02-10] MEDS: ACETAMINOPHEN 325 MG TABLET PO PRN (17:25)
[2025-02-10] MEDS: ROPINIROLE HCL 0.25 MG TAB PO ONE (19:13)
[2025-02-10] MEDS: Magnesium Sulfate 2gm IVPB 2 G/50 ML BAG IV ONE (21:20)
[2025-02-10] MEDS: hydrOXYzine HCL 25 MG TAB PO ONE ×2 (21:28→22:18)
[2025-02-10] MEDS: TIZANIDINE 4 MG TABLET PO SCH (22:18)
[2025-02-11 06:03] LABS: Absolute Basophils 0.2 K/uL (0-0.5); Absolute Eosinophils 0.3 K/uL (0-0.5); Absolute Lymphocytes (CBC) 1.4 K/uL (0.7-4.9); Absolute Monocytes 0.8 K/uL (0.1-1.3); Absolute Neutrophil 6.7 K/uL (1.8-8.0); Basophils % 1.7 % (0-1.3); Eosinophils % 3.3 % (0-4.4); Hemoglobin 11.5 g/dL (12.0-15.0); Lymphocytes % 14.9 % (15.3-44.8); MCH 27.8 pg (27.0-35.0); MCHC 33.8 g/dL (32.0-36.0); MCV 82.2 fL (80-100); MPV 7.8 fL (7.6-11.3); Monocytes % 8.6 % (3.3-12.3); Neutrophils % 71.5 % (41.7-73.7); Nucleated Red Blood Cells % 0.1 % (0-0); Platelets 359 thou/uL (152-406); RBC Red Blood Cell Count 4.14 M/uL (3.86-4.86); Red Cell Distribution Width 15.6 % (12.1-15.2)
[2025-02-11 06:23] LABS: Albumin 2.6 g/dL (3.4-5.0); Albumin/Globulin Ratio 0.9 (1.1-1.8); Anion Gap 8.9 mEq/L (5.0-15.0); Bilirubin Total 0.8 mg/dL (0.2-1.0); Potassium 2.9 mEq/L (3.5-5.1); Protein, Total 5.6 g/dL (6.4-8.2)
[2025-02-11] MEDS: KCL 20 MEQ/100 mL IVPB 20 MEQ/100 ML BAG IV SCH (08:32)
[2025-02-11] MEDS: POTASSIUM CL SA 10 MEQ TAB PO SCH ×2 (09:48→21:25)
--- NOTE | 2025-02-11 09:55 | P.PN ---
Subjective Date of Service: 02/11/25 Chief Complaint: Pneumonia Subjective: Improving (Pain is improving doing better no new complaints) Review of Systems Unremarkable General: Weakness Physical Examination - Vital Signs Temperature: 97.6 F Blood Pressure: 120/60 Pulse: 86 Respirations: 15 Pulse Ox (%): 98 - Physical Exam General: Alert, Oriented x3 Respiratory: Clear to auscultation bilaterally Cardiovascular: No edema, Regular rate/rhythm, Normal S1 S2 Gastrointestinal: Normal bowel sounds, Soft and benign Assessment And Plan - Current Problems (Diagnosis) (1) Pneumonia Current Visit: Yes Status: Acute Plan: Patient is 79 years of age admitted with left upper lobe pneumonia was readmitted back again started on levofloxacin patient developed abnormal liver function test I suspect is from the TB medications which have not been stopped her liver liver function test is back to normal patient is hypokalemic changed to p.o. 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
[2025-02-11] MEDS: NA CHLORIDE 0.9% 1,000 ML IV SCH (10:15)
[2025-02-11] MEDS: POTASSIUM CL SA 10 MEQ TAB PO ONE (10:15)
--- NOTE | 2025-02-11 14:24 | P.CNS ---
Date of Consult: 02/11/25 Chief Complaint: Pneumonia History of Present Illness: Patient with PMH of atrial fibrillation, chronic combined heart failure, MAC presented with worsening BLE, SOB, denies chest pain, no palpitations, no syncope. Allergies codeine Allergy (Mild, Verified 01/31/16 14:39) Rash Home medications list reviewed: Yes Home Medications: Azithromycin Tab [Zithromax*] 250 mg PO DAILY 01/29/25 Benzonatate 100 mg PO TID PRN 01/29/25 Ethambutol HCl 400 mg PO DAILY 01/29/25 Ezetimibe [Zetia*] 10 mg PO DAILY 01/29/25 Folic Acid 1 mg PO DAILY 01/29/25 Latanoprost 2.5 ml RIGHT EYE DAILY 01/29/25 Levothyroxine [Synthroid*] 25 mcg PO [id number] 01/29/25 Neomycin/Polymyxin B Sulf/Hc [Vfcbhfje-Bghstddxf-Qi Ear Susp] 4 gtt LEFT EAR BID PRN 01/29/25 Ondansetron HCl 8 mg PO TID PRN 01/29/25 Pravastatin Sodium 10 mg PO EVERY 3RD DAY 01/29/25 Tizanidine HCl 2 mg PO BEDTIME 01/29/25 carvediloL [Carvedilol] 6.25 mg PO BID 01/29/25 cycloSPORINE [Restasis] 1 drop EACH EYE BID 01/29/25 estradioL [Estradiol (Twice Weekly)] 1 each TD T,TH,S 01/29/25 hydrOXYzine HCL [Atarax*] 25 mg PO DAILY 01/29/25 rifAMPin [Rifampin] 300 mg PO DAILY 01/29/25 Apixaban [Eliquis] 5 mg PO BID #60 tab 02/05/25 Cefuroxime [Ceftin*] 250 mg PO BID 10 Days #20 tab 02/05/25 Sotalol HCl [Betapace AF] 40 mg PO BID #30 tab 02/05/25 Spironolactone 25 mg PO DAILY 30 Days #30 tab 02/05/25 - Past Medical/Surgical History Diabetic: No -: Rheumatoid Arthritis -: HLD -: Systolic CHF -: GERD -: MAC infection -: Right hip replacement 2011 -: Foot Surgery -: Cataract surgery x2 in May 2015 -: Hysterectomy -: Mastoidectomy to left ear Psychosocial/ Personal History: Patient is . - Family History Mother Medical History: Cancer, Other (see notes) Notes: Hyperthyroidism; Dementia Father Medical History: Hypertension, Stroke Notes: Pt's father at age 49 - Social History Alcohol use: No CD- Drugs: No Caffeine use: Yes Place of Residence: Home Review of Systems 10-point ROS is otherwise unremarkable Physical Examination Temp Pulse Resp BP Pulse Ox 97.8 F 90 15 101/52 L 100 02/11/25 11:38 02/11/25 11:38 02/11/25 11:38 02/11/25 11:38 02/11/25 11:38 General: Alert, In no apparent distress HEENT: Atraumatic, PERRLA, Mucous membr. moist/pink, EOMI, Sclerae nonicteric Neck: Supple, 2+ carotid pulse no bruit, No LAD, Without JVD or thyroid abnormality Respiratory: Clear to auscultation bilaterally, Normal air movement Cardiovascular: Regular rate/rhythm, Normal S1 S2 Gastrointestinal: Normal bowel sounds, No tenderness Musculoskeletal: No tenderness Integumentary: No rashes Neurological: Normal gait, Normal speech, Normal tone, Normal affect Lymphatics: No axilla or inguinal lymphadenopathy - Problems (1) Atrial fibrillation Current Visit: No Status: Acute Plan: continue Sotalol 40 mg po BID Continue Eliquis 5 mg po BID continue to monitor on tele (2) Chronic congestive heart failure with left ventricular diastolic dysfunction Current Visit: No Status: Acute Plan: Patient looks euvolemic on exam, but she mention and her that she had leg swelling but it improved with lasix would recommend to continue lasix home dose continue aldactone 25 mg daily continue coreg
[2025-02-11] MEDS: GABAPENTIN 100 MG CAP PO PRN (14:35)
--- NOTE | 2025-02-11 14:44 | EKG ---
Test Date: 2025-02-09 Test Time: 20:41:29 Circulation Man: NING MEASUREMENT RESULTS: Intervals: Rate: 97 [place]: 146 QRSD: 96 QT: 394 QTc: 500 [place]: P: 75 [place]: 146 QRS: -49 T: 93 INTERPRETIVE STATEMENTS: Sinus rhythm with premature supraventricular complexes Possible Left atrial enlargement Incomplete right bundle branch block Left anterior fascicular block Abnormal QRS-T angle, consider primary T wave abnormality Prolonged QT Abnormal ECG Compared to ECG 02/05/2025 10:28:14 Atrial premature complex(es) now present Incomplete right bundle-branch block now present Electronically Signed On 02-11-25 14:41:14 CDT by Chi Payne
[2025-02-11] MEDS: SOTALOL HCL 80 MG TAB PO SCH (17:02)
[2025-02-11] MEDS ORDERED: TIZANIDINE 4 MG TABLET PO SCH (21:00)
[2025-02-12 05:54] LABS: Albumin 2.6 g/dL (3.4-5.0); Albumin/Globulin Ratio 0.8 (1.1-1.8); Anion Gap 9.4 mEq/L (5.0-15.0); Bilirubin Total 0.6 mg/dL (0.2-1.0); Globulin 3.2 g/dL (2.3-3.5); Potassium 4.4 mEq/L (3.5-5.1); Protein, Total 5.8 g/dL (6.4-8.2)
[2025-02-12] MEDS ORDERED: LACTULOSE 20 GM/30 ML UCUP PO PRN (09:02)
--- NOTE | 2025-02-12 10:15 | RAD REPORT ---
EXAMINATION: ONE VIEW CHEST XR CLINICAL INDICATION: pneumonia TECHNIQUE: Frontal chest projection is submitted. Examination is limited by patient positioning and t echnique. COMPARISON: 02/09/2025 FINDINGS: Prominent COPD. Poorly defined left suprahilar lung opacity and [id number] right upper lobe tee g opacities have mildly progressed since the comparative radiograph. The heart is mildly enlarged in size. Right shoulder arthroplasty. Small to moderate bilateral pleural effusions. IMPRESSION: Prominent COPD with mild progression in bilateral upper lobe poorly defined lung opacities.
--- NOTE | 2025-02-12 10:23 | RAD REPORT ---
EXAM: XR of the abdomen HISTORY: Abdominal pain Abdominal pain COMPARISON: None FINDINGS: XR of the abdomen shows a nonspecific, nonobstructive bowel gas pattern. A generalized pauc ity of bowel gas noted. Vague sclerosis projects over the right iliac wing unclear etiology. Right total hip arthroplasty. Bilateral pleural effusions with atelectasis in the right lung base. IMPRESSION: There is a paucity of bowel gas, otherwise negative study.
--- NOTE | 2025-02-12 11:05 | P.PN ---
Subjective Date of Service: 02/12/25 Chief Complaint: Pneumonia Patient is complaining of his stomach upset apparently is constipated denies any fever or chills Review of Systems General: Weakness Respiratory: Shortness of Breath Physical Examination - Vital Signs Temperature: 97.5 F Blood Pressure: 125/71 Pulse: 85 Respirations: 13 Pulse Ox (%): 97 - Physical Exam General: Alert, In no apparent distress, Oriented x3 Respiratory: Clear to auscultation bilaterally Cardiovascular: No edema, Regular rate/rhythm, Normal S1 S2 Assessment And Plan - Current Problems (Diagnosis) (1) Pneumonia Current Visit: Yes Status: Acute Plan: Patient admitted with left upper lobe pneumonia function tests are now normal added on levofloxacin chest x-ray bilateral pleural effusions continue with Aldactone labs chemistries reviewed white count has declined to normal will add some lactulose Qualifiers: Laterality: left Lung location: upper lobe of lung (2) CHF exacerbation Onset Date: 02/01/16 Current Visit: No Status: Acute Plan: Patient has congestive heart failure continue with spironolactone also has A-fib continue with sotalol Coreg patient has systolic congestive heart failure Qualifiers: Heart failure type: systolic Qualified Code(s): I50.23 - Acute on chronic systolic (congestive) heart failure
[2025-02-13] MEDS: NOREPINEPHRINE BITARTRATE/D5W 4 MG/250 ML KIT IV ONE (01:15)
[2025-02-13] MEDS: ONDANSETRON 4 MG/2 ML VIAL IV PRN (01:22)
[2025-02-13] MEDS: NOREPINEPHRINE 4 MG in D5W 250 ML IV SCH (01:28)
[2025-02-13 01:29] LABS: Absolute Basophils 0.4 K/uL (0-0.5); Absolute Eosinophils 0.1 K/uL (0-0.5); Absolute Lymphocytes (CBC) 4.4 K/uL (0.7-4.9); Absolute Monocytes 1.7 K/uL (0.1-1.3); Basophils % 2.2 % (0-1.3); Eosinophils % 0.6 % (0-4.4); Hematocrit 36.7 % (36.0-45.0); Hemoglobin 11.8 g/dL (12.0-15.0); MCH 26.8 pg (27.0-35.0); MCHC 32.1 g/dL (32.0-36.0); MCV 83.4 fL (80-100); MPV 8.1 fL (7.6-11.3); Monocytes % 9.7 % (3.3-12.3); Neutrophils % 62.5 % (41.7-73.7); Nucleated Red Blood Cells % 0.1 % (0-0); Platelets 383 thou/uL (152-406); Red Cell Distribution Width 16.1 % (12.1-15.2)
[2025-02-13] MEDS: MORPHINE 2 MG/ML SYR IV ONE (01:45)
[2025-02-13 01:56] LABS: Albumin 2.5 g/dL (3.4-5.0); Albumin/Globulin Ratio 0.7 (1.1-1.8); Anion Gap 11.4 mEq/L (5.0-15.0); Bilirubin Total 0.6 mg/dL (0.2-1.0); Globulin 3.4 g/dL (2.3-3.5); Protein, Total 5.9 g/dL (6.4-8.2); Troponin High Sensitivity 24.4 pg/mL (<58.9)
[2025-02-13] MEDS: SODIUM BICARB 50 MEQ/50ML VIAL ONE (01:56)
[2025-02-13 01:59] LABS: Potassium 6.4 mEq/L (3.5-5.1); Thyroid Stimulating Hormone 13.5 uIU/mL (0.358-3.740)
[2025-02-13] MEDS ORDERED: D50W 25 GM/50 ML SYRINGE IV ONE (02:00)
[2025-02-13] MEDS: ALBUTEROL 2.5 MG/3 ML NEB SOL NEB ONE (02:10)
[2025-02-13] MEDS ORDERED: DOPAMINE/D5W 400 MG/250 ML BAG IV SCH (02:15)
[2025-02-13] MEDS: INSULIN REGULAR (HUMAN) 100 UNIT/ML IV ONE (02:19)
[2025-02-13] MEDS: D10W 250 ML IV ONE (02:20)
[2025-02-13] MEDS: LEVOTHYROXINE SODIUM 100 MCG VIAL IV ONE (02:24)
[2025-02-13] MEDS: SODIUM ZIRCONIUM CYCLOSILICATE 10 GM/PKT PO ONE (02:24)
[2025-02-13] MEDS: D50W 25 GM/50 ML SYRINGE IV ONE (02:25)
[2025-02-13 06:30] LABS: Anion Gap 10.3 mEq/L (5.0-15.0); Magnesium 2.1 mg/dL (1.6-2.4); Phosphorus 2.8 mg/dL (2.5-4.9); Potassium 5.3 mEq/L (3.5-5.1)
--- NOTE | 2025-02-13 06:38 | RAD REPORT ---
EXAM: XR Chest, 1 View CLINICAL HISTORY: SOB TECHNIQUE: Frontal view of the chest. COMPARISON: XR Chest dated 02/12/2025 FINDINGS: Lungs: Hyperinflation. Patchy bilateral suprahilar opacities with more confluent bibasilar opacitie s without significant interval change in overall lung aeration. Pleural space: Moderate bilateral pleural effusions similar to the prior. No pneumothorax. Heart: The cardiac silhouette is mildly enlarged, stable, in part accentuated by portable technique . Mediastinum: Unremarkable. Normal mediastinal contour. Bones/joints: Total reverse shoulder arthroplasty hardware on the right. No acute fracture. Vasculature: Thoracic aortic atherosclerosis. IMPRESSION: 1. No significant interval change in overall lung aeration. 2. Persistent bilateral suprahilar and bibasilar infiltrates and moderate bilateral pleural effusio ns. Electronically signed by: Randolph Tolentino MD 02/13/2025 04:10 AM CDT Due to temporary technical issues with the PACS/[employer] reporting system, reports are being anthony d by the in-house radiologist without review as a courtesy to ensure prompt reporting. The interpreting radiologist is fully responsible for the content of the report. Transcribed Date/Time: 02/13/2025 6:37 AM
--- NOTE | 2025-02-13 10:11 | P.PN ---
Subjective Date of Service: 02/13/25 Chief Complaint: Arrhythmia patient in ICU Patient's condition deteriorated last night developed a junctional rhythm and was transferred to the ICU became hypotensive Likely side effect of the medication patient was on sotalol carvedilol and levofloxacin doing much better now low doses of vasopressors denies any abdominal discomfort Review of Systems Unremarkable General: Weakness Physical Examination - Vital Signs Temperature: 97.6 F Blood Pressure: 124/55 Pulse: 79 Respirations: 15 Pulse Ox (%): 100 - Physical Exam General: Alert, Oriented x3 Respiratory: Clear to auscultation bilaterally Cardiovascular: No edema, Regular rate/rhythm, Normal S1 S2 Assessment And Plan - Current Problems (Diagnosis) (1) Pneumonia Current Visit: Yes Status: Acute Plan: Patient's pneumonia appears to be stable white count is elevated Qualifiers: Laterality: left Lung location: upper lobe of lung (2) CHF exacerbation Onset Date: 02/01/16 Current Visit: No Status: Acute Plan: Patient has been in normal sinus rhythm will discontinue sotalol resume Coreg tomorrow morning patient is on Eliquis has been in sinus rhythm disease prolonged may be a combination of sotalol and levofloxacin of discontinued both of them discontinue spironolactone due to hyperkalemia Qualifiers: Heart failure type: systolic Qualified Code(s): I50.23 - Acute on chronic systolic (congestive) heart failure
[2025-02-13 12:02] LABS: Anion Gap 8.4 mEq/L (5.0-15.0); Potassium 5.4 mEq/L (3.5-5.1)
[2025-02-13] MEDS: NOREPINEPHRINE BITARTRATE/D5W 4 MG/250 ML BAG IV SCH (14:54)
--- NOTE | 2025-02-13 15:01 | P.PN ---
Subjective Date of Service: 02/13/25 Chief Complaint: Arrhythmia patient in ICU Subjective: No new changes, No C/O voiced, Tolerating diet, Ambulating, Improving Review of Systems 10-point ROS is otherwise unremarkable Physical Examination - Vital Signs Temperature: 97.6 F Blood Pressure: 96/84 Pulse: 83 Respirations: 20 Pulse Ox (%): 100 - Physical Exam General: Alert, In no apparent distress HEENT: Atraumatic, PERRLA, EOMI Neck: Supple, JVD not distended Respiratory: Clear to auscultation bilaterally, Normal air movement Cardiovascular: Regular rate/rhythm, Normal S1 S2 Gastrointestinal: Normal bowel sounds, No tenderness Musculoskeletal: No tenderness Integumentary: No rashes Neurological: Normal speech, Normal tone, Normal affect Lymphatics: No axilla or inguinal lymphadenopathy - Studies Medications List Reviewed: Yes Assessment And Plan - Current Problems (Diagnosis) (1) Atrial fibrillation Current Visit: No Status: Acute Plan: Patient developed QT prolongation up to 600, was on Sotalol and Levofloxacin, both on hold now, HR is better continue Coreg Continue Eliquis 5 mg po BID continue to monitor on tele (2) Chronic congestive heart failure with left ventricular diastolic dysfunction Current Visit: No Status: Acute Plan: Patient looks euvolemic on exam, but she mention and her that she had leg swelling but it improved with lasix would recommend to continue lasix home dose continue aldactone 25 mg daily continue coreg
[2025-02-13] MEDS ORDERED: NOREPINEPHRINE 4 MG in D5W 250 ML IV SCH (15:30)
--- NOTE | 2025-02-14 00:01 | P.PN ---
Subjective Date of Service: 02/14/25 Physical Examination - Vital Signs Temperature: 98.3 F Blood Pressure: 89/44 Pulse: 70 Respirations: 12 Pulse Ox (%): 100 - Studies Medications List Reviewed: Yes Assessment & Plan - Problems (Diagnosis) (1) Heart failure with mildly reduced ejection fraction (HFmrEF) Current Visit: Yes Status: Acute (2) Atrial fibrillation Current Visit: No Status: Acute (3) Dyspnea Onset Date: 02/01/16 Current Visit: No Status: Acute (4) Underweight (BMI < 18.5) Current Visit: No Status: Acute (5) Hyperkalemia Current Visit: Yes Status: Acute (6) VIANEY (acute kidney injury) Current Visit: Yes Status: Acute (7) Hyponatremia Current Visit: No Status: Acute - Plan Plan: 1. Acute CHF exacerbation/heart failure with mildly reduced ejection fraction; 2. History of atrial fibrillation 3. VIANEY on chronic kidney disease 4. Hyponatremia 5. Hyperkalemia - Advance Directives Does patient have a Living Will: Yes Does patient have a Durable POA for Healthcare: No - Code Status/Comfort Care Code Status: Full Code
[2025-02-14 02:04] VITALS: BMI 18.1
[2025-02-14 05:44] LABS: Absolute Basophils 0.1 K/uL (0-0.5); Absolute Eosinophils 0.3 K/uL (0-0.5); Absolute Lymphocytes (CBC) 1.5 K/uL (0.7-4.9); Absolute Neutrophil 9.8 K/uL (1.8-8.0); Basophils % 1.1 % (0-1.3); Hematocrit 35.1 % (36.0-45.0); Hemoglobin 11.6 g/dL (12.0-15.0); Lymphocytes % 12.2 % (15.3-44.8); MCHC 33.2 g/dL (32.0-36.0); MCV 84.4 fL (80-100); MPV 7.6 fL (7.6-11.3); Monocytes % 7.6 % (3.3-12.3); Neutrophils % 77.1 % (41.7-73.7); Nucleated Red Blood Cells % 0.1 % (0-0); Platelets 312 thou/uL (152-406); RBC Red Blood Cell Count 4.16 M/uL (3.86-4.86); Red Cell Distribution Width 15.4 % (12.1-15.2)
[2025-02-14 06:02] LABS: Anion Gap 6.4 mEq/L (5.0-15.0); Magnesium 1.9 mg/dL (1.6-2.4); Phosphorus 2.5 mg/dL (2.5-4.9); Potassium 4.4 mEq/L (3.5-5.1)
--- NOTE | 2025-02-14 10:28 | P.PN ---
Subjective Date of Service: 02/14/25 Chief Complaint: Arrhythmia patient in ICU Subjective: No new changes, No C/O voiced, Tolerating diet, Ambulating, Improving Review of Systems 10-point ROS is otherwise unremarkable Physical Examination - Vital Signs Temperature: 98.2 F Blood Pressure: 95/67 Pulse: 85 Respirations: 14 Pulse Ox (%): 100 - Physical Exam General: Alert, In no apparent distress HEENT: Atraumatic, PERRLA, EOMI Neck: Supple, JVD not distended Respiratory: Clear to auscultation bilaterally, Normal air movement Cardiovascular: Regular rate/rhythm, Normal S1 S2 Gastrointestinal: Normal bowel sounds, No tenderness Musculoskeletal: No tenderness Integumentary: No rashes Neurological: Normal speech, Normal tone, Normal affect Lymphatics: No axilla or inguinal lymphadenopathy - Studies Medications List Reviewed: Yes Assessment And Plan - Current Problems (Diagnosis) (1) Atrial fibrillation Current Visit: No Status: Acute Plan: Patient developed QT prolongation up to 600, was on Sotalol and Levofloxacin, both on hold now, HR is better continue Coreg Continue Eliquis 5 mg po BID continue to monitor on tele (2) Chronic congestive heart failure with left ventricular diastolic dysfunction Current Visit: No Status: Acute Plan: Patient looks euvolemic on exam, but she mention and her that she had leg swelling but it improved with lasix would recommend to continue lasix home dose Aldactone stopped due to hyperkalemia continue coreg
[2025-02-14] MEDS: SODIUM CHLORIDE 1 GM TAB PO SCH (12:30)
--- NOTE | 2025-02-14 20:49 | RAD REPORT ---
EXAMINATION: UPPER EXTREMITY VENOUS UNILATE CLINICAL INDICATION: Female, 79 years old.right arm swelling RIGHT TECHNIQUE: Multiplanar grayscale and color Doppler images were obtained in a upper extremity venous ultrasound. Spectral analysis of the Doppler waveforms were performed. COMPARISON: No prior exams FINDINGS: The internal jugular vein, subclavian vein, axillary vein, basilic vein, brachial vein, cephalic vein , radial vein, and ulnar vein were evaluated. . The right cephalic vein was thrombosed and noncompressible. The remaining veins were patent. IMPRESSION: Positive for right cephalic vein thrombosis. THIS REPORT CONTAINS FINDINGS THAT MAY BE CRITICAL TO PATIENT CARE. The emergent findings were commun icated to Ron Rao on 02/14/2025 8:46 PM.
[2025-02-14] MEDS ORDERED: MELATONIN 3 MG TABLET PO PRN (21:24)
[2025-02-15 06:46] LABS: Anion Gap 6.9 mEq/L (5.0-15.0); Magnesium 1.8 mg/dL (1.6-2.4); Phosphorus 2.3 mg/dL (2.5-4.9); Potassium 3.9 mEq/L (3.5-5.1)
[2025-02-15 06:48] LABS: Absolute Basophils 0.1 K/uL (0-0.5); Absolute Eosinophils 0.2 K/uL (0-0.5); Absolute Lymphocytes (CBC) 1.2 K/uL (0.7-4.9); Absolute Monocytes 1.1 K/uL (0.1-1.3); Absolute Neutrophil 8.5 K/uL (1.8-8.0); Basophils % 1.1 % (0-1.3); Eosinophils % 1.4 % (0-4.4); Hematocrit 34.3 % (36.0-45.0); Hemoglobin 11.5 g/dL (12.0-15.0); Lymphocytes % 10.9 % (15.3-44.8); MCH 27.6 pg (27.0-35.0); MCHC 33.6 g/dL (32.0-36.0); MCV 82.1 fL (80-100); MPV 8.7 fL (7.6-11.3); Monocytes % 9.6 % (3.3-12.3); Nucleated Red Blood Cells % 0.2 % (0-0); Platelets 290 thou/uL (152-406); RBC Red Blood Cell Count 4.18 M/uL (3.86-4.86); Red Cell Distribution Width 15.5 % (12.1-15.2)
--- NOTE | 2025-02-15 07:23 | RAD REPORT ---
Procedure: Chest Single View HISTORY: Cough COMPARISON: February 13, 2025 FINDINGS: Bilateral upper lobe opacities and right upper lobe cavitary lesion unchanged Small pleural effusions unchanged. Mild cardiomegaly
[2025-02-15] MEDS: POTASSIUM CL SA 10 MEQ TAB PO ONE (08:00)
[2025-02-15] MEDS: MAGNESIUM SULFATE 1 gm IVPB 1 GM/100 ML BAG IV ONE (08:03)
[2025-02-15] MEDS: BENZONATATE 100 MG CAP PO PRN (08:03)
[2025-02-15] MEDS: POTASS/SODIUM PHOSPHATE 1 PKT POWD.PACK PO SCH (08:20)
--- NOTE | 2025-02-15 10:52 | P.PN ---
Subjective Date of Service: 02/15/25 Chief Complaint: Arrhythmia patient in ICU Subjective: No new changes, No C/O voiced, Tolerating diet, Ambulating, Improving Review of Systems 10-point ROS is otherwise unremarkable Physical Examination - Vital Signs Temperature: 98 F Blood Pressure: 105/56 Pulse: 98 Respirations: 20 Pulse Ox (%): 99 - Physical Exam General: Alert, In no apparent distress HEENT: Atraumatic, PERRLA, EOMI Neck: Supple, JVD not distended Respiratory: Clear to auscultation bilaterally, Normal air movement Cardiovascular: Regular rate/rhythm, Normal S1 S2 Gastrointestinal: Normal bowel sounds, No tenderness Musculoskeletal: No tenderness Integumentary: No rashes Neurological: Normal speech, Normal tone, Normal affect Lymphatics: No axilla or inguinal lymphadenopathy - Studies Medications List Reviewed: Yes Assessment And Plan - Current Problems (Diagnosis) (1) Atrial fibrillation Current Visit: No Status: Acute Plan: Patient developed QT prolongation up to 600, was on Sotalol and Levofloxacin, both on hold now, HR is better continue Coreg Continue Eliquis 5 mg po BID continue to monitor on tele (2) Chronic congestive heart failure with left ventricular diastolic dysfunction Current Visit: No Status: Acute Plan: Patient looks euvolemic on exam, but she mention and her that she had leg swelling but it improved with lasix would recommend to continue lasix home dose Aldactone stopped due to hyperkalemia continue coreg
--- NOTE | 2025-02-15 12:35 | P.PN ---
Subjective Date of Service: 02/15/25 Chief Complaint: Arrhythmia patient in ICU Is doing better had a slight cough today developed cephalic vein thrombosis on the right side no fever or chills no further arrhythmias Review of Systems General: Weakness Respiratory: Cough, Shortness of Breath Physical Examination - Vital Signs Temperature: 98 F Blood Pressure: 105/56 Pulse: 98 Respirations: 20 Pulse Ox (%): 99 - Physical Exam General: Alert, Oriented x3 Respiratory: Clear to auscultation bilaterally Cardiovascular: No edema, Regular rate/rhythm, Normal S1 S2 - Studies Medications List Reviewed: Yes Assessment And Plan - Current Problems (Diagnosis) (1) Pneumonia Current Visit: Yes Status: Acute Plan: Patient has a chronic pneumonia with 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 intolerant to antibiotic left abnormal liver function test on antituberculous therapy tolerant to levofloxacin white count is declining patient is off all antibiotics Qualifiers: Laterality: left Lung location: upper lobe of lung (2) CHF exacerbation Onset Date: 02/01/16 Current Visit: No Status: Acute Plan: Currently stable patient has chronic hyponatremia likely SIADH low urinary sodium may be side effect of the diuretic although patient's TSH is elevated T4 is normal Qualifiers: Heart failure type: systolic Qualified Code(s): I50.23 - Acute on chronic systolic (congestive) heart failure (3) Cephalic vein thrombosis Current Visit: Yes Status: Acute Plan: Patient has cephalic vein thrombosis of the right arm patient is already on anticoagulation elevate right arm
[2025-02-15] MEDS: carvediloL 6.25 MG TAB PO SCH (18:11)
[2025-02-16 06:25] LABS: Anion Gap 7.4 mEq/L (5.0-15.0); Potassium 4.4 mEq/L (3.5-5.1)
[2025-02-16 12:23] VITALS: BP 133/61; TEMP 98.2
[2025-02-16 12:33] VITALS: O2SAT 89
--- NOTE | 2025-02-16 12:43 | EKG ---
Test Date: 2025-02-12 Test Time: 23:39:57 Universal Winding Machine Operator: ALEXANDER MEASUREMENT RESULTS: Intervals: Rate: 43 [place]: QRSD: 100 QT: 600 QTc: 507 [place]: P: [place]: QRS: -68 T: 247 INTERPRETIVE STATEMENTS: Junctional bradycardia Left axis deviation T wave abnormality, consider inferior ischemia T wave abnormality, consider anterolateral ischemia Prolonged QT Abnormal ECG Compared to ECG 02/09/2025 20:41:29 Left-axis deviation now present Possible ischemia now present Sinus rhythm no longer present Atrial premature complex(es) no longer present Incomplete right bundle-branch block no longer present Left anterior fascicular block no longer present T-wave abnormality still present Electronically Signed On 02-16-25 12:31:04 CDT by Chi Payne
--- NOTE | 2025-02-16 12:43 | EKG ---
Test Date: 2025-02-13 Test Time: 00:44:32 Grinder Hand: 15 MEASUREMENT RESULTS: Intervals: Rate: 48 [place]: QRSD: 118 QT: 536 QTc: 478 [place]: P: [place]: QRS: -63 T: 106 INTERPRETIVE STATEMENTS: Junctional rhythm Left axis deviation Septal infarct, age undetermined Abnormal ECG Compared to ECG 02/12/2025 23:39:57 Junctional rhythm now present Myocardial infarct finding now present T-wave abnormality no longer present Possible ischemia no longer present Prolonged QT interval no longer present Electronically Signed On 02-16-25 12:30:55 CDT by Chi Payne
== END 2025-02-16 15:20 | disposition home or self-care (01) | DRG 193 ==
LOC: ER 20:16 → ERHOLD 02-10 00:40 → 2ND 02-10 11:37 → 3RD-ICU 02-13 01:19 → 2ND 02-15 14:16
PROVIDERS: ADMIT Family Medicine; ATTEND Hospitalist
DX: J18.9 Pneumonia, unspecified organism (principal); E43 Unspecified severe protein-calorie malnutrition; I50.23 Acute on chronic systolic (congestive) heart failure; J96.01 Acute respiratory failure with hypoxia; Z68.1 Body mass index [BMI] 19.9 or less, adult; E87.1 Hypo-osmolality and hyponatremia; R64 Cachexia; N17.9 Acute kidney failure, unspecified; I82.611 Acute embolism and thrombosis of superficial veins of right upper extremity; I48.91 Unspecified atrial fibrillation; N18.9 Chronic kidney disease, unspecified; E87.6 Hypokalemia; K21.9 Gastro-esophageal reflux disease without esophagitis; E78.00 Pure hypercholesterolemia, unspecified; M06.9 Rheumatoid arthritis, unspecified; E03.9 Hypothyroidism, unspecified; R79.89 Other specified abnormal findings of blood chemistry; Z88.5 Allergy status to narcotic agent; Z79.02 Long term (current) use of antithrombotics/antiplatelets; Z79.890 Hormone replacement therapy; Z96.641 Presence of right artificial hip joint; Z79.899 Other long term (current) drug therapy; Z87.891 Personal history of nicotine dependence; Z90.710 Acquired absence of both cervix and uterus
CPT/HCPCS: 36415; 71045; 74018; 80048; 80053; 80076; 82533; 82947; 83735; 83880; 84100; 84132; 84145; 84300; 84439; 84443; 84484; 85025; 85610; 93005; 93970; 93971; 94760; 96365; 96375; 97116; 97161; 99285; J1815; J1940; J2270; J2405; J3475; J3480; J7030; J7060; J7613; P9047

== ENCOUNTER 2025-08-27 18:44 | Emergency (ER) | payer OTHER ==
[2025-08-27] MEDS ORDERED: D50W 25 GM/50 ML SYRINGE IV ONE (18:45)
[2025-08-27] MEDS ORDERED: Calcium Chloride 10% INJ SYR IV ONE (18:45)
[2025-08-27] MEDS ORDERED: EPINEPHrine 1 MG/10 ML SYR IV ONE (18:45)
[2025-08-27] MEDS ORDERED: LIDOCAINE 1% 20 ML MDV ONE (19:48)
[2025-08-27] MEDS ORDERED: NA CHLORIDE 0.9% 1,000 ML ONE (19:48)
[2025-08-27 19:54] LABS: Absolute Lymphocytes (CBC) 4.4 K/uL (0.7-4.9); Hematocrit 44.0 % (36.0-45.0); Hemoglobin 14.0 g/dL (12.0-15.0); MCH 29.2 pg (27.0-35.0); MCHC 31.9 g/dL (32.0-36.0); MCV 91.6 fL (80-100); MPV 8.3 fL (7.6-11.3); Nucleated RBC Absolute Count 0.0 (0-0); Nucleated Red Blood Cells % 0.1 % (0-0); RBC Red Blood Cell Count 4.80 M/uL (3.86-4.86); White Blood Count 14.30 thou/uL (4.3-10.9)
[2025-08-27] MEDS ORDERED: ONDANSETRON 4 MG/2 ML VIAL ONE (19:59)
[2025-08-27 20:00] LABS: PT Prothrombin Time 31.0 SECONDS (10-13.0); Protime INR 2.83
[2025-08-27] MEDS ORDERED: CEFTRIAXONE 2000 MG/VIAL ONE (20:00)
[2025-08-27] MEDS ORDERED: NA CHLORIDE 0.9% 100 ML ONE (20:00)
[2025-08-27] MEDS ORDERED: MECLIZINE HCL 12.5 MG TAB ONE (20:00)
--- NOTE | 2025-08-27 20:04 | RAD REPORT ---
EXAMINATION: CT HEAD WITHOUT CONTRAST CT CERVICAL SPINE WITHOUT CONTRAST CLINICAL INDICATION: Head and neck injury status post fall. Head and neck pain TECHNIQUE: Axial CT images from the skull base to the vertex without intravenous contrast. Axial CT i mages through the cervical spine were obtained without intravenous contrast. Sagittal and coronal reformatted images were created from the data set. Coronal and sagittal reformatted images were creat ed from the data set. One or more of the following dose reduction techniques were used: Automated exposure control, adjustment of the mA and/or kV according to patient size, and/or iterative reconstr uction. Unless otherwise specified, incidental findings do not require dedicated imaging follow-up. [id number]. Comparison: 2022 FINDINGS: Small amount of pneumocephalus present within the cavernous sinuses. Air bubbles are also present wit hin the tissues of the face. A fracture not clearly visualized. An intracranial bleed is not seen. Ventricles are normal in caliber. No significant hypodensity within the brain No extra-axial fluid collection. No fluid within the sinuses/mastoids No fracture or dislocation is seen involving the cervical spine. Mild chronic anterior subluxation C3 on C4, C4 on C5 and C5 on C6. Mild chronic posterior subluxation C6 on C7 areas of sclerosis within the T1 vertebral body unchanged. Chronic scoliosis of the cervical spine. IMPRESSION: Small amount of pneumocephalus within the cavernous sinus. Additional small amount of subcutaneous em physema within the face. This could be secondary to IV injection. A nonvisualized fracture is another consideration. A cervical fracture is not seen. 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
[2025-08-27 20:10] LABS: Urine Microscopic Reflex YN NO UMIC
[2025-08-27 20:20] LABS: Comment ND; Influenza A Ag Negative; Influenza B Ag Negative; SARS-CoV-2 Antigen Rapid Res Negative (Negative)
[2025-08-27] MEDS ORDERED: AMIODARONE HCL 150 MG/3 ML INJ IV ONE (20:25)
[2025-08-27] MEDS ORDERED: AMIODARONE IN DEXTROSE,ISO-OSM 360 MG/200 ML BAG IV ONE (20:25)
[2025-08-27] MEDS ORDERED: NA CHLORIDE 0.9% 50 ML ONE (20:26)
[2025-08-27] MEDS ORDERED: ETOMIDATE 20 MG/10 ML VIAL IV ONE ×2 (20:29→20:38)
[2025-08-27] MEDS ORDERED: ROCURONIUM 50 MG/5 ML VIAL IV ONE (20:30)
--- NOTE | 2025-08-27 20:30 | RAD REPORT ---
Procedure: Chest Single View HISTORY: Cough COMPARISON: January 2028 FINDINGS: Bilateral pulmonary opacities on the prior exam have mostly resolved. Small right pleural effusion or pleural thickening. The heart is mildly to moderately enlarged.
[2025-08-27 20:31] LABS: ALT/SGPT 143.0 U/L (13-56); AST/SGOT 193.0 U/L (15-37); Albumin 3.4 g/dL (3.4-5.0); Albumin/Globulin Ratio 0.8 (1.1-1.8); Alkaline Phosphatase 144.0 U/L (45-117); Anion Gap 16.6 mEq/L (5.0-15.0); BUN Blood Urea Nitrogen 26.0 mg/dL (7-18); Bilirubin Indirect, Calculated 0.6 mg/dL (0.2-0.8); Globulin 4.1 g/dL (2.3-3.5); Glucose Level 105.0 mg/dL (74-106); Magnesium 2.9 mg/dL (1.6-2.4); NT PRO-BNP 27432.0 pg/mL (<450); Potassium 5.6 mEq/L (3.5-5.1); Troponin High Sensitivity 31.2 pg/mL (<58.9)
[2025-08-27] MEDS ORDERED: NOREPINEPHRINE BITARTRATE/D5W 4 MG/250 ML BAG IV ONE (20:48)
[2025-08-27] MEDS ORDERED: MIDAZOLAM HCL IN 0.9 % NACL/PF 100 MG/100 ML BAG IVPB ONE (20:52)
--- NOTE | 2025-08-27 21:08 | EDPHYS ---
Physician Documentation [facility] Name: Danielle Grover Age: 79 yrs Sex: Female : 1945 Arrival Date: 08/27/2025 Time: 18:44 Bed 4 Private MD: ED Physician Vinnie Nelson HPI: 08/27 19:06 This 79 yrs old Female presents to ER via EMS with complaints of head injury .sp4 21:07 79-year-old female presents with syncope and collapse at home.. sp4 21:39 Family reports patient has been feeling unwell for the past 2 days. Patient fell out of sp4 a chair today causing injury to the right ear helix and laceration to the right ear helix. Also reportedly patient was out for several seconds . Historical: - Allergies: 19:00 Codeine; cm10 - PMHx: 19:00 CHF; GERD; Hypercholesterolemia; Hypothyroidism; Mycobacterium Avium Complex (MAC) cm10 Infection; Rheumatoid Arthritis; - PSHx: 19:00 hysterectomy; cm10 - Immunization history:: Adult Immunizations up to date. - Infectious Disease History:: Denies. - Social history:: Smoking status: Patient denies any tobacco usage or history of. - Family history:: not pertinent. ROS: 21:45 Constitutional: Negative for fever, chills, and weight loss, positive for generalized sp4 weakness, positive for syncopal episode, positive for head injury, positive for right ear helix laceration. 21:52 All other systems are negative, sp4 Exam: 21:52 Constitutional: Patient is frail elderly female, pale in appearance, generalized sp4 weakness, no focal deficits. Nontoxic-appearing stable vital signs Head/Face: Normocephalic, right ear laceration of the helix with exposed cartilage. 3 cm helix laceration with cartilage exposure otherwise unremarkable Eyes: Pupils equal round and reactive to light, extra-ocular motions intact. Lids and lashes normal. Conjunctiva and sclera are not injected. Cornea within normal limits. Periorbital areas with no swelling, redness, or edema. ENT: Nares patent. No nasal discharge, no septal abnormalities noted. Tympanic membranes are normal and external auditory canals are clear. Oropharynx with no redness, swelling, or masses, exudates, or evidence of obstruction, uvula midline. Mucous membranes moist. Neck: Trachea midline, no thyromegaly or masses palpated, and no cervical lymphadenopathy. Supple, full range of motion without nuchal rigidity, or vertebral point tenderness. Chest/axilla: Normal chest wall appearance and motion. Nontender with no deformity. No lesions are appreciated. Cardiovascular: Regular rate and rhythm with a normal S1 and S2. No gallops, murmurs, or rubs. No pulse deficits. Respiratory: Lungs have equal breath sounds bilaterally, clear to auscultation and percussion. No rales, rhonchi or wheezes noted. No increased work of breathing, no retractions or nasal flaring. Abdomen/GI: Soft, with normal bowel sounds. No distension or tympany. No guarding or rebound. No evidence of tenderness throughout. Back: No spinal tenderness. No costovertebral tenderness. Skin: Warm, dry with normal turgor. Normal color with no rashes, no lesions, and no evidence of cellulitis. MS/ Extremity: Pulses equal, no cyanosis. Neurovascular intact. Full, normal range of motion. Neuro: Awake and alert, GCS 15, oriented to person, place, time, and situation. Cranial nerves II-XII grossly intact. Motor strength 5/5 in all extremities. Sensory grossly intact. Psych: Awake, alert, with orientation to person, place and time. Behavior, mood, and affect are within normal limits patient is hard of hearing has hearing aid in the right ear but is fully cooperative. 21:52 ECG was reviewed by the Attending Physician. Atrial fibrillation rate 101, no ST elevation or depression, EKG time 1923 Vital Signs: 18:58 BP 99 / 62; Pulse 67; Resp 18; Temp 97.3(A); Pulse Ox 100% on R/A; Weight 40.37 kg; cm10 Height 4 ft. 11 in. ; Pain 8/10; 19:19 BP 96 / 72; Pulse 107; Resp 26; Pulse Ox 100% ; kd3 19:56 BP 88 / 69; Pulse 122; Resp 24; Pulse Ox 100% on 3 lpm NC; kd3 20:04 BP 102 / 71; Pulse 93; Resp 24; Pulse Ox 100% on 3 lpm NC; kd3 20:17 BP 116 / 83; Pulse 42; Resp 30; Pulse Ox 92% on 3 lpm NC; kd3 20:25 BP 85 / 38; Pulse 32; Resp 26; Pulse Ox 91% on 15 lpm Non-rebreather mask; kd3 20:50 BP 112 / 34; Pulse 76; Resp 14; Pulse Ox 100% on ETT vent; FiO2 100 %; kd3 21:33 BP 102 / 71; Pulse 76; Resp 14; Temp 95.6(Ca); Pulse Ox 100% on ETT vent; FiO2 100 %; kd3 18:58 Body Mass Index 17.98 (40.37 kg, 149.86 cm) cm10 18:58 Pain Scale: Adult cm10 NIH Stroke Scale Scores: 19:24 NIHSS Score: 0 sp4 Elbert Coma Score: 19:24 Eye Response: spontaneous(4). Motor Response: obeys commands(6). Verbal Response: sp4 oriented(5). Total: 15. 19:24 Eye Response: spontaneous(4). Motor Response: obeys commands(6). Verbal Response: sp4 oriented(5). Total: 15. Procedures: 19:24 Performed Nasogastric tube and Yang catheter placed by the nursing staff. sp4 21:03 Intubation: Ventilated with 100% NRB prior to procedure. Intubated GlideScope assisted sp4 intubation using with 7.0 mm ETT. was successful on first attempt. Ventilated with Ambu bag. ventilator. Tube secured with ETT castillo at center of mouth measured 22 cm at lip. Placement verified by CXR, CO2 detector with (+) color change, auscultating bilateral breath sounds, O2 saturation after procedure was 98 %. Patient tolerated well. Central Line: the site was prepped with Betadine, in sterile fashion, a triple lumen catheter was inserted, in the right femoral vein, in 1 attempts. placement was verified, by blood return, the site was dressed with 4X4s, Tegaderm, using sterile technique, the patient tolerated the procedure, well. 21:40 CPR: See CPR flow sheet. Initial patient assessment: agonal respirations, pale, sp4 intubated, After intubation patient has lost her pulses and 1 cycle of CPR was administered for exactly 2 minutes. Patient was given IV epinephrine, 2 doses of IV bicarbonate, 2 doses of calcium chloride, and 1 vial of D50. The presenting cardiac rhythm is bradycardia. placed on ventilator, Compressions: began at 20:40. Meds given: Epinephrine Amiodarone, Pacing: the patient was paced with an external pacer, rate set at 60 beats/min., regained rhythm, Total of 2 minutes of CPR was administered. Laceration: 19:24 Wound Repair of 3cm ( 1.2in ) subcutaneous laceration to pinna of right ear- right ear sp4 helix laceration with cartilage exposure. Irregularly shaped.. Minimal bleeding noted.. Distal neuro/vascular/tendon intact. Anesthesia: Wound infiltrated with 5 mls of 1% lidocaine. Wound prep: Moderate cleansing by me, Copious irrigation. Skin closed with 8 6-0 Prolene using interrupted sutures and sterile technique. Dressed with Left to air . Patient tolerated well. MDM: 19:07 Medical Screening Exam initiated sp4 19:24 Differential diagnosis: Contusion of Hematoma on Laceration of Intracranial bleed- sp4 Concussion cerebral contusion. Data reviewed: vital signs, nurses notes, EMS record, lab test result(s), EKG, radiologic studies, CT scan. ED course: FINDINGS: Small amount of pneumocephalus present within the cavernous sinuses. Air bubbles are also present within the tissues of the face. A fracture not clearly visualized. An intracranial bleed is not seen. Ventricles are normal in caliber. No significant hypodensity within the brain No extra-axial fluid collection. No fluid within the sinuses/mastoids No fracture or dislocation is seen involving the cervical spine. Mild chronic anterior subluxation C3 on C4, C4 on C5 and C5 on C6. Mild chronic posterior subluxation C6 on C7 areas of sclerosis within the T1 vertebral body unchanged. Chronic scoliosis of the cervical spine. IMPRESSION: Small amount of pneumocephalus within the cavernous sinus. Additional small amount of subcutaneous emphysema within the face. This could be secondary to IV injection. A non visualized fracture is another consideration. A cervical fracture is not seen. 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 ED course: Procedure: Chest Single View HISTORY: Cough COMPARISON: January 2028 FINDINGS: Bilateral pulmonary opacities on the prior exam have mostly resolved. Small right pleural effusion or pleural thickening. The heart is mildly to moderately enlarged.. ED course: Procedure: Chest Single View HISTORY: Intubation FINDINGS: Endotracheal tube has its tip 1.2 cm above the top of the aortic arch. Nasogastric tube with its tip near the junction of the gastric fundus and body.. 08/27 19:06 Order name: Basic Metabolic Panel; Complete Time: 20:57 [facility] 08/27 19:06 Order name: CBC with Diff; Complete Time: 20:57 [facility] 08/27 19:06 Order name: LFT's; Complete Time: 20:57 [facility] 08/27 19:06 Order name: Magnesium; Complete Time: 20:57 [facility] 08/27 19:06 Order name: NT PRO-BNP; Complete Time: 20:57 [facility] 08/27 19:06 Order name: PT-INR; Complete Time: 20:57 [facility] 08/27 19:06 Order name: Troponin HS; Complete Time: 20:57 [facility] 08/27 19:07 Order name: COVID-19 Ag + Flu A+B Ag; Complete Time: 20:57 [facility] 08/27 19:21 Order name: UA Rfx Santhosh Cult if indicated; Complete Time: 20:57 [facility] 08/27 19:22 Order name: Lactate w/ 2H reflex if indic.; Complete Time: 20:57 [facility] 08/27 20:36 Order name: Ghost Lactate-NO COLLECT Timer [facility] 08/27 20:58 Order name: ABG; Complete Time: 21:30 [facility] 08/27 19:04 Order name: Head C Spine Mpr Wo Con; Complete Time: 20:57 [facility] 08/27 19:06 Order name: XRAY Chest (1 view); Complete Time: 20:57 [facility] 08/27 20:51 Order name: Chest Single View [facility] 08/27 20:58 Order name: Abdomen 1 View (KUB) XRAY [facility] 08/27 19:06 Order name: EKG; Complete Time: 19:07 [facility] 08/27 19:06 Order name: Cardiac monitoring; Complete Time: 20:03 [facility] 08/27 19:06 Order name: EKG - Nurse/Tech; Complete Time: 20:03 [facility] 08/27 19:06 Order name: IV Saline Lock; Complete Time: 20:03 [facility] 08/27 19:06 Order name: Labs collected and sent; Complete Time: 20:03 [facility] 08/27 19:06 Order name: O2 Per Protocol; Complete Time: 20:03 08/27 19:06 Order name: O2 Sat Monitoring; Complete Time: 20:03 08/27 19:24 Order name: Dressing - Wound; Complete Time: 20:08/27 19:24 Order name: Gloves, Sterile; Complete Time: 20:02 08/27 19:24 Order name: Setup Suture Tray; Complete Time: 20:02 08/27 20:27 Order name: Intubation Setup; Complete Time: 21:36 08/27 20:57 Order name: Central Line Dressing Kit; Complete Time: 21:34 08/27 20:57 Order name: Central Line Kit; Complete Time: 21:34 08/27 20:57 Order name: Chlorhexidine prep; Complete Time: 21:34 08/27 20:57 Order name: Consent for central line completed; Complete Time: 21:34 08/27 20:57 Order name: Line Caps x3; Complete Time: 21:34 08/27 20:57 Order name: NS Flushes x3; Complete Time: 21:08/27 20:57 Order name: Sterile Gloves; Complete Time: 21:34 08/27 20:57 Order name: Sterile Probe Cover; Complete Time: 21:08/27 20:58 Order name: Nasogastric Tube; Complete Time: :08/27 20:58 Order name: Yang; Complete Time: 21:08/27 21:31 Order name: Accucheck Blood Glucose sp4 EC:24 Rate is 101 beats/min. Rhythm is irregularly irregular, A fib. QRS [place] is Normal. QRS sp4 interval is normal. QT interval is normal. No Q waves. T waves are Normal. No ST changes noted. Clinical impression: No evidence of ischemia. Interpreted by me. Reviewed by me. Administered Medications: 20:02 Drug: NS 0.9% IV 1000 ml IV at 100 ml/hr Per protocol; to be given at 100 ml/hour kd3 Route: IV; Rate: 100 ml/hr; Site: left antecubital; 20:07 Drug: Rocephin - Rocephin (cefTRIAXone) IVPB 2 grams IVPB once over 30 mins; (mix in kd3 100 mL NS) Route: IVPB; Infused Over: 30 mins; Site: left antecubital; 21:36 Follow up: IV Status: Completed infusion kd3 20:07 Drug: Ondansetron IVP 8 mg IVP once; over 2 minutes Route: IVP; Site: left antecubital; kd3 20:10 Drug: Lidocaine Infiltration (1 %) 20 ml 20 ml Infiltration once; to bedside {Note: bm8 administered by provider.} Volume: 20 ml; Route: Infiltration; Site: wound; 20:27 Not Given (Physician Discretion): [id number] mg PO once ha1 20:30 Drug: amiodarone IVPB 150 mg 100 ml IVPB once over 10 mins; (mix in D5W) Volume: 100 kd3 ml; Route: IVPB; Infused Over: 10 mins; Site: right forearm; 20:36 Drug: Etomidate IVP 20 mg IVP once Route: IVP; Site: left antecubital; kd3 20:36 Drug: Rocuronium IVP 100 mg IVP once Route: IVP; Site: left antecubital; kd3 20:39 Drug: Etomidate IVP 20 mg IVP once Route: IVP; Site: left antecubital; kd3 20:44 Drug: Sodium Bicarbonate IVP 1 amp IVP once; (50 mL); equals 50 mEq Route: IVP; Site: kd3 left forearm; 20:45 Drug: amiodarone IVPB 900 mg, D5W IV 500 ml IVPB at 1 mg/min continuous; for 6 hrs, kd3 then change to 0.5 mg/min Route: IVPB; Rate: 1 mg/min; Site: right femoral; 20:45 Drug: D50W IVP 50 ml IVP once; (1 amp) Route: IVP; Site: right forearm; kd3 20:46 Drug: Calcium Chloride IVP 1 grams IVP once Route: IVP; Site: right forearm; kd3 20:46 Drug: Sodium Bicarbonate IVP 1 amp IVP once; (50 mL); equals 50 mEq Route: IVP; Site: kd3 right forearm; 20:47 Drug: Calcium Chloride IVP 1 grams IVP once Route: IVP; Site: right forearm; kd3 20:49 Drug: Sodium Bicarbonate IVP 1 amp IVP once; (50 mL); equals 50 mEq Route: IVP; Site: kd3 right forearm; 20:51 Drug: Norepinephrine IV 0.1 mcg/kg/min IV at calculated rate See Administration kd3 Instructions; (Standard concentration 4 mg / 250 mL D5W); Recommended max rate 3 mcg/kg/min; Titrate 0.05 mcg/kg/min as often as every 5 minutes to achieve goal (see titration policy); Goal parameter MAP greater than 65 mmHg. Route: IV; Rate: calculated rate; Site: right femoral; 20:56 Drug: Midazolam IVP or IV 0.01 mg/kg/h IV at calculated rate See Administration kd3 Instructions; (Standard concentration: 100 mg / 100 mL NS); Recommended max rate 0.1 mg/kg/hr; Titrate 0.01 mg/kg/hr as often as every 30 minutes to achieve goal (see titration policy); Goal parameter RASS 0 to -2 Route: IV; Rate: calculated rate; Site: right femoral; Disposition: 19:24 Chart complete. sp4 Disposition Summary: 08/27/25 21:07 Transfer Ordered Notes: Transfer Location: [facility]-System sp4 Reason: Higher level of care sp4 Condition: Stable sp4 Problem: new sp4 Symptoms: have improved sp4 Accepting Physician: Carpenter'S Helper Jaylen [facility](08/27/25 22:02) kd3 Diagnosis - Acute respiratory failure with hypoxia sp4 - Symptomatic bradycardia, atrial fibrillation,, cardiac arrest with respiratory sp4 failure, systolic congestive heart failure, acute renal insufficiency, shock liver - Acute head injury with pneumocephalus sp4 Forms: - Medication Reconciliation Form sp4 - SBAR form sp4 Critical care time excluding procedures: 21:05 Critical care time: Bedside Care: 46 minutes, Consultation: 12 minutes, Family sp4 Intervention: 12 minutes. Total time: 70 minutes NIH Stroke Scale - NIH Stroke Score Date: 08/27/2025 Time: 19:24 Total Score = 0 10. Dysarthria (speech clarity - read or repeat words) - 0(Normal) 11. Extinction and Inattention (visual/tactile/auditory/spatial/personal) - 0(No abnormality) 1a. Level of Consciousness (LOC) - 0(Alert) 1b. Level of Consciousness (LOC) (Month \T\ Age) - 0(Both) 1c. LOC Commands (Open \T\ Closes Eyes/Car Wrecker) - 0(Both) 2. Best Gaze (Lateral Gaze Paresis) - 0(Normal) 3. Visual Field Loss - 0(No visual loss) 4. Facial Palsy - 0(Normal) 5a. Left Arm: Motor (10-second hold) - 0(No drift) 5b. Right Arm: Motor (10-second hold) - 0(No drift) 6a. Left Leg: Motor (5-second hold - always test supine) - 0(No drift) 6b. Right Leg: Motor (5-second hold - always test supine) - 0(No drift) 7. Limb Ataxia (finger/nose \T\ heel/wray - test with eyes open) - 0(Absent) 8. Sensory Loss (pinprick arms/legs/face) - 0(Normal) 9. Best Language: Aphasia (description/naming/reading) - 0(No aphasia) Initials: sp4 Addendum: 09/05/2025 21:06 Addendum: Patient had to be intubated for airway protection.. After patient was sp4 stabilized we have offered transfer to [facility] however patient's family requested transfer to [facility] for continuity of care. Patient's family reports that all patient's records are at [facility]. Patient was transferred to [facility] based on the family request.. Signatures: Dispatcher [employer] Juliette Mims, RN RN kd3 Vinnie Nelson MD MD sp4 Cheri Christianson RN RN cm10 Fermín Ovalle RN RN bm8 Noris Conteh RN ha1 Corrections: (The following items were deleted from the chart) 08/27 19:02 18:59 Head Brain Wo Cont+CT.RAD.BRZ ordered. EDMS EDMS 19:07 19:07 COVID-19 Ag + Flu A+B Ag+I.LAB.BRZ ordered. EDMS EDMS 19:22 19:22 UA Rfx Santhosh Cult if indicated+U.LAB.BRZ ordered. EDMS EDMS 19:23 19:23 BLOOD CULTURE*+BA.LAB.BRZ ordered. EDMS EDMS 19:23 19:23 LACTATE+C.LAB.BRZ ordered. EDMS EDMS 20:58 20:58 Arterial Blood Gas+RC.LAB.BRZ ordered. EDMS EDMS 22:02 21:07 Carpenter'S Helper Burt [facility] sp4 kd3
--- NOTE | 2025-08-27 21:08 | ER ---
Nurse's Notes [facility] Name: Danielle Grover Age: 79 yrs Sex: Female : 1945 Arrival Date: 08/27/2025 Time: 18:44 Bed 4 Private MD: Diagnosis: Acute respiratory failure with hypoxia;Symptomatic bradycardia, atrial fibrillation,, cardiac arrest with respiratory failure, systolic congestive heart failure, acute renal insufficiency, shock liver;Acute head injury with pneumocephalus Presentation: 08/27 18:58 Chief complaint: EMS states: TONED OUT TO PATIENT'S HOME FOR FALL. PT WAS SITTING IN cm10 RECLINER AND FELL. POSITIVE LOC. PT HAS LAC, BLEEDING CONTROLLED TO RIGHT EAR. PT ON ELIQUIS. PT COMPLAINING OF NAUSEA. Coronavirus screen: Client denies travel out of the [place] in the last 14 days. Ebola Screen: Patient denies travel to an Ebola-affected area in the 21 days before illness onset. Initial Sepsis Screen: Does the patient meet any 2 criteria? No. Patient's initial sepsis screen is negative. Does the patient have a suspected source of infection? No. Patient's initial sepsis screen is negative. Risk Assessment: Do you want to hurt yourself or someone else? Patient reports no desire to harm self or others. Onset of symptoms was August 27, 2025. Care prior to arrival: Medication(s) given: zofran 4 mg, TYLENOL IV 1000MG IV initiated. 20 GA, in the left antecubital area. 18:58 Method Of Arrival: EMS: [place] [id number] 18:58 Acuity: BALJIT 2 cm10 Triage Assessment: 19:01 General: Appears in no apparent distress. uncomfortable, Behavior is cooperative. Pain: cm10 Complains of pain in right ear Pain currently is 8 out of 10 on a pain scale. Neuro: No deficits noted. Level of Consciousness is awake, alert, Oriented to person, place, time, situation. Respiratory: No deficits noted. Airway is patent Respiratory effort is even, unlabored, Respiratory pattern is regular, symmetrical. Historical: - Allergies: 19:00 Codeine; cm10 - PMHx: 19:00 CHF; GERD; Hypercholesterolemia; Hypothyroidism; Mycobacterium Avium Complex (MAC) cm10 Infection; Rheumatoid Arthritis; - PSHx: 19:00 hysterectomy; cm10 - Immunization history:: Adult Immunizations up to date. - Infectious Disease History:: Denies. - Social history:: Smoking status: Patient denies any tobacco usage or history of. - Family history:: not pertinent. Screenin:55 [facility] ED Fall Risk Assessment (Adult) History of falling in the last 3 months, kd3 including since admission Yes- single mechanical fall (1 pt) Confusion or Disorientation No (0 pts) Intoxicated or Sedated No (0 pts) Impaired Gait No (0 pts) Mobility Assist Device Used Yes (1 pt) Altered Elimination No (0 pt) Score/Fall Risk Level 3 or more points = High Risk Oriented to surroundings, Maintained a safe environment. Abuse screen: Denies threats or abuse. Denies injuries from another. Nutritional screening: No deficits noted. Tuberculosis screening: No symptoms or risk factors identified. Assessment: 19:15 General: Pt TRANSPORTED TO CT VIA STRETCHER BY THIS RN . kd3 20:03 General: Appears uncomfortable, ill, Behavior is cooperative, anxious. Neuro: Level of kd3 Consciousness is awake, alert, obeys commands, Oriented to person, place, time, situation. Cardiovascular: Capillary refill < 3 seconds Patient's skin is warm and dry. Respiratory: Airway is patent Trachea midline Respiratory effort is even, weak, Respiratory pattern is regular, tachypnea. 20:30 General: PT HAS HAD MULTIPLE EPISODES OF SYMPTOMATIC BRADYCARDIA. PT PLACED PACING kd3 PADS. PROVIDER AT THE BEDSIDE. . 20:35 General: PREPARED TO INTUBATE. PROVIDER AT BEDSIDE. . kd3 20:40 General: PT INTUBATED WITH 7.0 ET TUBE 22 AT THE LIP. kd3 20:43 General: PT HAS NO PULSE, ASYSTOLE ON THE MONITOR, CPR STARTED. kd3 20:45 General: PULSE CHECK, PT HAS A PULSE. PACED RHYTHM AT 60. kd3 20:48 General: CENTRAL LINE ACCESS OBTAINED BY PROVIDER TO THE RIGHT GROIN . kd3 20:50 General: PT IS NORMAL SINUS RHYTHM AT 73 WITH A PULSE . kd3 21:52 General: REPORT GIVEN TO [facility]. TRANSFER OF CARE. . kd3 Vital Signs: 18:58 BP 99 / 62; Pulse 67; Resp 18; Temp 97.3(A); Pulse Ox 100% on R/A; Weight 40.37 kg; cm10 Height 4 ft. 11 in. ; Pain 8/10; 19:19 BP 96 / 72; Pulse 107; Resp 26; Pulse Ox 100% ; kd3 19:56 BP 88 / 69; Pulse 122; Resp 24; Pulse Ox 100% on 3 lpm NC; kd3 20:04 BP 102 / 71; Pulse 93; Resp 24; Pulse Ox 100% on 3 lpm NC; kd3 20:17 BP 116 / 83; Pulse 42; Resp 30; Pulse Ox 92% on 3 lpm NC; kd3 20:25 BP 85 / 38; Pulse 32; Resp 26; Pulse Ox 91% on 15 lpm Non-rebreather mask; kd3 20:50 BP 112 / 34; Pulse 76; Resp 14; Pulse Ox 100% on ETT vent; FiO2 100 %; kd3 21:33 BP 102 / 71; Pulse 76; Resp 14; Temp 95.6(Ca); Pulse Ox 100% on ETT vent; FiO2 100 %; kd3 18:58 Body Mass Index 17.98 (40.37 kg, 149.86 cm) cm10 18:58 Pain Scale: Adult cm10 Elbert Coma Score: 19:24 Eye Response: spontaneous(4). Motor Response: obeys commands(6). Verbal Response: sp4 oriented(5). Total: 15. 19:24 Eye Response: spontaneous(4). Motor Response: obeys commands(6). Verbal Response: sp4 oriented(5). Total: 15. NIH Stroke Scale Scores: 19:24 NIHSS Score: 0 sp4 ED Course: 18:51 Patient arrived in ED. ll1 19:00 Triage completed. cm10 19:00 Arm band placed on right wrist. Patient placed in an exam room, on a stretcher. cm10 19:05 Vinnie Nelson MD is Attending Physician. sp4 19:15 Head C Spine Mpr Wo Con In Process Unspecified. EDMS 19:20 Radha Oseguera, NICHOLAS is Primary Nurse. cc6 19:20 Primary Nurse role handed off by Radha Oseguera, NICHOLAS kd3 19:20 Juliette Veliz, NICHOLAS is Primary Nurse. kd3 20:02 Assist provider with laceration repair on right ear. Inserted saline lock: 22 gauge in kd3 right forearm, using aseptic technique. Blood collected. Flushed with 10 mL NS Maintain EMS IV. Dressing intact. Good blood return noted. Site clean \T\ dry. Gauge \T\ site: 20 G LEFT a/c . Flushed with 10 mL NS. 20:02 Lactate w/ 2H reflex if indic. Sent. kd3 20:03 Blood Culture Adult (2) Sent. kd3 20:03 COVID-19 Ag + Flu A+B Ag Sent. kd3 20:03 Basic Metabolic Panel Sent. kd3 20:03 LFT's Sent. kd3 20:03 Magnesium Sent. kd3 20:03 NT PRO-BNP Sent. kd3 20:03 Troponin HS Sent. kd3 20:08 XRAY Chest (1 view) In Process Unspecified. EDMS 21:07 3-way catheter inserted, using sterile technique, 16 Fr. oe 21:13 Initiated transfer with Kailey at [facility] \T\[id number], doc to doc with plaster lather at [facility] rv1 [place] \T\[id number], Pt accepted to [facility] 8B Rm 828 \T\[id number]. 21:53 Chest Single View In Process Unspecified. EDMS 21:53 Abdomen 1 View (KUB) XRAY In Process Unspecified. EDMS 21:57 Patient has correct armband on for positive identification. Provided Education on: kd3 INTUBATION . 21:57 Patient transferred, IV remains in place. kd3 Administered Medications: 20:02 Drug: NS 0.9% IV 1000 ml IV at 100 ml/hr Per protocol; to be given at 100 ml/hour kd3 Route: IV; Rate: 100 ml/hr; Site: left antecubital; 20:07 Drug: Rocephin - Rocephin (cefTRIAXone) IVPB 2 grams IVPB once over 30 mins; (mix in kd3 100 mL NS) Route: IVPB; Infused Over: 30 mins; Site: left antecubital; 21:36 Follow up: IV Status: Completed infusion kd3 20:07 Drug: Ondansetron IVP 8 mg IVP once; over 2 minutes Route: IVP; Site: left antecubital; kd3 20:10 Drug: Lidocaine Infiltration (1 %) 20 ml 20 ml Infiltration once; to bedside {Note: bm8 administered by provider.} Volume: 20 ml; Route: Infiltration; Site: wound; 20:27 Not Given (Physician Discretion): [id number] mg PO once ha1 20:30 Drug: amiodarone IVPB 150 mg 100 ml IVPB once over 10 mins; (mix in D5W) Volume: 100 kd3 ml; Route: IVPB; Infused Over: 10 mins; Site: right forearm; 20:36 Drug: Etomidate IVP 20 mg IVP once Route: IVP; Site: left antecubital; kd3 20:36 Drug: Rocuronium IVP 100 mg IVP once Route: IVP; Site: left antecubital; kd3 20:39 Drug: Etomidate IVP 20 mg IVP once Route: IVP; Site: left antecubital; kd3 20:44 Drug: Sodium Bicarbonate IVP 1 amp IVP once; (50 mL); equals 50 mEq Route: IVP; Site: kd3 left forearm; 20:45 Drug: amiodarone IVPB 900 mg, D5W IV 500 ml IVPB at 1 mg/min continuous; for 6 hrs, kd3 then change to 0.5 mg/min Route: IVPB; Rate: 1 mg/min; Site: right femoral; 20:45 Drug: D50W IVP 50 ml IVP once; (1 amp) Route: IVP; Site: right forearm; kd3 20:46 Drug: Calcium Chloride IVP 1 grams IVP once Route: IVP; Site: right forearm; kd3 20:46 Drug: Sodium Bicarbonate IVP 1 amp IVP once; (50 mL); equals 50 mEq Route: IVP; Site: kd3 right forearm; 20:47 Drug: Calcium Chloride IVP 1 grams IVP once Route: IVP; Site: right forearm; kd3 20:49 Drug: Sodium Bicarbonate IVP 1 amp IVP once; (50 mL); equals 50 mEq Route: IVP; Site: kd3 right forearm; 20:51 Drug: Norepinephrine IV 0.1 mcg/kg/min IV at calculated rate See Administration kd3 Instructions; (Standard concentration 4 mg / 250 mL D5W); Recommended max rate 3 mcg/kg/min; Titrate 0.05 mcg/kg/min as often as every 5 minutes to achieve goal (see titration policy); Goal parameter MAP greater than 65 mmHg. Route: IV; Rate: calculated rate; Site: right femoral; 20:56 Drug: Midazolam IVP or IV 0.01 mg/kg/h IV at calculated rate See Administration kd3 Instructions; (Standard concentration: 100 mg / 100 mL NS); Recommended max rate 0.1 mg/kg/hr; Titrate 0.01 mg/kg/hr as often as every 30 minutes to achieve goal (see titration policy); Goal parameter RASS 0 to -2 Route: IV; Rate: calculated rate; Site: right femoral; Medication: 21:57 VIS not applicable for this client. kd3 Outcome: 21:07 ER care complete, transfer ordered by sp4 21:56 Transferred by helicopter to [facility], kd3 21:56 Condition: stable 21:56 Discharge instructions given to patient, family, Instructed on the need for transfer, 22:02 Patient left the ED. kd3 NIH Stroke Scale - NIH Stroke Score Date: 08/27/2025 Time: 19:24 Total Score = 0 10. Dysarthria (speech clarity - read or repeat words) - 0(Normal) 11. Extinction and Inattention (visual/tactile/auditory/spatial/personal) - 0(No abnormality) 1a. Level of Consciousness (LOC) - 0(Alert) 1b. Level of Consciousness (LOC) (Month \T\ Age) - 0(Both) 1c. LOC Commands (Open \T\ Closes Eyes/Manager Winter) - 0(Both) 2. Best Gaze (Lateral Gaze Paresis) - 0(Normal) 3. Visual Field Loss - 0(No visual loss) 4. Facial Palsy - 0(Normal) 5a. Left Arm: Motor (10-second hold) - 0(No drift) 5b. Right Arm: Motor (10-second hold) - 0(No drift) 6a. Left Leg: Motor (5-second hold - always test supine) - 0(No drift) 6b. Right Leg: Motor (5-second hold - always test supine) - 0(No drift) 7. Limb Ataxia (finger/nose \T\ heel/wray - test with eyes open) - 0(Absent) 8. Sensory Loss (pinprick arms/legs/face) - 0(Normal) 9. Best Language: Aphasia (description/naming/reading) - 0(No aphasia) Initials: sp4 Signatures: Dispatcher [employer] EDMS Kasi Castorena Lynsay, RN RN ll1 Juliette Veliz RN RN kd3 Marino, Bindu rv1 Vinnie Nelson MD MD sp4 Cheri Christianson, RN RN cm10 Fermín Ovalle RN RN bm8 Radha Oseguera, RN RN cc6 Noris Conteh RN ha1 Corrections: (The following items were deleted from the chart) 21:08 21:07 Bladder irrigated oe oe 21:37 21:37 Rocuronium IVP 100 mg IVP in left antecubital kd3 kd3 22:52 20:59 Initiated transfer with Kailey at [facility] rv1 rv1
[2025-08-27 21:26] LABS: Arterial Blood Carboxyhemoglob 1.9 % (0.0-1.5); Blood Gas Inspired Oxygen 100.0 %; Blood Gas Oxyhemoglobin 97.7 % (94.0-97.0); Blood O2 Saturation 100.0 % (92.0-98.5)
--- NOTE | 2025-08-27 21:58 | RAD REPORT ---
Procedure: Chest Single View HISTORY: Intubation FINDINGS: Endotracheal tube has its tip 1.2 cm above the top of the aortic arch. Nasogastric tube with its tip near the junction of the gastric fundus and body
[2025-08-27 23:00] VITALS: O2SAT 100
[2025-08-27 23:02] VITALS: BP 102/71; TEMP 95.6
== END 2025-08-27 22:02 | disposition short-term general hospital (02) ==
LOC: ER 18:44
DX: S06.89AA Other specified intracranial injury with loss of consciousness status unknown, initial encounter (principal); I46.9 Cardiac arrest, cause unspecified; J96.01 Acute respiratory failure with hypoxia; R55 Syncope and collapse; E03.9 Hypothyroidism, unspecified; E78.00 Pure hypercholesterolemia, unspecified; G93.89 Other specified disorders of brain; R00.1 Bradycardia, unspecified; I48.11 Longstanding persistent atrial fibrillation; I50.22 Chronic systolic (congestive) heart failure; N28.9 Disorder of kidney and ureter, unspecified; W07.XXXA Fall from chair, initial encounter; Y93.9 Activity, unspecified; Y92.019 Unspecified place in single-family (private) house as the place of occurrence of the external cause; Z11.52 Encounter for screening for COVID-19
CPT/HCPCS: 93005; 85025; 80048; 36415; 83735; 85610; 80076; 83605; 81003; 84484; 83880; 70450; 72125; 74018; 71045 ×2; 31500; 92950 ×2; 92953; 99285; 12013; 36556; 82805; 87428; 36600; 94002; J8597; J0282 ×2; J2250; J2003; J0171; J2405; J0696; J7030; J0169